=== PATIENT | male | born 1945 | race Caucasian/White ===

== ENCOUNTER 2020-07-12 12:35 | Inpatient (IN) ==
[2020-07-12] MEDS ORDERED: ALBUTEROL SULFATE 5 MG/ML NEB SOLUTION BOTTLE NEB ONE (12:52)
[2020-07-12 13:43] LABS: POC INR 2.7 (0.8-1.2); POC Pro Time 30.8 sec (11.9-14.5)
--- NOTE | 2020-07-12 13:52 | Emergency Department Note ---
SOB HPI General Chief Complaint: Shortness of Breath/Dyspnea Stated Complaint: shortness of breath Time Seen by Provider: 07/12/20 12:44 Source: EMS Mode of arrival: EMS Limitations: no limitations History of Present Illness HPI Narrative: Narrative: Damion is a pleasant 74-year-old who has had some increasing phlegm over a couple of weeks as well as worse in his shortness of breath which became even more severely worse this morning. He was seen at the emergency department last week at [facility]. He was seen by a primary care provider and placed on Levaquin approximately 3 days ago. He denies fevers chills or sweats. He occasionally feels cold. He has never been intubated although he has had chronic problems with his lungs throughout his life including even as a child. As a child he was multiple weeks and months in the emergency room or in the hospital with pneumonias, spot in each lower lung, and ended up with surgery first on one side and then on the other side (lower lobectomies). He reports that he used his nebulizer approximately 2 times or maybe 3 this morning and had a nebulizer by the EMS. His called EMS because of how short of breath he was. And because he is requiring additional oxygen to get his oximetry up. He initially went to 4 to 6 L/min via nasal cannula and he was right at 90. Previous to that at 2 L/min in the upper 80s. Next he went to 9 L/min to get it up above 94%. EMS gave him an additional nebulizer and were able to get. He has not had any chest discomforts or edema in his legs. He did have a nurse at his house this morning who checked his INR and was told that it was elevated and that he needed to hold his Coumadin today. He has never been a smoker although he spent a lot of time in a pool [place] and so had secondhand smoke. He denies alcohol marijuana or use of drugs. He reports that he has had CHF in the past and needed diuresis in the past. He often needs to get phlegm out to be able to be able to breathe better and easier. Related Data Home Medications Medication Instructions Recorded Confirmed latanoprost 0.005 % eye drops 1 drp OPHTHALMIC QPM ml 08/22/07/12/20 warfarin 7.5 mg tablet 7.5 mg PO QDAY tab 08/23/15 07/12/20 albuterol sulfate 2.5 mg INHALATION BID ml 05/20/17 07/12/20 digoxin 125 mcg (0.125 mg) tablet 125 mcg PO QDAY 05/20/17 07/12/20 montelukast 10 mg tablet 10 mg PO QHS 06/11/17 07/12/20 fluticasone 250 mcg-salmeterol 50 1 inh INHALATION BID 05/06/19 07/12/20 mcg/dose blistr powdr for inhalation furosemide 40 mg tablet 20 mg PO QDAY tab 05/06/19 07/12/20 irbesartan 75 mg tablet 37.5 mg PO QHS tab 05/13/19 07/12/20 propafenone 150 mg tablet 150 mg PO TID tab 03/08/20 07/12/20 Previous Rx's Medication Instructions Recorded ipratropium bromide 2.5 ml NEB Q4HRT ampul.neb 10/24/15 HyperSal 7 % INHALATION BID #240 ml 05/06/19 Noninvasive ventilator.supplies #1 ea 05/13/19 tubing mask Allergies Allergy/AdvReac Type Severity Reaction Status Date / Time Penicillins Allergy Intermediate Fever Verified 03/08/20 10:04 Review of Systems ROS ROS Narrative: Narrative: Denies chest pains or palpitations No nausea or vomiting or diarrhea or constipation problems No dysuria or frequency No joint problems No lightheadedness or dizziness nor headache. He does use eyedrops for glaucoma. [facility] Narrative Patient History Narrative: Narrative: Denies: FL, CVA, DVT/PE. Medical/Surgical/Family History All Active Problems (Updated 07/12/20 @ 17:10 by Gopi Tariq DO) Chronic obstructive pulmonary disease with (acute) exacerbation (Acute) Acute on chronic respiratory failure with hypoxia and hypercapnia (Acute) Anemia in chronic illness (Acute) Chronic anticoagulation (Acute) Glaucoma (Acute) Hypoxemia (Acute) Hypoxia (Chronic) Benign paroxysmal vertigo (Chronic) History of MRSA infection (Chronic) Respiratory failure, chronic (Chronic) Pneumonia, bacterial (Chronic) Paroxysmal atrial fibrillation (Chronic) Hypercholesterolemia (Chronic) Encounter for monitoring dofetilide therapy (Chronic) Elevated PSA (Chronic) CHF (NYHA class III, ACC/AHA stage C) (Chronic) 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) BPH (benign prostatic hyperplasia) (Chronic) Biventricular pacemaker check (Chronic) 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) Vitamin D deficiency (Chronic) Sinus node dysfunction (Chronic) Bradycardia, sinus (Chronic) Artificial pacemaker (Chronic) Hyperglycemia (Chronic) Pure hypercholesterolemia (Chronic) 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) Bronchiectasis (Chronic) Anemia (Chronic) Hyperlipidemia (Chronic) COPD (chronic obstructive pulmonary disease) (Chronic) Atrial fibrillation (Chronic) Medical History (Updated 07/12/20 @ 17:10 by Gopi Tariq DO) Acute upper respiratory infection (Resolved) Anemia (Chronic) Artificial pacemaker (Chronic) Atrial fibrillation (Chronic) Benign paroxysmal vertigo (Chronic) Biventricular pacemaker check (Chronic) BPH (benign prostatic hyperplasia) (Chronic) Bradycardia, sinus (Chronic) Bronchiectasis (Chronic) CHB (complete heart block) (Inactive) CHF (NYHA class III, ACC/AHA stage C) (Chronic) 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) COPD (chronic obstructive pulmonary disease) (Chronic) Elevated PSA (Chronic) Encounter for monitoring dofetilide therapy (Chronic) Encounter for screening for malignant neoplasm of prostate (Inactive) Glaucoma (Acute) History of MRSA infection (Chronic) Hypercholesterolemia (Chronic) Hyperglycemia (Chronic) Hyperlipidemia (Chronic) Hypoxemia (Acute) Hypoxia (Chronic) 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) Paroxysmal atrial fibrillation (Chronic) Pneumonia (Resolved) Pneumonia, bacterial (Chronic) 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) Pure hypercholesterolemia (Chronic) Respiratory failure with hypoxia and hypercapnia (Resolved) Respiratory failure, chronic (Chronic) Sinus node dysfunction (Chronic) SIRS (systemic inflammatory response syndrome) (Resolved) Vitamin D deficiency (Chronic) Surgical History (Updated 07/12/20 @ 13:56 by Gopi Tariq DO) H/O prostate biopsy (Resolved) History of left hip hemiarthroplasty (Acute) History of lobectomy of lung (Chronic) History of permanent cardiac pacemaker placement (Chronic) Status post partial removal of lung (Acute) Patient states he has had bilateral lower lung lobes removed Family History Diabetes mellitus Unknown Type 2 diabetes mellitus Unknown Myocardial Infarction Unknown Brother, Onset Age: 45 Father, Onset Age: 93 Mother, Onset Age: 96 Sister, Onset Age: 50 Glaucoma Unknown Hypertension Unknown Social History Smoking Status: Never smoker Alcohol Intake Frequency: does not drink Substance Use: does not use Exam Narrative Narrative: Narrative: General Limitations: no limitations General appearance: Present alert, in distress (Having significant difficulty feeling like he is getting enough air with using more effort to breathe, etc.) and nontoxic Head Head: Present atraumatic and normocephalic Eye Eye: Present normal appearance, PERRL (Only slightly reactive to light.) and EOMI ENT ENT: Present normal oropharynx, mucous membranes moist (But only slightly. Small amount of thick yellow opacified mucus present posteriorly and on side of his tongue.) and other (Most of the teeth are gone.) Neck Neck: Present trachea midline; Absent lymphadenopathy and thyromegaly Chest Chest: Present symmetric chest wall rise Respiratory Respiratory: Present wheezes (Polyphonic gann expiratory throughout all lung f ields with coarseness. This improved with albuterol heart neb 10 mg.), accessory muscle use (Mildly.) and prolonged expiratory phase (Mildly); Absent respiratory distress, rales/crackles and stridor Cardiovascular Cardiovascular: Present regular rate and normal rhythm; Absent systolic murmur and diastolic murmur Adbominal Abdominal: Present soft; Absent distention, tenderness, guarding, rebound, rigidity, organomegaly and mass Extremities Extremities: Absent pedal edema, pretibial edema, calf tenderness and cyanosis Back Back: Neurological Neurological: Present alert, oriented X3 and CN II-XII intact Psychiatric Psychiatric: Present normal affect, polite and pleasant; Absent depressed, agitated, anxious and poor eye contact Skin Skin: Present warm (WNL) and dry; Absent cyanosis and pallor Course Vital Signs Vital signs: Vital Signs Temperature 98.7 F 07/12/20 12:35 Pulse Rate 93 H 07/12/20 12:35 Respiratory Rate 16 07/12/20 12:35 Blood Pressure 125/56 07/12/20 12:35 Pulse Oximetry (%) 98 07/12/20 12:35 Temperature 98.7 F 07/12/20 12:35 Pulse Rate 87 07/12/20 15:53 Respiratory Rate 24 H 07/12/20 15:53 Blood Pressure 123/57 07/12/20 15:53 Pulse Oximetry (%) 94 07/12/20 15:53 MDM MDM Narrative Medical decision making narrative: Narrative: 1:23 PM - interviewed and examined. Previously I briefly observe patient from the door noting that he was significantly short of breath and wheezing but had stabilized and needed additional treatments. EKG, chest x-ray, labs, ABG with lactic acid, heart neb albuterol ordered. On more thorough exam he now seems to have stabilized somewhat although is still short of breath and wheezing. 1:35 PM approximately - POC INR 2.7. 1:42 PM - ABG today demonstrates a pH 7.43, PCO2 74, PO2 of 64, lactic acid 0.5, base excess markedly elevated at 20.3, bicarb markedly elevated at 49.1. ABG from March 11, 2019 demonst:pH 7.40, PCO2 72, PO2 60, ......... ...............base excess markedly elevated at 16.7, bicarb markedly elevated at 44.6. 1:45 PM - old EKGs demonstrate similar configuration of paced rhythms. 2:16 PM - chest x-ray: History of severe bronchiectasis. Interstitial lung disease which has been slowly progressive since 2013. No acute parenchymal consolidation. 3:29 PM - labs include mild anemia with hemoglobin 11.2, hematocrit 37.3. White count is normal at 9.2. Banded neutrophils is small and percent 1. Chloride is trace low at 95. Carbon dioxide significantly elevated at 37 BUN and creatinine normal at 21/0.8. BNP fairly unremarkable at 560. Troponin less than 0.01. Procalcitonin less than 0.06. 3:40 PM - patient has settled down significantly to a usual oxygen level of 92 to 94% on 2 L but still has some pursed lip breathing. He explains that sometimes he has needed diuresis but that does not appear to be the case based on chest x-ray, pulse, extremities, and BNP today. He has worsened at home with outpatient therapy and became quite severe and acute this morning with hypoxia, respiratory distress, and failed outpatient therapy with multiple nebulizers and required a heart neb to get to his current status. I will discuss with staff possibilities of admission. We will go ahead with a dose of Solu-Medrol. 4:02 PM - I spoke with Dr. Mayberry, fisher pot, who reports that patient does have home vest therapy (percussion/shaking) and he faithfully uses it 2-3 times per day. Patient has severe saccular bronchiectasis. If he is fatigued or having troubles or coming to the emergency room again, he probably has failed outpatient therapy and his work of breathing, fatigue, etc. is certainly an indication of probable need for hospitalization. He recommends adding AFB and fungal smears to the sputum culture and sensitivity to try to diagnose if he has acquired [place] or aspergillosis, etc. He suggests ticarcillin and Cleocin for antibiotics. He suggested a steroid boost now and during any hospital stay and then a 10-day taper and then stay on 10mg/day until he is seen by him. He indicates that if patient feels okay 88% would be adequate. Cranking his oxygen up (pt does this himself) could admittedly be dangerous but it may actually be more of a an effect of washing out his CO2 from his upper airways in the short term giving some benefit. Generic diagnosis, severe compensated chronic hypoventilatory respiratory failure. Patient appears to qualify for observation. Call out to hospitalist. 4:50 PM - spoke with Dr. Ivan, hospitalist, who will accept this patient. digoxin level 0.4 (0.5-0.8) Lab Data Result diagrams: 07/12/20 13:29 07/12/20 13:29 Labs: Lab Results 07/12/20 07/12/20 07/12/20 Range/Units 13:29 13:29 13:29 WBC 9.2 (4.5-11.0) K/mcL RBC 3.79 L (4.50-5.90) M/mcL Hgb 11.2 L (13.5-16.5) g/dL Hct 37.3 L (41.0-55.0) % MCV 98.4 (80.0-100.0) fL MCH 29.6 (26.0-34.0) pg MCHC 30.0 L (31.0-36.0) g/dL RDW 14.4 (11.5-14.5) % Plt Count 186 (140-440) K/mcL MPV 9.7 (7.4-10.4) fL Seg Neutrophils % 78 (38-78) % Band Neutrophils % 1 (0-10) % Lymphocytes % 14 L (15-49) % Monocytes % (Manual) 6 (1-12) % Reactive Lymphocytes 1 (0-2) % Platelet Estimate Normal (Normal) RBC Morphology Abnormal A (Normal) Hypochromasia 1+ A (None Seen) Stomatocytes 1+ A (None Seen) POC PT (11.9-14.5) sec POC INR (0.8-1.2) Sodium 140 (133-145) mmol/L Potassium 4.0 (3.3-5.1) mmol/L Chloride 95 L (96-108) mmol/L Carbon Dioxide 37 H (22-30) mmol/L Anion Gap 8.0 (8.0-16.0) BUN 21 (8-23) mg/dL Creatinine 0.8 (0.7-1.2) mg/dL GFR Calculation 88 Glucose 88 (70-105) mg/dL Calcium 8.8 (8.6-10.4) mg/dL Magnesium (1.6-2.5) mg/dL Total Bilirubin 0.4 (0.1-1.0) mg/dL AST 11 (<40) U/L ALT 8 (<40) U/L Alkaline Phosphatase 75 (39-117) U/L Troponin T (<0.03) ng/mL NT-Pro-B Natriuret Pep 559.6 H (<125.0) pg/mL Total Protein 6.3 (5.9-8.4) gm/dL Albumin 3.4 (3.2-5.2) gm/dL Globulin 2.9 (2.2-3.7) gm/dL Albumin/Globulin Ratio 1.2 (1.0-2.3) Procalcitonin (<0.10) ng/mL Digoxin 0.4 ng/mL 07/12/20 07/12/20 07/12/20 Range/Units 13:29 13:29 13:29 WBC (4.5-11.0) K/mcL RBC (4.50-5.90) M/mcL Hgb (13.5-16.5) g/dL Hct (41.0-55.0) % MCV (80.0-100.0) fL MCH (26.0-34.0) pg MCHC (31.0-36.0) g/dL RDW (11.5-14.5) % Plt Count (140-440) K/mcL MPV (7.4-10.4) fL Seg Neutrophils % (38-78) % Band Neutrophils % (0-10) % Lymphocytes % (15-49) % Monocytes % (Manual) (1-12) % Reactive Lymphocytes (0-2) % Platelet Estimate (Normal) RBC Morphology (Normal) Hypochromasia (None Seen) Stomatocytes (None Seen) POC PT 30.8 H (11.9-14.5) sec POC INR 2.7 H (0.8-1.2) Sodium (133-145) mmol/L Potassium (3.3-5.1) mmol/L Chloride (96-108) mmol/L Carbon Dioxide (22-30) mmol/L Anion Gap (8.0-16.0) BUN (8-23) mg/dL Creatinine (0.7-1.2) mg/dL GFR Calculation Glucose (70-105) mg/dL Calcium (8.6-10.4) mg/dL Magnesium (1.6-2.5) mg/dL Total Bilirubin (0.1-1.0) mg/dL AST (<40) U/L ALT (<40) U/L Alkaline Phosphatase (39-117) U/L Troponin T < 0.01 (<0.03) ng/mL NT-Pro-B Natriuret Pep (<125.0) pg/mL Total Protein (5.9-8.4) gm/dL Albumin (3.2-5.2) gm/dL Globulin (2.2-3.7) gm/dL Albumin/Globulin Ratio (1.0-2.3) Procalcitonin 0.06 (<0.10) ng/mL Digoxin ng/mL 07/12/20 Range/Units 13:29 WBC (4.5-11.0) K/mcL RBC (4.50-5.90) M/mcL Hgb (13.5-16.5) g/dL Hct (41.0-55.0) % MCV (80.0-100.0) fL MCH (26.0-34.0) pg MCHC (31.0-36.0) g/dL RDW (11.5-14.5) % Plt Count (140-440) K/mcL MPV (7.4-10.4) fL Seg Neutrophils % (38-78) % Band Neutrophils % (0-10) % Lymphocytes % (15-49) % Monocytes % (Manual) (1-12) % Reactive Lymphocytes (0-2) % Platelet Estimate (Normal) RBC Morphology (Normal) Hypochromasia (None Seen) Stomatocytes (None Seen) POC PT (11.9-14.5) sec POC INR (0.8-1.2) Sodium (133-145) mmol/L Potassium (3.3-5.1) mmol/L Chloride (96-108) mmol/L Carbon Dioxide (22-30) mmol/L Anion Gap (8.0-16.0) BUN (8-23) mg/dL Creatinine (0.7-1.2) mg/dL GFR Calculation Glucose (70-105) mg/dL Calcium (8.6-10.4) mg/dL Magnesium 2.2 (1.6-2.5) mg/dL Total Bilirubin (0.1-1.0) mg/dL AST (<40) U/L ALT (<40) U/L Alkaline Phosphatase (39-117) U/L Troponin T (<0.03) ng/mL NT-Pro-B Natriuret Pep (<125.0) pg/mL Total Protein (5.9-8.4) gm/dL Albumin (3.2-5.2) gm/dL Globulin (2.2-3.7) gm/dL Albumin/Globulin Ratio (1.0-2.3) Procalcitonin (<0.10) ng/mL Digoxin ng/mL ED POC Tests ED POC Tests: JAYJAY - Influenza A Negative JAYJAY - Influenza B Negative JAYJAY - SARS Antigen Negative Discharge Plan Patient/Caregiver Discharge Instructions Pt seen by DIETITIAN CHIEF/PA only: No Clinical Impression: Chronic obstructive pulmonary disease with (acute) exacerbation, Acute on chronic respiratory failure with hypoxia and hypercapnia, Anemia in chronic illness, Chronic anticoagulation Bronchiectasis Qualifiers: Bronchiectasis type: with acute exacerbation Qualified Code(s): J47.1 - Bronchiectasis with (acute) exacerbation Patient Disposition: Xfer As Outpt/Obs ([facility]) Follow up with: Hortencia Adams MD [Primary Care Provider] - Prescriptions: No Action latanoprost 0.005 % drops 1 drp OPHTHALMIC QPM RF: 0 warfarin 7.5 mg tablet 7.5 mg PO QDAY RF: 0 albuterol sulfate 2.5 mg /3 mL (0.083 %) solution for nebulization 2.5 mg INHALATION BID RF: 0 digoxin [Digox] 125 mcg tablet 125 mcg PO QDAY RF: 0 furosemide 40 mg tablet 20 mg PO QDAY RF: 0 montelukast 10 mg tablet 10 mg PO QHS RF: 0 irbesartan 75 mg tablet 37.5 mg PO QHS RF: 0 fluticasone propion-salmeterol [Wixela Inhub] 250-50 mcg/dose blister with device 1 inh INHALATION BID RF: 0 HyperSal 7 % INHALATION BID Qty: 240 RF: 5 propafenone 150 mg tablet 150 mg PO TID RF: 0 (DME) Noninvasive ventilator.supplies tubing mask Qty: 1 RF: 0 ipratropium bromide 2.5 ML solution 2.5 ml NEB Q4HRT RF: 0
--- NOTE | 2020-07-12 13:58 | XRay Report ---
INDICATION: dyspnea TECHNIQUE: AP portable upright chest x-ray COMPARISON: Previous chest x-rays dated 11/07/2015, 10/19/2015, 02/19/2014. Previous chest CT scan dated 05/27/2012 FINDINGS:Left transvenous pacemaker leads are unchanged Lungs:Patient has a history of severe bronchiectasis. There is interstitial lung disease which has slowly progressed since 2013. Findings are slightly worse, especially at the left lung base left basilar infiltrates may be due to progression of this patient's chronic disease. Superimposed pneumonia is possible. Heart, vascular:No significant cardiomegaly. Pulmonary vascularity is normal. No pulmonary edema or pulmonary congestion Mediastinum, hilario:No mediastinal widening. No hilar mass Pleura:No pleural fluid. No pleural-based mass or calcification Skeletal:Negative. IMPRESSION: 1. History of severe bronchiectasis. 2. Interstitial lung disease which is been slowly progressive since 2013 3. No acute parenchymal consolidation Interpreted and Authenticated by: Prashant Danielson 07/12/20
[2020-07-12 14:20] LABS: Hematocrit 37.3 % (41.0-55.0); Hemoglobin 11.2 g/dL (13.5-16.5); Mean Cell Volume 98.4 fL (80.0-100.0); Mean Platelet Volume 9.7 fL (7.4-10.4); Platelet Count 186 K/mcL (140-440); RBC 3.79 M/mcL (4.50-5.90); Red Cell Distribution Width 14.4 % (11.5-14.5); WBC 9.2 K/mcL (4.5-11.0)
[2020-07-12 14:49] LABS: proBNP 559.6 pg/mL (<125.0)
[2020-07-12 14:51] LABS: Digoxin 0.4 ng/mL
[2020-07-12 14:52] LABS: ALT/SGPT 8 U/L (<40); AST/SGOT 11 U/L (<40); Albumin 3.4 gm/dL (3.2-5.2); Albumin/Globulin Ratio 1.2 (1.0-2.3); Alkaline Phosphatase 75 U/L (39-117); Bilirubin,Total 0.4 mg/dL (0.1-1.0); Blood Urea Nitrogen 21 mg/dL (8-23); Calcium 8.8 mg/dL (8.6-10.4); Carbon Dioxide 37 mmol/L (22-30); Chloride 95 mmol/L (96-108); Globulin 2.9 gm/dL (2.2-3.7); Glomerular Filtration Rate 88; Glucose 88 mg/dL (70-105)
[2020-07-12 14:56] LABS: Band Neutrophils % 1 % (0-10); Hypochromasia 1+ (None Seen); Lymphocytes % 14 % (15-49); Monocytes % (Manual) 6 % (1-12); Platelet Estimate NORMAL (Normal); RBC Morphology ABNORMAL (Normal); Reactive Lymphocytes 1 % (0-2); Segmented Neutrophils % 78 % (38-78); Stomatocytes 1+ (None Seen)
[2020-07-12] MEDS ORDERED: methylPREDNISolone SOD SUCC 125 MG/2 ML VIAL IV ONE (15:47)
[2020-07-12] MEDS ORDERED: CEFEPIME 2 GM VIAL IV SCH (17:00)
--- NOTE | 2020-07-12 17:22 | Internal Med History&Physical ---
HPI History of Present Illness Patient information: Note initiated : 07/12/20 at 5:11 pm Service Date, if different from initiated Date: [] Patient: Nick Hamilton 74 y/o M admitted on for SOB . Chief Complaint: History of present illness: Mr. Hamilton is a 74 year old M with a history of atrial fibrillation/pacemaker, advanced COPD/bronchiectasis follows up with Dr. Mayberry. Patient has been very diligent taking care of self with postural d rainage/CoughAssist maneuver/precautions to prevent flare with aggressive pulmonary toilet. Over the last 2 weeks he has noted increasing purulence/expectoration and volume of drainage every morning. He is usually on 2 L oxygen but has required progressively higher to maintain sats. With worsening symptoms he was evaluated in the ER [place] and was discharged on Levaquin and prednisone however his symptoms fail to improve. He now presents to [facility]. Initial work-up was consistent with COPD exacerbation requiring 8 L oxygen with profound hypoxemia. Patient did respond to IV stero ids/bronchodilators and breathing treatment with improved work of breathing. Subsequently pulmonology was consulted and advised hospitalization for continued treatment of exacerbation . Hospitalist service was consulted. At the time of my evaluation patient is alert in minimal distress. He denies fever, chills but endorses to symptoms of as above. He is unable to perform ADLs due to profound shortness of breath and not improving with his usual drainage maneuvers. He carries a history of lung resection early in life and longstanding bronchiectasis requiring oxygen. He denies smoking or exposure to sick contacts. He is otherwise fairly independent and lives with his Review of systems 10 point review system was performed and is negative except for ones discussed above PFSH PFSH All Active Problems (Updated 07/12/20 @ 17:10 by Gopi Tariq DO) Chronic obstructive pulmonary disease with (acute) exacerbation (Acute) Acute on chronic respiratory failure with hypoxia and hypercapnia (Acute) Anemia in chronic illness (Acute) Chronic anticoagulation (Acute) Glaucoma (Acute) Hypoxemia (Acute) Hypoxia (Chronic) Benign paroxysmal vertigo (Chronic) History of MRSA infection (Chronic) Respiratory failure, chronic (Chronic) Pneumonia, bacterial (Chronic) Paroxysmal atrial fibrillation (Chronic) Hypercholesterolemia (Chronic) Encounter for monitoring dofetilide therapy (Chronic) Elevated PSA (Chronic) CHF (NYHA class III, ACC/AHA stage C) (Chronic) 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) BPH (benign prostatic hyperplasia) (Chronic) Biventricular pacemaker check (Chronic) 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) Vitamin D deficiency (Chronic) Sinus node dysfunction (Chronic) Bradycardia, sinus (Chronic) Artificial pacemaker (Chronic) Hyperglycemia (Chronic) Pure hypercholesterolemia (Chronic) 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) Bronchiectasis (Chronic) Anemia (Chronic) Hyperlipidemia (Chronic) COPD (chronic obstructive pulmonary disease) (Chronic) Atrial fibrillation (Chronic) Medical History (Updated 07/12/20 @ 17:10 by Gopi Tariq DO) Acute upper respiratory infection (Resolved) Anemia (Chronic) Artificial pacemaker (Chronic) Atrial fibrillation (Chronic) Benign paroxysmal vertigo (Chronic) Biventricular pacemaker check (Chronic) BPH (benign prostatic hyperplasia) (Chronic) Bradycardia, sinus (Chronic) Bronchiectasis (Chronic) CHB (complete heart block) (Inactive) CHF (NYHA class III, ACC/AHA stage C) (Chronic) 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) COPD (chronic obstructive pulmonary disease) (Chronic) Elevated PSA (Chronic) Encounter for monitoring dofetilide therapy (Chronic) Encounter for screening for malignant neoplasm of prostate (Inactive) Glaucoma (Acute) History of MRSA infection (Chronic) Hypercholesterolemia (Chronic) Hyperglycemia (Chronic) Hyperlipidemia (Chronic) Hypoxemia (Acute) Hypoxia (Chronic) 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) Paroxysmal atrial fibrillation (Chronic) Pneumonia (Resolved) Pneumonia, bacterial (Chronic) 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) Pure hypercholesterolemia (Chronic) Respiratory failure with hypoxia and hypercapnia (Resolved) Respiratory failure, chronic (Chronic) Sinus node dysfunction (Chronic) SIRS (systemic inflammatory response syndrome) (Resolved) Vitamin D deficiency (Chronic) Surgical History (Updated 07/12/20 @ 13:56 by Gopi Tariq DO) H/O prostate biopsy (Resolved) History of left hip hemiarthroplasty (Acute) History of lobectomy of lung (Chronic) History of permanent cardiac pacemaker placement (Chronic) Status post partial removal of lung (Acute) Patient states he has had bilateral lower lung lobes removed Family History Unknown Glaucoma Myocardial Infarction Hypertension Diabetes mellitus Type 2 diabetes mellitus Brother , Onset Age: 45 Father , Onset Age: 93 Mother , Onset Age: 96 Sister , Onset Age: 50 Social History physical activity: other details: exercise classes; exercise limited by medical condition smoking status: Never smoker alcohol intake frequency: does not drink substance use type: does not use MEDS/ALLERGIES Home Medications and Allergies Home Medications Medication Instructions Recorded Confirmed Type latanoprost 0.005 % eye drops 1 drp OPHTHALMIC QPM ml 08/23/15 07/12/20 History warfarin 7.5 mg tablet 7.5 mg PO QDAY tab 08/23/15 07/12/20 History ipratropium bromide 2.5 ml NEB Q4HRT ampul.neb 10/24/15 07/12/20 Rx albuterol sulfate 2.5 mg INHALATION BID ml 05/20/17 07/12/20 History digoxin 125 mcg (0.125 mg) tablet 125 mcg PO QDAY 05/20/17 07/12/20 History montelukast 10 mg tablet 10 mg PO QHS 06/11/17 07/12/20 History HyperSal 7 % INHALATION BID #240 ml 05/06/19 07/12/20 Rx fluticasone 250 mcg-salmeterol 50 1 inh INHALATION BID 05/06/19 07/12/20 History mcg/dose blistr powdr for inhalation furosemide 40 mg tablet 20 mg PO QDAY tab 05/06/19 07/12/20 History Noninvasive ventilator.supplies #1 ea 05/13/19 07/12/20 Rx tubing mask irbesartan 75 mg tablet 37.5 mg PO QHS tab 05/13/19 07/12/20 History propafenone 150 mg tablet 150 mg PO TID tab 03/08/20 07/12/20 History Allergies Allergy/AdvReac Type Severity Reaction Status Date / Time Penicillins Allergy Intermediate Fever Verified 03/08/20 10:04 EXAM Constitutional Vitals: Temp Pulse Resp BP Pulse Ox 98.7 F 86 24 H 137/69 94 07/12/20 12:35 07/12/20 16:31 07/12/20 16:31 07/12/20 16:31 07/12/20 16:31 Alert oriented but very anxious Head normocephalic Oral cavity moist No ear nose discharge Eye movement symmetrical Neck supple no lymphadenopathy Pacemaker left anterior chest/paced rhythm Labored breathing/extensive crackles bilateral anterior lateral posterior chest, diminished breath sounds bases Nondistended nontender abdomen Lower extremity no cyanosis clubbing or joint swelling Skin no suspicious lesion Psych no hallucination Neuro normal higher function, GCS 15 DATA Data Completed and Pending Labs: Labs from last 24 hours 07/12/20 07/12/20 07/12/20 13:29 13:29 13:29 WBC RBC Hgb Hct MCV MCH MCHC RDW Plt Count MPV Seg Neutrophils % Band Neutrophils % Lymphocytes % Monocytes % (Manual) Reactive Lymphocytes Platelet Estimate RBC Morphology Hypochromasia Stomatocytes POC PT 30.8 H POC INR 2.7 H Sodium Potassium Chloride Carbon Dioxide Anion Gap BUN Creatinine GFR Calculation Glucose Calcium Magnesium 2.2 Total Bilirubin AST ALT Alkaline Phosphatase Troponin T NT-Pro-B Natriuret Pep Total Protein Albumin Globulin Albumin/Globulin Ratio Procalcitonin 0.06 Digoxin 07/12/20 07/12/20 07/12/20 13:29 13:29 13:29 WBC 9.2 RBC 3.79 L Hgb 11.2 L Hct 37.3 L MCV 98.4 MCH 29.6 MCHC 30.0 L RDW 14.4 Plt Count 186 MPV 9.7 Seg Neutrophils % 78 Band Neutrophils % 1 Lymphocytes % 14 L Monocytes % (Manual) 6 Reactive Lymphocytes 1 Platelet Estimate Normal RBC Morphology Abnormal A Hypochromasia 1+ A Stomatocytes 1+ A POC PT POC INR Sodium 140 Potassium 4.0 Chloride 95 L Carbon Dioxide 37 H Anion Gap 8.0 BUN 21 Creatinine 0.8 GFR Calculation 88 Glucose 88 Calcium 8.8 Magnesium Total Bilirubin 0.4 AST 11 ALT 8 Alkaline Phosphatase 75 Troponin T < 0.01 NT-Pro-B Natriuret Pep 559.6 H Total Protein 6.3 Albumin 3.4 Globulin 2.9 Albumin/Globulin Ratio 1.2 Procalcitonin Digoxin 07/12/20 13:29 WBC RBC Hgb Hct MCV MCH MCHC RDW Plt Count MPV Seg Neutrophils % Band Neutrophils % Lymphocytes % Monocytes % (Manual) Reactive Lymphocytes Platelet Estimate RBC Morphology Hypochromasia Stomatocytes POC PT POC INR Sodium Potassium Chloride Carbon Dioxide Anion Gap BUN Creatinine GFR Calculation Glucose Calcium Magnesium Total Bilirubin AST ALT Alkaline Phosphatase Troponin T NT-Pro-B Natriuret Pep Total Protein Albumin Globulin Albumin/Globulin Ratio Procalcitonin Digoxin 0.4 Preliminary micro results at discharge 07/12/20 14:18 Gram Stain - Preliminary Sputum - Expectorated Sputum Culture - Preliminary A/P Narrative A/P Narrative: * Acute exacerbation of COPD with underlying severe bronchitis. Start supplemental oxygen/pulmonary toilet/bronchodilators/steroids and antibiotic coverage. Sputum cultures. History of multidrug-resistant Pseudomonas colonization. * Acute hypoxic respiratory failure continue supplemental oxygen and wean as tolerated. * A. fib rate controlled. Continue anticoagulation for CVA prophylaxis on Coumadin. * History of glaucoma continue latanoprost * prophylaxis on anticoagulation with Coumadin Plan * Observation admit * Antibiotic coverage * Bronchodilators/steroids * Pulmonary toilet * Pre-existing medical condition management as above * PT OT nutrition support * Discharge planning Time Spent With Patient Time: Total time spent is greater than 50% in coordination of care (as documented) at patient's floor/unit and/or counseling patient:
[2020-07-12] MEDS ORDERED: POLYETHYLENE GLYCOL 3350 17 GM PACKET PO PRN (17:31)
[2020-07-12] MEDS ORDERED: BISACODYL 10 MG SUPP.RECT PR PRN (17:31)
[2020-07-12] MEDS ORDERED: MAGNESIUM SULFATE 2 GM/50 ML BAG IV PRN (17:31)
[2020-07-12] MEDS ORDERED: ACETAMINOPHEN 325 MG TABLET PO PRN (17:31)
[2020-07-12] MEDS ORDERED: ACETAMINOPHEN 650 MG/65 ML BAG IV PRN (17:31)
[2020-07-12] MEDS ORDERED: ONDANSETRON 4 MG ODT TABLET SL PRN (17:31)
[2020-07-12] MEDS ORDERED: POTASSIUM CHLORIDE 20 MEQ PACKET PO PRN (17:31)
[2020-07-12] MEDS ORDERED: MELATONIN 3 MG TABLET PO PRN (17:31)
[2020-07-12] MEDS ORDERED: IPRATROPIUM/ALBUTEROL 3 ML AMPUL.NEB NEB PRN (17:31)
[2020-07-12] MEDS ORDERED: ONDANSETRON 4 MG/2 ML VIAL IV PRN (17:31)
[2020-07-12] MEDS ORDERED: VANCOMYCIN PER PHARMACY IV SCH (17:31)
[2020-07-12] MEDS ORDERED: CEFEPIME 2 GM in DEXTROSE 5% IN WATER 50 ML IV SCH (17:31)
[2020-07-12] MEDS ORDERED: NEUTRA PHOS 1 PACKET PO PRN (17:31)
[2020-07-12] MEDS ORDERED: POTASSIUM CHLORIDE 40 MEQ in DEXTROSE 5% IN WATER 500 ML IV PRN (17:31)
[2020-07-12] MEDS: VANCOMYCIN 1,500 MG in 0.9 % SODIUM CHLORIDE 500 ML IV SCH (19:11)
[2020-07-12] MEDS: IPRATROPIUM 2.5 ML AMPUL.NEB NEB SCH ×2 (19:51→23:25)
[2020-07-12] MEDS: ALBUTEROL SULFATE 2.5 MG/3 ML NEBULIZER INH SCH (19:51)
[2020-07-12] MEDS: methylPREDNISolone SOD SUCC 125 MG/2 ML VIAL IV SCH (21:37)
[2020-07-12] MEDS: SENNOSIDES/DOCUSATE SODIUM 1 TAB TABLET PO SCH (21:38)
[2020-07-12] MEDS: DOCUSATE SODIUM 100 MG CAPSULE PO SCH (21:38)
[2020-07-12] MEDS: MONTELUKAST 10 MG TABLET PO SCH (21:38)
[2020-07-12] MEDS: LOSARTAN 25 MG TABLET PO SCH (21:38)
[2020-07-12] MEDS: PROPAFENONE 150 MG TABLET PO SCH ×2 (22:33→23:23)
[2020-07-12] MEDS: LATANOPROST OPHTH DROPS 2.5ML BOTTLE OU SCH (22:33)
[2020-07-12] MEDS: FLUTICASONE/SALMETEROL 250/50 INHALER #14 INH SCH (22:33)
[2020-07-12] MEDS: 0.9 % SODIUM CHLORIDE 10 ML SYRINGE IV SCH (22:53)
[2020-07-12] MEDS: CEFEPIME 2 GM VIAL IV SCH (23:46)
[2020-07-13] MEDS ORDERED: CEFEPIME 2 GM VIAL IV SCH (01:00)
[2020-07-13] MEDS: IPRATROPIUM 2.5 ML AMPUL.NEB NEB SCH ×6 (02:48→23:05)
[2020-07-13] MEDS: methylPREDNISolone SOD SUCC 125 MG/2 ML VIAL IV SCH ×3 (05:49→23:15)
[2020-07-13] MEDS: CEFEPIME 2 GM VIAL IV SCH ×3 (05:49→20:42)
[2020-07-13] MEDS: 0.9 % SODIUM CHLORIDE 10 ML SYRINGE IV SCH ×3 (05:49→20:42)
[2020-07-13 06:52] LABS: Basophils # (Auto) 0 K/mcL (0.00-0.20); Basophils % (Auto) 0 % (0.0-2.0); Eosinophils # (Auto) 0 K/mcL (0.00-0.70); Eosinophils % (Auto) 0 % (0.0-7.0); Hematocrit 36.2 % (41.0-55.0); Hemoglobin 10.8 g/dL (13.5-16.5); Lymphocytes # (Auto) 0.33 K/mcL (1.50-4.80); Lymphocytes % (Auto) 3.7 % (15.0-49.0); Mean Cell Volume 98.1 fL (80.0-100.0); Mean Corpuscular HGB Conc 29.8 g/dL (31.0-36.0); Mean Platelet Volume 9.8 fL (7.4-10.4); Monocytes # (Auto) 0.08 K/mcL (0.10-0.90); Monocytes % (Auto) 0.9 % (1.0-12.0); Neutrophils % (Auto) 95.4 % (38.0-78.0); Platelet Count 182 K/mcL (140-440); RBC 3.69 M/mcL (4.50-5.90); WBC 8.9 K/mcL (4.5-11.0)
[2020-07-13 07:18] LABS: ALT/SGPT 6 U/L (<40); AST/SGOT 12 U/L (<40); Albumin 2.9 gm/dL (3.2-5.2); Albumin/Globulin Ratio 0.9 (1.0-2.3); Alkaline Phosphatase 69 U/L (39-117); Bilirubin,Direct < 0.2 mg/dL (<0.3); Bilirubin,Total 0.3 mg/dL (0.1-1.0); Blood Urea Nitrogen 22 mg/dL (8-23); Calcium 8.9 mg/dL (8.6-10.4); Carbon Dioxide 35 mmol/L (22-30); Chloride 98 mmol/L (96-108); Globulin 3.4 gm/dL (2.2-3.7); Glomerular Filtration Rate 93; Glucose 151 mg/dL (70-105); Lactate Dehydrogenase 172 U/L (135-225); Phosphorous 3.4 mg/dL (2.5-4.5); Triglycerides 42 mg/dL (<150); Uric Acid 3.7 mg/dL (2.5-8.0)
[2020-07-13 07:22] LABS: INR 2.3 (0.9-1.1); Prothrombin Time 26.1 sec (11.9-14.5)
[2020-07-13] MEDS: ALBUTEROL SULFATE 2.5 MG/3 ML NEBULIZER INH SCH ×2 (07:52→19:30)
[2020-07-13] MEDS ORDERED: WARFARIN 7.5 MG TABLET PO SCH (09:00)
[2020-07-13] MEDS: DOCUSATE SODIUM 100 MG CAPSULE PO SCH ×2 (10:52→20:41)
[2020-07-13] MEDS: PROPAFENONE 150 MG TABLET PO SCH ×3 (10:52→20:42)
[2020-07-13] MEDS: FUROSEMIDE 40 MG TABLET PO SCH (10:52)
[2020-07-13] MEDS: VANCOMYCIN 1,500 MG in 0.9 % SODIUM CHLORIDE 500 ML IV SCH (10:53)
[2020-07-13] MEDS: DIGOXIN 125 MCG TABLET PO SCH (10:53)
[2020-07-13] MEDS: MULTIVIT,THER IRON,CA,FA & MIN 1 TABLET PO SCH (10:53)
[2020-07-13] MEDS: FLUTICASONE/SALMETEROL 250/50 INHALER #14 INH SCH ×2 (11:14→20:43)
--- NOTE | 2020-07-13 11:34 | Internal Med Progress Note ---
SUBJECTIVE Subjective Patient information: Note initiated : 07/13/20 at 11:31 am Service Date, if different from initiated Date: [] Patient: Nick Hamilton 74 y/o M admitted on 07/12/20 for SOB . Chief Complaint: [] Interval history: History of present illness: Mr. Hamilton is a 74 year old M with a history of atrial fibrillation/pacemaker, advanced COPD/bronchiectasis follows up with Dr. Mayberry. Patient has been very diligent taking care of self with postural drainage/CoughAssist maneuver/precautions to prevent flare with aggressive pulmonary toilet. Over the last 2 weeks he has noted increasing purulence/expectoration and volume of drainage every morning. He is usually on 2 L oxygen but has required progressively higher to maintain sats. With worsening symptoms he was evaluated in the ER [place] and was discharged on Levaquin and prednisone however his symptoms fail to improve. He now presents to [facility] ER. Initial work-up was consistent with COPD exacerbation requiring 8 L oxygen with profound hypoxemia. Patient did respond to IV steroids/bronchodilators and breathing treatment with improved work of breathing. Subsequently pulmonology was consulted and advised hospitalization for continued treatment of exacerbation . Hospitalist service was consulted. At the time of my evaluation patient is alert in minimal distress. He denies fever, chills but endorses to symptoms of as above. He is unable to perform ADLs due to profound shortness of breath and not improving with his usual drainage maneuvers. He carries a history of lung resection early in life and longstanding bronchiectasis requiring oxygen. He denies smoking or exposure to sick contacts. He is otherwise fairly independent and lives with his 07/14-patient doing a lot better. Persistent copious green-yellow purulent pulmonary drainage ongoing with chest physical therapy/postural drainage maneuvers. On antibiotic coverage. Clinically improving. Feels a lot better this morning. Down to 3 L oxygen. Continuing IV steroids/bronchodilators. White count 8.9. No fever chills nausea vomiting. No additional concerns per nursing staff. Constitutional Vitals: Vital Signs Temp Pulse Resp BP Pulse Ox 98.1 F 96 H 24 H 139/76 91 07/13/20 07:57 07/13/20 08:00 07/13/20 08:00 07/13/20 07:57 07/13/20 08:00 Period Temp Pulse Resp BP Sys/Mukherjee Pulse Ox Last 24 Hr 97.4 F-98.7 F 82-96 14-88 95-145/49-84 90-98 Intake and Output 07/12/20 07/13/20 07/13/20 21:59 05:59 13:59 Intake Total 500 475 440 Output Total 275 625 Balance 225 -150 440 Weight 82.871 kg Alert oriented Nonlabored breathing continues oxygen Minimal anxiety Pacemaker Intake & Output: Intake & Output 07/12/20 07/13/20 07/13/20 21:59 05:59 13:59 Intake Total 500 475 440 Output Total 275 625 Balance 225 -150 440 Weight 82.871 kg Intake: IV 500 Vancomycin 1,500 mg In Sodium 500 Chloride 0.9% 500 ml @ 333.3 mls/hr IV Q24H [facility] Rx#: [id number] Oral 475 440 Output: Void Amount 275 625 Other: Meal Breakfast Percent of Meal Consumed 100% Feeding Ability Independent Urine Appearance Clear Clear Clear Urine Color Dark Yellow Straw Straw Urine Odor Normal Strong Strong OBJ DATA Labs CBC & Chem 7: 07/13/20 05:01 07/13/20 05:01 Labs: Abnormal Lab Results 07/13/20 07/13/20 07/13/20 05:01 05:01 05:01 RBC 3.69 L Hgb 10.8 L Hct 36.2 L MCHC 29.8 L Neut % (Auto) 95.4 H Lymph % (Auto) 3.7 L [place] % (Auto) 0.9 L Lymph # (Auto) 0.33 L [place] # (Auto) 0.08 L Lymphocytes % Absolute Neutrophils 8.47 H RBC Morphology Hypochromasia Stomatocytes POC PT PT 26.1 H POC INR INR 2.3 H Chloride Carbon Dioxide 35 H Anion Gap 7.0 L Glucose 151 H NT-Pro-B Natriuret Pep Albumin 2.9 L Albumin/Globulin Ratio 0.9 L 07/12/20 07/12/20 07/12/20 13:29 13:29 13:29 RBC 3.79 L Hgb 11.2 L Hct 37.3 L MCHC 30.0 L Neut % (Auto) Lymph % (Auto) [place] % (Auto) Lymph # (Auto) [place] # (Auto) Lymphocytes % 14 L Absolute Neutrophils RBC Morphology Abnormal A Hypochromasia 1+ A Stomatocytes 1+ A POC PT 30.8 H PT POC INR 2.7 H INR Chloride 95 L Carbon Dioxide 37 H Anion Gap Glucose NT-Pro-B Natriuret Pep 559.6 H Albumin Albumin/Globulin Ratio Meds: Medications Acetaminophen (Tylenol) 650 mg PO Q4-6HP PRN; Protocol PRN Reason: Per Pain Protocol/Fever > 101 Albuterol Sulfate (Ventolin) 2.5 mg INH BID [facility] Last Admin: 07/13/20 07:52 Dose: 2.5 mg Documented by: Albuterol/Ipratropium (Duoneb) 3 ml NEB Q4HP PRN PRN Reason: Shortness Of Breath Bisacodyl (Dulcolax) 10 mg AK Q2-3DAYS PRN PRN Reason: Constipation Cefepime HCl (Maxipime) 2 gm IV Q8H [facility]; Protocol Last Admin: 07/13/20 05:49 Dose: 2 gm Documented by: Digoxin (Lanoxin) 125 mcg PO QDAY [facility] Last Admin: 07/13/20 10:53 Dose: 125 mcg Documented by: Docusate Sodium (Colace) 100 mg PO BID [facility] Last Admin: 07/13/20 10:52 Dose: 100 mg Documented by: Furosemide (Lasix) 20 mg PO QDAY [facility] Last Admin: 07/13/20 10:52 Dose: 20 mg Documented by: Potassium Chloride 40 meq/ (Dextrose) 520 mls @ 130 mls/hr IV UD PRN PRN Reason: K+ = or < 3.5 Acetaminophen (Ofirmev) 650 mg in 65 mls @ 130 mls/hr IV Q6HP PRN; Protocol PRN Reason: Per Pain Protocol/Fever > 101 Magnesium Sulfate (Magnesium Sulfate) 2 gm in 50 mls @ 50 mls/hr IV UD PRN PRN Reason: MG = or < 1.7 Vancomycin HCl 1,500 mg/ (Sodium Chloride) 500 mls @ 333.3 mls/hr IV Q24H [facility] Last Admin: 07/13/20 10:53 Dose: 333.3 mls/hr Documented by: Ipratropium Hamilton (Atrovent) 2.5 ml NEB Q4HRT [facility] Last Admin: 07/13/20 07:52 Dose: 2.5 ml Documented by: Iron Carb/Multivit/Insulation Estimator/Folic Acid (Multivitamin W/Minerals) 1 tab PO DAILY [facility] Last Admin: 07/13/20 10:53 Dose: 1 tab Documented by: Latanoprost (Xalatan Ophth Drops) 1 gtt OU QPM [facility] Last Admin: 07/12/20 22:33 Dose: Not Given Documented by: Losartan Potassium (Cozaar) 12.5 mg PO QHS [facility] Last Admin: 07/12/20 21:38 Dose: 12.5 mg Documented by: Melatonin (Melatonin 3mg Tablet) 3 mg PO HSP PRN PRN Reason: Insomnia Methylprednisolone Sodium Succinate (Solu-Medrol) 60 mg IV Q8 [facility] Last Admin: 07/13/20 05:49 Dose: 60 mg Documented by: Montelukast Sodium (Singular) 10 mg PO QHS [facility] Last Admin: 07/12/20 21:38 Dose: 10 mg Documented by: Ondansetron HCl (Zofran Odt) 4 mg SL Q4-6HP PRN; Protocol PRN Reason: Nausea And Vomiting Ondansetron HCl (Zofran) 4 mg IV Q4-6HP PRN; Protocol PRN Reason: Nausea And Vomiting Polyethylene Glycol (Miralax) 17 gm PO DAILYP PRN PRN Reason: Constipation Potassium Chloride (Klor-Con) 40 meq PO DAILYP PRN PRN Reason: K+ < 3.5 Potassium/Phosphorus/Sodium (Neutra Phos) 2 packet PO DAILY PRN PRN Reason: PHOS <2.5 Propafenone HCl (Rythmol) 150 mg PO TID [facility] Last Admin: 07/13/20 10:52 Dose: 150 mg Documented by: Fluticasone/Salmeterol (Advair 250-50 Diskus) 1 puff INH BID [facility] Last Admin: 07/13/20 11:14 Dose: Not Given Documented by: Senna/Docusate Sodium (Senna Plus Tablet) 1 tab PO HS [facility] Last Admin: 07/12/20 21:38 Dose: Not Given Documented by: Sodium Chloride (Saline Flush) 10 ml IV Q8 [facility] Last Admin: 07/13/20 05:49 Dose: 10 ml Documented by: Vancomycin HCl (Vancomycin Per Pharmacy) [address] [facility] Protocol Warfarin Sodium (Coumadin Per Pharmacy) [address] [facility]far[place] Sodium (Coumadin) 7.5 mg PO ONCE@1400 ONE Stop: 07/13/20 14:01 A/P Narrative A/P Narrative: * Acute exacerbation of COPD with underlying severe bronchiectasis. Continue supplemental oxygen/pulmonary toilet with CPT/CoughAssist/postural drainage along with bronchodilators/steroids and antibiotic coverage. Sputum cultures polymicrobial. History of multidrug-resistant Pseudomonas colonization. Cont inue cefepime/vancomycin and de-escalate based on sensitivities * Acute hypoxic respiratory failure continue -down to 3 L oxygen. Much improved * A. fib rate controlled. On pacemaker. * Continue anticoagulation for CVA prophylaxis on Coumadin. * History of glaucoma continue latanoprost * prophylaxis on anticoagulation with Coumadin Plan * Antibiotic coverage * Continue bronchodilators/steroids * Aggressive pulmonary toilet * Pre-existing medical condition management as above * PT OT nutrition support * Discharge planning likely in 24 to 40 hours Time Spent With Patient Time: Total time spent is greater than 50% in coordination of care (as documented) at patient's floor/unit and/or counseling patient: QUALITY VTE Deep Vein Thrombosis/Pulmonary Embolism Present on Admission: No
[2020-07-13] MEDS ORDERED: WARFARIN 7.5 MG TABLET PO ONE (14:00)
[2020-07-13] MEDS: SENNOSIDES/DOCUSATE SODIUM 1 TAB TABLET PO SCH (20:41)
[2020-07-13] MEDS: LOSARTAN 25 MG TABLET PO SCH (20:41)
[2020-07-13] MEDS: MONTELUKAST 10 MG TABLET PO SCH (20:41)
[2020-07-13] MEDS: LATANOPROST OPHTH DROPS 2.5ML BOTTLE OU SCH (20:42)
[2020-07-14] MEDS: IPRATROPIUM 2.5 ML AMPUL.NEB NEB SCH ×6 (02:37→22:41)
[2020-07-14] MEDS: 0.9 % SODIUM CHLORIDE 10 ML SYRINGE IV SCH ×3 (05:40→22:20)
[2020-07-14] MEDS: CEFEPIME 2 GM VIAL IV SCH ×3 (05:40→22:20)
[2020-07-14] MEDS: methylPREDNISolone SOD SUCC 125 MG/2 ML VIAL IV SCH ×3 (05:40→21:52)
[2020-07-14 06:34] LABS: Basophils # (Auto) 0.01 K/mcL (0.00-0.20); Basophils % (Auto) 0.1 % (0.0-2.0); Eosinophils # (Auto) 0 K/mcL (0.00-0.70); Eosinophils % (Auto) 0 % (0.0-7.0); Hematocrit 36.6 % (41.0-55.0); Hemoglobin 11.1 g/dL (13.5-16.5); Lymphocytes # (Auto) 0.44 K/mcL (1.50-4.80); Lymphocytes % (Auto) 2.4 % (15.0-49.0); Mean Cell Volume 97.1 fL (80.0-100.0); Mean Corpuscular HGB Conc 30.3 g/dL (31.0-36.0); Mean Platelet Volume 9.7 fL (7.4-10.4); Monocytes # (Auto) 0.32 K/mcL (0.10-0.90); Monocytes % (Auto) 1.7 % (1.0-12.0); Neutrophils % (Auto) 95.8 % (38.0-78.0); Platelet Count 189 K/mcL (140-440); RBC 3.77 M/mcL (4.50-5.90); Red Cell Distribution Width 13.9 % (11.5-14.5); WBC 18.4 K/mcL (4.5-11.0)
[2020-07-14 06:55] LABS: INR 2.5 (0.9-1.1); Prothrombin Time 28.1 sec (11.9-14.5)
[2020-07-14 07:11] LABS: ALT/SGPT 9 U/L (<40); AST/SGOT 11 U/L (<40); Albumin/Globulin Ratio 1.1 (1.0-2.3); Alkaline Phosphatase 69 U/L (39-117); Bilirubin,Direct < 0.2 mg/dL (<0.3); Bilirubin,Total 0.2 mg/dL (0.1-1.0); Blood Urea Nitrogen 22 mg/dL (8-23); Calcium 8.9 mg/dL (8.6-10.4); Carbon Dioxide 37 mmol/L (22-30); Chloride 98 mmol/L (96-108); Globulin 2.8 gm/dL (2.2-3.7); Glomerular Filtration Rate 93; Glucose 152 mg/dL (70-105); Lactate Dehydrogenase 153 U/L (135-225); Phosphorous 2.9 mg/dL (2.5-4.5); Triglycerides 45 mg/dL (<150); Uric Acid 3.9 mg/dL (2.5-8.0)
--- NOTE | 2020-07-14 07:23 | XRay Report ---
INDICATION: Interval Change TECHNIQUE: AP portable upright chest x-ray COMPARISON: Previous chest x-rays dated 07/12/2020, 11/07/2015, 10/19/1959 FINDINGS:No change in left transvenous pacemaker leads Lungs:Diffuse interstitial abnormality is unchanged since 07/12/2020. This is worse since 11/07/2015. As described previously this may be due to chronic interstitial disease. Superimposed acute interstitial pneumonia is possible. Heart, vascular:No evidence for congestive heart failure Mediastinum, hilario:No mediastinal widening. No hilar mass Pleura:Mild chronic blunting of the right costophrenic angle is probably scar Skeletal:Negative. IMPRESSION: 1. Diffuse interstitial abnormality, unchanged since 07/12/2020 2. No new abnormality Interpreted and Authenticated by: Prashant Danielson 07/14/20
[2020-07-14] MEDS: ALBUTEROL SULFATE 2.5 MG/3 ML NEBULIZER INH SCH ×2 (08:01→19:32)
[2020-07-14] MEDS: DOCUSATE SODIUM 100 MG CAPSULE PO SCH ×2 (08:18→21:52)
[2020-07-14] MEDS: FUROSEMIDE 40 MG TABLET PO SCH (08:19)
[2020-07-14] MEDS: DIGOXIN 125 MCG TABLET PO SCH (08:21)
[2020-07-14] MEDS: MULTIVIT,THER IRON,CA,FA & MIN 1 TABLET PO SCH (08:21)
[2020-07-14] MEDS: PROPAFENONE 150 MG TABLET PO SCH ×3 (08:22→21:53)
[2020-07-14] MEDS: VANCOMYCIN 1,500 MG in 0.9 % SODIUM CHLORIDE 500 ML IV SCH ×3 (10:35→21:52)
[2020-07-14] MEDS: FLUTICASONE/SALMETEROL 250/50 INHALER #14 INH SCH ×2 (10:43→22:03)
--- NOTE | 2020-07-14 11:20 | Internal Med Progress Note ---
SUBJECTIVE Subjective Patient information: Note initiated : 07/14/20 at 11:17 am Service Date, if different from initiated Date: [] Patient: Nick Hamilton 74 y/o M admitted on 07/12/20 for SOB . Chief Complaint: [] Interval history: History of present illness: Mr. Hamilton is a 74 year old M with a history of atrial fibrillation/pacemaker, advanced COPD/bronchiectasis follows up with Dr. Mayberry. Patient has been very diligent taking care of self with postural drainage/CoughAssist maneuver/precautions to prevent flare with aggressive pulmonary toilet. Over the last 2 weeks he has noted increasing purulence/expectoration and volume of drainage every morning. He is usually on 2 L oxygen but has required progressively higher to maintain sats. With worsening symptoms he was evaluated in the ER [place] and was discharged on Levaquin and prednisone however his symptoms fail to improve. He now presents to located within [facility] ER. Initial work-up was consistent with COPD exacerbation requiring 8 L oxygen with profound hypoxemia. Patient did respond to IV steroids/bronchodilators and breathing treatment with improved work of breathing. Subsequently pulmonology was consulted and advised hospitalization for continued treatment of exacerbation . Hospitalist service was consulted. At the time of my evaluation patient is alert in minimal distress. He denies fever, chills but endorses to symptoms of as above. He is unable to perform ADLs due to profound shortness of breath and not improving with his usual drainage maneuvers. He carries a history of lung resection early in life and longstanding bronchiectasis requiring oxygen. He denies smoking or exposure to sick contacts. He is otherwise fairly independent and lives with his 07/13-patient doing a lot better. Persistent copious green-yellow purulent pulmonary drainage ongoing with chest physical therapy/postural drainage maneuvers. On antibiotic coverage. Clinically improving. Feels a lot better this morning. Down to 3 L oxygen. Continuing IV steroids/bronchodilators. White count 8.9. No fever chills nausea vomiting. No additional concerns per nursing staff. 07/14-persistent copious amount of purulent expectoration with persistent shortness of breath/hypoxia. Patient clearly not ready for discharge. Transition to inpatient status for continued management of hypoxia spray failure/IV steroids/bronchodilators/pulmonary toilet and antibiotic coverage. White count this morning elevated at 18,400. Patient clinically worse. INR 2.5 on anticoagulation. Constitutional Vitals: Vital Signs Temp Pulse Resp BP Pulse Ox 98.6 F 89 24 H 143/77 91 07/14/20 06:47 07/14/20 06:47 07/14/20 06:47 07/14/20 06:47 07/14/20 08:11 Period Temp Pulse Resp BP Sys/Mkuherjee Pulse Ox Last 24 Hr 97.4 F-98.7 F 84-96 20-30 127-154/73-79 90-94 Intake and Output 07/13/20 07/14/20 07/14/20 21:59 05:59 13:59 Intake Total 1120 300 120 Output Total 700 700 200 Balance 420 -400 -80 Weight 81.692 kg Appears wiped out and short of breath Labored breathing on 3 L oxygen Anxious Unable to talk in full sentences Intake & Output: Intake & Output 07/13/20 07/14/20 07/14/20 21:59 05:59 13:59 Intake Total 1120 300 120 Output Total 700 700 200 Balance 420 -400 -80 Weight 81.692 kg Intake: Oral 1120 300 120 Output: Void Amount 700 700 200 Other: Meal Dinner Breakfast Percent of Meal Consumed 100% 100% Feeding Ability Independent Urine Appearance Clear Clear Clear Urine Color Bright Yellow Bright Yellow Bright Yellow Urine Odor Normal Normal OBJ DATA Labs CBC & Chem 7: 07/14/20 05:31 07/14/20 05:31 Labs: Abnormal Lab Results 07/14/20 07/14/20 07/14/20 05:31 05:31 05:31 WBC 18.4 H RBC 3.77 L Hgb 11.1 L Hct 36.6 L MCHC 30.3 L Neut % (Auto) 95.8 H Lymph % (Auto) 2.4 L [place] % (Auto) Lymph # (Auto) 0.44 L [place] # (Auto) Lymphocytes % Absolute Neutrophils 17.66 H RBC Morphology Hypochromasia Stomatocytes POC PT PT 28.1 H POC INR INR 2.5 H Chloride Carbon Dioxide 37 H Anion Gap 5.0 L Glucose 152 H Magnesium 2.7 H NT-Pro-B Natriuret Pep Total Protein 5.8 L Albumin 3.0 L Albumin/Globulin Ratio 07/13/20 07/13/20 07/13/20 05:01 05:01 05:01 WBC RBC 3.69 L Hgb 10.8 L Hct 36.2 L MCHC 29.8 L Neut % (Auto) 95.4 H Lymph % (Auto) 3.7 L [place] % (Auto) 0.9 L Lymph # (Auto) 0.33 L [place] # (Auto) 0.08 L Lymphocytes % Absolute Neutrophils 8.47 H RBC Morphology Hypochromasia Stomatocytes POC PT PT 26.1 H POC INR INR 2.3 H Chloride Carbon Dioxide 35 H Anion Gap 7.0 L Glucose 151 H Magnesium NT-Pro-B Natriuret Pep Total Protein Albumin 2.9 L Albumin/Globulin Ratio 0.9 L 07/12/20 07/12/20 07/12/20 13:29 13:29 13:29 WBC RBC 3.79 L Hgb 11.2 L Hct 37.3 L MCHC 30.0 L Neut % (Auto) Lymph % (Auto) [place] % (Auto) Lymph # (Auto) [place] # (Auto) Lymphocytes % 14 L Absolute Neutrophils RBC Morphology Abnormal A Hypochromasia 1+ A Stomatocytes 1+ A POC PT 30.8 H PT POC INR 2.7 H INR Chloride 95 L Carbon Dioxide 37 H Anion Gap Glucose Magnesium NT-Pro-B Natriuret Pep 559.6 H Total Protein Albumin Albumin/Globulin Ratio Meds: Medications Acetaminophen (Tylenol) 650 mg PO Q4-6HP PRN; Protocol PRN Reason: Per Pain Protocol/Fever > 101 Albuterol Sulfate (Ventolin) 2.5 mg INH BID [facility] Last Admin: 07/14/20 08:01 Dose: 2.5 mg Documented by: Albuterol/Ipratropium (Duoneb) 3 ml NEB Q4HP PRN PRN Reason: Shortness Of Breath Bisacodyl (Dulcolax) 10 mg [place] Q2-3DAYS PRN PRN Reason: Constipation Cefepime HCl (Maxipime) 2 gm IV Q8H [facility]; Protocol Last Admin: 07/14/20 05:40 Dose: 2 gm Documented by: Digoxin (Lanoxin) 125 mcg PO QDAY [facility] Last Admin: 07/14/20 08:21 Dose: 125 mcg Documented by: Docusate Sodium (Colace) 100 mg PO BID [facility] Last Admin: 07/14/20 08:18 Dose: 100 mg Documented by: Furosemide (Lasix) 20 mg PO QDAY [facility] Last Admin: 07/14/20 08:19 Dose: 20 mg Documented by: Potassium Chloride 40 meq/ (Dextrose) 520 mls @ 130 mls/hr IV UD PRN PRN Reason: K+ = or < 3.5 Acetaminophen (Ofirmev) 650 mg in 65 mls @ 130 mls/hr IV Q6HP PRN; Protocol PRN Reason: Per Pain Protocol/Fever > 101 Magnesium Sulfate (Magnesium Sulfate) 2 gm in 50 mls @ 50 mls/hr IV UD PRN PRN Reason: MG = or < 1.7 Vancomycin HCl 1,500 mg/ (Sodium Chloride) 500 mls @ 333.3 mls/hr IV Q12H [facility] Last Admin: 07/14/20 10:35 Dose: 333.3 mls/hr Documented by: Ipratropium [place] (Atrovent) 2.5 ml NEB Q4HRT [facility] Last Admin: 07/14/20 11:02 Dose: 2.5 ml Documented by: Iron Carb/Multivit/[place]/Folic Acid (Multivitamin W/Minerals) 1 tab PO DAILY [facility] Last Admin: 07/14/20 08:21 Dose: 1 tab Documented by: Latanoprost (Xalatan Ophth Drops) 1 gtt OU QPM [facility] Last Admin: 07/13/20 20:42 Dose: 1 drop Documented by: Losartan Potassium (Cozaar) 12.5 mg PO QHS [facility] Last Admin: 07/13/20 20:41 Dose: 12.5 mg Documented by: Melatonin (Melatonin 3mg Tablet) 3 mg PO HSP PRN PRN Reason: Insomnia Methylprednisolone Sodium Succinate (Solu-Medrol) 60 mg IV Q8 [facility] Last Admin: 07/14/20 05:40 Dose: 60 mg Documented by: Montelukast Sodium (Singular) 10 mg PO QHS [facility] Last Admin: 07/13/20 20:41 Dose: 10 mg Documented by: Ondansetron HCl (Zofran Odt) 4 mg SL Q4-6HP PRN; Protocol PRN Reason: Nausea And Vomiting Ondansetron HCl (Zofran) 4 mg IV Q4-6HP PRN; Protocol PRN Reason: Nausea And Vomiting Polyethylene Glycol (Miralax) 17 gm PO DAILYP PRN PRN Reason: Constipation Potassium Chloride (Klor-Con) 40 meq PO DAILYP PRN PRN Reason: K+ < 3.5 Potassium/Phosphorus/Sodium (Neutra Phos) 2 packet PO DAILY PRN PRN Reason: PHOS <2.5 Propafenone HCl (Rythmol) 150 mg PO TID [facility] Last Admin: 07/14/20 08:22 Dose: 150 mg Documented by: Fluticasone/Salmeterol (Advair 250-50 Diskus) 1 puff INH BID [facility] Last Admin: 07/14/20 10:43 Dose: Not Given Documented by: Senna/Docusate Sodium (Senna Plus Tablet) 1 tab PO HS [facility] Last Admin: 07/13/20 20:41 Dose: 1 tab Documented by: Sodium Chloride (Saline Flush) 10 ml IV Q8 [facility] Last Admin: 07/14/20 05:40 Dose: 10 ml Documented by: Vancomycin HCl (Vancomycin Per Pharmacy) 1 order IV UD [facility]; Protocol Warfarin Sodium (Coumadin Per Pharmacy) 1 order PO UD [facility]AM[facility] Warfarin Sodium (Coumadin) 7.5 mg PO ONCE@1400 ONE Stop: 07/14/20 14:01 A/P Narrative A/P Narrative: * Acute exacerbation of COPD with underlying severe bronchiectasis. Clinical deterioration noted. Continue steroids/bronchodilators/pulmonary toilet and supplemental oxygen. On IV cefepime/vancomycin. Sputum cultures polymicrobial. * Acute hypoxic respiratory failure continue -worsening now on 3 L oxygen. * Dyspnea secondary to above on steroids and bronchodilators. * A. fib rate controlled. On pacemaker. * Continue anticoagulation for CVA prophylaxis on Coumadin. * History of glaucoma continue latanoprost Plan * Continue antibiotic coverage * Continue bronchodilators/steroids/COPD/possible drainage and cough assist * Pre-existing medical condition management as above * PT OT nutrition support * Transition to inpatient status Time Spent With Patient Time: Total time spent is greater than 50% in coordination of care (as documented) at patient's floor/unit and/or counseling patient: QUALITY VTE Deep Vein Thrombosis/Pulmonary Embolism Present on Admission: No
[2020-07-14] MEDS ORDERED: WARFARIN 7.5 MG TABLET PO ONE (14:00)
[2020-07-14] MEDS: LOSARTAN 25 MG TABLET PO SCH (21:52)
[2020-07-14] MEDS: SENNOSIDES/DOCUSATE SODIUM 1 TAB TABLET PO SCH (21:53)
[2020-07-14] MEDS: LATANOPROST OPHTH DROPS 2.5ML BOTTLE OU SCH (22:00)
[2020-07-14] MEDS: MONTELUKAST 10 MG TABLET PO SCH (22:01)
[2020-07-15] MEDS: IPRATROPIUM 2.5 ML AMPUL.NEB NEB SCH ×6 (04:58→23:13)
[2020-07-15] MEDS: CEFEPIME 2 GM VIAL IV SCH ×3 (05:39→21:03)
[2020-07-15] MEDS: 0.9 % SODIUM CHLORIDE 10 ML SYRINGE IV SCH ×3 (05:40→21:05)
[2020-07-15] MEDS: methylPREDNISolone SOD SUCC 125 MG/2 ML VIAL IV SCH ×3 (05:40→21:05)
[2020-07-15 07:07] LABS: Basophils # (Auto) 0.02 K/mcL (0.00-0.20); Basophils % (Auto) 0.1 % (0.0-2.0); Eosinophils # (Auto) 0 K/mcL (0.00-0.70); Eosinophils % (Auto) 0 % (0.0-7.0); Hematocrit 50.3 % (41.0-55.0); Hemoglobin 15.8 g/dL (13.5-16.5); Lymphocytes % (Auto) 2.5 % (15.0-49.0); Mean Cell Volume 96.5 fL (80.0-100.0); Mean Corpuscular HGB Conc 31.4 g/dL (31.0-36.0); Monocytes % (Auto) 1.9 % (1.0-12.0); Neutrophils % (Auto) 95.5 % (38.0-78.0); Platelet Count 80 K/mcL (140-440); RBC 5.21 M/mcL (4.50-5.90); Red Cell Distribution Width 14.4 % (11.5-14.5); WBC 15.8 K/mcL (4.5-11.0)
[2020-07-15 07:11] LABS: INR 3.1 (0.9-1.1); Prothrombin Time 33.6 sec (11.9-14.5)
[2020-07-15 07:26] LABS: ALT/SGPT 9 U/L (<40); AST/SGOT 11 U/L (<40); Albumin/Globulin Ratio 1.1 (1.0-2.3); Alkaline Phosphatase 64 U/L (39-117); Bilirubin,Direct < 0.2 mg/dL (<0.3); Bilirubin,Total 0.2 mg/dL (0.1-1.0); Blood Urea Nitrogen 26 mg/dL (8-23); Calcium 8.9 mg/dL (8.6-10.4); Carbon Dioxide 34 mmol/L (22-30); Chloride 99 mmol/L (96-108); Globulin 2.7 gm/dL (2.2-3.7); Glomerular Filtration Rate 93; Glucose 142 mg/dL (70-105); Lactate Dehydrogenase 176 U/L (135-225); Triglycerides 50 mg/dL (<150); Uric Acid 3.6 mg/dL (2.5-8.0)
[2020-07-15] MEDS: ALBUTEROL SULFATE 2.5 MG/3 ML NEBULIZER INH SCH ×2 (07:32→19:11)
[2020-07-15] MEDS: FUROSEMIDE 40 MG TABLET PO SCH (08:21)
[2020-07-15] MEDS: FLUTICASONE/SALMETEROL 250/50 INHALER #14 INH SCH ×2 (08:21→21:06)
[2020-07-15] MEDS: DIGOXIN 125 MCG TABLET PO SCH (08:21)
[2020-07-15] MEDS: DOCUSATE SODIUM 100 MG CAPSULE PO SCH ×2 (08:21→21:06)
[2020-07-15] MEDS: MULTIVIT,THER IRON,CA,FA & MIN 1 TABLET PO SCH (08:22)
[2020-07-15] MEDS: PROPAFENONE 150 MG TABLET PO SCH ×3 (08:22→21:03)
--- NOTE | 2020-07-15 10:34 | Internal Med Progress Note ---
SUBJECTIVE Subjective Patient information: Note initiated : 07/15/20 at 10:30 am Service Date, if different from initiated Date: [] Patient: Nick Hamilton 74 y/o M admitted on 07/14/20 for SOB . Chief Complaint: [] Interval history: History of present illness: Mr. Hamilton is a 74 year old M with a history of atrial fibrillation/pacemaker, advanced COPD/bronchiectasis follows up with Dr. Mayberry. Patient has been very diligent taking care of self with postural drainage/CoughAssist maneuver/precautions to prevent flare with aggressive pulmonary toilet. Over the last 2 weeks he has noted increasing purulence/expectoration and volume of drainage every morning. He is usually on 2 L oxygen but has required progressively higher to maintain sats. With worsening symptoms he was evaluated in the ER [place] and was discharged on Levaquin and prednisone however his symptoms fail to improve. He now presents to [facility] ER. Initial work-up was consistent with COPD exacerbation requiring 8 L oxygen with profound hypoxemia. Patient did respond to IV steroids/bronchodilators and breathing treatment with improved work of breathing. Subsequently pulmonology was consulted and advised hospitalization for continued treatment of exacerbation . Hospitalist service was consulted. At the time of my evaluation patient is alert in minimal distress. He denies fever, chills but endorses to symptoms of as above. He is unable to perform ADLs due to profound shortness of breath and not improving with his usual drainage maneuvers. He carries a history of lung resection early in life and longstanding bronchiectasis requiring oxygen. He denies smoking or exposure to sick contacts. He is otherwise fairly independent and lives with his 07/13-patient doing a lot better. Persistent copious green-yellow purulent pulmonary drainage ongoing with chest physical therapy/postural drainage maneuvers. On antibiotic coverage. Clinically improving. Feels a lot better this morning. Down to 3 L oxygen. Continuing IV steroids/bronchodilators. White count 8.9. No fever chills nausea vomiting. No additional concerns per nursing staff. 07/14-persistent copious amount of purulent expectoration with persistent shortness of breath/hypoxia. Patient clearly not ready for discharge. Transition to inpatient status for continued management of hypoxia spray failure/IV steroids/bronchodilators/pulmonary toilet and antibiotic coverage. White count this morning elevated at 18,400. Patient clinically worse. INR 2.5 on anticoagulation. 07/15-no major improvement since previous day. Continues to expectorate purulent voluminous sputum. Ongoing CPT/postural drainage/antibiotic coverage. De- escalate to cefepime/clindamycin. Consult pulmonology if no improvement in 48 hours. Cultures negative for AFB, polymicrobial. White count 15.8, interval chest imaging no radiological changes. Constitutional Vitals: Vital Signs Temp Pulse Resp BP Pulse Ox 98.5 F 102 H 24 H 135/75 92 07/15/20 07:08 07/15/20 07:57 07/15/20 07:57 07/15/20 07:08 07/15/20 08:30 Period Temp Pulse Resp BP Sys/Mukherjee Pulse Ox Last 24 Hr 98.2 F-99.1 F 83-102 20-28 127-146/68-78 90-96 Intake and Output 07/14/20 07/15/20 07/15/20 21:59 05:59 13:59 Intake Total 240 800 480 Output Total 300 550 Balance -60 250 480 Weight 80.014 kg Alert oriented, short of breath unable to talk in full sentences. On 3 L oxygen Nondistended abdomen No lymphedema Intake & Output: Intake & Output 07/14/20 07/15/20 07/15/20 21:59 05:59 13:59 Intake Total 240 800 480 Output Total 300 550 Balance -60 250 480 Weight 80.014 kg Intake: IV 500 Vancomycin 1,500 mg In Sodium 500 Chloride 0.9% 500 ml @ 333.3 mls/hr IV Q12H [facility] Rx#: [id number] Oral 240 300 480 Output: Void Amount 300 550 Other: Meal Lunch Breakfast Percent of Meal Consumed 50% 100% Feeding Ability Independent Independent Urine Appearance Clear Urine Color Dark Yellow # Voids 1 # Bowel Movements 1 OBJ DATA Labs CBC & Chem 7: 07/15/20 05:32 07/15/20 05:32 Labs: Abnormal Lab Results 07/15/20 07/15/20 07/15/20 05:32 05:32 05:25 WBC 15.8 H RBC Hgb Hct MCHC Plt Count 80 L Neut % (Auto) 95.5 H Lymph % (Auto) 2.5 L [place] % (Auto) Lymph # (Auto) 0.40 L [place] # (Auto) Lymphocytes % Absolute Neutrophils 15.06 H RBC Morphology Hypochromasia Stomatocytes POC PT PT 33.6 H POC INR INR 3.1 H Chloride Carbon Dioxide 34 H Anion Gap 5.0 L BUN 26 H Glucose 142 H Magnesium GGT 7 L NT-Pro-B Natriuret Pep Total Protein 5.7 L Albumin 3.0 L Albumin/Globulin Ratio 07/14/20 07/14/20 07/14/20 05:31 05:31 05:31 WBC 18.4 H RBC 3.77 L Hgb 11.1 L Hct 36.6 L MCHC 30.3 L Plt Count Neut % (Auto) 95.8 H Lymph % (Auto) 2.4 L [place] % (Auto) Lymph # (Auto) 0.44 L [place] # (Auto) Lymphocytes % Absolute Neutrophils 17.66 H RBC Morphology Hypochromasia Stomatocytes POC PT PT 28.1 H POC INR INR 2.5 H Chloride Carbon Dioxide 37 H Anion Gap 5.0 L BUN Glucose 152 H Magnesium 2.7 H GGT NT-Pro-B Natriuret Pep Total Protein 5.8 L Albumin 3.0 L Albumin/Globulin Ratio 07/13/20 07/13/20 07/13/20 05:01 05:01 05:01 WBC RBC 3.69 L Hgb 10.8 L Hct 36.2 L MCHC 29.8 L Plt Count Neut % (Auto) 95.4 H Lymph % (Auto) 3.7 L [place] % (Auto) 0.9 L Lymph # (Auto) 0.33 L [place] # (Auto) 0.08 L Lymphocytes % Absolute Neutrophils 8.47 H RBC Morphology Hypochromasia Stomatocytes POC PT PT 26.1 H POC INR INR 2.3 H Chloride Carbon Dioxide 35 H Anion Gap 7.0 L BUN Glucose 151 H Magnesium GGT NT-Pro-B Natriuret Pep Total Protein Albumin 2.9 L Albumin/Globulin Ratio 0.9 L 07/12/20 07/12/20 07/12/20 13:29 13:29 13:29 WBC RBC 3.79 L Hgb 11.2 L Hct 37.3 L MCHC 30.0 L Plt Count Neut % (Auto) Lymph % (Auto) [place] % (Auto) Lymph # (Auto) [place] # (Auto) Lymphocytes % 14 L Absolute Neutrophils RBC Morphology Abnormal A Hypochromasia 1+ A Stomatocytes 1+ A POC PT 30.8 H PT POC INR 2.7 H INR Chloride 95 L Carbon Dioxide 37 H Anion Gap BUN Glucose Magnesium GGT NT-Pro-B Natriuret Pep 559.6 H Total Protein Albumin Albumin/Globulin Ratio Meds: Medications Acetaminophen (Tylenol) 650 mg PO Q4-6HP PRN; Protocol PRN Reason: Per Pain Protocol/Fever > 101 Albuterol Sulfate (Ventolin) 2.5 mg INH BID [facility] Last Admin: 07/15/20 07:32 Dose: 2.5 mg Documented by: Albuterol/Ipratropium (Duoneb) 3 ml NEB Q4HP PRN PRN Reason: Shortness Of Breath Bisacodyl (Dulcolax) 10 mg [place] Q2-3DAYS PRN PRN Reason: Constipation Cefepime HCl (Maxipime) 2 gm IV Q8H [facility]; Protocol Last Admin: 07/15/20 05:39 Dose: 2 gm Documented by: Digoxin (Lanoxin) 125 mcg PO QDAY [facility] Last Admin: 07/15/20 08:21 Dose: 125 mcg Documented by: Docusate Sodium (Colace) 100 mg PO BID [facility] Last Admin: 07/15/20 08:21 Dose: 100 mg Documented by: Furosemide (Lasix) 20 mg PO QDAY [facility] Last Admin: 07/15/20 08:21 Dose: 20 mg Documented by: Potassium Chloride 40 meq/ (Dextrose) 520 mls @ 130 mls/hr IV UD PRN PRN Reason: K+ = or < 3.5 Acetaminophen (Ofirmev) 650 mg in 65 mls @ 130 mls/hr IV Q6HP PRN; Protocol PRN Reason: Per Pain Protocol/Fever > 101 Magnesium Sulfate (Magnesium Sulfate) 2 gm in 50 mls @ 50 mls/hr IV UD PRN PRN Reason: MG = or < 1.7 Clindamycin Phosphate 900 mg/ (Dextrose) 56 mls @ 100 mls/hr IV Q8H [facility]; Protocol Ipratropium [place] (Atrovent) 2.5 ml NEB Q4HRT [facility] Last Admin: 07/15/20 07:32 Dose: 2.5 ml Documented by: Iron Carb/Multivit/[place]/Folic Acid (Multivitamin W/Minerals) 1 tab PO DAILY [facility] Last Admin: 07/15/20 08:22 Dose: 1 tab Documented by: Latanoprost (Xalatan Ophth Drops) 1 gtt OU QPM [facility] Last Admin: 07/14/20 22:00 Dose: 1 drop Documented by: Losartan Potassium (Cozaar) 12.5 mg PO QHS [facility] Last Admin: 07/14/20 21:52 Dose: 12.5 mg Documented by: Melatonin (Melatonin 3mg Tablet) 3 mg PO HSP PRN PRN Reason: Insomnia Methylprednisolone Sodium Succinate (Solu-Medrol) 60 mg IV Q8 [facility] Last Admin: 07/15/20 05:40 Dose: 60 mg Documented by: Montelukast Sodium (Singular) 10 mg PO QHS [facility] Last Admin: 07/14/20 22:01 Dose: 10 mg Documented by: Ondansetron HCl (Zofran Odt) 4 mg SL Q4-6HP PRN; Protocol PRN Reason: Nausea And Vomiting Ondansetron HCl (Zofran) 4 mg IV Q4-6HP PRN; Protocol PRN Reason: Nausea And Vomiting Polyethylene Glycol (Miralax) 17 gm PO DAILYP PRN PRN Reason: Constipation Potassium Chloride (Klor-Con) 40 meq PO DAILYP PRN PRN Reason: K+ < 3.5 Potassium/Phosphorus/Sodium (Neutra Phos) 2 packet PO DAILY PRN PRN Reason: PHOS <2.5 Propafenone HCl (Rythmol) 150 mg PO TID [facility] Last Admin: 07/15/20 08:22 Dose: 150 mg Documented by: Fluticasone/Salmeterol (Advair 250-50 Diskus) 1 puff INH BID [facility] Last Admin: 07/15/20 08:21 Dose: Not Given Documented by: Senna/Docusate Sodium (Senna Plus Tablet) 1 tab PO HS [facility] Last Admin: 07/14/20 21:53 Dose: 1 tab Documented by: Sodium Chloride (Saline Flush) 10 ml IV Q8 [facility] Last Admin: 07/15/20 05:40 Dose: 10 ml Documented by: Warfarin Sodium (Coumadin Per Pharmacy) 1 order PO UD [facility] A/P Narrative A/P Narrative: * Acute exacerbation of COPD with underlying severe bronchiectasis. No clinical improvement last 24 hours. Escalate antibiotics, and clindamycin for anaerobic coverage. Technically not available. Continue cefepime. * Acute hypoxic respiratory failure continue -on 2 to 3 L oxygen increasing to 6-8 while exertion * Dyspnea secondary to above on steroids and bronchodilators. * A. fib rate controlled. On pacemaker. * Continue anticoagulation for CVA prophylaxis on Coumadin. * History of glaucoma continue latanoprost Plan * DC vancomycin, start clindamycin * Continue bronchodilators/steroids/COPD/possible drainage and cough assist * Pre-existing medical condition management as above * PT OT nutrition support * Pulmonology consult if inadequate response to existing treatment Time Spent With Patient Time: Total time spent is greater than 50% in coordination of care (as documented) at patient's floor/unit and/or counseling patient: QUALITY VTE Deep Vein Thrombosis/Pulmonary Embolism Present on Admission: No
[2020-07-15] MEDS: VANCOMYCIN 1,500 MG in 0.9 % SODIUM CHLORIDE 500 ML IV SCH (10:35)
[2020-07-15] MEDS: CLINDAMYCIN 900 MG in DEXTROSE 5% IN WATER 50 ML IV SCH ×2 (11:00→21:02)
[2020-07-15] MEDS: LATANOPROST OPHTH DROPS 2.5ML BOTTLE OU SCH (21:03)
[2020-07-15] MEDS: LOSARTAN 25 MG TABLET PO SCH (21:04)
[2020-07-15] MEDS: MONTELUKAST 10 MG TABLET PO SCH (21:04)
[2020-07-15] MEDS: SENNOSIDES/DOCUSATE SODIUM 1 TAB TABLET PO SCH (21:04)
[2020-07-16] MEDS: IPRATROPIUM 2.5 ML AMPUL.NEB NEB SCH ×6 (03:19→22:51)
[2020-07-16] MEDS: CLINDAMYCIN 900 MG in DEXTROSE 5% IN WATER 50 ML IV SCH ×3 (05:42→22:04)
[2020-07-16] MEDS: methylPREDNISolone SOD SUCC 125 MG/2 ML VIAL IV SCH ×2 (05:43→14:35)
[2020-07-16] MEDS: 0.9 % SODIUM CHLORIDE 10 ML SYRINGE IV SCH ×3 (05:43→22:04)
[2020-07-16] MEDS: CEFEPIME 2 GM VIAL IV SCH ×3 (05:43→22:04)
[2020-07-16 06:42] LABS: Basophils # (Auto) 0.01 K/mcL (0.00-0.20); Basophils % (Auto) 0.1 % (0.0-2.0); Eosinophils # (Auto) 0 K/mcL (0.00-0.70); Eosinophils % (Auto) 0 % (0.0-7.0); Hemoglobin 11.2 g/dL (13.5-16.5); Lymphocytes # (Auto) 0.29 K/mcL (1.50-4.80); Lymphocytes % (Auto) 2.1 % (15.0-49.0); Mean Cell Volume 97.4 fL (80.0-100.0); Mean Corpuscular HGB Conc 30.3 g/dL (31.0-36.0); Mean Platelet Volume 9.5 fL (7.4-10.4); Monocytes # (Auto) 0.27 K/mcL (0.10-0.90); Neutrophils % (Auto) 95.8 % (38.0-78.0); Platelet Count 184 K/mcL (140-440); Red Cell Distribution Width 14.4 % (11.5-14.5); WBC 13.6 K/mcL (4.5-11.0)
[2020-07-16] MEDS: ALBUTEROL SULFATE 2.5 MG/3 ML NEBULIZER INH SCH ×2 (06:59→19:06)
[2020-07-16 07:04] LABS: ALT/SGPT 9 U/L (<40); AST/SGOT 11 U/L (<40); Albumin 3.1 gm/dL (3.2-5.2); Albumin/Globulin Ratio 1.1 (1.0-2.3); Alkaline Phosphatase 66 U/L (39-117); Bilirubin,Direct < 0.2 mg/dL (<0.3); Bilirubin,Total 0.2 mg/dL (0.1-1.0); Blood Urea Nitrogen 29 mg/dL (8-23); Carbon Dioxide 39 mmol/L (22-30); Chloride 97 mmol/L (96-108); Globulin 2.9 gm/dL (2.2-3.7); Glomerular Filtration Rate 99; Glucose 167 mg/dL (70-105); Lactate Dehydrogenase 148 U/L (135-225); Phosphorous 3.6 mg/dL (2.5-4.5); Triglycerides 50 mg/dL (<150); Uric Acid 3.7 mg/dL (2.5-8.0)
[2020-07-16 07:15] LABS: Prothrombin Time 32.2 sec (11.9-14.5)
--- NOTE | 2020-07-16 08:55 | Internal Med Progress Note ---
SUBJECTIVE Subjective Patient information: Note initiated : 07/16/20 at 8:51 am Service Date, if different from initiated Date: [] Patient: Nick Hamilton 74 y/o M admitted on 07/14/20 for SOB . Chief Complaint: [] Interval history: History of present illness: Mr. Hamilton is a 74 year old M with a history of atrial fibrillation/pacemaker, advanced COPD/bronchiectasis follows up with Dr. Mayberry. Patient has been very diligent taking care of s elf with postural drainage/CoughAssist maneuver/precautions to prevent flare with aggressive pulmonary toilet. Over the last 2 weeks he has noted increasing purulence/expectoration and volume of drainage every morning. He is usually on 2 L oxygen but has required progressively higher to maintain sats. With worsening symptoms he was evaluated in the ER [place] and was discharged on Levaquin and prednisone however his symptoms fail to improve. [facility] Initial work-up was consistent with COPD exacerbation requiring 8 L oxygen with profound hypoxemia. Patient did respond to IV steroids/bronchodilators and breathing treatment with improved work of breathing. Subsequently pulmonology was consulted and advised hospitalization for continued treatment of exacerbation . Hospitalist service was consulted. At the time of my evaluation patient is alert in minimal distress. He denies fever, chills but endorses to symptoms of as above. He is unable to perform ADLs due to profound shortness of breath and not improving with his usual drainage maneuvers. He carries a history of lung resection early in life and longstanding bronchiectasis requiring oxygen. He d enies smoking or exposure to sick contacts. He is otherwise fairly independent and lives with his 07/13-patient doing a lot better. Persistent copious green-yellow purulent pulmonary drainage ongoing with chest physical therapy/postural drainage maneuvers. On antibiotic coverage. Clinically improving. Feels a lot better this morning. Down to 3 L oxygen. Continuing IV steroids/bronchodilators. White count 8.9. No fever chills nausea vomiting. No additional concerns per nursing staff. 07/14-persistent copious amount of purulent expectoration with persistent shortness of breath/hypoxia. Patient clearly not ready for discharge. Transition to inpatient status for continued management of hypoxia spray failure/IV steroids/bronchodilators/pulmonary toilet and antibiotic coverage. White count this morning elevated at 18,400. Patient clinically worse. INR 2.5 on anticoagulation. 07/15-no major improvement since previous day. Continues to expectorate purulent voluminous sputum. Ongoing CPT/postural drainage/antibiotic coverage. De- escalate to cefepime/clindamycin. Consult pulmonology if no improvement in 48 hours. Cultures negative for AFB, polymicrobial. White count 15.8, interval chest imaging no radiological changes. 07/16-patient responding well to addition of clindamycin. On 3 to 6 L oxygen this morning. However feels better than previous day. Tolerating diet. Anticipate additional 48 hours antibiotics and discharge on outpatient antibiotic coverage with continued dermatology/CPT/CoughAssist and postural drainage maneuvers recommend follow-up with Dr. Mayberry pulmonology in 10 days. Constitutional Vitals: Vital Signs Temp Pulse Resp BP Pulse Ox 97.9 F 85 22 143/77 95 07/16/20 06:58 07/16/20 08:00 07/16/20 08:00 07/16/20 06:58 07/16/20 08:00 Period Temp Pulse Resp BP Sys/Mukherjee Pulse Ox Last 24 Hr 97.4 F-98.3 F 85-101 20-26 119-143/69-79 92-98 Intake and Output 07/15/20 07/16/20 07/16/20 21:59 05:59 13:59 Intake Total 816 480 56 Output Total 500 400 Balance 316 80 56 Weight 79.742 kg Alert oriented Nonlabored breathing Rapid shallow breathing Diminished breath sounds bases Anxious Intake & Output: Intake & Output 07/15/20 07/16/20 07/16/20 21:59 05:59 13:59 Intake Total 816 480 56 Output Total 500 400 Balance 316 80 56 Weight 79.742 kg Intake: IV 56 56 Cleocin 900 mg In Dextrose 5% 56 56 in Water 50 ml @ 100 mls/hr IV Q8H [facility] Rx#:[id number] Oral 760 480 Output: Void Amount 500 400 Other: Meal Dinner Percent of Meal Consumed 50% Feeding Ability Independent Urine Appearance Clear Clear Clear Urine Color Bright Yellow Bright Yellow Bright Yellow Urine Odor Normal Normal Normal OBJ DATA Labs CBC & Chem 7: 07/16/20 05:50 07/16/20 05:50 Labs: Abnormal Lab Results 07/16/20 07/16/20 07/16/20 05:51 05:50 05:50 WBC 13.6 H RBC 3.80 L Hgb 11.2 L Hct 37.0 L MCHC 30.3 L Plt Count Neut % (Auto) 95.8 H Lymph % (Auto) 2.1 L Lymph # (Auto) 0.29 L Absolute Neutrophils 13.07 H PT 32.2 H INR 3.0 H Carbon Dioxide 39 H Anion Gap 2.0 L BUN 29 H Creatinine 0.6 L Glucose 167 H Magnesium GGT Total Protein Albumin 3.1 L 07/15/20 07/15/20 07/15/20 05:32 05:32 05:25 WBC 15.8 H RBC Hgb Hct MCHC Plt Count 80 L Neut % (Auto) 95.5 H Lymph % (Auto) 2.5 L Lymph # (Auto) 0.40 L Absolute Neutrophils 15.06 H PT 33.6 H INR 3.1 H Carbon Dioxide 34 H Anion Gap 5.0 L BUN 26 H Creatinine Glucose 142 H Magnesium GGT 7 L Total Protein 5.7 L Albumin 3.0 L 07/14/20 07/14/20 07/14/20 05:31 05:31 05:31 WBC 18.4 H RBC 3.77 L Hgb 11.1 L Hct 36.6 L MCHC 30.3 L Plt Count Neut % (Auto) 95.8 H Lymph % (Auto) 2.4 L Lymph # (Auto) 0.44 L Absolute Neutrophils 17.66 H PT 28.1 H INR 2.5 H Carbon Dioxide 37 H Anion Gap 5.0 L BUN Creatinine Glucose 152 H Magnesium 2.7 H GGT Total Protein 5.8 L Albumin 3.0 L Meds: Medications Acetaminophen (Tylenol) 650 mg PO Q4-6HP PRN; Protocol PRN Reason: Per Pain Protocol/Fever > 101 Albuterol Sulfate (Ventolin) 2.5 mg INH BID [facility] Last Admin: 07/16/20 06:59 Dose: 2.5 mg Documented by: Albuterol/Ipratropium (Duoneb) 3 ml NEB Q4HP PRN PRN Reason: Shortness Of Breath Bisacodyl (Dulcolax) 10 mg NV Q2-3DAYS PRN PRN Reason: Constipation Cefepime HCl (Maxipime) 2 gm IV Q8H [facility]; Protocol Last Admin: 07/16/20 05:43 Dose: 2 gm Documented by: Digoxin (Lanoxin) 125 mcg PO QDAY [facility] Last Admin: 07/15/20 08:21 Dose: 125 mcg Documented by: Docusate Sodium (Colace) 100 mg PO BID [facility] Last Admin: 07/15/20 21:06 Dose: 100 mg Documented by: Furosemide (Lasix) 20 mg PO QDAY [facility] Last Admin: 07/15/20 08:21 Dose: 20 mg Documented by: Potassium Chloride 40 meq/ (Dextrose) 520 mls @ 130 mls/hr IV UD PRN PRN Reason: K+ = or < 3.5 Acetaminophen (Ofirmev) 650 mg in 65 mls @ 130 mls/hr IV Q6HP PRN; Protocol PRN Reason: Per Pain Protocol/Fever > 101 Magnesium Sulfate (Magnesium Sulfate) 2 gm in 50 mls @ 50 mls/hr IV UD PRN PRN Reason: MG = or < 1.7 Clindamycin Phosphate 900 mg/ (Dextrose) 56 mls @ 100 mls/hr IV Q8H [facility]; Protocol Last Infusion: 07/16/20 08:25 Dose: Infused Documented by: Ipratropium [place] (Atrovent) 2.5 ml NEB Q4HRT [facility] Last Admin: 07/16/20 06:53 Dose: 2.5 ml Documented by: Iron Carb/Multivit/It Training Specialist/Folic Acid (Multivitamin W/Minerals) 1 tab PO DAILY [facility] Last Admin: 07/15/20 08:22 Dose: 1 tab Documented by: Latanoprost (Xalatan Ophth Drops) 1 gtt OU QPM [facility] Last Admin: 07/15/20 21:03 Dose: 1 drop Documented by: Losartan Potassium (Cozaar) 12.5 mg PO QHS [facility] Last Admin: 07/15/20 21:04 Dose: 12.5 mg Documented by: Melatonin (Melatonin 3mg Tablet) 3 mg PO HSP PRN PRN Reason: Insomnia Methylprednisolone Sodium Succinate (Solu-Medrol) 60 mg IV Q8 [facility] Last Admin: 07/16/20 05:43 Dose: 60 mg Documented by: Montelukast Sodium (Singular) 10 mg PO QHS [facility] Last Admin: 07/15/20 21:04 Dose: 10 mg Documented by: Ondansetron HCl (Zofran Odt) 4 mg SL Q4-6HP PRN; Protocol PRN Reason: Nausea And Vomiting Ondansetron HCl (Zofran) 4 mg IV Q4-6HP PRN; Protocol PRN Reason: Nausea And Vomiting Polyethylene Glycol (Miralax) 17 gm PO DAILYP PRN PRN Reason: Constipation Potassium Chloride (Klor-Con) 40 meq PO DAILYP PRN PRN Reason: K+ < 3.5 Potassium/Phosphorus/Sodium (Neutra Phos) 2 packet PO DAILY PRN PRN Reason: PHOS <2.5 Propafenone HCl (Rythmol) 150 mg PO TID [facility] Last Admin: 07/15/20 21:03 Dose: 150 mg Documented by: Fluticasone/Salmeterol (Advair 250-50 Diskus) 1 puff INH BID [facility] Last Admin: 07/15/20 21:06 Dose: Not Given Documented by: Senna/Docusate Sodium (Senna Plus Tablet) 1 tab PO HS [facility] Last Admin: 07/15/20 21:04 Dose: 1 tab Documented by: Sodium Chloride (Saline Flush) 10 ml IV Q8 [facility] Last Admin: 07/16/20 05:43 Dose: 10 ml Documented by: Warfarin Sodium (Coumadin Per Pharmacy) 1 order PO UD [facility] Warfarin Sodium (Coumadin) 4 mg PO ONCE@1400 ONE Stop: 07/16/20 14:01 A/P Narrative A/P Narrative: * Acute exacerbation of COPD with underlying severe saccular bronchiectasis. Clinical improvement noted with addition of clindamycin. Anticipate additional 48 hours inpatient treatment. * Acute hypoxic respiratory failure continue -on 3 to 6 L oxygen , clinically improved since previous day * Dyspnea secondary to above continue steroids and bronchodilators. * A. fib rate controlled. On pacemaker. * Continue anticoagulation for CVA prophylaxis on Coumadin. * History of glaucoma continue latanoprost Plan * continue clindamycin/cefepime * Continue bronchodilators/steroids/CPT/postural drainage and cough assist * Pre-existing medical condition management as above * PT OT nutrition support * Outpatient pulmonology follow-up in 10 days Time Spent With Patient Time: Total time spent is greater than 50% in coordination of care (as docum ented) at patient's floor/unit and/or counseling patient: QUALITY VTE Deep Vein Thrombosis/Pulmonary Embolism Present on Admission: No
[2020-07-16] MEDS: MULTIVIT,THER IRON,CA,FA & MIN 1 TABLET PO SCH (09:15)
[2020-07-16] MEDS: DOCUSATE SODIUM 100 MG CAPSULE PO SCH ×2 (09:15→22:01)
[2020-07-16] MEDS: FUROSEMIDE 40 MG TABLET PO SCH (09:15)
[2020-07-16] MEDS: PROPAFENONE 150 MG TABLET PO SCH ×3 (09:15→22:11)
[2020-07-16] MEDS: DIGOXIN 125 MCG TABLET PO SCH (09:15)
[2020-07-16] MEDS: FLUTICASONE/SALMETEROL 250/50 INHALER #14 INH SCH ×2 (12:32→22:01)
[2020-07-16] MEDS ORDERED: WARFARIN 2 MG TABLET PO ONE (14:00)
--- NOTE | 2020-07-16 14:02 | Internal Med Progress Note ---
SUBJECTIVE Subjective Patient information: Note initiated : 07/16/20 at 1:55 pm Service Date, if different from initiated Date: [] Patient: Nick Hamilton a 74 y/o M admitted on 07/14/20 for SOB . Chief Complaint: [] Interval history: History of present illness: Mr. Hamilton is a 74 year old M with a history of atrial fibrillation/pacemaker, advanced COPD/bronchiectasis follows up with Dr. Mayberry. Patient has been very diligent taking care of s elf with postural drainage/CoughAssist maneuver/precautions to prevent flare with aggressive pulmonary toilet. Over the last 2 weeks he has noted increasing purulence/expectoration and volume of drainage every morning. He is usually on 2 L oxygen but has required progressively higher to maintain sats. With worsening symptoms he was evaluated in the ER [place] and was discharged on Levaquin and prednisone however his symptoms fail to improve. He now presents to [facility] ER. Initial work-up was consistent with COPD exacerbation requiring 8 L oxygen with profound hypoxemia. Patient did respond to IV steroids/bronchodilators and breathing treatment with improved work of breathing. Subsequently pulmonology was consulted and advised hospitalization for continued treatment of exacerbation . Hospitalist service was consulted. At the time of my evaluation patient is alert in minimal distress. He denies fever, chills but endorses to symptoms of as above. He is unable to perform ADLs due to profound shortness of breath and not improving with his usual drainage maneuvers. He carries a history of lung resection early in life and longstanding bronchiectasis requiring oxygen. He d enies smoking or exposure to sick contacts. He is otherwise fairly independent and lives with his 07/13-patient doing a lot better. Persistent copious green-yellow purulent pulmonary drainage ongoing with chest physical therapy/postural drainage maneuvers. On antibiotic coverage. Clinically improving. Feels a lot better this morning. Down to 3 L oxygen. Continuing IV steroids/bronchodilators. White count 8.9. No fever chills nausea vomiting. No additional concerns per nursing staff. 07/14-persistent copious amount of purulent expectoration with persistent shortness of breath/hypoxia. Patient clearly not ready for discharge. Transition to inpatient status for continued management of hypoxia spray failure/IV steroids/bronchodilators/pulmonary toilet and antibiotic coverage. White count this morning elevated at 18,400. Patient clinically worse. INR 2.5 on anticoagulation. 07/15-no major improvement since previous day. Continues to expectorate purulent voluminous sputum. Ongoing CPT/postural drainage/antibiotic coverage. De- escalate to cefepime/clindamycin. Consult pulmonology if no improvement in 48 hours. Cultures negative for AFB, polymicrobial. White count 15.8, interval chest imaging no radiological changes. 07/16-patient responding well to addition of clindamycin. On 3 to 6 L oxygen this morning. However feels better than previous day. Tolerating diet. Anticipate additional 48 hours antibiotics and discharge on outpatient antibiotic coverage with continued dermatology/CPT/CoughAssist and postural drainage maneuvers recommend follow-up with Dr. Mayberry pulmonology in 10 days. Constitutional Vitals: Vital Signs Temp Pulse Resp BP Pulse Ox 98.5 F 95 H 22 128/75 94 07/16/20 11:06 07/16/20 11:15 07/16/20 11:15 07/16/20 11:06 07/16/20 11:06 Period Temp Pulse Resp BP Sys/Mukherjee Pulse Ox Last 24 Hr 97.7 F-98.5 F 85-101 20-26 119-143/69-79 92-98 Intake and Output 07/15/20 07/16/20 07/16/20 21:59 05:59 13:59 Intake Total 816 480 296 Output Total 500 400 200 Balance 316 80 96 Weight 79.742 kg Intake & Output: Intake & Output 07/15/20 07/16/20 07/16/20 21:59 05:59 13:59 Intake Total 816 480 296 Output Total 500 400 200 Balance 316 80 96 Weight 79.742 kg Intake: IV 56 56 Cleocin 900 mg In Dextrose 5% 56 56 in Water 50 ml @ 100 mls/hr IV Q8H [facility] Rx#:[id number] Oral 760 480 240 Output: Void Amount 500 400 200 Other: Meal Dinner Breakfast Percent of Meal Consumed 50% 100% Feeding Ability Independent Independent Urine Appearance Clear Clear Clear Urine Color Bright Yellow Bright Yellow Bright Yellow Urine Odor Normal Normal Normal Stool Size Moderate Stool Color Brown Stool Consistency Formed Exam: General: Alert, Awake, No acute Distress Eyes/N/T: EOMI, Head/Neck: neck supple, CV: RRR, No murmurs, Pulm: Diminished b/l, no wheezing/rhonchi/rales Abd: soft, nontender, +BS x4 Ext: no clubbing/cyanosis/edema Neuro: Alert, no focal deficits, moves all extremities, Skin: warm/dry OBJ DATA Labs CBC & Chem 7: 07/16/20 05:50 07/16/20 05:50 Labs: Abnormal Lab Results 07/16/20 07/16/20 07/16/20 05:51 05:50 05:50 WBC 13.6 H RBC 3.80 L Hgb 11.2 L Hct 37.0 L MCHC 30.3 L Plt Count Neut % (Auto) 95.8 H Lymph % (Auto) 2.1 L Lymph # (Auto) 0.29 L Absolute Neutrophils 13.07 H PT 32.2 H INR 3.0 H Carbon Dioxide 39 H Anion Gap 2.0 L BUN 29 H Creatinine 0.6 L Glucose 167 H Magnesium GGT Total Protein Albumin 3.1 L 07/15/20 07/15/20 07/15/20 05:32 05:32 05:25 WBC 15.8 H RBC Hgb Hct MCHC Plt Count 80 L Neut % (Auto) 95.5 H Lymph % (Auto) 2.5 L Lymph # (Auto) 0.40 L Absolute Neutrophils 15.06 H PT 33.6 H INR 3.1 H Carbon Dioxide 34 H Anion Gap 5.0 L BUN 26 H Creatinine Glucose 142 H Magnesium GGT 7 L Total Protein 5.7 L Albumin 3.0 L 07/14/20 07/14/20 07/14/20 05:31 05:31 05:31 WBC 18.4 H RBC 3.77 L Hgb 11.1 L Hct 36.6 L MCHC 30.3 L Plt Count Neut % (Auto) 95.8 H Lymph % (Auto) 2.4 L Lymph # (Auto) 0.44 L Absolute Neutrophils 17.66 H PT 28.1 H INR 2.5 H Carbon Dioxide 37 H Anion Gap 5.0 L BUN Creatinine Glucose 152 H Magnesium 2.7 H GGT Total Protein 5.8 L Albumin 3.0 L Meds: Medications Acetaminophen (Tylenol) 650 mg PO Q4-6HP PRN; Protocol PRN Reason: Per Pain Protocol/Fever > 101 Albuterol Sulfate (Ventolin) 2.5 mg INH BID [facility] Last Admin: 07/16/20 06:59 Dose: 2.5 mg Documented by: Albuterol/Ipratropium (Duoneb) 3 ml NEB Q4HP PRN PRN Reason: Shortness Of Breath Bisacodyl (Dulcolax) 10 mg [place] Q2-3DAYS PRN PRN Reason: Constipation Cefepime HCl (Maxipime) 2 gm IV Q8H [facility]; Protocol Last Admin: 07/16/20 05:43 Dose: 2 gm Documented by: Digoxin (Lanoxin) 125 mcg PO QDAY [facility] Last Admin: 07/16/20 09:15 Dose: 125 mcg Documented by: Docusate Sodium (Colace) 100 mg PO BID [facility] Last Admin: 07/16/20 09:15 Dose: 100 mg Documented by: Furosemide (Lasix) 20 mg PO QDAY [facility] Last Admin: 07/16/20 09:15 Dose: 20 mg Documented by: Potassium Chloride 40 meq/ (Dextrose) 520 mls @ 130 mls/hr IV UD PRN PRN Reason: K+ = or < 3.5 Acetaminophen (Ofirmev) 650 mg in 65 mls @ 130 mls/hr IV Q6HP PRN; Protocol PRN Reason: Per Pain Protocol/Fever > 101 Magnesium Sulfate (Magnesium Sulfate) 2 gm in 50 mls @ 50 mls/hr IV UD PRN PRN Reason: MG = or < 1.7 Clindamycin Phosphate 900 mg/ (Dextrose) 56 mls @ 100 mls/hr IV Q8H [facility]; Protoc ol Last Infusion: 07/16/20 08:25 Dose: Infused Documented by: Ipratropium [place] (Atrovent) 2.5 ml NEB Q4HRT [facility] Last Admin: 07/16/20 11:07 Dose: 2.5 ml Documented by: Iron Carb/Multivit/Medical Associate/Folic Acid (Multivitamin W/Minerals) 1 tab PO DAILY [facility] Last Admin: 07/16/20 09:15 Dose: 1 tab Documented by: Latanoprost (Xalatan Ophth Drops) 1 gtt OU QPM [facility] Last Admin: 07/15/20 21:03 Dose: 1 drop Documented by: Losartan Potassium (Cozaar) 12.5 mg PO QHS [facility] Last Admin: 07/15/20 21:04 Dose: 12.5 mg Documented by: Melatonin (Melatonin 3mg Tablet) 3 mg PO HSP PRN PRN Reason: Insomnia Methylprednisolone Sodium Succinate (Solu-Medrol) 60 mg IV Q8 [facility] Last Admin: 07/16/20 05:43 Dose: 60 mg Documented by: Montelukast Sodium (Singular) 10 mg PO QHS [facility] Last Admin: 07/15/20 21:04 Dose: 10 mg Documented by: Ondansetron HCl (Zofran Odt) 4 mg SL Q4-6HP PRN; Protocol PRN Reason: Nausea And Vomiting Ondansetron HCl (Zofran) 4 mg IV Q4-6HP PRN; Protocol PRN Reason: Nausea And Vomiting Polyethylene Glycol (Miralax) 17 gm PO DAILYP PRN PRN Reason: Constipation Potassium Chloride (Klor-Con) 40 meq PO DAILYP PRN PRN Reason: K+ < 3.5 Potassium/Phosphorus/Sodium (Neutra Phos) 2 packet PO DAILY PRN PRN Reason: PHOS <2.5 Propafenone HCl (Rythmol) 150 mg PO TID [facility] Last Admin: 07/16/20 09:15 Dose: 150 mg Documented by: Fluticasone/Salmeterol (Advair 250-50 Diskus) 1 puff INH BID [facility] Last Admin: 07/16/20 12:32 Dose: Not Given Documented by: Senna/Docusate Sodium (Senna Plus Tablet) 1 tab PO HS [facility] Last Admin: 07/15/20 21:04 Dose: 1 tab Documented by: Sodium Chloride (Saline Flush) 10 ml IV Q8 [facility] Last Admin: 07/16/20 05:43 Dose: 10 ml Documented by: Warfarin Sodium (Coumadin Per Pharmacy) 1 order PO [facility] Warfarin Sodium (Coumadin) 4 mg PO ONCE@1400 ONE Stop: 07/16/20 14:01 A/P Narrative A/P Narrative: A: *Acute exacerbation of COPD & severe saccular Bronchiectasis / Pulm fibrosis: -Clinical improvement *Acute on chronic hypoxic respiratory failure(home O2 ): -continue 3 to 6 L oxygen *Dyspnea secondary to above continue steroids and bronchodilators. *AFib: rate controlled. has pacemaker, on coumadin/digoxin/propafenone Plan: -continue clindamycin/cefepime -steroids(wean) -Continue bronchodilators/CPT/postural drainage and cough assist -cont home digoxin/propafenone -PT OT nutrition support -Outpatient pulmonology follow-up in 10 days -ppx: Warfarin per pharmacy Time Spent With Patient Time: Total time spent is greater than 50% in coordination of care (as documented) at patient's floor/unit and/or counseling patient: QUALITY VTE Deep Vein Thrombosis/Pulmonary Embolism Present on Admission: No
[2020-07-16] MEDS ORDERED: methylPREDNISolone SOD SUCC 40 MG/ML VIAL IV SCH (21:00)
[2020-07-16] MEDS: LOSARTAN 25 MG TABLET PO SCH (22:02)
[2020-07-16] MEDS: MONTELUKAST 10 MG TABLET PO SCH (22:02)
[2020-07-16] MEDS: SENNOSIDES/DOCUSATE SODIUM 1 TAB TABLET PO SCH (22:03)
[2020-07-16] MEDS: LATANOPROST OPHTH DROPS 2.5ML BOTTLE OU SCH (22:03)
[2020-07-17] MEDS: IPRATROPIUM 2.5 ML AMPUL.NEB NEB SCH ×6 (03:03→22:51)
[2020-07-17] MEDS: 0.9 % SODIUM CHLORIDE 10 ML SYRINGE IV SCH ×3 (06:10→22:50)
[2020-07-17] MEDS: CEFEPIME 2 GM VIAL IV SCH ×3 (06:10→22:49)
[2020-07-17] MEDS: CLINDAMYCIN 900 MG in DEXTROSE 5% IN WATER 50 ML IV SCH ×3 (06:10→22:49)
[2020-07-17 06:55] LABS: INR 2.6 (0.9-1.1); Prothrombin Time 29.2 sec (11.9-14.5)
[2020-07-17] MEDS: ALBUTEROL SULFATE 2.5 MG/3 ML NEBULIZER INH SCH ×2 (06:59→18:46)
[2020-07-17 07:03] LABS: ALT/SGPT 8 U/L (<40); AST/SGOT 14 U/L (<40); Albumin 2.8 gm/dL (3.2-5.2); Alkaline Phosphatase 63 U/L (39-117); Bilirubin,Direct < 0.2 mg/dL (<0.3); Bilirubin,Total 0.2 mg/dL (0.1-1.0); Blood Urea Nitrogen 29 mg/dL (8-23); Calcium 8.8 mg/dL (8.6-10.4); Carbon Dioxide 37 mmol/L (22-30); Chloride 96 mmol/L (96-108); Globulin 2.9 gm/dL (2.2-3.7); Glomerular Filtration Rate 93; Glucose 124 mg/dL (70-105); Lactate Dehydrogenase 190 U/L (135-225); Phosphorous 3.1 mg/dL (2.5-4.5); Triglycerides 45 mg/dL (<150); Uric Acid 3.6 mg/dL (2.5-8.0)
--- NOTE | 2020-07-17 07:40 | Internal Med Progress Note ---
SUBJECTIVE Subjective Patient information: Note initiated : 07/17/20 at 7:39 am Service Date, if different from initiated Date: [] Patient: Nick Hamilton 74 y/o M admitted on 07/14/20 for SOB . Chief Complaint: [] Interval history: History of present illness: Mr. Hamilton is a 74 year old M with a history of atrial fibrillation/pacemaker, advanced COPD/bronchiectasis follows up with Dr. Mayberry. Patient has been very diligent taking care of s elf with postural drainage/CoughAssist maneuver/precautions to prevent flare with aggressive pulmonary toilet. Over the last 2 weeks he has noted increasing purulence/expectoration and volume of drainage every morning. He is usually on 2 L oxygen but has required progressively higher to maintain sats. With worsening symptoms he was evaluated in the ER [place] and was discharged on Levaquin and prednisone however his symptoms fail to improve. [facility]. Initial work-up was consistent with COPD exacerbation requiring 8 L oxygen with profound hypoxemia. Patient did respond to IV steroids/bronchodilators and breathing treatment with improved work of breathing. Subsequently pulmonology was consulted and advised hospitalization for continued treatment of exacerbation . Hospitalist service was consulted. At the time of my evaluation patient is alert in minimal distress. He denies fever, chills but endorses to symptoms of as above. He is unable to perform ADLs due to profound shortness of breath and not improving with his usual drainage maneuvers. He carries a history of lung resection early in life and longstanding bronchiectasis requiring oxygen. He d enies smoking or exposure to sick contacts. He is otherwise fairly independent and lives with his 07/13-patient doing a lot better. Persistent copious green-yellow purulent pulmonary drainage ongoing with chest physical therapy/postural drainage maneuvers. On antibiotic coverage. Clinically improving. Feels a lot better this morning. Down to 3 L oxygen. Continuing IV steroids/bronchodilators. White count 8.9. No fever chills nausea vomiting. No additional concerns per nursing staff. 07/14-persistent copious amount of purulent expectoration with persistent shortness of breath/hypoxia. Patient clearly not ready for discharge. Transition to inpatient status for continued management of hypoxia spray failure/IV steroids/bronchodilators/pulmonary toilet and antibiotic coverage. White count this morning elevated at 18,400. Patient clinically worse. INR 2.5 on anticoagulation. 07/15-no major improvement since previous day. Continues to expectorate purulent voluminous sputum. Ongoing CPT/postural drainage/antibiotic coverage. De- escalate to cefepime/clindamycin. Consult pulmonology if no improvement in 48 hours. Cultures negative for AFB, polymicrobial. White count 15.8, interval chest imaging no radiological changes. 07/16-patient responding well to addition of clindamycin. On 3 to 6 L oxygen this morning. However feels better than previous day. Tolerating diet. Anticipate additional 48 hours antibiotics and discharge on outpatient antibiotic coverage with continued dermatology/CPT/CoughAssist and postural drainage maneuvers recommend follow-up with Dr. Mayberry pulmonology in 10 days. 07/17 Patient states feels about 60% better. Has continued shortness of breath and cough. At home he is on 3 L of oxygen at rest and 8 L with exertion. He is on 3 L here currently. Weaning down steroids. Review of Systems: denies headache/fever/chills/nausea/vomiting/chest or abdominal pain/diarrhea. Otherwise see above. Constitutional Vitals: Vital Signs Temp Pulse Resp BP Pulse Ox 98.0 F 102 H 24 H 111/64 97 07/17/20 03:03 07/17/20 07:27 07/17/20 07:27 07/17/20 03:03 07/17/20 07:00 Period Temp Pulse Resp BP Sys/Mukherjee Pulse Ox Last 24 Hr 97.9 F-98.5 F 85-102 20-24 111-128/58-75 91-97 Intake and Output 07/16/20 07/17/20 07/17/20 21:59 05:59 13:59 Intake Total 456 456 Output Total 225 500 Balance 231 -44 Weight 79.067 kg Intake & Output: Intake & Output 07/16/20 07/17/20 07/17/20 21:59 05:59 13:59 Intake Total 456 456 Output Total 225 500 Balance 231 -44 Weight 79.067 kg Intake: IV 56 56 Cleocin 900 mg In Dextrose 5% 56 56 in Water 50 ml @ 100 mls/hr IV Q8H [facility] Rx#:[id number] Oral 400 400 Output: Void Amount 225 500 Other: Urine Appearance Clear Urine Color Straw Urine Odor Normal Exam: General: Alert, Awake, No acute Distress Eyes/N/T: EOMI, Head/Neck: neck supple, CV: RRR, No murmurs, Pulm: Diminished and rhonchi b/l, no wheezing Abd: soft, nontender, +BS x4 Ext: no clubbing/cyanosis/edema Neuro: Alert, no focal deficits, moves all extremities, Skin: warm/dry OBJ DATA Labs CBC & Chem 7: 07/16/20 05:50 07/17/20 05:17 Labs: Abnormal Lab Results 07/17/20 07/17/20 07/16/20 05:17 05:17 05:51 WBC RBC Hgb Hct MCHC Plt Count Neut % (Auto) Lymph % (Auto) Lymph # (Auto) Absolute Neutrophils PT 29.2 H 32.2 H INR 2.6 H 3.0 H Carbon Dioxide 37 H Anion Gap 3.0 L BUN 29 H Creatinine Glucose 124 H GGT Total Protein 5.7 L Albumin 2.8 L 07/16/20 07/16/20 07/15/20 05:50 05:50 05:32 WBC 13.6 H RBC 3.80 L Hgb 11.2 L Hct 37.0 L MCHC 30.3 L Plt Count Neut % (Auto) 95.8 H Lymph % (Auto) 2.1 L Lymph # (Auto) 0.29 L Absolute Neutrophils 13.07 H PT INR Carbon Dioxide 39 H 34 H Anion Gap 2.0 L 5.0 L BUN 29 H 26 H Creatinine 0.6 L Glucose 167 H 142 H GGT 7 L Total Protein 5.7 L Albumin 3.1 L 3.0 L 07/15/20 07/15/20 05:32 05:25 WBC 15.8 H RBC Hgb Hct MCHC Plt Count 80 L Neut % (Auto) 95.5 H Lymph % (Auto) 2.5 L Lymph # (Auto) 0.40 L Absolute Neutrophils 15.06 H PT 33.6 H INR 3.1 H Carbon Dioxide Anion Gap BUN Creatinine Glucose GGT Total Protein Albumin Meds: Medications Acetaminophen (Tylenol) 650 mg PO Q4-6HP PRN; Protocol PRN Reason: Per Pain Protocol/Fever > 101 Albuterol Sulfate (Ventolin) 2.5 mg INH BID PARAMJIT Last Admin: 07/17/20 06:59 Dose: 2.5 mg Documented by: Albuterol/Ipratropium (Duoneb) 3 ml NEB Q4HP PRN PRN Reason: Shortness Of Breath Bisacodyl (Dulcolax) 10 mg VA Q2-3DAYS PRN PRN Reason: Constipation Cefepime HCl (Maxipime) 2 gm IV Q8H [facility]; Protocol Last Admin: 07/17/20 06:10 Dose: 2 gm Documented by: Digoxin (Lanoxin) 125 mcg PO QDAY [facility] Last Admin: 07/16/20 09:15 Dose: 125 mcg Documented by: Docusate Sodium (Colace) 100 mg PO BID [facility] Last Admin: 07/16/20 22:01 Dose: 100 mg Documented by: Furosemide (Lasix) 20 mg PO QDAY [facility] Last Admin: 07/16/20 09:15 Dose: 20 mg Documented by: Potassium Chloride 40 meq/ (Dextrose) 520 mls @ 130 mls/hr IV UD PRN PRN Reason: K+ = or < 3.5 Acetaminophen (Ofirmev) 650 mg in 65 mls @ 130 mls/hr IV Q6HP PRN; Protocol PRN Reason: Per Pain Protocol/Fever > 101 Magnesium Sulfate (Magnesium Sulfate) 2 gm in 50 mls @ 50 mls/hr IV UD PRN PRN Reason: MG = or < 1.7 Clindamycin Phosphate 900 mg/ (Dextrose) 56 mls @ 100 mls/hr IV Q8H [facility]; Protocol Last Admin: 07/17/20 06:10 Dose: 100 mls/hr Documented by: Ipratropium Dolores (Atrovent) 2.5 ml NEB Q4HRT [facility] Last Admin: 07/17/20 06:59 Dose: 2.5 ml Documented by: Iron Carb/Multivit/[place]/Folic Acid (Multivitamin W/Minerals) 1 tab PO DAILY [facility] Last Admin: 07/16/20 09:15 Dose: 1 tab Documented by: Latanoprost (Xalatan Ophth Drops) 1 gtt OU QPM [facility] Last Admin: 07/16/20 22:03 Dose: 1 drop Documented by: Losartan Potassium (Cozaar) 12.5 mg PO QHS [facility] Last Admin: 07/16/20 22:02 Dose: 12.5 mg Documented by: Melatonin (Melatonin 3mg Tablet) 3 mg PO HSP PRN PRN Reason: Insomnia Methylprednisolone Sodium Succinate (Solu-Medrol) 40 mg IV Q12 [facility] Last Admin: 07/16/20 22:04 Dose: 40 mg Documented by: Montelukast Sodium (Singular) 10 mg PO QHS [facility] Last Admin: 07/16/20 22:02 Dose: 10 mg Documented by: Ondansetron HCl (Zofran Odt) 4 mg SL Q4-6HP PRN; Protocol PRN Reason: Nausea And Vomiting Ondansetron HCl (Zofran) 4 mg IV Q4-6HP PRN; Protocol PRN Reason: Nausea And Vomiting Polyethylene Glycol (Miralax) 17 gm PO DAILYP PRN PRN Reason: Constipation Potassium Chloride (Klor-Con) 40 meq PO DAILYP PRN PRN Reason: K+ < 3.5 Potassium/Phosphorus/Sodium (Neutra Phos) 2 packet PO DAILY PRN PRN Reason: PHOS <2.5 Propafenone HCl (Rythmol) 150 mg PO TID [facility] Last Admin: 07/16/20 22:11 Dose: 150 mg Documented by: Fluticasone/Salmeterol (Advair 250-50 Diskus) 1 puff INH BID [facility] Last Admin: 07/16/20 22:01 Dose: Not Given Documented by: Senna/Docusate Sodium (Senna Plus Tablet) 1 tab PO HS [facility] Last Admin: 07/16/20 22:03 Dose: 1 tab Documented by: Sodium Chloride (Saline Flush) 10 ml IV Q8 [facility] Last Admin: 07/17/20 06:10 Dose: 10 ml Documented by: Warfarin Sodium (Coumadin Per Pharmacy) 1 order PO UD [facility] A/P Narrative A/P Narrative: A: *Acute exacerbation of COPD & severe saccular Bronchiectasis / Pulm fibrosis (h/o lobectomy): -Clinical improvement - *Acute on chronic hypoxic respiratory failure(home O2 3L@rest and 8 w/Exertion): -continue 3-6 L oxygen *Dyspnea secondary to above continue steroids and bronchodilators. *AFib: rate controlled. has pacemaker, on coumadin/digoxin/propafenone Plan: -continue clindamycin/cefepime -steroids(wean) -Continue bronchodilators/CPT/postural drainage and cough assist -home IH's, prn nebs -cont home digoxin/propafenone -cont home ARB -PT OT nutrition support -Outpatient pulmonology follow-up -ppx: Warfarin per pharmacy Time Spent With Patient Time: Total time spent is greater than 50% in coordination of care (as documented) at patient's floor/unit and/or counseling patient: QUALITY VTE Deep Vein Thrombosis/Pulmonary Embolism Present on Admission: No
[2020-07-17] MEDS: predniSONE 20 MG TABLET PO SCH ×2 (08:15→19:23)
[2020-07-17] MEDS: DIGOXIN 125 MCG TABLET PO SCH (08:16)
[2020-07-17] MEDS: DOCUSATE SODIUM 100 MG CAPSULE PO SCH ×2 (08:16→20:01)
[2020-07-17] MEDS: MULTIVIT,THER IRON,CA,FA & MIN 1 TABLET PO SCH (08:17)
[2020-07-17] MEDS: PROPAFENONE 150 MG TABLET PO SCH ×3 (08:17→20:01)
[2020-07-17] MEDS: FUROSEMIDE 40 MG TABLET PO SCH (08:17)
--- NOTE | 2020-07-17 10:43 | Discharge Summary ---
Discharge Provider Provider Patient information: Note initiated : 07/17/20 at 10:42 am Service Date, if different from initiated Date: [] Patient: Nick Hamilton 74 y/o M admitted on 07/14/20 for SOB . Chief Complaint: [] Date of admission: 07/14/20 11:16 Discharge date: 07/18/20 Primary care physician: Hortencia Adams Consults: 07/12/20 Consult to Physician [CONS] Stat Comment: Consulting Provider: Angel Luis Ivan Reason For Exam: Physician to Consult Discharge Meds Discharge Medications Home Medications latanoprost 0.005 % eye drops 1 drp OPHTHALMIC QPM ml 08/23/15 [History Confirmed 07/12/20 Last Taken 10/16/15 21:00] warfarin 7.5 mg tablet 7.5 mg PO QDAY tab 08/23/15 [History Confirmed 07/12/20 Last Taken 10/11/15 21:00] ipratropium bromide 2.5 ml NEB Q4HRT ampul.neb 10/24/15 [Rx Confirmed 07/12/20 Last Taken Unknown] albuterol sulfate 2.5 mg INHALATION BID ml 05/20/17 [History Confirmed 07/12/20 Last Taken Unknown] digoxin 125 mcg (0.125 mg) tablet 125 mcg PO QDAY 05/20/17 [History Confirmed 07/12/20 Last Taken Unknown] montelukast 10 mg tablet 10 mg PO QHS 06/11/17 [History Confirmed 07/12/20 Last Taken Unknown] HyperSal 7 % INHALATION BID #240 ml 05/06/19 [Rx Confirmed 07/12/20 Last Taken Unknown] fluticasone 250 mcg-salmeterol 50 mcg/dose blistr powdr for inhalation 1 inh INHALATION BID 05/06/19 [History Confirmed 07/12/20 Last Taken Unknown] furosemide 40 mg tablet 20 mg PO QDAY tab 05/06/19 [History Confirmed 07/12/20 Last Taken Unknown] Noninvasive ventilator.supplies tubing mask #1 ea 05/13/19 [Rx Confirmed 07/12/20 Last Taken Unknown] irbesartan 75 mg tablet 37.5 mg PO QHS tab 05/13/19 [History Confirmed 07/12/20 Last Taken Unknown] propafenone 150 mg tablet 150 mg PO TID tab 03/08/20 [History Confirmed 07/12/20 Last Taken Unknown] ciprofloxacin HCl 750 mg PO Q12H #6 tab 07/17/20 [Rx Last Taken Unknown] prednisone 40 mg PO QDAY #1 tab 07/17/20 [Rx Last Taken Unknown] COURSE Hospital Course Hospital course: History of present illness: Mr. Hamilton is a 74 year old M with a history of atrial fibrillation/pacemaker, advanced COPD/bronchiectasis follows up with Dr. Mayberry. Patient has been very diligent taking care of self with postural drainage/CoughAssist maneuver/precautions to prevent flare with aggressive pulmonary toilet. Over the last 2 weeks he has noted increasing purulence/expectoration and volume of drainage every morning. He is usually on 2 L oxygen but has required progressively higher to maintain sats. With worsening symptoms he was evaluated in the ER [place] and was discharged on Levaquin and prednisone however his symptoms fail to improve. He now presents to [facility] ER. Initial work-up was consistent with COPD exacerbation requiring 8 L oxygen with profound hypoxemia. Patient did respond to IV steroids/bronchodilators and breathing treatment with improved work of breathing. Subsequently pulmonology was consulted and advised hospitalization for continued treatment of exacerbation . Hospitalist service was consulted. At the time of my evaluation patient is alert in minimal distress. He denies fever, chills but endorses to symptoms of as above. He is unable to perform ADLs due to profound shortness of breath and not improving with his usual drainage maneuvers. He carries a history of lung resection early in life and longstanding bronchiectasis requiring oxygen. He denies smoking or exposure to sick contacts. He is otherwise fairly independent and lives with his 07/13-patient doing a lot better. Persistent copious green-yellow purulent pulmonary drainage ongoing with chest physical therapy/postural drainage maneuvers. On antibiotic coverage. Clinically improving. Feels a lot better this morning. Down to 3 L oxygen. Continuing IV steroids/bronchodilators. White count 8.9. No fever chills nausea vomiting. No additional concerns per nursing staff. 07/14-persistent copious amount of purulent expectoration with persistent shortness of breath/hypoxia. Patient clearly not ready for discharge. Transition to inpatient status for continued management of hypoxia spray failure/IV steroids/bronchodilators/pulmonary toilet and antibiotic coverage. White count this morning elevated at 18,400. Patient clinically worse. INR 2.5 on anticoagulation. 2/13-no major improvement since previous day. Continues to expectorate purulent voluminous sputum. Ongoing CPT/postural drainage/antibiotic coverage. De- escalate to cefepime/clindamycin. Consult pulmonology if no improvement in 48 hours. Cultures negative for AFB, polymicrobial. White count 15.8, interval chest imaging no radiological changes. 07/16-patient responding well to addition of clindamycin. On 3 to 6 L oxygen this morning. However feels better than previous day. Tolerating diet. Anticipate additional 48 hours antibiotics and discharge on outpatient antibiotic coverage with continued dermatology/CPT/CoughAssist and postural drainage maneuvers recommend follow-up with Dr. Mayberry pulmonology in 10 days. 07/17 Patient states feels about 60% better. Has continued shortness of breath and cough. At home he is on 3 L of oxygen at rest and 8 L with exertion. He is on 3 L here currently. Weaning down steroids. 07/18 No overnight event or new complaints. Stable for discharge. Patient extremely high risk for readmission given age and significant comorbidities and multiple hospitalizations A: *Acute exacerbation of COPD & severe saccular Bronchiectasis / Pulm fibrosis (h/o lobectomy): *Acute on chronic hypoxic respiratory failure(home O2 3L@rest and 8 w/Exertion): *Dyspnea secondary to above continue steroids and bronchodilators. *AFib: rate controlled. has pacemaker, on coumadin/digoxin/propafenone Discharge diagnosis: with underlyingAcute exacerbation of COPD bronchiectasis fibrosis and lobectomy Secondary discharge diagnosis: Acute on chronic hypoxic respiratory failure A. fib Time Spent with Patient Time attestation: Total time spent providing and/or coordinating discharge services: Time spent: Greater than 30 minutes EXAM Constitutional Vitals: Temp Pulse Resp BP Pulse Ox 98.6 F 81 22 124/71 99 07/17/20 07:38 07/17/20 07:38 07/17/20 07:38 07/17/20 07:38 07/17/20 07:38 Discharge Data Data Completed and Pending Labs on day of discharge: Labs from last 24 hours 07/17/20 07/17/20 05:17 05:17 PT 29.2 H INR 2.6 H Sodium 136 Potassium 4.8 Chloride 96 Carbon Dioxide 37 H Anion Gap 3.0 L BUN 29 H Creatinine 0.7 GFR Calculation 93 Glucose 124 H Uric Acid 3.6 Calcium 8.8 Phosphorus 3.1 Magnesium 2.1 Total Bilirubin 0.2 Direct Bilirubin < 0.2 GGT 8 AST 14 ALT 8 Alkaline Phosphatase 63 Lactate Dehydrogenase 190 Total Protein 5.7 L Albumin 2.8 L Globulin 2.9 Albumin/Globulin Ratio 1.0 Triglycerides 45 Preliminary micro results at discharge 07/13/20 11:56 Gram Stain - Preliminary Sputum - Expectorated Sputum Culture - Preliminary Pseudomonas aeruginosa 07/13/20 12:07 Fungal Smear - Preliminary Sputum - Expectorated Discharge Plan Patient/Caregiver Discharge Instructions Activity: increase activity as tolerated Diet: Regular Diet Prescriptions: New prednisone 10 mg tablet 40 mg PO QDAY Qty: 1 RF: 0 ciprofloxacin HCl 750 mg tablet 750 mg PO Q12H Qty: 6 RF: 0 Continued latanoprost 0.005 % drops 1 drp OPHTHALMIC QPM RF: 0 warfarin 7.5 mg tablet 7.5 mg PO QDAY RF: 0 albuterol sulfate 2.5 mg /3 mL (0.083 %) solution for nebulization 2.5 mg INHALATION BID RF: 0 digoxin [Digox] 125 mcg tablet 125 mcg PO QDAY RF: 0 furosemide 40 mg tablet 20 mg PO QDAY RF: 0 montelukast 10 mg tablet 10 mg PO QHS RF: 0 irbesartan 75 mg tablet 37.5 mg PO QHS RF: 0 fluticasone propion-salmeterol [Wixela Inhub] 250-50 mcg/dose blister with device 1 inh INHALATION BID RF: 0 HyperSal 7 % INHALATION BID Qty: 240 RF: 5 propafenone 150 mg tablet 150 mg PO TID RF: 0 (DME) Noninvasive ventilator.supplies tubing mask Qty: 1 RF: 0 ipratropium bromide 2.5 ML solution 2.5 ml NEB Q4HRT RF: 0 Follow Up Plan Follow up with: Lukasz Mayberry MD [Physician] - Hortencia Adams MD [Primary Care Provider] - Patient Disposition: Home, Self-Care Prognosis: Undetermined Overall status at discharge: patient is progressing back to baseline Discharge Orders: Discharge Order (Routine); Ordered 07/18/20 Ordered By: Kain Escamilla [facility] VTE Deep Vein Thrombosis/Pulmonary Embolism Present on Admission: No
[2020-07-17] MEDS: FLUTICASONE/SALMETEROL 250/50 INHALER #14 INH SCH ×2 (11:57→20:00)
[2020-07-17] MEDS ORDERED: WARFARIN 5 MG TABLET PO ONE (14:00)
[2020-07-17] MEDS: MONTELUKAST 10 MG TABLET PO SCH (20:01)
[2020-07-17] MEDS: LATANOPROST OPHTH DROPS 2.5ML BOTTLE OU SCH (20:01)
[2020-07-17] MEDS: SENNOSIDES/DOCUSATE SODIUM 1 TAB TABLET PO SCH (20:01)
[2020-07-17] MEDS: LOSARTAN 25 MG TABLET PO SCH (20:02)
[2020-07-18] MEDS: IPRATROPIUM 2.5 ML AMPUL.NEB NEB SCH ×3 (02:33→12:02)
[2020-07-18] MEDS: 0.9 % SODIUM CHLORIDE 10 ML SYRINGE IV SCH (05:56)
[2020-07-18] MEDS: CEFEPIME 2 GM VIAL IV SCH (05:56)
[2020-07-18] MEDS: CLINDAMYCIN 900 MG in DEXTROSE 5% IN WATER 50 ML IV SCH (05:56)
[2020-07-18 06:57] LABS: INR 2.3 (0.9-1.1); Prothrombin Time 26.2 sec (11.9-14.5)
[2020-07-18] MEDS: ALBUTEROL SULFATE 2.5 MG/3 ML NEBULIZER INH SCH (07:19)
[2020-07-18] MEDS: FLUTICASONE/SALMETEROL 250/50 INHALER #14 INH SCH (07:36)
[2020-07-18] MEDS: MULTIVIT,THER IRON,CA,FA & MIN 1 TABLET PO SCH (08:12)
[2020-07-18] MEDS: DIGOXIN 125 MCG TABLET PO SCH (08:12)
[2020-07-18] MEDS: predniSONE 20 MG TABLET PO SCH (08:12)
[2020-07-18] MEDS: PROPAFENONE 150 MG TABLET PO SCH (08:12)
[2020-07-18] MEDS: DOCUSATE SODIUM 100 MG CAPSULE PO SCH (08:12)
[2020-07-18] MEDS: FUROSEMIDE 40 MG TABLET PO SCH (08:13)
== END 2020-07-18 13:29 | disposition home health service (06) | DRG 190 ==
LOC: MEDSUR 12:35 → ED 12:35 → MEDSUR 17:43
PROVIDERS: ADMIT Internal Medicine; ATTEND Internal Medicine

== ENCOUNTER 2020-08-28 10:02 | Inpatient (IN) ==
[2020-08-28] MEDS ORDERED: methylPREDNISolone SOD SUCC 125 MG/2 ML VIAL IV ONE (10:56)
[2020-08-28] MEDS ORDERED: IPRATROPIUM/ALBUTEROL 3 ML AMPUL.NEB NEB ONE ×2 (10:56→14:14)
[2020-08-28] MEDS ORDERED: cefTRIAXone 1 GM VIAL IV ONE (10:56)
--- NOTE | 2020-08-28 11:04 | Emergency Department Note ---
SOB HPI General Chief Complaint: Shortness of Breath/Dyspnea Stated Complaint: sob Time Seen by Provider: 08/28/20 10:42 Source: patient and EMS Mode of arrival: EMS Limitations: no limitations History of Present Illness HPI Narrative: Narrative: Presents to room T8 via EMS for evaluation of worsening shortness of breath. The patient has a history of COPD and bronchiectasis. He normally treats at home with nebulized treatments and a percussion vest. He states that he has not been feeling well over the last 3 days. He reports that he is used his percussion vest almost hourly however the symptoms seem to be getting worse. He denies any fevers or shaking chills. No night sweats. He does have cough with sputum production. No chest pain. No nausea or vomiting. No lower extremity swelling or calf pain. Symptoms are constant and progressive. No exacerbating or alleviating factors. Related Data Home Medications Medication Instructions Recorded Confirmed latanoprost 0.005 % eye drops 1 drp OPHTHALMIC QPM ml 08/23/15 08/28/20 warfarin 7.5 mg tablet See Rx Instructions .ROUTE 08/23/15 07/27/20 .COMPLEX tab albuterol sulfate 2.5 mg INHALATION BID ml 05/20/17 08/28/20 digoxin 125 mcg (0.125 mg) tablet 125 mcg PO QDAY 05/20/17 08/28/20 montelukast 10 mg tablet 10 mg PO QHS 06/11/17 08/28/20 furosemide 40 mg tablet 20 mg PO QDAY tab 05/06/19 08/28/20 irbesartan 75 mg tablet 37.5 mg PO QHS tab 05/13/19 08/28/20 propafenone 150 mg tablet 225 mg PO TID tab 03/08/20 08/28/20 fluticasone 500 mcg-salmeterol 50 1 inh INHALATION Q12H 07/27/20 07/27/20 mcg/dose blistr powdr for inhalation Previous Rx's Medication Instructions Recorded ipratropium bromide 2.5 ml NEB Q4HRT ampul.neb 10/24/15 HyperSal 7 % INHALATION BID #240 ml 05/06/19 Noninvasive ventilator.supplies #1 ea 05/13/19 tubing mask budesonide 0.5 mg/2 mL suspension 0.5 mg INHALATION BID #120 ml 07/27/20 for nebulization formoterol fumarate 20 mcg/2 mL 2 ml INHALATION BID #120 ml 07/27/20 solution for nebulization revefenacin 175 mcg/3 mL solution 175 mcg INHALATION QDAY #90 ml 07/27/20 for nebulization Allergies Allergy/AdvReac Type Severity Reaction Status Date / Time Penicillins AdvReac Intermediate Fever Verified 08/28/20 10:07 Review of Systems ROS ROS Narrative: Narrative: All systems ED: reviewed and negative except as stated. [facility] Narrative Patient History Narrative: Narrative: Medical/Surgical/Family History All Active Problems (Updated 08/28/20 @ 14:31 by Ricki Siddiqui MD) Acute dyspnea (Acute) Pulmonary edema (Acute) Chronic obstructive pulmonary disease with (acute) exacerbation (Acute) Acute on chronic respiratory failure with hypoxia and hypercapnia (Acute) Anemia in chronic illness (Acute) Chronic anticoagulation (Acute) Glaucoma (Acute) Hypoxemia (Acute) Hypoxia (Chronic) Benign paroxysmal vertigo (Chronic) History of MRSA infection (Chronic) Respiratory failure, chronic (Chronic) Pneumonia, bacterial (Chronic) Paroxysmal atrial fibrillation (Chronic) Hypercholesterolemia (Chronic) Encounter for monitoring dofetilide therapy (Chronic) Elevated PSA (Chronic) CHF (NYHA class III, ACC/AHA stage C) (Chronic) 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) BPH (benign prostatic hyperplasia) (Chronic) Biventricular pacemaker check (Chronic) 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) Vitamin D deficiency (Chronic) Sinus node dysfunction (Chronic) Bradycardia, sinus (Chronic) Artificial pacemaker (Chronic) Hyperglycemia (Chronic) Pure hypercholesterolemia (Chronic) 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) Bronchiectasis (Chronic) Anemia (Chronic) Hyperlipidemia (Chronic) COPD (chronic obstructive pulmonary disease) (Chronic) Atrial fibrillation (Chronic) Medical History (Updated 08/28/20 @ 14:31 by Ricki Siddiqui MD) Acute upper respiratory infection Anemia Artificial pacemaker Atrial fibrillation Benign paroxysmal vertigo Biventricular pacemaker check BPH (benign prostatic hyperplasia) Bradycardia, sinus Bronchiectasis CHB (complete heart block) CHF (NYHA class III, ACC/AHA stage C) Chronic combined systolic and diastolic heart failure COPD (chronic obstructive pulmonary disease) Elevated PSA Encounter for monitoring dofetilide therapy Encounter for screening for malignant neoplasm of prostate Glaucoma History of MRSA infection Hypercholesterolemia Hyperglycemia Hyperlipidemia Hypoxemia Hypoxia MRSA (methicillin resistant Staphylococcus aureus) carrier Paroxysmal atrial fibrillation Pneumonia Pneumonia, bacterial Presence of cardiac resynchronization therapy pacemaker Pure hypercholesterolemia Respiratory failure with hypoxia and hypercapnia Respiratory failure, chronic Sinus node dysfunction SIRS (systemic inflammatory response syndrome) Vitamin D deficiency Surgical History H/O prostate biopsy History of left hip hemiarthroplasty History of lobectomy of lung History of permanent cardiac pacemaker placement Status post partial removal of lung Patient states he has had bilateral lower lung lobes removed Family History Unknown Glaucoma Myocardial Infarction Hypertension Diabetes mellitus Type 2 diabetes mellitus Brother , Onset Age: 45 Father , Onset Age: 93 Mother , Onset Age: 96 Sister , Onset Age: 50 Social History Smoking Status: Never smoker Alcohol Intake Frequency: does not drink Substance Use: does not use Exam Narrative Narrative: Narrative: General Limitations: no limitations General appearance: Present alert and in no apparent distress Head Head: Present atraumatic, normocephalic and normal inspection Eye Eye: Present normal appearance and EOMI; Absent conjunctival injection ENT ENT: Present normal exam and mucous membranes moist Neck Neck: Present normal inspection and trachea midline Respiratory Respiratory: Present normal lung sounds bilaterally, rales/crackles and wheezes; Absent respiratory distress Cardiovascular Cardiovascular: Present regular rate, normal rhythm and normal heart sounds Adbominal Abdominal: Present soft; Absent distention, tenderness, guarding and rebound Extremities Extremities: Present normal inspection; Absent tenderness Back Back: Present normal inspection; Absent tenderness Neurological Neurological: Present alert, oriented X3 and CN II-XII intact; Absent motor sensory deficit Psychiatric Psychiatric: Present normal affect and normal mood Skin Skin: Present warm (WNL) and dry; Absent rash Course Vital Signs Vital signs: Vital Signs Temperature 98.5 F 08/28/20 10:02 Pulse Rate 85 08/28/20 10:02 Respiratory Rate 35 H 08/28/20 10:02 Blood Pressure 131/70 08/28/20 10:02 Pulse Oximetry (%) 90 08/28/20 10:02 Temperature 98.5 F 08/28/20 10:02 Pulse Rate 86 08/28/20 13:31 Respiratory Rate 19 08/28/20 13:31 Blood Pressure 130/69 08/28/20 13:31 Pulse Oximetry (%) 94 08/28/20 13:31 [facility] MDM Narrative Medical decision making narrative: Narrative: Patient presents for evaluation of worsening congestion and shortness of breath in the context of underlying COPD. The patient's chest x-ray shows more of an interstitial infiltrative pattern with chronic findings. There is no focal consolidation however in the context of the patient's BNP being slightly elevated and a history of poor cardiac EF in the past I suspect the patient may have a component of congestive heart failure in addition to COPD exacerbation. There is no obvious pneumonia. The Covid test is negative. The patient did receive 2 nebulizer treatments as well as IV steroids. The patient did receive an empiric dose of IV Rocephin after blood cultures. I did discuss the case with admitting hospitalist. The patient does not obviously volume overloaded on exam however as he does take Lasix we have agreed the patient will benefit from a dose of IV Lasix 40 mg. The patient will be admitted for further evaluation and management. Lab Data Lab results reviewed: Yes I reviewed the patient's lab results. Result diagrams: 08/28/20 10:44 08/28/20 10:44 Labs: Lab Results 08/28/20 08/28/20 08/28/20 Range/Units 10:44 10:44 10:56 WBC 6.5 (4.5-11.0) K/mcL RBC 3.95 L (4.50-5.90) M/mcL Hgb 11.8 L (13.5-16.5) g/dL Hct 38.4 L (41.0-55.0) % MCV 97.2 (80.0-100.0) fL MCH 29.9 (26.0-34.0) pg MCHC 30.7 L (31.0-36.0) g/dL RDW 13.2 (11.5-14.5) % Plt Count 223 (140-440) K/mcL MPV 9.7 (7.4-10.4) fL Seg Neutrophils % 51 (38-78) % Band Neutrophils % 22 H (0-10) % Lymphocytes % 19 (15-49) % Monocytes % (Manual) 3 (1-12) % Eosinophils % (Manual) 4 (0-7) % Reactive Lymphocytes 1 (0-2) % Platelet Estimate Normal (Normal) RBC Morphology Normal (Normal) VBG Lactic Acid 0.7 (0.5-2.0) mmol/L Sodium 137 (133-145) mmol/L Potassium 4.5 (3.3-5.1) mmol/L Chloride 94 L (96-108) mmol/L Carbon Dioxide 36 H (22-30) mmol/L Anion Gap 7.0 L (8.0-16.0) BUN 13 (8-23) mg/dL Creatinine 0.8 (0.7-1.2) mg/dL GFR Calculation 88 Glucose 90 (70-105) mg/dL Calcium 9.0 (8.6-10.4) mg/dL Total Bilirubin 0.3 (0.1-1.0) mg/dL AST 15 (<40) U/L ALT 8 (<40) U/L Alkaline Phosphatase 91 (39-117) U/L Troponin T (<0.03) ng/mL NT-Pro-B Natriuret Pep 718.6 H (<125.0) pg/mL Total Protein 7.3 (5.9-8.4) gm/dL Albumin 3.7 (3.2-5.2) gm/dL Globulin 3.6 (2.2-3.7) gm/dL Albumin/Globulin Ratio 1.0 (1.0-2.3) 08/28/20 Range/Units 10:57 WBC (4.5-11.0) K/mcL RBC (4.50-5.90) M/mcL Hgb (13.5-16.5) g/dL Hct (41.0-55.0) % MCV (80.0-100.0) fL MCH (26.0-34.0) pg MCHC (31.0-36.0) g/dL RDW (11.5-14.5) % Plt Count (140-440) K/mcL MPV (7.4-10.4) fL Seg Neutrophils % (38-78) % Band Neutrophils % (0-10) % Lymphocytes % (15-49) % Monocytes % (Manual) (1-12) % Eosinophils % (Manual) (0-7) % Reactive Lymphocytes (0-2) % Platelet Estimate (Normal) RBC Morphology (Normal) VBG Lactic Acid (0.5-2.0) mmol/L Sodium (133-145) mmol/L Potassium (3.3-5.1) mmol/L Chloride (96-108) mmol/L Carbon Dioxide (22-30) mmol/L Anion Gap (8.0-16.0) BUN (8-23) mg/dL Creatinine (0.7-1.2) mg/dL GFR Calculation Glucose (70-105) mg/dL Calcium (8.6-10.4) mg/dL Total Bilirubin (0.1-1.0) mg/dL AST (<40) U/L ALT (<40) U/L Alkaline Phosphatase (39-117) U/L Troponin T < 0.01 (<0.03) ng/mL NT-Pro-B Natriuret Pep (<125.0) pg/mL Total Protein (5.9-8.4) gm/dL Albumin (3.2-5.2) gm/dL Globulin (2.2-3.7) gm/dL Albumin/Globulin Ratio (1.0-2.3) ED POC Tests ED POC Tests: JAYJAY - Influenza A Negative JAYJAY - Influenza B Negative JAYJAY - SARS Antigen Negative Radiology Data Radiology results reviewed: Yes I reviewed the patient's radiology results. EKG Data EKG #1: EKG attestation: Yes I reviewed and interpreted this EKG. and Yes There are no EKG findings of acute coronary syndrome EKG results narrative: Paced rhythm, rate 80, no further interpretation Rhythm Strip Data Rhythm Strip Rate: 80 Interpretation: Paced rhythm Pulse Oximetry Data Pulse Ox %: 96 Interpretation: Hypoxia corrected on oxygen Discharge Plan Patient/Caregiver Discharge Instructions Pt seen by [employer] DEVELOPER/PA only: No Clinical Impression: Acute dyspnea, COPD (chronic obstructive pulmonary disease), Pulmonary edema Patient Disposition: Xfer As Inpt ([facility]) Follow up with: Hortencia Adams MD [Primary Care Provider] - Prescriptions: No Action latanoprost 0.005 % drops 1 drp OPHTHALMIC QPM RF: 0 warfarin 7.5 mg tablet See Rx Instructions .ROUTE .COMPLEX RF: 0 albuterol sulfate 2.5 mg /3 mL (0.083 %) solution for nebulization 2.5 mg INHALATION BID RF: 0 digoxin [Digox] 125 mcg tablet 125 mcg PO QDAY RF: 0 furosemide 40 mg tablet 20 mg PO QDAY RF: 0 montelukast 10 mg tablet 10 mg PO QHS RF: 0 irbesartan 75 mg tablet 37.5 mg PO QHS RF: 0 HyperSal 7 % INHALATION BID Qty: 240 RF: 5 propafenone 150 mg tablet 225 mg PO TID RF: 0 (DME) Noninvasive ventilator.supplies tubing mask Qty: 1 RF: 0 fluticasone propion-salmeterol [Wixela Inhub] 500-50 mcg/dose blister with device 1 inh inhalation Q12H RF: 0 Yupelri 175 mcg/3 mL solution for nebulization 175 mcg inhalation QDAY Qty: 90 RF: 11 budesonide 0.5 mg/2 mL suspension for nebulization 0.5 mg inhalation BID Qty: 120 RF: 11 Perforomist 20 mcg/2 mL solution for nebulization 2 ml inhalation BID Qty: 120 RF: 11 ipratropium bromide 2.5 ML solution 2.5 ml NEB Q4HRT RF: 0
--- NOTE | 2020-08-28 11:26 | XRay Report ---
INDICATION: dyspnea TECHNIQUE: AP portable upright chest x-ray COMPARISON: Multiple previous chest x-rays including examinations dated 07/25/2020, 07/19/2020, 07/14/2020, 07/12/2020, 11/07/2015 FINDINGS:Left-sided pacemaker with transvenous leads in unchanged positions. Lungs:Extensive interstitial lung disease. This is chronic. There may be superimposed interstitial infiltrates which may represent interstitial pulmonary edema or interstitial pneumonia. No parenchymal consolidation. No discrete mass. Heart, vascular:No significant cardiomegaly. Pulmonary vascularity is normal. No pulmonary edema or pulmonary congestion Mediastinum, hilario:No mediastinal widening. No hilar mass Pleura:Mild blunting of the costophrenic angles may indicate very small effusions or scarring. Appearance is chronic Skeletal:Negative. IMPRESSION: 1. Chronic diffuse interstitial abnormality 2. Increased interstitial lung infiltrates may represent superimposed interstitial edema or pneumonia. Clinical correlation follow-up radiographs recommended Interpreted and Authenticated by: Prashant Danielson 08/28/20
[2020-08-28 11:42] LABS: Hematocrit 38.4 % (41.0-55.0); Hemoglobin 11.8 g/dL (13.5-16.5); Mean Cell Volume 97.2 fL (80.0-100.0); Mean Corpuscular HGB Conc 30.7 g/dL (31.0-36.0); Mean Platelet Volume 9.7 fL (7.4-10.4); Platelet Count 223 K/mcL (140-440); RBC 3.95 M/mcL (4.50-5.90); Red Cell Distribution Width 13.2 % (11.5-14.5); WBC 6.5 K/mcL (4.5-11.0)
[2020-08-28 11:59] LABS: proBNP 718.6 pg/mL (<125.0)
[2020-08-28 12:02] LABS: ALT/SGPT 8 U/L (<40); AST/SGOT 15 U/L (<40); Albumin 3.7 gm/dL (3.2-5.2); Alkaline Phosphatase 91 U/L (39-117); Bilirubin,Total 0.3 mg/dL (0.1-1.0); Blood Urea Nitrogen 13 mg/dL (8-23); Carbon Dioxide 36 mmol/L (22-30); Chloride 94 mmol/L (96-108); Globulin 3.6 gm/dL (2.2-3.7); Glomerular Filtration Rate 88; Glucose 90 mg/dL (70-105)
[2020-08-28 12:33] LABS: Band Neutrophils % 22 % (0-10); Eosinophils % (Manual) 4 % (0-7); Lymphocytes % 19 % (15-49); Monocytes % (Manual) 3 % (1-12); Platelet Estimate NORMAL (Normal); RBC Morphology NORMAL (Normal); Reactive Lymphocytes 1 % (0-2); Segmented Neutrophils % 51 % (38-78)
[2020-08-28] MEDS ORDERED: FUROSEMIDE 40 MG/4 ML VIAL IV ONE (14:26)
--- NOTE | 2020-08-28 15:30 | Internal Med History&Physical ---
HPI History of Present Illness Patient information: Note initiated : 08/28/20 at 3:28 pm Service Date, if different from initiated Date: [] Patient: Nick Hamilton 74 y/o M admitted on for sob. Chief Complaint: [] History of present illness: Mr. Hamilton is a 74 year old male with a history of bronchiectasis, interstitial lung disease, history of lobectomy, COPD, history of heart failure with reduced ejection fraction biventricular pacemaker pl acement, atrial fibrillation chronic hypoxia (2L per minute at rest and up to 6L per minute with activity) who presented to the ED for aggressive shortness of breath and suction. The patient said his symptoms began about ago and have progressively worsened, he normally has sputum production but now the sputum is more of a less and purulent. The patient denies fevers but did have chills. He denies any recent weight changes, no leg edema, no orthostasis. Work-up in the ED included routine labs, no gross cytosis however bandemia,chest x-ray showed increased interstitial lung infiltrates bilaterally. Patient was admitted for bronchiectasis exacerbation and possible COPD exacerbation. Constitutional: no fever, positive for chills Eyes: no vision changes or pain Cardiovascular: no chest pain, no palpitations Respiratory: positive for productive cough, shortness of breath Gastrointestinal: no abdominal pain, no nausea, vomiting, or diarrhea Genitourinary: no dysuria or difficulty voiding Musculoskeletal: no arthralgia or myalgia Integumentary: no skin lesion or wound Neurological: no focal weakness or numbness Psychiatric: no anxiety or depression PFSH PFSH All Active Problems (Updated 08/28/20 @ 14:31 by Ricki Siddiqui MD) Acute dyspnea (Acute) Pulmonary edema (Acute) Chronic obstructive pulmonary disease with (acute) exacerbation (Acute) Acute on chronic respiratory failure with hypoxia and hypercapnia (Acute) Anemia in chronic illness (Acute) Chronic anticoagulation (Acute) Glaucoma (Acute) Hypoxemia (Acute) Hypoxia (Chronic) Benign paroxysmal vertigo (Chronic) History of MRSA infection (Chronic) Respiratory failure, chronic (Chronic) Pneumonia, bacterial (Chronic) Paroxysmal atrial fibrillation (Chronic) Hypercholesterolemia (Chronic) Encounter for monitoring dofetilide therapy (Chronic) Elevated PSA (Chronic) CHF (NYHA class III, ACC/AHA stage C) (Chronic) 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) BPH (benign prostatic hyperplasia) (Chronic) Biventricular pacemaker check (Chronic) 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) Vitamin D deficiency (Chronic) Sinus node dysfunction (Chronic) Bradycardia, sinus (Chronic) Artificial pacemaker (Chronic) Hyperglycemia (Chronic) Pure hypercholesterolemia (Chronic) 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) Bronchiectasis (Chronic) Anemia (Chronic) Hyperlipidemia (Chronic) COPD (chronic obstructive pulmonary disease) (Chronic) Atrial fibrillation (Chronic) Medical History (Updated 08/28/20 @ 14:31 by Ricki Siddiqui MD) Acute upper respiratory infection Anemia Artificial pacemaker Atrial fibrillation Benign paroxysmal vertigo Biventricular pacemaker check BPH (benign prostatic hyperplasia) Bradycardia, sinus Bronchiectasis CHB (complete heart block) CHF (NYHA class III, ACC/AHA stage C) Chronic combined systolic and diastolic heart failure COPD (chronic obstructive pulmonary disease) Elevated PSA Encounter for monitoring dofetilide therapy Encounter for screening for malignant neoplasm of prostate Glaucoma History of MRSA infection Hypercholesterolemia Hyperglycemia Hyperlipidemia Hypoxemia Hypoxia MRSA (methicillin resistant Staphylococcus aureus) carrier Paroxysmal atrial fibrillation Pneumonia Pneumonia, bacterial Presence of cardiac resynchronization therapy pacemaker Pure hypercholesterolemia Respiratory failure with hypoxia and hypercapnia Respiratory failure, chronic Sinus node dysfunction SIRS (systemic inflammatory response syndrome) Vitamin D deficiency Surgical History H/O prostate biopsy History of left hip hemiarthroplasty History of lobectomy of lung History of permanent cardiac pacemaker placement Status post partial removal of lung Patient states he has had bilateral lower lung lobes removed Family History Unknown Glaucoma Myocardial Infarction Hypertension Diabetes mellitus Type 2 diabetes mellitus Brother , Onset Age: 45 Father , Onset Age: 93 Mother , Onset Age: 96 Sister , Onset Age: 50 Social History physical activity: other details: exercise classes; exercise limited by medical condition alcohol intake frequency: does not drink substance use type: does not use MEDS/ALLERGIES Home Medications and Allergies Home Medications Medication Instructions Recorded Confirmed Type latanoprost 0.005 % eye drops 1 drp OPHTHALMIC QPM ml 08/23/15 08/28/20 History warfarin 7.5 mg tablet See Rx Instructions .ROUTE 08/23/15 07/27/20 History .COMPLEX tab ipratropium bromide 2.5 ml NEB Q4HRT ampul.neb 10/24/15 08/28/20 Rx albuterol sulfate 2.5 mg INHALATION BID ml 05/20/17 08/28/20 History digoxin 125 mcg (0.125 mg) tablet 125 mcg PO QDAY 05/20/17 08/28/20 History montelukast 10 mg tablet 10 mg PO QHS 06/11/17 08/28/20 History HyperSal 7 % INHALATION BID #240 ml 05/06/19 08/28/20 Rx furosemide 40 mg tablet 20 mg PO QDAY tab 05/06/19 08/28/20 History Noninvasive ventilator.supplies #1 ea 05/13/19 07/27/20 Rx tubing mask irbesartan 75 mg tablet 37.5 mg PO QHS tab 05/13/19 08/28/20 History propafenone 150 mg tablet 225 mg PO TID tab 03/08/20 08/28/20 History budesonide 0.5 mg/2 mL suspension 0.5 mg INHALATION BID #120 ml 07/27/20 08/28/20 Rx for nebulization fluticasone 500 mcg-salmeterol 50 1 inh INHALATION Q12H 07/27/20 08/28/20 History mcg/dose blistr powdr for inhalation formoterol fumarate 20 mcg/2 mL 2 ml INHALATION BID #120 ml 07/27/20 07/27/20 Rx solution for nebulization Allergies Allergy/AdvReac Type Severity Reaction Status Date / Time Penicillins AdvReac Intermediate Fever Verified 08/28/20 10:07 EXAM Constitutional Vitals: Temp Pulse Resp BP Pulse Ox 98.5 F 93 H 29 H 135/64 92 08/28/20 10:02 08/28/20 15:01 08/28/20 15:01 08/28/20 15:01 08/28/20 15:01 Additional findings Additional findings: Head: Atraumatic, normal inspection. Eyes: normal appearance, no scleral icterus. Neck: full ROM Respiratory: on nasal canula oxygen, speaks in short sentences, diffuse bilateral rales Cardiovascular: normal rate and rhythm, S1, S2, pacemaker palpable GI/Abdominal: soft, nontender, no guarding. Extremities: full range of motion, nontender. Neurological: CN II-XII intact, intact motor, intact sensation. Psychiatric: normal mood. Skin: warm, normal color DATA Data Completed and Pending Labs: Labs from last 24 hours 08/28/20 08/28/20 08/28/20 10:57 10:56 10:44 WBC RBC Hgb Hct MCV MCH MCHC RDW Plt Count MPV Seg Neutrophils % Band Neutrophils % Lymphocytes % Monocytes % (Manual) Eosinophils % (Manual) Reactive Lymphocytes Platelet Estimate RBC Morphology VBG Lactic Acid 0.7 Sodium 137 Potassium 4.5 Chloride 94 L Carbon Dioxide 36 H Anion Gap 7.0 L BUN 13 Creatinine 0.8 GFR Calculation 88 Glucose 90 Calcium 9.0 Total Bilirubin 0.3 AST 15 ALT 8 Alkaline Phosphatase 91 Troponin T < 0.01 NT-Pro-B Natriuret Pep 718.6 H Total Protein 7.3 Albumin 3.7 Globulin 3.6 Albumin/Globulin Ratio 1.0 08/28/20 10:44 WBC 6.5 RBC 3.95 L Hgb 11.8 L Hct 38.4 L MCV 97.2 MCH 29.9 MCHC 30.7 L RDW 13.2 Plt Count 223 MPV 9.7 Seg Neutrophils % 51 Band Neutrophils % 22 H Lymphocytes % 19 Monocytes % (Manual) 3 Eosinophils % (Manual) 4 Reactive Lymphocytes 1 Platelet Estimate Normal RBC Morphology Normal VBG Lactic Acid Sodium Potassium Chloride Carbon Dioxide Anion Gap BUN Creatinine GFR Calculation Glucose Calcium Total Bilirubin AST ALT Alkaline Phosphatase Troponin T NT-Pro-B Natriuret Pep Total Protein Albumin Globulin Albumin/Globulin Ratio A/P Narrative A/P Narrative: Assessment 74-year-old male with history of bronchiectasis, interstitial lung disease, COPD, chronic hypoxia (2l/min at rest and 6 l/min w/ activity) and hypercapnia, HFrEF s/p biventricular pacer followed by improved LVEF 35%->50%, pafib (on coumadin), hx of bilateral lobectomy, 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 -Sputum and blood cultures. -MRSA PCR screen. -Oxygen supplementation-goal 88 to 92% sats. -Scheduled duo nebs, albuterol nebs as needed. -Chest physiotherapy per RT. -BiPAP prn and at bedtime. -Consider corticosteroid if slow improvement on abx. -Continue home digoxin, propafenone, losartan, Lasix. -Coumadin per pharmacy. -Hold home LABA and LAMA for now. -Consider CT chest if no improvement, consider pulmonology consult. -May benefit from inhaled tobramycin for outpatient therapy given likely pseudomonas colonization. -DVT PPx: On Coumadin. -CODE STATUS: Full code -Disposition: TBD Time Spent With Patient Time: Total time spent is greater than 50% in coordination of care (as documented) at patient's floor/unit and/or counseling patient: 70 minutes
[2020-08-28] MEDS ORDERED: SENNOSIDES 1 TABLET PO PRN (15:59)
[2020-08-28] MEDS ORDERED: ALBUTEROL SULFATE 2.5 MG/3 ML NEBULIZER NEB PRN (15:59)
[2020-08-28] MEDS ORDERED: AZITHROMYCIN 500 MG in DEXTROSE 5% IN WATER 250 ML IV SCH (15:59)
[2020-08-28] MEDS ORDERED: LACTULOSE 20 GM/30 ML ORAL.SOL PO PRN (15:59)
[2020-08-28] MEDS ORDERED: ONDANSETRON 4 MG/2 ML VIAL IV PRN (15:59)
[2020-08-28] MEDS ORDERED: VANCOMYCIN PER PHARMACY IV SCH (16:15)
[2020-08-28 16:32] LABS: INR 2.7 (0.9-1.1); Prothrombin Time 30.2 sec (11.9-14.5)
[2020-08-28 16:33] LABS: ALT/SGPT 8 U/L (<40); AST/SGOT 16 U/L (<40); Albumin 3.8 gm/dL (3.2-5.2); Alkaline Phosphatase 96 U/L (39-117); Bilirubin,Direct < 0.2 mg/dL (0-0.3); Bilirubin,Total 0.3 mg/dL (0.1-1.0); Blood Urea Nitrogen 14 mg/dL (8-23); Calcium 9.1 mg/dL (8.6-10.4); Carbon Dioxide 30 mmol/L (22-30); Chloride 95 mmol/L (96-108); Globulin 3.8 gm/dL (2.2-3.7); Glomerular Filtration Rate 88; Glucose 90 mg/dL (70-105); Lactate Dehydrogenase 212 U/L (135-225); Phosphorous 2.8 mg/dL (2.5-4.5); Triglycerides 65 mg/dL (<150); Uric Acid 4.9 mg/dL (2.5-8.0)
[2020-08-28] MEDS ORDERED: WARFARIN 5 MG TABLET PO ONE (17:00)
[2020-08-28] MEDS: CEFEPIME 2 GM VIAL IV SCH ×2 (17:03→21:54)
[2020-08-28] MEDS: IPRATROPIUM/ALBUTEROL 3 ML AMPUL.NEB NEB SCH ×2 (18:38→22:36)
[2020-08-28] MEDS: DOCUSATE SODIUM 100 MG CAPSULE PO SCH (20:34)
[2020-08-28] MEDS: PROPAFENONE 150 MG TABLET PO SCH (20:36)
[2020-08-28] MEDS: HYPERSAL INH SCH (20:44)
[2020-08-28] MEDS ORDERED: LOSARTAN 25 MG TABLET PO SCH (21:00)
[2020-08-28] MEDS ORDERED: LATANOPROST OPHTH DROPS 2.5ML BOTTLE OU SCH (21:00)
[2020-08-28] MEDS ORDERED: MONTELUKAST 10 MG TABLET PO SCH (21:00)
[2020-08-28] MEDS: 0.9 % SODIUM CHLORIDE 10 ML SYRINGE IV SCH (22:07)
[2020-08-29] MEDS: IPRATROPIUM/ALBUTEROL 3 ML AMPUL.NEB NEB SCH ×6 (02:53→22:25)
[2020-08-29] MEDS: CEFEPIME 2 GM VIAL IV SCH ×3 (05:22→21:29)
[2020-08-29] MEDS: 0.9 % SODIUM CHLORIDE 10 ML SYRINGE IV SCH ×3 (05:22→22:40)
[2020-08-29 06:30] LABS: INR 3.8 (0.9-1.1); Prothrombin Time 39.5 sec (11.9-14.5)
[2020-08-29 06:34] LABS: ALT/SGPT 5 U/L (<40); AST/SGOT 11 U/L (<40); Albumin 3.5 gm/dL (3.2-5.2); Albumin/Globulin Ratio 1.1 (1.0-2.3); Alkaline Phosphatase 83 U/L (39-117); Bilirubin,Direct < 0.2 mg/dL (0-0.3); Bilirubin,Total 0.2 mg/dL (0.1-1.0); Blood Urea Nitrogen 21 mg/dL (8-23); Carbon Dioxide 35 mmol/L (22-30); Chloride 95 mmol/L (96-108); Globulin 3.1 gm/dL (2.2-3.7); Glomerular Filtration Rate 93; Glucose 123 mg/dL (70-105); Lactate Dehydrogenase 154 U/L (135-225); Phosphorous 2.9 mg/dL (2.5-4.5); Triglycerides 46 mg/dL (<150)
--- NOTE | 2020-08-29 06:39 | XRay Report ---
INDICATION: hypoxic respiratory failure TECHNIQUE: PA and lateral upright chest x-ray COMPARISON: Previous chest x-rays dated 08/28/2020, 07/25/2020, 07/19/2020, 07/14/2020, 11/07/2015 FINDINGS: No change in left-sided pacemaker and transvenous pacemaker leads Lungs: Diffuse interstitial abnormality. Overall appearance is slightly improved consistent with possible improved interstitial edema superimposed upon chronic interstitial abnormality. No new focal pulmonary parenchymal infiltrate or mass Heart, vascular: No significant cardiomegaly. Pulmonary vascularity is normal. No pulmonary edema or pulmonary congestion Mediastinum, hilario: No mediastinal widening. No hilar mass Pleura:Blunting of the right costophrenic angle consistent with small right pleural effusion Thoracic spine, ribs: No thoracic compression fracture. Ribs are negative. No fracture. No lytic lesion IMPRESSION: 1. Chronic interstitial abnormality 2. Blunting of the right costophrenic angle consistent with small effusion 3. Some interval improvement in interstitial infiltrates. Findings may represent improved interstitial pulmonary edema. Computer Interpreted and Authenticated by: Prashant Danielson 08/29/20
[2020-08-29] MEDS ORDERED: predniSONE 20 MG TABLET PO SCH (08:00)
[2020-08-29] MEDS: PROPAFENONE 150 MG TABLET PO SCH (08:45)
[2020-08-29] MEDS: HYPERSAL INH SCH ×2 (08:46→21:40)
[2020-08-29] MEDS: DOCUSATE SODIUM 100 MG CAPSULE PO SCH ×2 (08:46→21:26)
[2020-08-29] MEDS ORDERED: VANCOMYCIN 1,500 MG in 0.9 % SODIUM CHLORIDE 500 ML IV SCH (09:00)
[2020-08-29] MEDS ORDERED: FUROSEMIDE 40 MG TABLET PO SCH (09:00)
--- NOTE | 2020-08-29 09:07 | Internal Med Progress Note ---
SUBJECTIVE Subjective Patient information: Note initiated : 08/29/20 at 9:02 am Service Date, if different from initiated Date: [] Patient: Nick Hamilton 74 y/o M admitted on 08/28/20 for sob. Chief Complaint: [] Interval history: Mr. Hamilton is a 74 year old male with a history of bronchiectasis, interstitial lung disease, history of lobectomy, COPD, history of heart failure with reduced ejection fraction biventricular pacemaker placement, atrial fibrillation chronic hypoxia (2L per minute at rest and up to 6L per minute with activity) who presented to the ED for aggressive shortness of breath and suction. The patient said his symptoms began about ago and have progressively worsened, he normally has sputum production but now the sputum is more of a less and purulent. The patient denies fevers but did have chills. He denies any recent weight changes, no leg edema, no orthostasis. Work-up in the ED included routine labs, no gross cytosis however bandemia,chest x-ray showed increased interstitial lung infiltrates bilaterally. Patient was admitted for bronchiectasis exacerbation and possible COPD exacerbation. 08/29 The patient feels better today, less sputum production. Awaiting culture results, MRSA nasal PCR screen to deescalate abx. Head: Atraumatic, normal inspection. Eyes: normal appearance, no scleral icterus. Neck: full ROM Respiratory: bilateral rales, on nasal canula oxygen 3 l/min, not in any respiratory distress. Cardiovascular: normal rate and rhythm, S1, S2. GI/Abdominal: soft, nontender, no guarding. Extremities: full range of motion, nontender. Neurological: CN II-XII intact, intact motor, intact sensation. Psychiatric: normal mood. Skin: warm, normal color Constitutional Vitals: Vital Signs Temp Pulse Resp BP Pulse Ox 98.9 F 78 22 121/67 96 08/29/20 00:00 08/29/20 07:06 08/29/20 07:06 08/29/20 04:00 08/29/20 07:06 Period Temp Pulse Resp BP Sys/Mukherjee Pulse Ox Last 24 Hr 98.3 F-98.9 F 77-94 18-37 117-144/61-86 90-98 Intake and Output 03/29/21 03/30/21 03/30/21 21:59 05:59 13:59 Intake Total 600 260 Output Total 600 175 Balance 0 85 Weight 79.605 kg Intake & Output: Intake & Output 08/28/20 08/29/20 08/29/20 21:59 05:59 13:59 Intake Total 600 260 Output Total 600 175 Balance 0 85 Weight 79.605 kg Intake: Oral 600 260 Output: Void Amount 600 175 Other: Meal Dinner Percent of Meal Consumed 100% Feeding Ability Independent Urine Appearance Clear Clear Urine Color Bright Yellow Bright Yellow OBJ DATA Labs CBC & Chem 7: 08/28/20 10:44 08/29/20 04:55 Labs: Abnormal Lab Results 08/29/20 08/29/20 08/28/20 04:55 04:55 10:55 RBC Hgb Hct MCHC Band Neutrophils % PT 39.5 H 30.2 H INR 3.8 H 2.7 H Chloride 95 L Carbon Dioxide 35 H Anion Gap 7.0 L Glucose 123 H GGT 7 L NT-Pro-B Natriuret Pep Globulin 08/28/20 08/28/20 08/28/20 10:44 10:44 10:44 RBC 3.95 L Hgb 11.8 L Hct 38.4 L MCHC 30.7 L Band Neutrophils % 22 H PT INR Chloride 95 L 94 L Carbon Dioxide 36 H Anion Gap 7.0 L Glucose GGT 7 L NT-Pro-B Natriuret Pep 718.6 H Globulin 3.8 H Meds: Medications Albuterol Sulfate (Albuterol Sulfate 2.5 Mg/3 Ml Nebulizer) 2.5 mg NEB Q2HP PRN PRN Reason: Shortness Of Breath Albuterol/Ipratropium (Ipratropium/Albuterol 3 Ml Ampul.Neb) 3 ml NEB Q4HRT [facility] Last Admin: 08/29/20 07:03 Dose: 3 ml Documented by: Cefepime HCl (Cefepime 2 Gm Vial) 2 gm IV Q8H [facility]; Protocol Last Admin: 08/29/20 05:22 Dose: 2 gm Documented by: Digoxin (Digoxin 125 Mcg Tablet) 125 mcg PO DAILY@1400 [facility] Docusate Sodium (Docusate Sodium 100 Mg Capsule) 100 mg PO BID [facility] Last Admin: 08/29/20 08:46 Dose: 100 mg Documented by: Furosemide (Furosemide 40 Mg Tablet) 20 mg PO QDAY [facility] Last Admin: 08/29/20 08:45 Dose: 20 mg Documented by: Vancomycin HCl 1,500 mg/ (Sodium Chloride) 500 mls @ 333.3 mls/hr IV Q24H [facility] Last Admin: 08/29/20 08:45 Dose: 333.3 mls/hr Documented by: Lactulose (Lactulose 20 Gm/30 Ml Oral.Yamilka) 10 gm PO DAILYP PRN PRN Reason: Constipation Latanoprost (Latanoprost Ophth Drops 2.5ml Bottle) 1 gtt OU QPM [facility] Last Admin: 08/28/20 20:39 Dose: 1 gtt Documented by: Losartan Potassium (Losartan 25 Mg Tablet) 12.5 mg PO QHS [facility] Last Admin: 08/28/20 20:36 Dose: 12.5 mg Documented by: Montelukast Sodium (Montelukast 10 Mg Tablet) 10 mg PO QHS [facility] Last Admin: 08/28/20 20:34 Dose: 10 mg Documented by: Ondansetron HCl (Ondansetron 4 Mg/2 Ml Vial) 4 mg IV Q4HP PRN; Protocol PRN Reason: Nausea And Vomiting Hypersal 7 % 1 dose INH BID [facility] Last Admin: 08/29/20 08:46 Dose: Not Given Documented by: Prednisone (Prednisone 20 Mg Tablet) 40 mg PO [facility] Stop: 09/03/20 07:59 Last Admin: 08/29/20 08:46 Dose: 40 mg Documented by: Propafenone HCl (Propafenone 150 Mg Tablet) 225 mg PO TID [facility] Last Admin: 08/29/20 08:45 Dose: 225 mg Documented by: Senna (Sennosides 1 Tablet) 2 tab PO HSP PRN PRN Reason: Constipation Sodium Chloride (0.9 % Sodium Chloride 10 Ml Syringe) 10 ml IV Q8 [facility] Last Admin: 08/29/20 05:22 Dose: 10 ml Documented by: Vancomycin HCl (Vancomycin Per Pharmacy) 1 order IV UD [facility] Warfarin Sodium (Warfarin Per Pharmacy) 1 order PO UD [facility] A/P Narrative A/P Narrative: Assessment 74-year-old male with history of bronchiectasis, interstitial lung disease, COPD, chronic hypoxia (reports 2l/min at rest and 6 l/min w/ activity) and hypercapnia, HFrEF s/p biventricular pacer followed by improved LVEF 35%->50%, pafib (on coumadin), hx of bilateral lobectomy, 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 Improving on broad spectrum antibiotics. 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 -Sputum and blood cultures. -MRSA PCR screen. -Oxygen supplementation-goal 88 to 92% sats. -Scheduled duo nebs, albuterol nebs as needed. -Chest physiotherapy per RT. -BiPAP prn and at bedtime. -Continue home digoxin, propafenone, losartan, Lasix. -Coumadin per pharmacy. -Hold home LABA and LAMA for now. -Consider CT chest if no improvement, consider pulmonology consult. -May benefit from inhaled tobramycin for outpatient therapy given likely pseudomonas colonization. -DVT PPx: On Coumadin. -CODE STATUS: Full code -Disposition: TBD Time Spent With Patient Time: Total time spent is greater than 50% in coordination of care (as documented) at patient's floor/unit and/or counseling patient:
[2020-08-29] MEDS ORDERED: SENNOSIDES 1 TABLET PO PRN (13:52)
[2020-08-29] MEDS ORDERED: ALBUTEROL SULFATE 2.5 MG/3 ML NEBULIZER NEB PRN (13:52)
[2020-08-29] MEDS ORDERED: VANCOMYCIN PER PHARMACY IV SCH (13:52)
[2020-08-29] MEDS ORDERED: ONDANSETRON 4 MG/2 ML VIAL IV PRN (13:52)
[2020-08-29] MEDS ORDERED: LACTULOSE 20 GM/30 ML ORAL.SOL PO PRN (13:52)
[2020-08-29] MEDS ORDERED: DIGOXIN 125 MCG TABLET PO SCH (14:00)
[2020-08-29] MEDS: DIGOXIN 125 MCG TABLET PO SCH (14:54)
[2020-08-29] MEDS ORDERED: PROPAFENONE HCL 225 MG PO SCH (15:00)
[2020-08-29] MEDS: PROPAFENONE HCL 225 MG PO SCH ×2 (15:13→21:28)
[2020-08-29] MEDS: LOSARTAN 25 MG TABLET PO SCH (21:27)
[2020-08-29] MEDS: MONTELUKAST 10 MG TABLET PO SCH (21:28)
[2020-08-29] MEDS: LATANOPROST OPHTH DROPS 2.5ML BOTTLE OU SCH ×2 (21:41→22:30)
[2020-08-30] MEDS: IPRATROPIUM/ALBUTEROL 3 ML AMPUL.NEB NEB SCH ×6 (02:40→22:05)
[2020-08-30] MEDS: CEFEPIME 2 GM VIAL IV SCH ×3 (05:42→21:24)
[2020-08-30] MEDS: 0.9 % SODIUM CHLORIDE 10 ML SYRINGE IV SCH ×3 (05:46→21:29)
[2020-08-30 06:51] LABS: ALT/SGPT 6 U/L (<40); AST/SGOT 10 U/L (<40); Alkaline Phosphatase 70 U/L (39-117); Bilirubin,Direct < 0.2 mg/dL (0-0.3); Bilirubin,Total < 0.2 mg/dL (0.1-1.0); Blood Urea Nitrogen 18 mg/dL (8-23); Calcium 8.8 mg/dL (8.6-10.4); Carbon Dioxide 37 mmol/L (22-30); Chloride 99 mmol/L (96-108); Glomerular Filtration Rate 93; Glucose 93 mg/dL (70-105); Lactate Dehydrogenase 145 U/L (135-225); Phosphorous 2.2 mg/dL (2.5-4.5); Triglycerides 53 mg/dL (<150); Uric Acid 4.4 mg/dL (2.5-8.0)
--- NOTE | 2020-08-30 06:58 | XRay Report ---
INDICATION: hypoxic respiratory failure TECHNIQUE: PA and lateral upright chest x-ray COMPARISON: Multiple previous chest x-rays. Most recent previous chest x-rays are dated 08/29/2020, 08/28/2020, 07/25/2020, 07/19/2020, 07/14/2020. Chest CT scan dated 05/27/2012 FINDINGS: No change in left-sided cardiac pacemaker and transvenous pacemaker leads Lungs: History of severe bronchiectasis and diffuse chronic interstitial disease. There has been interval progression with worsening. Superimposed pneumonia is possible. Heart, vascular: No change in heart size. Heart size is within normal limits. Mediastinum, hilario: No mediastinal widening. No hilar mass Pleura:Blunting of the calcified angles consistent with small bilateral pleural effusion. This is unchanged Thoracic spine, ribs: No thoracic compression fracture. Ribs are negative. No fracture. No lytic lesion IMPRESSION: 1. History of severe bronchiectasis and interstitial disease. 2. Interval worsening. Superimposed acute pneumonia is possible. Interpreted and Authenticated by: Prashant Danielson 08/30/20
[2020-08-30 07:04] LABS: INR 3.9 (0.9-1.1); Prothrombin Time 40.3 sec (11.9-14.5)
[2020-08-30] MEDS ORDERED: predniSONE 20 MG TABLET PO SCH (08:00)
[2020-08-30] MEDS: PROPAFENONE HCL 225 MG PO SCH ×3 (08:39→21:27)
[2020-08-30] MEDS: DOCUSATE SODIUM 100 MG CAPSULE PO SCH ×2 (08:39→21:26)
[2020-08-30] MEDS: FUROSEMIDE 40 MG TABLET PO SCH (08:40)
[2020-08-30] MEDS: MUPIROCIN OINT 2% 22GM NARES SCH ×2 (08:40→21:28)
[2020-08-30] MEDS: VANCOMYCIN 1,500 MG in 0.9 % SODIUM CHLORIDE 500 ML IV SCH (08:41)
[2020-08-30] MEDS: HYPERSAL INH SCH ×2 (08:42→21:08)
[2020-08-30] MEDS ORDERED: 0.9 % SODIUM CHLORIDE 250 ML IV SCH (08:45)
[2020-08-30] MEDS ORDERED: PHYTONADIONE 5 MG in 0.9 % SODIUM CHLORIDE 50 ML IV ONE (09:00)
[2020-08-30] MEDS: NEUTRA PHOS 1 PACKET PO SCH ×2 (10:33→21:27)
--- NOTE | 2020-08-30 12:26 | Internal Med Progress Note ---
SUBJECTIVE Subjective Patient information: Note initiated : 08/30/20 at 12:23 pm Service Date, if different from initiated Date: [] Patient: Nick Hamilton 74 y/o M admitted on 08/28/20 for sob. Chief Complaint: [] Interval history: Mr. Hamilton is a 74 year old male with a history of bronchiectasis, interstitial lung disease, history of lobectomy, COPD, history of heart failure with reduced ejection fraction biventricular pacemaker placement, atrial fibrillation chronic hypoxia (2L per minute at rest and up to 6L per minute with activity) who presented to the ED for aggressive shortness of breath and suction. The patient said his symptoms began about ago and have progressively worsened, he normally has sputum production but now the sputum is more of a less and purulent. The patient denies fevers but did have chills. He denies any recent weight changes, no leg edema, no orthostasis. Work-up in the ED included routine labs, no gross cytosis however bandemia,chest x-ray showed increased interstitial lung infiltrates bilaterally. Patient was admitted for bronchiectasis exacerbation and possible COPD exacerbation. 08/29 The patient feels better today, less sputum production. Awaiting culture results, MRSA nasal PCR screen to deescalate abx. 08/30 Developed pink sputum, INR 3.9. Vitamin K and FFP given. Sputum culture growing Staph aureus, gram stain was also positive for moderate gram negative and gram positive bacilli. MRSA nasal PCR positive. Head: Atraumatic, normal inspection. Eyes: normal appearance, no scleral icterus. Neck: full ROM Respiratory: pink sputum, bilateral rales, appears more short of breath today. Cardiovascular: normal rate and rhythm, S1, S2. GI/Abdominal: soft, nontender, no guarding. Extremities: full range of motion, nontender. Neurological: CN II-XII intact, intact motor, intact sensation. Psychiatric: normal mood. Skin: warm, normal color Constitutional Vitals: Vital Signs Temp Pulse Resp BP Pulse Ox 98.7 F 89 24 H 119/66 91 08/30/20 07:43 08/30/20 11:20 08/30/20 11:20 08/30/20 07:43 08/30/20 11:20 Period Temp Pulse Resp BP Sys/Umkherjee Pulse Ox Last 24 Hr 97.7 F-98.7 F 79-89 18-24 119-126/65-74 90-95 Intake and Output 08/29/20 08/30/20 08/30/20 21:59 05:59 13:59 Intake Total 581 319 5206 Output Total 250 750 Balance 450 -300 1100 Weight 81.102 kg Intake & Output: Intake & Output 08/29/20 08/30/20 08/30/20 21:59 05:59 13:59 Intake Total 242 230 9466 Output Total 250 750 Balance 450 -300 1100 Weight 81.102 kg Intake: IV 500 Vancomycin 1,500 mg In Sodium 500 Chloride 0.9% 500 ml @ 333.3 mls/hr IV Q24H [facility] Rx#: [id number] Oral 700 450 600 Output: Void Amount 250 750 Other: Meal Dinner Breakfast Percent of Meal Consumed 100% 100% Feeding Ability Assist with Tray Set Up Independent Urine Appearance Cloudy Clear Urine Color Bright Yellow Bright Yellow Urine Odor Normal Normal OBJ DATA Labs CBC & Chem 7: 08/28/20 10:44 08/30/20 05:24 Labs: Abnormal Lab Results 08/30/20 08/30/20 08/29/20 05:24 05:24 04:55 RBC Hgb Hct MCHC Band Neutrophils % PT 40.3 H 39.5 H INR 3.9 H 3.8 H Chloride Carbon Dioxide 37 H Anion Gap 4.0 L Glucose Phosphorus 2.2 L GGT 7 L NT-Pro-B Natriuret Pep Albumin 3.0 L Globulin 08/29/20 08/28/20 08/28/20 04:55 10:55 10:44 RBC Hgb Hct MCHC Band Neutrophils % PT 30.2 H INR 2.7 H Chloride 95 L 95 L Carbon Dioxide 35 H Anion Gap 7.0 L Glucose 123 H Phosphorus GGT 7 L 7 L NT-Pro-B Natriuret Pep Albumin Globulin 3.8 H 08/28/20 08/28/20 10:44 10:44 RBC 3.95 L Hgb 11.8 L Hct 38.4 L MCHC 30.7 L Band Neutrophils % 22 H PT INR Chloride 94 L Carbon Dioxide 36 H Anion Gap 7.0 L Glucose Phosphorus GGT NT-Pro-B Natriuret Pep 718.6 H Albumin Globulin Meds: Medications Albuterol Sulfate (Albuterol Sulfate 2.5 Mg/3 Ml Nebulizer) 2.5 mg NEB Q2HP PRN PRN Reason: Shortness Of Breath Albuterol/Ipratropium (Ipratropium/Albuterol 3 Ml Ampul.Neb) 3 ml NEB Q4HRT [facility] Last Admin: 08/30/20 11:19 Dose: 3 ml Documented by: Cefepime HCl (Cefepime 2 Gm Vial) 2 gm IV Q8H [facility]; Protocol Last Admin: 08/30/20 05:42 Dose: 2 gm Documented by: Digoxin (Digoxin 125 Mcg Tablet) 125 mcg PO DAILY@1400 [facility] Last Admin: 08/29/20 14:54 Dose: 125 mcg Documented by: Docusate Sodium (Docusate Sodium 100 Mg Capsule) 100 mg PO BID [facility] Last Admin: 08/30/20 08:39 Dose: 100 mg Documented by: Furosemide (Furosemide 40 Mg Tablet) 20 mg PO QDAY [facility] Last Admin: 08/30/20 08:40 Dose: 20 mg Documented by: Vancomycin HCl 1,500 mg/ (Sodium Chloride) 500 mls @ 333.3 mls/hr IV Q24H [facility] Last Infusion: 08/30/20 10:38 Dose: Infused Documented by: Sodium Chloride (Sodium Chloride 0.9%) 250 mls @ 20 mls/hr IV .[id number] [facility] Stop: 08/30/20 21:14 Last Admin: 08/30/20 10:54 Dose: 20 mls/hr Documented by: Lactulose (Lactulose 20 Gm/30 Ml Oral.Yamilka) 10 gm PO DAILYP PRN PRN Reason: Constipation Latanoprost (Latanoprost Ophth Drops 2.5ml Bottle) 1 gtt OU QPM [facility] Last Admin: 08/29/20 22:30 Dose: 1 drop Documented by: Losartan Potassium (Losartan 25 Mg Tablet) 12.5 mg PO QHS [facility] Last Admin: 08/29/20 21:27 Dose: 12.5 mg Documented by: Montelukast Sodium (Montelukast 10 Mg Tablet) 10 mg PO QHS [facility] Last Admin: 08/29/20 21:28 Dose: 10 mg Documented by: Mupirocin (Mupirocin Oint 2% 22gm) 1 dose NARES BID [facility] Last Admin: 08/30/20 08:40 Dose: 1 dose Documented by: Ondansetron HCl (Ondansetron 4 Mg/2 Ml Vial) 4 mg IV Q4HP PRN; Protocol PRN Reason: Nausea And Vomiting Hypersal 7 % 1 dose INH BID [facility] Last Admin: 08/30/20 08:42 Dose: Not Given Documented by: Potassium/Phosphorus/Sodium (Neutra Phos 1 Packet) 2 packet PO BID [facility] Stop: 08/30/20 21:01 Last Admin: 08/30/20 10:33 Dose: 2 packet Documented by: Prednisone (Prednisone 20 Mg Tablet) 40 mg PO [facility] Stop: 09/03/20 07:59 Last Admin: 08/30/20 08:39 Dose: 40 mg Documented by: Propafenone HCl (Propafenone Hcl 225 Mg Tablet) 225 mg PO TID [facility] Last Admin: 08/30/20 08:39 Dose: 225 mg Documented by: Senna (Sennosides 1 Tablet) 2 tab PO HSP PRN PRN Reason: Constipation Sodium Chloride (0.9 % Sodium Chloride 10 Ml Syringe) 10 ml IV Q8 [facility] Last Admin: 08/30/20 05:46 Dose: 10 ml Documented by: Vancomycin HCl (Vancomycin Per Pharmacy) 1 order IV UD [facility] A/P Narrative A/P Narrative: Assessment 74-year-old male with history of bronchiectasis, interstitial lung disease, COPD, chronic hypoxia (reports 2l/min at rest and 6 l/min w/ activity) and hypercapnia, HFrEF s/p biventricular pacer followed by improved LVEF 35%->50%, pafib (on coumadin), hx of bilateral lobectomy, 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 Improving on broad spectrum antibiotics but then developed pink sputum consistent with mild hemoptysis likely related to supratherapeutic INR. Sputum culture growing MRSA. 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 -Reverse INR w/ FFP/Vitamin K IV and follow. -Follow sputum and blood cultures to completion. -Oxygen supplementation-goal 88 to 92% sats. -Scheduled duo nebs, albuterol nebs as needed. -Prednisone 40 mg daily x5 days vs taper depending on clinical course. -Continue home digoxin, propafenone, losartan, Lasix. -Holding Coumadin for hemoptysis. -Hold home LABA and LAMA for now. -Chest physiotherapy per RT. -Home Trilogy HS. -Consider CT chest if hemoptysis does not resolve with INR correction. -May benefit from inhaled tobramycin for outpatient therapy given likely pseudomonas colonization. -DVT PPx: SCD -CODE STATUS: Full code -Disposition: TBD Time Spent With Patient Time: Total time spent is greater than 50% in coordination of care (as documented) at patient's floor/unit and/or counseling patient:
[2020-08-30] MEDS: DIGOXIN 125 MCG TABLET PO SCH (14:32)
[2020-08-30 16:14] LABS: INR 1.7 (0.9-1.1); Prothrombin Time 20.7 sec (11.9-14.5)
[2020-08-30] MEDS ORDERED: methylPREDNISolone SOD SUCC 125 MG/2 ML VIAL IV ONE (19:43)
[2020-08-30] MEDS: methylPREDNISolone SOD SUCC 40 MG/ML VIAL IV SCH (21:25)
[2020-08-30] MEDS: LOSARTAN 25 MG TABLET PO SCH (21:26)
[2020-08-30] MEDS: MONTELUKAST 10 MG TABLET PO SCH (21:27)
[2020-08-30] MEDS: LATANOPROST OPHTH DROPS 2.5ML BOTTLE OU SCH (21:28)
[2020-08-31] MEDS: IPRATROPIUM/ALBUTEROL 3 ML AMPUL.NEB NEB SCH ×6 (03:26→22:20)
[2020-08-31] MEDS: 0.9 % SODIUM CHLORIDE 10 ML SYRINGE IV SCH ×3 (05:48→23:21)
[2020-08-31] MEDS: CEFEPIME 2 GM VIAL IV SCH ×3 (05:48→23:21)
--- NOTE | 2020-08-31 06:08 | Internal Med Progress Note ---
SUBJECTIVE Subjective Patient information: Note initiated : 08/31/20 at 6:05 am Service Date, if different from initiated Date: [] Patient: Nick Hamilton 74 y/o M admitted on 08/28/20 for sob. Chief Complaint: [] Interval history: Mr. Hamilton is a 74 year old male with a history of bronchiectasis, interstitial lung disease, history of lobectomy, COPD, history of heart failure with reduced ejection fraction biventricular pacemaker placement, atrial fibrillation chronic hypoxia (2L per minute at rest and up to 6L per minute with activity) who presented to the ED for aggressive shortness of breath and suction. The patient said his symptoms began about ago and have progressively worsened, he normally has sputum production but now the sputum is more of a less and purulent. The patient denies fevers but did have chills. He denies any recent weight changes, no leg edema, no orthostasis. Work-up in the ED included routine labs, no gross cytosis however bandemia,chest x-ray showed increased interstitial lung infiltrates bilaterally. Patient was admitted for bronchiectasis exacerbation and possible COPD exacerbation. 08/29 The patient feels better today, less sputum production. Awaiting culture results, MRSA nasal PCR screen to deescalate abx. 08/30 Developed pink sputum, INR 3.9. Vitamin K and FFP given. Sputum culture growing Staph aureus, gram stain was also positive for moderate gram negative and gram positive bacilli. MRSA nasal PCR positive. Continued Vancomycin IV and Cefepime. 08/31 Had another episode of hemoptysis today. INR fully reversed at 1.1. CT chest with contrast ordered. Constitutional Vitals: Vital Signs Temp Pulse Resp BP Pulse Ox 98.4 F 74 20 127/65 93 08/31/20 03:42 08/31/20 03:42 08/31/20 03:42 08/31/20 03:42 08/31/20 03:42 Period Temp Pulse Resp BP Sys/Mukherjee Pulse Ox Last 24 Hr 97.4 F-98.7 F 74-89 18-24 119-141/64-77 90-95 Intake and Output 08/30/20 08/31/20 08/31/20 21:59 05:59 13:59 Intake Total 1280 400 Output Total 1175 275 Balance 105 125 Weight 81.873 kg Intake & Output: Intake & Output 08/30/20 08/31/20 08/31/20 21:59 05:59 13:59 Intake Total 1280 400 Output Total 1175 275 Balance 105 125 Weight 81.873 kg Intake: IV 250 Sodium Chloride 0.9% 250 ml @ 250 20 mls/hr IV .[id number] [facility] Rx#: [id number] Oral 1280 150 Output: Void Amount 1175 275 Other: Meal Dinner Percent of Meal Consumed 100% Feeding Ability Independent Urine Appearance Clear Clear Urine Color Bright Yellow Bright Yellow Urine Odor Normal Normal Stool Size Moderate Stool Color Brown Stool Consistency Soft Additional findings Additional findings: Head: Atraumatic, normal inspection. Eyes: normal appearance, no scleral icterus. Neck: full ROM Respiratory: pink sputum, bilateral rales, improvement in bilateral wheezing. Cardiovascular: normal rate and rhythm, S1, S2. GI/Abdominal: soft, nontender, no guarding. Extremities: full range of motion, nontender. Neurological: CN II-XII intact, intact motor, intact sensation. Psychiatric: normal mood. Skin: warm, normal color OBJ DATA Labs CBC & Chem 7: 08/31/20 09:48 08/31/20 05:30 Labs: Abnormal Lab Results 08/30/20 08/30/20 08/30/20 15:21 05:24 05:24 RBC Hgb Hct MCHC Band Neutrophils % PT 20.7 H 40.3 H INR 1.7 H 3.9 H Chloride Carbon Dioxide 37 H Anion Gap 4.0 L Glucose Phosphorus 2.2 L GGT 7 L NT-Pro-B Natriuret Pep Albumin 3.0 L Globulin 08/29/20 08/29/20 08/28/20 04:55 04:55 10:55 RBC Hgb Hct MCHC Band Neutrophils % PT 39.5 H 30.2 H INR 3.8 H 2.7 H Chloride 95 L Carbon Dioxide 35 H Anion Gap 7.0 L Glucose 123 H Phosphorus GGT 7 L NT-Pro-B Natriuret Pep Albumin Globulin 08/28/20 08/28/20 08/28/20 10:44 10:44 10:44 RBC 3.95 L Hgb 11.8 L Hct 38.4 L MCHC 30.7 L Band Neutrophils % 22 H PT INR Chloride 95 L 94 L Carbon Dioxide 36 H Anion Gap 7.0 L Glucose Phosphorus GGT 7 L NT-Pro-B Natriuret Pep 718.6 H Albumin Globulin 3.8 H Meds: Medications Albuterol Sulfate (Albuterol Sulfate 2.5 Mg/3 Ml Nebulizer) 2.5 mg NEB Q2HP PRN PRN Reason: Shortness Of Breath Albuterol/Ipratropium (Ipratropium/Albuterol 3 Ml Ampul.Neb) 3 ml NEB Q4HRT [facility] Last Admin: 08/31/20 03:26 Dose: 3 ml Documented by: Cefepime HCl (Cefepime 2 Gm Vial) 2 gm IV Q8H [facility]; Protocol Last Admin: 08/31/20 05:48 Dose: 2 gm Documented by: Digoxin (Digoxin 125 Mcg Tablet) 125 mcg PO DAILY@1400 [facility] Last Admin: 08/30/20 14:32 Dose: 125 mcg Documented by: Docusate Sodium (Docusate Sodium 100 Mg Capsule) 100 mg PO BID [facility] Last Admin: 08/30/20 21:26 Dose: 100 mg Documented by: Furosemide (Furosemide 40 Mg Tablet) 20 mg PO QDAY [facility] Last Admin: 08/30/20 08:40 Dose: 20 mg Documented by: Vancomycin HCl 1,500 mg/ (Sodium Chloride) 500 mls @ 333.3 mls/hr IV Q24H [facility] Last Infusion: 08/30/20 10:38 Dose: Infused Documented by: Lactulose (Lactulose 20 Gm/30 Ml Oral.Yamilka) 10 gm PO DAILYP PRN PRN Reason: Constipation Latanoprost (Latanoprost Ophth Drops 2.5ml Bottle) 1 gtt OU QPM [facility] Last Admin: 08/30/20 21:28 Dose: 1 drop Documented by: Losartan Potassium (Losartan 25 Mg Tablet) 12.5 mg PO QHS [facility] Last Admin: 08/30/20 21:26 Dose: 12.5 mg Documented by: Methylprednisolone Sodium Succinate (Methylprednisolone Sod Succ 40 Mg/Ml Vial) 40 mg IV Q12 [facility] Last Admin: 08/30/20 21:25 Dose: 40 mg Documented by: Montelukast Sodium (Montelukast 10 Mg Tablet) 10 mg PO QHS [facility] Last Admin: 08/30/20 21:27 Dose: 10 mg Documented by: Mupirocin (Mupirocin Oint 2% 22gm) 1 dose NARES BID [facility] Last Admin: 08/30/20 21:28 Dose: 1 dose Documented by: Ondansetron HCl (Ondansetron 4 Mg/2 Ml Vial) 4 mg IV Q4HP PRN; Protocol PRN Reason: Nausea And Vomiting Hypersal 7 % 1 dose INH BID [facility] Last Admin: 08/30/20 21:08 Dose: Not Given Documented by: Propafenone HCl (Propafenone Hcl 225 Mg Tablet) 225 mg PO TID [facility] Last Admin: 08/30/20 21:27 Dose: 225 mg Documented by: Senna (Sennosides 1 Tablet) 2 tab PO HSP PRN PRN Reason: Constipation Sodium Chloride (0.9 % Sodium Chloride 10 Ml Syringe) 10 ml IV Q8 [facility] Last Admin: 08/31/20 05:48 Dose: 10 ml Documented by: Vancomycin HCl (Vancomycin Per Pharmacy) 1 order IV UD [facility] A/P Narrative A/P Narrative: Assessment 74-year-old male with history of bronchiectasis, interstitial lung disease, COPD, chronic hypoxia (reports 2l/min at rest and 6 l/min w/ activity at baseline) and hypercapnia, HFrEF s/p biventricular pacer followed by improved LVEF 35%->50%, pafib (on coumadin at home), hx of bilateral lobectomy, 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 The patient initially improved on broad spectrum antibiotics but then developed pink sputum consistent with mild hemoptysis likely related to supratherapeutic INR. INR was reversed with FFP and Vitamin K, hemoptysis resolved. Given bilateral wheezing, the patient was also treated for COPD exacerbation with systemic steroids, scheduled and prn bronchodilators. RT followed closely for chest physiotherapy /pulmonary hygiene, home Trilogy was continued with the patient's hardware. The patient has made incremental improvements in respiratory function however has had intermittent hemoptysis in spite INR reversal. 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 -Follow sputum and blood cultures to completion. -Oxygen supplementation-goal 88 to 92% sats. -Scheduled duo nebs, albuterol nebs as needed. -Solumedrol IV BID for now, probably transition to prednisone in a day or two. -Continue home digoxin, propafenone, losartan, Lasix. -Holding Coumadin for hemoptysis. -Hold home LABA and LAMA for now. -Chest physiotherapy per RT. -Home Trilogy HS. -May benefit from inhaled tobramycin for outpatient therapy given likely pseudomonas colonization. -DVT PPx: SCD -CODE STATUS: Full code -Disposition: If improvement in hemoptysis then probably discharge to home with pulmonology follow up, may also consider ID follow up (follows with Dr. Delgado). If hemoptysis worsens then consider transfer to a higher level of care for interventional pulmonology evaluation and management. Time Spent With Patient Time: Total time spent is greater than 50% in coordination of care (as documented) at patient's floor/unit and/or counseling patient:
[2020-08-31 07:31] LABS: ALT/SGPT 7 U/L (<40); AST/SGOT 10 U/L (<40); Albumin 3.2 gm/dL (3.2-5.2); Alkaline Phosphatase 71 U/L (39-117); Bilirubin,Direct < 0.2 mg/dL (0-0.3); Bilirubin,Total 0.2 mg/dL (0.1-1.0); Blood Urea Nitrogen 20 mg/dL (8-23); Carbon Dioxide 34 mmol/L (22-30); Chloride 98 mmol/L (96-108); Globulin 3.1 gm/dL (2.2-3.7); Glomerular Filtration Rate 93; Glucose 136 mg/dL (70-105); Lactate Dehydrogenase 155 U/L (135-225); Phosphorous 3.3 mg/dL (2.5-4.5); Triglycerides 50 mg/dL (<150); Uric Acid 4.3 mg/dL (2.5-8.0)
[2020-08-31 07:45] LABS: INR 1.1 (0.9-1.1)
--- NOTE | 2020-08-31 08:55 | XRay Report ---
INDICATION: follow up hypoxia. History of severe bronchiectasis and interstitial lung disease TECHNIQUE: PA and lateral upright chest x-ray COMPARISON: Previous examinations dated 08/30/2020, 08/29/2020, 08/28/2020 FINDINGS: No change in left transvenous pacemaker leads Lungs: Diffuse pulmonary parenchymal infiltrates are unchanged since 08/30/2020 Heart, vascular: No significant cardiomegaly. Pulmonary vascularity is normal. No pulmonary edema or pulmonary congestion Mediastinum, hilario: No mediastinal widening. No hilar mass Pleura:Blunting of the calcific angles consistent with small effusions or scarring Thoracic spine, ribs: No thoracic compression fracture. Ribs are negative. No fracture. No lytic lesion IMPRESSION: Diffuse lung disease, unchanged since 08/30/2020 Interpreted and Authenticated by: Prashant Danielson 08/31/20
[2020-08-31] MEDS ORDERED: methylPREDNISolone SOD SUCC 40 MG/ML VIAL IV SCH (09:00)
[2020-08-31] MEDS: methylPREDNISolone SOD SUCC 40 MG/ML VIAL IV SCH ×2 (09:18→21:06)
[2020-08-31] MEDS: MUPIROCIN OINT 2% 22GM NARES SCH ×2 (09:18→21:12)
[2020-08-31] MEDS: FUROSEMIDE 40 MG TABLET PO SCH (09:19)
[2020-08-31] MEDS: PROPAFENONE HCL 225 MG PO SCH ×3 (09:19→21:10)
[2020-08-31] MEDS: DOCUSATE SODIUM 100 MG CAPSULE PO SCH ×2 (09:19→21:09)
[2020-08-31] MEDS: HYPERSAL INH SCH ×2 (09:20→21:14)
[2020-08-31 10:17] LABS: Hematocrit 36.9 % (41.0-55.0); Hemoglobin 11.4 g/dL (13.5-16.5); Mean Cell Volume 97.4 fL (80.0-100.0); Mean Corpuscular HGB Conc 30.9 g/dL (31.0-36.0); Mean Platelet Volume 9.7 fL (7.4-10.4); Platelet Count 232 K/mcL (140-440); RBC 3.79 M/mcL (4.50-5.90); Red Cell Distribution Width 13.2 % (11.5-14.5); WBC 8.1 K/mcL (4.5-11.0)
--- NOTE | 2020-08-31 10:29 | Cat Scan Report ---
INDICATION: hemoptysis COMPARISON: Previous CT scan dated 05/27/2012. Multiple previous chest x-rays including most recent examination dated 08/31/2020 TECHNIQUE: Axial contrast enhanced images through the chest. Sagittally and coronally reformatted images. MIP reformatted images. 80ml Isovue 370 injected intravenously. FINDINGS: Lungs:Very severe and extensive bronchiectasis. There has been interval worsening since 2012. Multiple distended bronchi and bronchioles contain fluid and mucus. There is mild consolidation in the left lower lobe. There is also mild mosaic perfusion. Distribution of bronchiectasis is predominantly mid and lower lobes. Etiology is not certain. Alpha-1 antitrypsin deficiency or nontuberculous mycobacterial infection are possible. Cystic fibrosis is also possible. No focal mass. No evidence for malignancy. Mediastinum, vascular:Normal thoracic aorta. No thoracic aortic aneurysm or dissection. Mild nonspecific mediastinal and hilar adenopathy. Main pulmonary artery is dilated and measures 38 mm in cross-sectional diameter. Appearance is consistent with pulmonary hypertension Heart:No cardiomegaly. No pericardial effusion. There is coronary artery calcification Pleura:No significant pleural effusion. No pleural-based mass or calcification Axilla, supraclavicular regions, chest wall:No pathologic axillary or supraclavicular adenopathy. Musculoskeletal:No thoracic compression fracture or lytic lesion. No sternal or rib lesion Upper Abdomen:Negative IMPRESSION: 1. There is severe bilateral bronchiectasis with interval progression since 05/27/2012 2. Retained fluid and mucus within multiple nondistended bronchi and bronchioles 3. Mild mosaic perfusion The exam was performed using radiation dose optimization techniques including, but not limited to, automated exposure control, adjustment of the mA and/or kV according to patient size and use of iterative reconstruction technique. Interpreted and Authenticated by: Prashant Danielson 08/31/20
[2020-08-31] MEDS: VANCOMYCIN 1,500 MG in 0.9 % SODIUM CHLORIDE 500 ML IV SCH ×3 (11:03→21:13)
[2020-08-31 11:26] LABS: Band Neutrophils % 1 % (0-10); Lymphocytes % 13 % (15-49); Monocytes % (Manual) 4 % (1-12); Platelet Estimate NORMAL (Normal); RBC Morphology NORMAL (Normal); Segmented Neutrophils % 82 % (38-78)
--- NOTE | 2020-08-31 13:11 | Internal Med Progress Note ---
SUBJECTIVE Subjective Patient information: Note initiated : 08/31/20 at 1:07 pm Service Date, if different from initiated Date: [] Patient: Nick Hamilton 74 y/o M admitted on 08/28/20 for sob. Chief Complaint: [] Interval history: Mr. Hamilton is a 74 year old male with a history of bronchiectasis, interstitial lung disease, history of lobectomy, COPD, history of heart failure with reduced ejection fraction biventricular pacemaker placement, atrial fibrillation chronic hypoxia (2L per minute at rest and up to 6L per minute with activity) who presented to the ED for aggressive shortness of breath and suction. The patient said his symptoms began about ago and have progressively worsened, he normally has sputum production but now the sputum is more of a less and purulent. The patient denies fevers but did have chills. He denies any recent weight changes, no leg edema, no orthostasis. Work-up in the ED included routine labs, no gross cytosis however bandemia,chest x-ray showed increased interstitial lung infiltrates bilaterally. Patient was admitted for bronchiectasis exacerbation and possible COPD exacerbation. 08/29 The patient feels better today, less sputum production. Awaiting culture results, MRSA nasal PCR screen to deescalate abx. 08/30 Developed pink sputum, INR 3.9. Vitamin K and FFP given. Sputum culture growing Staph aureus, gram stain was also positive for moderate gram negative and gram positive bacilli. MRSA nasal PCR positive. Continued Vancomycin IV and Cefepime. 08/31 Had another episode of hemoptysis today. INR fully reversed at 1.1. CT chest with contrast ordered. Constitutional Vitals: Vital Signs Temp Pulse Resp BP Pulse Ox 98.3 F 85 20 130/72 97 08/31/20 08:00 08/31/20 11:50 08/31/20 11:50 08/31/20 08:00 08/31/20 11:50 Period Temp Pulse Resp BP Sys/Mukherjee Pulse Ox Last 24 Hr 97.4 F-98.4 F 74-102 20-24 123-141/64-77 90-97 Intake and Output 08/30/20 08/31/20 08/31/20 21:59 05:59 13:59 Intake Total 1280 400 Output Total 1175 275 Balance 105 125 Weight 81.873 kg Intake & Output: Intake & Output 08/30/20 08/31/20 08/31/20 21:59 05:59 13:59 Intake Total 1280 400 Output Total 1175 275 Balance 105 125 Weight 81.873 kg Intake: IV 250 Sodium Chloride 0.9% 250 ml @ 250 20 mls/hr IV .[id number] [facility] Rx#: [id number] Oral 1280 150 Output: Void Amount 1175 275 Other: Meal Dinner Percent of Meal Consumed 100% Feeding Ability Independent Urine Appearance Clear Clear Urine Color Bright Yellow Bright Yellow Urine Odor Normal Normal Stool Size Moderate Stool Color Brown Stool Consistency Soft Exam: General: Alert, Awake, No acute Distress Eyes/N/T: EOMI, Head/Neck: neck supple, CV: RRR, No murmurs, Pulm: b/l rales and wheezing Abd: soft, nontender, +BS x4 Ext: no clubbing/cyanosis/edema Neuro: Alert, no focal deficits, moves all extremities, Skin: warm/dry OBJ DATA Labs CBC & Chem 7: 08/31/20 09:48 08/31/20 05:30 Labs: Abnormal Lab Results 08/31/20 08/31/20 08/31/20 09:48 06:18 05:30 RBC 3.79 L Hgb 11.4 L Hct 36.9 L MCHC 30.9 L Seg Neutrophils % 82 H Lymphocytes % 13 L PT 15.0 H INR Chloride Carbon Dioxide 34 H Anion Gap 7.0 L Glucose 136 H Phosphorus GGT Albumin Globulin 08/30/20 08/30/20 08/30/20 15:21 05:24 05:24 RBC Hgb Hct MCHC Seg Neutrophils % Lymphocytes % PT 20.7 H 40.3 H INR 1.7 H 3.9 H Chloride Carbon Dioxide 37 H Anion Gap 4.0 L Glucose Phosphorus 2.2 L GGT 7 L Albumin 3.0 L Globulin 08/29/20 08/29/20 08/28/20 04:55 04:55 10:55 RBC Hgb Hct MCHC Seg Neutrophils % Lymphocytes % PT 39.5 H 30.2 H INR 3.8 H 2.7 H Chloride 95 L Carbon Dioxide 35 H Anion Gap 7.0 L Glucose 123 H Phosphorus GGT 7 L Albumin Globulin 08/28/20 10:44 RBC Hgb Hct MCHC Seg Neutrophils % Lymphocytes % PT INR Chloride 95 L Carbon Dioxide Anion Gap Glucose Phosphorus GGT 7 L Albumin Globulin 3.8 H Meds: Medications Albuterol Sulfate (Albuterol Sulfate 2.5 Mg/3 Ml Nebulizer) 2.5 mg NEB Q2HP PRN PRN Reason: Shortness Of Breath Albuterol/Ipratropium (Ipratropium/Albuterol 3 Ml Ampul.Neb) 3 ml NEB Q4HRT [facility] Last Admin: 08/31/20 11:34 Dose: 3 ml Documented by: Cefepime HCl (Cefepime 2 Gm Vial) 2 gm IV Q8H [facility]; Protocol Last Admin: 08/31/20 05:48 Dose: 2 gm Documented by: Digoxin (Digoxin 125 Mcg Tablet) 125 mcg PO DAILY@1400 [facility] Last Admin: 08/30/20 14:32 Dose: 125 mcg Documented by: Docusate Sodium (Docusate Sodium 100 Mg Capsule) 100 mg PO BID [facility] Last Admin: 08/31/20 09:19 Dose: 100 mg Documented by: Furosemide (Furosemide 40 Mg Tablet) 20 mg PO QDAY [facility] Last Admin: 08/31/20 09:19 Dose: 20 mg Documented by: Vancomycin HCl 1,500 mg/ (Sodium Chloride) 500 mls @ 333.3 mls/hr IV Q12H [facility] Last Admin: 08/31/20 11:03 Dose: 333.3 mls/hr Documented by: Lactulose (Lactulose 20 Gm/30 Ml Oral.Yamilka) 10 gm PO DAILYP PRN PRN Reason: Constipation Latanoprost (Latanoprost Ophth Drops 2.5ml Bottle) 1 gtt OU QPM [facility] Last Admin: 08/30/20 21:28 Dose: 1 drop Documented by: Losartan Potassium (Losartan 25 Mg Tablet) 12.5 mg PO QHS [facility] Last Admin: 08/30/20 21:26 Dose: 12.5 mg Documented by: Methylprednisolone Sodium Succinate (Methylprednisolone Sod Succ 40 Mg/Ml Vial) 40 mg IV Q12 [facility] Last Admin: 08/31/20 09:18 Dose: 40 mg Documented by: Montelukast Sodium (Montelukast 10 Mg Tablet) 10 mg PO QHS [facility] Last Admin: 08/30/20 21:27 Dose: 10 mg Documented by: Mupirocin (Mupirocin Oint 2% 22gm) 1 dose NARES BID [facility] Last Admin: 08/31/20 09:18 Dose: 1 dose Documented by: Ondansetron HCl (Ondansetron 4 Mg/2 Ml Vial) 4 mg IV Q4HP PRN; Protocol PRN Reason: Nausea And Vomiting Hypersal 7 % 1 dose INH BID [facility] Last Admin: 08/31/20 09:20 Dose: Not Given Documented by: Propafenone HCl (Propafenone Hcl 225 Mg Tablet) 225 mg PO TID [facility] Last Admin: 08/31/20 09:19 Dose: 225 mg Documented by: Senna (Sennosides 1 Tablet) 2 tab PO HSP PRN PRN Reason: Constipation Sodium Chloride (0.9 % Sodium Chloride 10 Ml Syringe) 10 ml IV Q8 [facility] Last Admin: 08/31/20 05:48 Dose: 10 ml Documented by: Vancomycin HCl (Vancomycin Per Pharmacy) 1 order IV UD [facility] A/P Narrative A/P Narrative: A: #Acute on chronic hypoxic respiratory failure: slow improvement #Pneumonia d/t MRSA & gram negative bacillus (pseudomonas?) #Severe bronchiectasis/interstitial lung disease: #Hemoptysis: resolved after INR reversal #COPD exacerbation: #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 -Follow sputum and blood cultures to completion. -Oxygen supplementation with goal 88 to 92% sats. -Scheduled duo nebs, albuterol nebs as needed. -Solumedrol (wean), probably transition to prednisone in a day or two. -Continue home digoxin, propafenone, losartan, Lasix. -Holding Coumadin for hemoptysis. -Hold home LABA and LAMA for now given scheduled duonebs -Chest physiotherapy per RT. -Home Trilogy HS. -May benefit from inhaled tobramycin for outpatient therapy given likely pseudomonas colonization. -DVT PPx: SCD CODE STATUS: Full code -Disposition: If improvement in hemoptysis then probably discharge to home with pulmonology follow up, may also consider ID follow up (follows with Dr. Sarbjit augustin). If hemoptysis worsens then consider transfer to a higher level of care for interventional pulmonology evaluation and management. Time Spent With Patient Time: Total time spent is greater than 50% in coordination of care (as documented) at patient's floor/unit and/or counseling patient:
[2020-08-31] MEDS: DIGOXIN 125 MCG TABLET PO SCH (14:33)
[2020-08-31] MEDS: LOSARTAN 25 MG TABLET PO SCH (21:08)
[2020-08-31] MEDS: MONTELUKAST 10 MG TABLET PO SCH (21:09)
[2020-08-31] MEDS: LATANOPROST OPHTH DROPS 2.5ML BOTTLE OU SCH (21:10)
[2020-09-01] MEDS: IPRATROPIUM/ALBUTEROL 3 ML AMPUL.NEB NEB SCH ×6 (03:28→22:18)
[2020-09-01] MEDS: CEFEPIME 2 GM VIAL IV SCH ×3 (05:39→21:28)
[2020-09-01] MEDS: 0.9 % SODIUM CHLORIDE 10 ML SYRINGE IV SCH ×3 (05:39→21:29)
--- NOTE | 2020-09-01 07:14 | Internal Med Progress Note ---
SUBJECTIVE Subjective Patient information: Note initiated : 09/01/20 at 7:11 am Service Date, if different from initiated Date: [] Patient: Nick Hamilton 74 y/o M admitted on 08/28/20 for sob. Chief Complaint: [] Interval history: Mr. Hamilton is a 74 year old male with a history of bronchiectasis, interstitial lung disease, history of lobectomy, COPD, history of heart failure with reduced ejection fraction biventricular pacemaker placement, atrial fibrillation chronic hypoxia (2L per minute at rest and up to 6L per minute with activity) who presented to the ED for aggressive shortness of breath and suction. The patient said his symptoms began about ago and have progressively worsened, he normally has sputum production but now the sputum is more of a less and purulent. The patient denies fevers but did have chills. He denies any recent weight changes, no leg edema, no orthostasis. Work-up in the ED included routine labs, no gross cytosis however bandemia,chest x-ray showed increased interstitial lung infiltrates bilaterally. Patient was admitted for bronchiectasis exacerbation and possible COPD exacerbation. 08/29 The patient feels better today, less sputum production. Awaiting culture results, MRSA nasal PCR screen to deescalate abx. 08/30 Developed pink sputum, INR 3.9. Vitamin K and FFP given. Sputum culture growing Staph aureus, gram stain was also positive for moderate gram negative and gram positive bacilli. MRSA nasal PCR positive. Continued Vancomycin IV and Cefepime. 08/31 Had another episode of hemoptysis today. INR fully reversed at 1.1. CT chest with contrast ordered. 09/01 CT chest no identifiable well reason for hemoptysis. Patient does have staph pneumonia as well as a had an INR of 3.9. Last hemoptysis was yesterday morning, he says it is a little pinkish this morning. Has his usual active cough and baseline shortness of breath. pEnding final sputum culture Review of Systems: denies headache/fever/chills/nausea/vomiting/chest or abdominal pain/diarrhea. Otherwise see above. Constitutional Vitals: Vital Signs Temp Pulse Resp BP Pulse Ox 98.1 F 86 22 144/77 94 09/01/20 07:08 09/01/20 07:08 09/01/20 07:08 09/01/20 07:08 09/01/20 07:08 Period Temp Pulse Resp BP Sys/Mukherjee Pulse Ox Last 24 Hr 97.8 F-98.5 F 80-102 20-32 130-144/61-77 92-98 Intake and Output 08/31/20 09/01/20 09/01/20 21:59 05:59 13:59 Intake Total 460 975 0 Output Total 1150 475 Balance -690 500 0 Weight 82.69 kg Intake & Output: Intake & Output 08/31/20 09/01/20 09/01/20 21:59 05:59 13:59 Intake Total 460 975 0 Output Total 1150 475 Balance -690 500 0 Weight 82.69 kg Intake: IV 500 Vancomycin 1,500 mg In Sodium 500 Chloride 0.9% 500 ml @ 333.3 mls/hr IV Q12H [facility] Rx#: [id number] Oral 460 475 0 Output: Void Amount 1150 475 Other: Meal Breakfast Percent of Meal Consumed 100% Urine Appearance Clear Clear Urine Color Pale Dark Yellow Urine Odor Normal Exam: General: Alert, Awake, No acute Distress Eyes/N/T: EOMI, Head/Neck: neck supple, CV: RRR, No murmurs, Pulm: b/l rhonchi and mild wheezing Abd: soft, nontender, +BS x4 Ext: no clubbing/cyanosis/edema Neuro: Alert, no focal deficits, moves all extremities, Skin: warm/dry OBJ DATA Labs CBC & Chem 7: 08/31/20 09:48 09/01/20 05:50 Labs: Abnormal Lab Results 08/31/20 08/31/20 08/31/20 09:48 06:18 05:30 RBC 3.79 L Hgb 11.4 L Hct 36.9 L MCHC 30.9 L Seg Neutrophils % 82 H Lymphocytes % 13 L PT 15.0 H INR Carbon Dioxide 34 H Anion Gap 7.0 L Glucose 136 H Phosphorus GGT Albumin 08/30/20 08/30/20 08/30/20 15:21 05:24 05:24 RBC Hgb Hct MCHC Seg Neutrophils % Lymphocytes % PT 20.7 H 40.3 H INR 1.7 H 3.9 H Carbon Dioxide 37 H Anion Gap 4.0 L Glucose Phosphorus 2.2 L GGT 7 L Albumin 3.0 L Meds: Medications Albuterol Sulfate (Albuterol Sulfate 2.5 Mg/3 Ml Nebulizer) 2.5 mg NEB Q2HP PRN PRN Reason: Shortness Of Breath Albuterol/Ipratropium (Ipratropium/Albuterol 3 Ml Ampul.Neb) 3 ml NEB Q4HRT [facility] Last Admin: 09/01/20 03:28 Dose: 3 ml Documented by: Cefepime HCl (Cefepime 2 Gm Vial) 2 gm IV Q8H [facility]; Protocol Last Admin: 09/01/20 05:39 Dose: 2 gm Documented by: Digoxin (Digoxin 125 Mcg Tablet) 125 mcg PO DAILY@1400 [facility] Last Admin: 08/31/20 14:33 Dose: 125 mcg Documented by: Docusate Sodium (Docusate Sodium 100 Mg Capsule) 100 mg PO BID [facility] Last Admin: 08/31/20 21:09 Dose: 100 mg Documented by: Furosemide (Furosemide 40 Mg Tablet) 20 mg PO QDAY [facility] Last Admin: 08/31/20 09:19 Dose: 20 mg Documented by: Vancomycin HCl 1,500 mg/ (Sodium Chloride) 500 mls @ 333.3 mls/hr IV Q12H [facility] Last Infusion: 08/31/20 22:44 Dose: Infused Documented by: Lactulose (Lactulose 20 Gm/30 Ml Oral.Yamilka) 10 gm PO DAILYP PRN PRN Reason: Constipation Latanoprost (Latanoprost Ophth Drops 2.5ml Bottle) 1 gtt OU QPM [facility] Last Admin: 08/31/20 21:10 Dose: 2 drop Documented by: Losartan Potassium (Losartan 25 Mg Tablet) 12.5 mg PO QHS [facility] Last Admin: 08/31/20 21:08 Dose: 12.5 mg Documented by: Methylprednisolone Sodium Succinate (Methylprednisolone Sod Succ 40 Mg/Ml Vial) 40 mg IV Q12 [facility] Last Admin: 08/31/20 21:06 Dose: 40 mg Documented by: Montelukast Sodium (Montelukast 10 Mg Tablet) 10 mg PO QHS [facility] Last Admin: 08/31/20 21:09 Dose: 10 mg Documented by: Mupirocin (Mupirocin Oint 2% 22gm) 1 dose NARES BID [facility] Last Admin: 08/31/20 21:12 Dose: 1 dose Documented by: Ondansetron HCl (Ondansetron 4 Mg/2 Ml Vial) 4 mg IV Q4HP PRN; Protocol PRN Reason: Nausea And Vomiting Hypersal 7 % 1 dose INH BID [facility] Last Admin: 08/31/20 21:14 Dose: Not Given Documented by: Propafenone HCl (Propafenone Hcl 225 Mg Tablet) 225 mg PO TID [facility] Last Admin: 08/31/20 21:10 Dose: 225 mg Documented by: Senna (Sennosides 1 Tablet) 2 tab PO HSP PRN PRN Reason: Constipation Sodium Chloride (0.9 % Sodium Chloride 10 Ml Syringe) 10 ml IV Q8 [facility] Last Admin: 09/01/20 05:39 Dose: 10 ml Documented by: Vancomycin HCl (Vancomycin Per Pharmacy) 1 order IV UD [facility] A/P Narrative A/P Narrative: A: #Acute on chronic hypoxic respiratory failure: slow improvement #Pneumonia d/t MRSA & GNB (pseudomonas?) #Severe bronchiectasis/interstitial lung disease: #Hemoptysis: resolved after INR reversal #COPD exacerbation(3-8L@home): -currently on 2-4L #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 -Follow sputum and blood cultures to completion. -Oxygen supplementation with goal 88 to 92% sats. -Scheduled duo nebs, albuterol nebs as needed. -Solumedrol (wean), transition to prednisone morning -Continue home digoxin/propafenone/losartan/Lasix -Holding Coumadin for hemoptysis -Hold home LABA and LAMA for now given scheduled duonebs -Chest physiotherapy per RT -Home Trilogy HS. -May benefit from inhaled tobramycin for outpatient therapy given likely pseudomonas colonization. -DVT PPx: SCD CODE STATUS: Full code -Disposition: If improvement in hemoptysis then probably discharge to home with pulmonology follow up, may also consider ID follow up (follows with Dr. Pat esparza). If hemoptysis worsens then consider transfer to a higher level of care for interventional pulmonology evaluation and management. Time Spent With Patient Time: Total time spent is greater than 50% in coordination of care (as documented) at patient's floor/unit and/or counseling patient:
[2020-09-01 07:36] LABS: Prothrombin Time 14.2 sec (11.9-14.5)
[2020-09-01 07:37] LABS: ALT/SGPT 6 U/L (<40); AST/SGOT 9 U/L (<40); Albumin 3.3 gm/dL (3.2-5.2); Albumin/Globulin Ratio 1.1 (1.0-2.3); Alkaline Phosphatase 67 U/L (39-117); Bilirubin,Direct < 0.2 mg/dL (0-0.3); Bilirubin,Total 0.2 mg/dL (0.1-1.0); Blood Urea Nitrogen 19 mg/dL (8-23); Carbon Dioxide 37 mmol/L (22-30); Chloride 99 mmol/L (96-108); Globulin 3.1 gm/dL (2.2-3.7); Glomerular Filtration Rate 99; Glucose 146 mg/dL (70-105); Lactate Dehydrogenase 127 U/L (135-225); Phosphorous 2.9 mg/dL (2.5-4.5); Triglycerides 44 mg/dL (<150); Uric Acid 3.8 mg/dL (2.5-8.0)
[2020-09-01] MEDS: MUPIROCIN OINT 2% 22GM NARES SCH ×2 (09:04→21:26)
[2020-09-01] MEDS: FUROSEMIDE 40 MG TABLET PO SCH (09:06)
[2020-09-01] MEDS: DOCUSATE SODIUM 100 MG CAPSULE PO SCH ×2 (09:06→21:27)
[2020-09-01] MEDS: HYPERSAL INH SCH ×2 (09:07→21:28)
[2020-09-01] MEDS: PROPAFENONE HCL 225 MG PO SCH ×3 (09:07→21:27)
[2020-09-01] MEDS: methylPREDNISolone SOD SUCC 40 MG/ML VIAL IV SCH ×2 (09:08→21:28)
--- NOTE | 2020-09-01 09:10 | Discharge Summary ---
Discharge Provider Provider Patient information: Note initiated : 09/01/20 at 9:08 am Service Date, if different from initiated Date: [] Patient: Nick Hamilton 74 y/o M admitted on 08/28/20 for sob. Chief Complaint: [] Date of admission: 08/28/20 15:50 Discharge date: 09/03/20 Primary care physician: Hortencia Adams Consults: 08/28/20 Consult to Physician [CONS] Stat Comment: Consulting Provider: Jose Roberto Saez Reason For Exam: Physician to Consult Discharge Meds Discharge Medications Home Medications latanoprost 0.005 % eye drops 1 drp OPHTHALMIC QPM ml 08/23/15 [History Confirmed 08/28/20 Last Taken 10/16/15 21:00] warfarin 7.5 mg tablet See Rx Instructions .ROUTE .COMPLEX tab 08/23/15 [History Confirmed 08/28/20 Last Taken 10/11/15 21:00] ipratropium bromide 2.5 ml NEB Q4HRT ampul.neb 10/24/15 [Rx Confirmed 08/28/20 Last Taken Unknown] albuterol sulfate 2.5 mg INHALATION BID ml 05/20/17 [History Confirmed 08/28/20 Last Taken Unknown] digoxin 125 mcg (0.125 mg) tablet 125 mcg PO QDAY 05/20/17 [History Confirmed 08/28/20 Last Taken Unknown] montelukast 10 mg tablet 10 mg PO QHS 06/11/17 [History Confirmed 08/28/20 Last Taken Unknown] HyperSal 7 % INHALATION BID #240 ml 05/06/19 [Rx Confirmed 08/28/20 Last Taken Unknown] furosemide 40 mg tablet 20 mg PO QDAY tab 05/06/19 [History Confirmed 08/28/20 Last Taken Unknown] Noninvasive ventilator.supplies tubing mask #1 ea 05/13/19 [Rx Confirmed 0 08/28/20 Last Taken Unknown] irbesartan 75 mg tablet 37.5 mg PO QHS tab 05/13/19 [History Confirmed 08/28/20 Last Taken Unknown] propafenone 150 mg tablet 225 mg PO TID tab 03/08/20 [History Confirmed 08/28/20 Last Taken Unknown] budesonide 0.5 mg/2 mL suspension for nebulization 0.5 mg INHALATION BID #120 ml 07/27/20 [Rx Confirmed 08/28/20 Last Taken Unknown] fluticasone 500 mcg-salmeterol 50 mcg/dose blistr powdr for inhalation 1 inh INHALATION Q12H 07/27/20 [History Confirmed 08/28/20 Last Taken Unknown] prednisone 40 mg PO QDAY #1 tab 09/01/20 [Rx Last Taken Unknown] cefepime 2 g IV Q12H #10 ea 09/02/20 [Rx Last Taken Unknown] linezolid 600 mg PO BID #10 tab 09/02/20 [Rx Last Taken Unknown] COURSE Hospital Course Hospital course: Interval history: Mr. Hamilton is a 74 year old male with a history of bronchiectasis, interstitial lung disease, history of lobectomy, COPD, history of heart failure with reduced ejection fraction biventricular pacemaker placement, atrial fibrillation chronic hypoxia (2L per minute at rest and up to 6L per minute with activity) who presented to the ED for aggressive shortness of breath and suction. The patient said his symptoms began about ago and have progressively worsened, he normally has sputum production but now the sputum is more of a less and purulent. The patient denies fevers but did have chills. He denies any recent weight changes, no leg edema, no orthostasis. Work-up in the ED included routine labs, no gross cytosis however bandemia,chest x-ray showed increased interstitial lung infiltrates bilaterally. Patient was admitted for bronchiectasis exacerbation and possible COPD exacerbation. 08/29 The patient feels better today, less sputum production. Awaiting culture results, MRSA nasal PCR screen to deescalate abx. 08/30 Developed pink sputum, INR 3.9. Vitamin K and FFP given. Sputum culture growing Staph aureus, gram stain was also positive for moderate gram negative and gram positive bacilli. MRSA nasal PCR positive. Continued Vancomycin IV and Cefepime. 08/31 Had another episode of hemoptysis today. INR fully reversed at 1.1. CT chest with contrast ordered. 09/01 CT chest no identifiable well reason for hemoptysis. Patient does have staph pneumonia as well as a had an INR of 3.9. Last hemoptysis was yesterday morning, he says it is a little pinkish this morning. Has his usual active cough and baseline shortness of breath. pEnding final sputum culture 09/02 Patient patient stable. No new acute changes. as cough and chronic dyspnea. Awaiting final sensitivities, sputum growing MRSA and what looks to be Pseudomonas but again waiting for sensitivities as difficult to grow. Discussed the case with Dr. Delgado who recommended IV cefepime and Zyvox for 10 day course. And close follow-up with Dr. Delgado outpatient. Likely discharge in the morning on IV antibiotics and awaiting final sensitivities. [employer] CODE STATUS and hospice discussion with the patient who wanted to wait and talk to family. 09/03 No overnight event or new complaints. Decrease oxygen requirement. *Given significant comorbidities and age, patient is high risk for readmission, consider hospice evaluation, this has been brought up in the past. 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 #Chronic hypercapnia: uses Trilogy BiPAP at home #HFrEF: improved LV EF from 35% to 50% after biventricular cardiac pacemaker #PAF: takes Coumadin at home #Hx of complete AV block s/p pacemaker #Hx bilateral lobectomies for bronchiectasis lung disease Discharge diagnosis: MRSA pneumonia acute on chronic hypoxic respiratory failure Secondary discharge diagnosis: Advanced COPD severe bronchiectasis interstitial lung disease hemoptysis chronic hypercapnia history of heart failure PAF Time Spent with Patient Time attestation: Total time spent providing and/or coordinating discharge services: Time spent: Greater than 30 minutes EXAM Constitutional Vitals: Temp Pulse Resp BP Pulse Ox 98.1 F 85 22 144/77 95 09/01/20 07:08 09/01/20 07:18 09/01/20 07:18 09/01/20 07:08 09/01/20 07:18 Discharge Data Data Completed and Pending Labs on day of discharge: Labs from last 24 hours 09/01/20 09/01/20 09/01/20 08:03 05:50 05:50 WBC RBC Hgb Hct MCV MCH MCHC RDW Plt Count MPV Seg Neutrophils % Band Neutrophils % Lymphocytes % Monocytes % (Manual) Platelet Estimate RBC Morphology PT 14.2 INR 1.0 Sodium 138 Potassium 4.2 Chloride 99 Carbon Dioxide 37 H Anion Gap 2.0 L BUN 19 Creatinine 0.6 L GFR Calculation 99 Glucose 146 H Uric Acid 3.8 Calcium 9.0 Phosphorus 2.9 Magnesium 2.0 Total Bilirubin 0.2 Direct Bilirubin < 0.2 GGT 7 L AST 9 ALT 6 Alkaline Phosphatase 67 Lactate Dehydrogenase 127 L Total Protein 6.4 Albumin 3.3 Globulin 3.1 Albumin/Globulin Ratio 1.1 Triglycerides 44 Vancomycin Trough 21.5 H* 08/31/20 08/31/20 09:48 08:25 WBC 8.1 RBC 3.79 L Hgb 11.4 L Hct 36.9 L MCV 97.4 MCH 30.1 MCHC 30.9 L RDW 13.2 Plt Count 232 MPV 9.7 Seg Neutrophils % 82 H Band Neutrophils % 1 Lymphocytes % 13 L Monocytes % (Manual) 4 Platelet Estimate Normal RBC Morphology Normal PT INR Sodium Potassium Chloride Carbon Dioxide Anion Gap BUN Creatinine GFR Calculation Glucose Uric Acid Calcium Phosphorus Magnesium Total Bilirubin Direct Bilirubin GGT AST ALT Alkaline Phosphatase Lactate Dehydrogenase Total Protein Albumin Globulin Albumin/Globulin Ratio Triglycerides Vancomycin Trough 7.2 Preliminary micro results at discharge 08/28/20 11:26 Blood Culture - Preliminary Blood 08/28/20 11:20 Blood Culture - Preliminary Blood 08/28/20 16:13 Gram Stain - Preliminary Sputum - Induced Sputum Culture - Preliminary Gram negative bacillus Methicillin resistant s.aureus Discharge Plan Patient/Caregiver Discharge Instructions Activity: increase activity as tolerated Diet: Regular Diet Activity Restrictions/Additional Instructions: Recommend hospice introduction outpatient. Prescriptions: New prednisone 10 mg tablet 40 mg PO QDAY Qty: 1 RF: 0 cefepime 2 gram recon soln 2 g IV Q12H Qty: 10 RF: 0 linezolid 600 mg tablet 600 mg PO BID Qty: 10 RF: 0 Continued latanoprost 0.005 % drops 1 drp OPHTHALMIC QPM RF: 0 warfarin 7.5 mg tablet See Rx Instructions .ROUTE .COMPLEX RF: 0 albuterol sulfate 2.5 mg /3 mL (0.083 %) solution for nebulization 2.5 mg INHALATION BID RF: 0 digoxin [Digox] 125 mcg tablet 125 mcg PO QDAY RF: 0 furosemide 40 mg tablet 20 mg PO QDAY RF: 0 montelukast 10 mg tablet 10 mg PO QHS RF: 0 irbesartan 75 mg tablet 37.5 mg PO QHS RF: 0 HyperSal 7 % INHALATION BID Qty: 240 RF: 5 propafenone 150 mg tablet 225 mg PO TID RF: 0 (DME) Noninvasive ventilator.supplies tubing mask Qty: 1 RF: 0 fluticasone propion-salmeterol [Wixela Inhub] 500-50 mcg/dose blister with device 1 inh inhalation Q12H RF: 0 budesonide 0.5 mg/2 mL suspension for nebulization 0.5 mg inhalation BID Qty: 120 RF: 11 ipratropium bromide 2.5 ML solution 2.5 ml NEB Q4HRT RF: 0 Follow Up Plan Follow up with: Lukasz Mayberry MD [Physician] - Hortencia Adams MD [Primary Care Provider] - Wenceslao Delgado MD [Physician] - Patient Disposition: Home, Self-Care Prognosis: Serious Overall status at discharge: patient is progressing back to baseline Discharge Orders: Discharge Order (Routine); Ordered 09/03/20 Ordered By: Kain Washington
[2020-09-01] MEDS: VANCOMYCIN 1,500 MG in 0.9 % SODIUM CHLORIDE 500 ML IV SCH (09:23)
[2020-09-01] MEDS: DIGOXIN 125 MCG TABLET PO SCH (15:14)
[2020-09-01] MEDS: MONTELUKAST 10 MG TABLET PO SCH (21:27)
[2020-09-01] MEDS: LOSARTAN 25 MG TABLET PO SCH (21:27)
[2020-09-01] MEDS: LATANOPROST OPHTH DROPS 2.5ML BOTTLE OU SCH (21:29)
[2020-09-02] MEDS: IPRATROPIUM/ALBUTEROL 3 ML AMPUL.NEB NEB SCH ×6 (03:11→22:32)
[2020-09-02] MEDS: CEFEPIME 2 GM VIAL IV SCH ×3 (05:11→21:59)
[2020-09-02] MEDS: 0.9 % SODIUM CHLORIDE 10 ML SYRINGE IV SCH ×3 (05:12→22:15)
[2020-09-02 06:43] LABS: Vancomycin,Random 7.7 ug/mL
[2020-09-02] MEDS: DOCUSATE SODIUM 100 MG CAPSULE PO SCH ×2 (08:29→22:00)
[2020-09-02] MEDS: MUPIROCIN OINT 2% 22GM NARES SCH ×2 (08:29→22:01)
[2020-09-02] MEDS: FUROSEMIDE 40 MG TABLET PO SCH (08:30)
[2020-09-02] MEDS: HYPERSAL INH SCH ×2 (08:30→22:15)
[2020-09-02] MEDS: PROPAFENONE HCL 225 MG PO SCH ×3 (08:31→22:00)
[2020-09-02] MEDS: methylPREDNISolone SOD SUCC 40 MG/ML VIAL IV SCH (08:31)
--- NOTE | 2020-09-02 09:39 | Internal Med Progress Note ---
SUBJECTIVE Subjective Patient information: Note initiated : 09/02/20 at 9:32 am Service Date, if different from initiated Date: [] Patient: Nick Hamilton 74 y/o M admitted on 08/28/20 for sob. Chief Complaint: [] Interval history: Mr. Hamilton is a 74 year old male with a history of bronchiectasis, interstitial lung disease, history of lobectomy, COPD, history of heart failure with reduced ejection fraction biventricular pacemaker placement, atrial fibrillation chronic hypoxia (2L per minute at rest and up to 6L per minute with activity) who presented to the ED for aggressive shortness of breath and suction. The patient said his symptoms began about ago and have progressively worsened, he normally has sputum production but now the sputum is more of a less and purulent. The patient denies fevers but did have chills. He denies any recent weight changes, no leg edema, no orthostasis. Work-up in the ED included routine labs, no gross cytosis however bandemia,chest x-ray showed increased interstitial lung infiltrates bilaterally. Patient was admitted for bronchiectasis exacerbation and possible COPD exacerbation. 08/29 The patient feels better today, less sputum production. Awaiting culture results, MRSA nasal PCR screen to deescalate abx. 08/30 Developed pink sputum, INR 3.9. Vitamin K and FFP given. Sputum culture growing Staph aureus, gram stain was also positive for moderate gram negative and gram positive bacilli. MRSA nasal PCR positive. Continued Vancomycin IV and Cefepime. 08/31 Had another episode of hemoptysis today. INR fully reversed at 1.1. CT chest with contrast ordered. 09/01 CT chest no identifiable well reason for hemoptysis. Patient does have staph pneumonia as well as a had an INR of 3.9. Last hemoptysis was yesterday morning, he says it is a little pinkish this morning. Has his usual active cough and baseline shortness of breath. pEnding final sputum culture 09/02 Patient patient stable. No new acute changes. as cough and chronic dyspnea. Awaiting final sensitivities, sputum growing MRSA and what looks to be Pseudomonas but again waiting for sensitivities as difficult to grow. Discussed the case with Dr. Delgado who recommended IV cefepime and Zyvox for 10 day course. And close follow-up with Dr. Delgado outpatient. Likely discharge in the morning on IV antibiotics and awaiting final sensitivities. Readdress CODE STATUS and hospice discussion with the patient who wanted to wait and talk to family. Review of Systems: denies headache/fever/chills/nausea/vomiting/chest or abdominal pain/diarrhea. Otherwise see above. Constitutional Vitals: Vital Signs Temp Pulse Resp BP Pulse Ox 98.6 F 87 20 130/69 96 09/02/20 06:39 09/02/20 06:39 09/02/20 07:25 09/02/20 06:39 09/02/20 07:25 Period Temp Pulse Resp BP Sys/Mukherjee Pulse Ox Last 24 Hr 97.3 F-98.6 F 77-88 20-32 115-146/65-78 88-97 Intake and Output 09/01/20 09/02/20 09/02/20 21:59 05:59 13:59 Intake Total 400 250 Output Total 525 250 Balance -125 0 Weight 82.372 kg Intake & Output: Intake & Output 09/01/20 09/02/20 09/02/20 21:59 05:59 13:59 Intake Total 400 250 Output Total 525 250 Balance -125 0 Weight 82.372 kg Intake: Oral 400 250 Output: Void Amount 525 250 Other: Urine Appearance Clear Clear Urine Color Bright Yellow Light Laurie Exam: General: Alert, Awake, No acute Distress Eyes/N/T: EOMI, Head/Neck: neck supple, CV: RRR, No murmurs, Pulm: b/l rhonchi and mild wheezing Abd: soft, nontender, +BS x4 Ext: no clubbing/cyanosis/edema Neuro: Alert, no focal deficits, moves all extremities, Skin: warm/dry OBJ DATA Labs CBC & Chem 7: 08/31/20 09:48 09/01/20 05:50 Labs: Abnormal Lab Results 09/01/20 09/01/20 08/31/20 08:03 05:50 09:48 RBC 3.79 L Hgb 11.4 L Hct 36.9 L MCHC 30.9 L Seg Neutrophils % 82 H Lymphocytes % 13 L PT INR Carbon Dioxide 37 H Anion Gap 2.0 L Creatinine 0.6 L Glucose 146 H GGT 7 L Lactate Dehydrogenase 127 L Vancomycin Trough 21.5 H* 08/31/20 08/31/20 08/30/20 06:18 05:30 15:21 RBC Hgb Hct MCHC Seg Neutrophils % Lymphocytes % PT 15.0 H 20.7 H INR 1.7 H Carbon Dioxide 34 H Anion Gap 7.0 L Creatinine Glucose 136 H GGT Lactate Dehydrogenase Vancomycin Trough Meds: Medications Albuterol Sulfate (Albuterol Sulfate 2.5 Mg/3 Ml Nebulizer) 2.5 mg NEB Q2HP PRN PRN Reason: Shortness Of Breath Albuterol/Ipratropium (Ipratropium/Albuterol 3 Ml Ampul.Neb) 3 ml NEB Q4HRT [facility] Last Admin: 09/02/20 07:21 Dose: 3 ml Documented by: Cefepime HCl (Cefepime 2 Gm Vial) 2 gm IV Q8H [facility]; Protocol Last Admin: 09/02/20 05:11 Dose: 2 gm Documented by: Digoxin (Digoxin 125 Mcg Tablet) 125 mcg PO DAILY@1400 [facility] Last Admin: 09/01/20 15:14 Dose: 125 mcg Documented by: Docusate Sodium (Docusate Sodium 100 Mg Capsule) 100 mg PO BID [facility] Last Admin: 09/02/20 08:29 Dose: 100 mg Documented by: Furosemide (Furosemide 40 Mg Tablet) 20 mg PO QDAY [facility] Last Admin: 09/02/20 08:30 Dose: 20 mg Documented by: Lactulose (Lactulose 20 Gm/30 Ml Oral.Yamilka) 10 gm PO DAILYP PRN PRN Reason: Constipation Latanoprost (Latanoprost Ophth Drops 2.5ml Bottle) 1 gtt OU QPM [facility] Last Admin: 09/01/20 21:29 Dose: 1 drop Documented by: Losartan Potassium (Losartan 25 Mg Tablet) 12.5 mg PO QHS [facility] Last Admin: 09/01/20 21:27 Dose: 12.5 mg Documented by: Methylprednisolone Sodium Succinate (Methylprednisolone Sod Succ 40 Mg/Ml Vial) 40 mg IV Q12 [facility] Last Admin: 09/02/20 08:31 Dose: 40 mg Documented by: Montelukast Sodium (Montelukast 10 Mg Tablet) 10 mg PO QHS [facility] Last Admin: 09/01/20 21:27 Dose: 10 mg Documented by: Mupirocin (Mupirocin Oint 2% 22gm) 1 dose NARES BID [facility] Last Admin: 09/02/20 08:29 Dose: 1 dose Documented by: Ondansetron HCl (Ondansetron 4 Mg/2 Ml Vial) 4 mg IV Q4HP PRN; Protocol PRN Reason: Nausea And Vomiting Hypersal 7 % 1 dose INH BID [facility] Last Admin: 09/02/20 08:30 Dose: Not Given Documented by: Propafenone HCl (Propafenone Hcl 225 Mg Tablet) 225 mg PO TID [facility] Last Admin: 09/02/20 08:31 Dose: 225 mg Documented by: Senna (Sennosides 1 Tablet) 2 tab PO HSP PRN PRN Reason: Constipation Sodium Chloride (0.9 % Sodium Chloride 10 Ml Syringe) 10 ml IV Q8 [facility] Last Admin: 09/02/20 05:12 Dose: 10 ml Documented by: Vancomycin HCl (Vancomycin Per Pharmacy) 1 order IV UD [facility] A/P Narrative A/P Narrative: A: #Acute on chronic hypoxic respiratory failure: slow improvement #Pneumonia d/t MRSA & Pseudomonas #Severe bronchiectasis/interstitial lung disease: #Hemoptysis: improved after INR reversal #COPD exacerbation(3-8L@home): -currently on 2-4L #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 Delgado who recommends 10-day course of iv cefepime and zyvox, still waiting final sensitivies on pseduomonas. -Oxygen supplementation with goal 88 to 92% sats. -Scheduled duo nebs, albuterol nebs as needed. -Solumedrol to prednisone -Continue home digoxin/propafenone/losartan/Lasix -Holding Coumadin for hemoptysis, will restart without bridging tomorrow -Hold home LABA and LAMA for now given scheduled duonebs -Chest physiotherapy per RT -Home Trilogy HS. -May benefit from inhaled tobramycin for outpatient therapy given likely pseudomonas colonization. -DVT PPx: SCD CODE STATUS: Full code -Disposition: If improvement in hemoptysis then probably discharge to home with pulmonology follow up, may also consider ID follow up (follows with Dr. Delgado). If hemoptysis worsens then consider transfer to a higher level of care for interventional pulmonology evaluation and management. Time Spent With Patient Time: Total time spent is greater than 50% in coordination of care (as documented) at patient's floor/unit and/or counseling patient:
[2020-09-02] MEDS: DIGOXIN 125 MCG TABLET PO SCH (15:47)
[2020-09-02] MEDS: LOSARTAN 25 MG TABLET PO SCH (21:59)
[2020-09-02] MEDS: MONTELUKAST 10 MG TABLET PO SCH (22:00)
[2020-09-02] MEDS: LATANOPROST OPHTH DROPS 2.5ML BOTTLE OU SCH (22:00)
[2020-09-03] MEDS: IPRATROPIUM/ALBUTEROL 3 ML AMPUL.NEB NEB SCH ×3 (02:51→11:30)
[2020-09-03] MEDS: CEFEPIME 2 GM VIAL IV SCH (05:38)
[2020-09-03] MEDS: 0.9 % SODIUM CHLORIDE 10 ML SYRINGE IV SCH (05:38)
[2020-09-03] MEDS ORDERED: predniSONE 20 MG TABLET PO SCH (08:00)
[2020-09-03] MEDS: MUPIROCIN OINT 2% 22GM NARES SCH (08:29)
[2020-09-03] MEDS: PROPAFENONE HCL 225 MG PO SCH (08:30)
[2020-09-03] MEDS: DOCUSATE SODIUM 100 MG CAPSULE PO SCH (08:30)
[2020-09-03] MEDS: FUROSEMIDE 40 MG TABLET PO SCH (08:30)
[2020-09-03] MEDS: HYPERSAL INH SCH (08:31)
[2020-09-03] MEDS ORDERED: VANCOMYCIN 1,500 MG in 0.9 % SODIUM CHLORIDE 500 ML IV ONE (09:00)
[2020-09-03] MEDS ORDERED: VANCOMYCIN 1,000 MG in 0.9 % SODIUM CHLORIDE 250 ML IV SCH (21:00)
== END 2020-09-03 12:11 | disposition home or self-care (01) | DRG 189 ==
LOC: ED 10:02 → ICU 15:49 → MEDSUR 08-29 15:44
PROVIDERS: ADMIT Internal Medicine; ATTEND Internal Medicine

== ENCOUNTER 2020-09-15 10:29 | Inpatient (IN) ==
[2020-09-15] MEDS ORDERED: IPRATROPIUM/ALBUTEROL 3 ML AMPUL.NEB NEB ONE (12:04)
--- NOTE | 2020-09-15 12:09 | Emergency Department Note ---
SOB HPI General Chief Complaint: Shortness of Breath/Dyspnea Stated Complaint: shortness of breath Time Seen by Provider: 09/15/20 11:17 Source: patient Mode of arrival: ambulatory Limitations: no limitations History of Present Illness HPI Narrative: 74-year-old male with a history of COPD, recurrent pneumonia and bronchiectasis with positive sputum cultures for MRSA and Pseudomonas presents the ER to be evaluated for progressive shortness of breath. He was discharged from an inpatient stay approximately 10 days ago. He has been recently seen by the budget director and is scheduled to be seen by in a week or so. He feels like his pneumonia is worsening and feels like he did just before he was admitted last time. He says he does wear a chest percussion device every day to break up sputum in his lungs to bring it up. He states normally he is on 2 to 3 L/min via nasal cannula without activity and 6 to 8 L with activity. He has had increasing oxygen demands but denies chest pain or chest pressure. He states he has had chills but no fever or vomiting. Related Data Home Medications Medication Instructions Recorded Confirmed latanoprost 0.005 % eye drops 1 drp OPHTHALMIC QPM ml 08/23/15 09/15/20 warfarin 7.5 mg tablet See Rx Instructions .ROUTE 08/23/15 09/15/20 .COMPLEX tab albuterol sulfate 2.5 mg INHALATION BID ml 05/20/17 09/15/20 digoxin 125 mcg (0.125 mg) tablet 125 mcg PO HS 05/20/17 09/15/20 montelukast 10 mg tablet 10 mg PO QHS 06/11/17 09/15/20 furosemide 40 mg tablet 20 mg PO QDAY tab 05/06/19 09/15/20 irbesartan 75 mg tablet 37.5 mg PO DAILY tab 05/13/19 09/15/20 propafenone 150 mg tablet 225 mg PO TID tab 03/08/20 09/15/20 fluticasone 500 mcg-salmeterol 50 1 inh INHALATION Q12H 07/27/20 09/15/20 mcg/dose blistr powdr for inhalation prednisone 10 mg PO QDAY 09/15/20 09/15/20 Previous Rx's Medication Instructions Recorded ipratropium bromide 2.5 ml NEB Q4HRT ampul.neb 05/24/16 HyperSal 7 % INHALATION BID #240 ml 05/06/19 Noninvasive ventilator.supplies #1 ea 05/13/19 tubing mask budesonide 0.5 mg/2 mL suspension 0.5 mg INHALATION BID #120 ml 07/27/20 for nebulization cefepime 2 g IV Q12H #10 ea 09/02/20 linezolid 600 mg PO BID #10 tab 09/02/20 Allergies Allergy/AdvReac Type Severity Reaction Status Date / Time Penicillins AdvReac Intermediate Fever Verified 09/05/20 08:23 Review of Systems ROS ROS Narrative: Narrative: PFSH Narrative Patient History Narrative: Narrative: Medical/Surgical/Family History All Active Problems Hypoventilation (Acute) Bronchiectasis with (acute) exacerbation (Acute) Acute and chronic respiratory failure with hypoxia (Acute) Acute dyspnea (Acute) Pulmonary edema (Acute) Chronic obstructive pulmonary disease with (acute) exacerbation (Acute) Acute on chronic respiratory failure with hypoxia and hypercapnia (Acute) Anemia in chronic illness (Acute) Chronic anticoagulation (Acute) Glaucoma (Acute) Hypoxemia (Acute) Hypoxia (Chronic) Benign paroxysmal vertigo (Chronic) History of MRSA infection (Chronic) Respiratory failure, chronic (Chronic) Pneumonia, bacterial (Chronic) Paroxysmal atrial fibrillation (Chronic) Hypercholesterolemia (Chronic) Encounter for monitoring dofetilide therapy (Chronic) Elevated PSA (Chronic) CHF (NYHA class III, ACC/AHA stage C) (Chronic) 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) BPH (benign prostatic hyperplasia) (Chronic) Biventricular pacemaker check (Chronic) 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) Vitamin D deficiency (Chronic) Sinus node dysfunction (Chronic) Bradycardia, sinus (Chronic) Artificial pacemaker (Chronic) Hyperglycemia (Chronic) Pure hypercholesterolemia (Chronic) 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) Bronchiectasis (Chronic) Anemia (Chronic) Hyperlipidemia (Chronic) COPD (chronic obstructive pulmonary disease) (Chronic) Atrial fibrillation (Chronic) Medical History Acute upper respiratory infection Anemia Artificial pacemaker Atrial fibrillation Benign paroxysmal vertigo Biventricular pacemaker check BPH (benign prostatic hyperplasia) Bradycardia, sinus Bronchiectasis CHB (complete heart block) CHF (NYHA class III, ACC/AHA stage C) Chronic combined systolic and diastolic heart failure COPD (chronic obstructive pulmonary disease) Elevated PSA Encounter for monitoring dofetilide therapy Encounter for screening for malignant neoplasm of prostate Glaucoma History of MRSA infection Hypercholesterolemia Hyperglycemia Hyperlipidemia Hypoventilation Hypoxemia Hypoxia MRSA (methicillin resistant Staphylococcus aureus) carrier Paroxysmal atrial fibrillation Pneumonia Pneumonia, bacterial Presence of cardiac resynchronization therapy pacemaker Pure hypercholesterolemia Respiratory failure with hypoxia and hypercapnia Respiratory failure, chronic Sinus node dysfunction SIRS (systemic inflammatory response syndrome) Vitamin D deficiency Surgical History H/O prostate biopsy History of left hip hemiarthroplasty History of lobectomy of lung History of permanent cardiac pacemaker placement Status post partial removal of lung Patient states he has had bilateral lower lung lobes removed Family History Unknown Glaucoma Myocardial Infarction Hypertension Diabetes mellitus Type 2 diabetes mellitus Brother , Onset Age: 45 Father , Onset Age: 93 Mother , Onset Age: 96 Sister , Onset Age: 50 Social History Smoking Status: Never smoker Alcohol Intake Frequency: does not drink Substance Use: does not use Exam Narrative Narrative: Gen: Patient sitting upright with nasal cannula in place at approximately 2 to 3 L with increased respiratory effort Eyes: PERRL, no conjunctival injection , and symmetrical lids. Sclerae non icteric HENMT: Normocephalic Atraumatic head, external nose and ears. Moist MM. Crusted blood under nose CVS: +S1/S2, No murmurs or gallops. Radial pulses 2+ and equal bilat. No swelling RESP: Diffuse rhonchi and wheezing with poor air movement heard throughout worse on the right middle lobe than left GI: Nontender/Nondistended (NTND), No focal tenderness MSK: Extremities w/o deformity or ttp. No cyanosis or clubbing. Skin: Warm, Dry . No rashes or lesions . Cap refill less than 2. Neuro: No focal neurological deficit Psych: Awake, Alert, & Oriented (AAO) x3. Appropriate mood and affect . General Limitations: no limitations Course Course Course Narrative: Patient has a history of MRSA and Pseudomonas lung infections was discharged in early August from the hospital stay. He has bronchiectasis and COPD he is already seen by pulmonology. He is scheduled to be seen by Dr. Souv enir with infectious disease but has not seen him yet. He has progressive dyspnea and he will be evaluated with CBC, CMP, procalcitonin, VBG, ekg and chest x-ray at this time Vital Signs Vital signs: Vital Signs Temperature 98.2 F 09/15/20 10:30 Pulse Rate 85 09/15/20 10:30 Respiratory Rate 30 H 09/15/20 10:30 Blood Pressure 137/69 09/15/20 10:30 Pulse Oximetry (%) 92 09/15/20 10:30 Temperature 98.5 F 09/15/20 16:01 Pulse Rate 79 09/15/20 16:01 Respiratory Rate 27 H 09/15/20 16:01 Blood Pressure 131/65 09/15/20 16:01 Pulse Oximetry (%) 95 09/15/20 16:01 MDM MDM Narrative Medical decision making narrative: Narrative: CBC: No elevated white count but neutrophilia predominance CMP: Unremarkable Procalcitonin: Normal Venous blood gas: EKG:Atrial sensed ventricular paced rythym at a rate of 82 beats per minute. With left axis deviation. Chest x-ray: Significantly worsened right middle lobe infiltrate from previous c hest x-ray as read by myself radiology overread pending. Dr. Juarez initially stated this could be a mass however, I called him and he reviewed CT scan from the first and believes this is likely a pulmonary infection or pneumonia in the right middle lobe. Blood cultures: Pending Lacate: Pending Patient will receive a nebulizer DuoNeb treatment at this time. On reevaluation patient states he does feel like his lungs have opened up much more after the DuoNeb treatment. Hospitalist will be consulted for admission. I have low suspicion for sepsis at this time however I do think he has a worsening pneumonia given his MRSA and Pseudomonas positive cultures and allergy to penicillins I will defer consultation to the hospitalist before I start antibiotics. Dr. Beal stated he was, consult Dr. Delgado for antibiotic coverage and admit patient for further evaluation. Lab Data Result diagrams: 09/15/20 11:27 09/15/20 11:26 Labs: Lab Results 09/15/20 09/15/20 09/15/20 Range/Units 11:26 11:26 11:27 WBC 9.0 (4.5-11.0) K/mcL RBC 3.38 L (4.50-5.90) M/mcL Hgb 10.0 L (13.5-16.5) g/dL Hct 33.5 L (41.0-55.0) % MCV 99.1 (80.0-100.0) fL MCH 29.6 (26.0-34.0) pg MCHC 29.9 L (31.0-36.0) g/dL RDW 14.1 (11.5-14.5) % Plt Count 194 (140-440) K/mcL MPV 9.0 (7.4-10.4) fL Neut % (Auto) 88.9 H (38.0-78.0) % Lymph % (Auto) 5.4 L (15.0-49.0) % [place] % (Auto) 4.1 (1.0-12.0) % Eos % (Auto) 1.4 (0.0-7.0) % Baso % (Auto) 0.2 (0.0-2.0) % Lymph # (Auto) 0.49 L (1.50-4.80) K/mcL [place] # (Auto) 0.37 (0.10-0.90) K/mcL Eos # (Auto) 0.13 (0.00-0.70) K/mcL Baso # (Auto) 0.02 (0.00-0.20) K/mcL Absolute Neutrophils 8.02 H (1.80-8.00) K/mcL PT (11.9-14.5) sec INR (0.9-1.1) Sodium 138 (133-145) mmol/L Potassium 3.8 (3.3-5.1) mmol/L Chloride 95 L (96-108) mmol/L Carbon Dioxide 39 H (22-30) mmol/L Anion Gap 4.0 L (8.0-16.0) BUN 14 (8-23) mg/dL Creatinine 0.6 L (0.7-1.2) mg/dL GFR Calculation 99 Glucose 106 H (70-105) mg/dL Calcium 8.8 (8.6-10.4) mg/dL Total Bilirubin 0.3 (0.1-1.0) mg/dL AST 14 (<40) U/L ALT 10 (<40) U/L Alkaline Phosphatase 63 (39-117) U/L Total Protein 6.7 (5.9-8.4) gm/dL Albumin 3.5 (3.2-5.2) gm/dL Globulin 3.2 (2.2-3.7) gm/dL Albumin/Globulin Ratio 1.1 (1.0-2.3) Procalcitonin 0.06 (<0.10) ng/mL 09/15/20 Range/Units 11:27 WBC (4.5-11.0) K/mcL RBC (4.50-5.90) M/mcL Hgb (13.5-16.5) g/dL Hct (41.0-55.0) % MCV (80.0-100.0) fL MCH (26.0-34.0) pg MCHC (31.0-36.0) g/dL RDW (11.5-14.5) % Plt Count (140-440) K/mcL MPV (7.4-10.4) fL Neut % (Auto) (38.0-78.0) % Lymph % (Auto) (15.0-49.0) % [place] % (Auto) (1.0-12.0) % Eos % (Auto) (0.0-7.0) % Baso % (Auto) (0.0-2.0) % Lymph # (Auto) (1.50-4.80) K/mcL [place] # (Auto) (0.10-0.90) K/mcL Eos # (Auto) (0.00-0.70) K/mcL Baso # (Auto) (0.00-0.20) K/mcL Absolute Neutrophils (1.80-8.00) K/mcL PT 19.1 H (11.9-14.5) sec INR 1.5 H (0.9-1.1) Sodium (133-145) mmol/L Potassium (3.3-5.1) mmol/L Chloride (96-108) mmol/L Carbon Dioxide (22-30) mmol/L Anion Gap (8.0-16.0) BUN (8-23) mg/dL Creatinine (0.7-1.2) mg/dL GFR Calculation Glucose (70-105) mg/dL Calcium (8.6-10.4) mg/dL Total Bilirubin (0.1-1.0) mg/dL AST (<40) U/L ALT (<40) U/L Alkaline Phosphatase (39-117) U/L Total Protein (5.9-8.4) gm/dL Albumin (3.2-5.2) gm/dL Globulin (2.2-3.7) gm/dL Albumin/Globulin Ratio (1.0-2.3) Procalcitonin (<0.10) ng/mL ED POC Tests ED POC Tests: JAYJAY - SARS Antigen Negative Discharge Plan Patient/Caregiver Discharge Instructions Pt seen by CRYSTAL GROWING TECHNICIAN/PA only: Yes Patient Disposition: Xfer As Inpt ([facility]) Condition: Fair Discharge Date/Time: 09/15/20 14:49
[2020-09-15 12:22] LABS: Basophils # (Auto) 0.02 K/mcL (0.00-0.20); Basophils % (Auto) 0.2 % (0.0-2.0); Eosinophils # (Auto) 0.13 K/mcL (0.00-0.70); Eosinophils % (Auto) 1.4 % (0.0-7.0); Hematocrit 33.5 % (41.0-55.0); Lymphocytes # (Auto) 0.49 K/mcL (1.50-4.80); Lymphocytes % (Auto) 5.4 % (15.0-49.0); Mean Cell Volume 99.1 fL (80.0-100.0); Mean Corpuscular HGB Conc 29.9 g/dL (31.0-36.0); Monocytes # (Auto) 0.37 K/mcL (0.10-0.90); Monocytes % (Auto) 4.1 % (1.0-12.0); Neutrophils % (Auto) 88.9 % (38.0-78.0); Platelet Count 194 K/mcL (140-440); RBC 3.38 M/mcL (4.50-5.90); Red Cell Distribution Width 14.1 % (11.5-14.5)
[2020-09-15 12:33] LABS: ALT/SGPT 10 U/L (<40); AST/SGOT 14 U/L (<40); Albumin 3.5 gm/dL (3.2-5.2); Albumin/Globulin Ratio 1.1 (1.0-2.3); Alkaline Phosphatase 63 U/L (39-117); Bilirubin,Total 0.3 mg/dL (0.1-1.0); Blood Urea Nitrogen 14 mg/dL (8-23); Calcium 8.8 mg/dL (8.6-10.4); Carbon Dioxide 39 mmol/L (22-30); Chloride 95 mmol/L (96-108); Globulin 3.2 gm/dL (2.2-3.7); Glomerular Filtration Rate 99; Glucose 106 mg/dL (70-105)
--- NOTE | 2020-09-15 12:55 | XRay Report ---
CLINICAL INFORMATION: SOB COMPARISON: 12/30/2013 and 08/31/2020 FINDINGS: Moderate cardiomegaly is unchanged. Pulmonary vasculature shows upper lobe redistribution due to lower lung airspace disease. Pacemaker and leads in stable satisfactory position. Mediastinum is normal. COPD changes with severe reticular-nodular interstitial fibrosis throughout both mid and lower lungs has progressed. There is a new 4.3 cm mass in the right midlung. Both costophrenic blunted by scar. IMPRESSION: New 4.3 cm mass in the right midlung. This may represent pulmonary malignancy. Suggest chest CT COPD with severe reticulonodular interstitial fibrosis in both mid and lower lungs which has progressed since 2013 Interpreted and Authenticated by: Prashant Juarez 09/15/20
--- NOTE | 2020-09-15 14:12 | Internal Med History&Physical ---
HPI History of Present Illness Patient information: Note initiated : 09/15/20 at 2:01 pm Service Date, if different from initiated Date: [] Patient: Nick Hamilton 74 y/o M admitted on for SOB . Chief Complaint: [] History of present illness: Mr. Hamilton is a 74 year old male with a history of severe bronchiectasis, ILD , history of prior lobectomy, A. fib/pacemaker/history of HF with reduced EF ,, BiV pacemaker for complete heart block, A. fib on Coumadin chronic hypoxia on trilogy at night/oxygen during day who presented to the ED with progressive dyspnea after he was recently discharged from the hospital on 10 days IV cefepime and Zyvox for treatment of MRSA and Pseudomonas pneumonia. He says that after initial improvement for a few days following discharge he became increasingly dyspneic progressing at rest requiring in excess of 6 to 8 L oxygen to maintain sats around 90. He denies associated fever but endorses to increasing purulent yellow-green sputum. With increasing concerns he presents today for evaluation During today's work-up imaging was consistent with worsening pneumonia compared to previous hospitalization chest imaging. Cultures were drawn. Hospitalist service was consulted for management of multidrug-resistant Pseudomonas pneumonia/hypoxic respiratory failure At the time of evaluation patient is alert but anxious. He was able to endorse history as above. Denies chest pain, shaking chills, fever, myalgia, headache or photophobia. Review of systems 10 point review system was performed and is negative except for ones cussed above PFSH PFSH All Active Problems Hypoventilation (Acute) Bronchiectasis with (acute) exacerbation (Acute) Acute and chronic respiratory failure with hypoxia (Acute) Acute dyspnea (Acute) Pulmonary edema (Acute) Chronic obstructive pulmonary disease with (acute) exacerbation (Acute) Acute on chronic respiratory failure with hypoxia and hypercapnia (Acute) Anemia in chronic illness (Acute) Chronic anticoagulation (Acute) Glaucoma (Acute) Hypoxemia (Acute) Hypoxia (Chronic) Benign paroxysmal vertigo (Chronic) History of MRSA infection (Chronic) Respiratory failure, chronic (Chronic) Pneumonia, bacterial (Chronic) Paroxysmal atrial fibrillation (Chronic) Hypercholesterolemia (Chronic) Encounter for monitoring dofetilide therapy (Chronic) Elevated PSA (Chronic) CHF (NYHA class III, ACC/AHA stage C) (Chronic) 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) BPH (benign prostatic hyperplasia) (Chronic) Biventricular pacemaker check (Chronic) 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) Vitamin D deficiency (Chronic) Sinus node dysfunction (Chronic) Bradycardia, sinus (Chronic) Artificial pacemaker (Chronic) Hyperglycemia (Chronic) Pure hypercholesterolemia (Chronic) 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) Bronchiectasis (Chronic) Anemia (Chronic) Hyperlipidemia (Chronic) COPD (chronic obstructive pulmonary disease) (Chronic) Atrial fibrillation (Chronic) Medical History Acute upper respiratory infection Anemia Artificial pacemaker Atrial fibrillation Benign paroxysmal vertigo Biventricular pacemaker check BPH (benign prostatic hyperplasia) Bradycardia, sinus Bronchiectasis CHB (complete heart block) CHF (NYHA class III, ACC/AHA stage C) Chronic combined systolic and diastolic heart failure COPD (chronic obstructive pulmonary disease) Elevated PSA Encounter for monitoring dofetilide therapy Encounter for screening for malignant neoplasm of prostate Glaucoma History of MRSA infection Hypercholesterolemia Hyperglycemia Hyperlipidemia Hypoventilation Hypoxemia Hypoxia MRSA (methicillin resistant Staphylococcus aureus) carrier Paroxysmal atrial fibrillation Pneumonia Pneumonia, bacterial Presence of cardiac resynchronization therapy pacemaker Pure hypercholesterolemia Respiratory failure with hypoxia and hypercapnia Respiratory failure, chronic Sinus node dysfunction SIRS (systemic inflammatory response syndrome) Vitamin D deficiency Surgical History H/O prostate biopsy History of left hip hemiarthroplasty History of lobectomy of lung History of permanent cardiac pacemaker placement Status post partial removal of lung Patient states he has had bilateral lower lung lobes removed Family History Unknown Glaucoma Myocardial Infarction Hypertension Diabetes mellitus Type 2 diabetes mellitus Brother , Onset Age: 45 Father , Onset Age: 93 Mother , Onset Age: 96 Sister , Onset Age: 50 Social History physical activity: other details: exercise classes; exercise limited by medical condition alcohol intake frequency: does not drink substance use type: does not use MEDS/ALLERGIES Home Medications and Allergies Home Medications Medication Instructions Recorded Confirmed Type latanoprost 0.005 % eye drops 1 drp OPHTHALMIC QPM ml 08/23/15 09/05/20 History warfarin 7.5 mg tablet See Rx Instructions .ROUTE 08/23/15 09/05/20 History .COMPLEX tab ipratropium bromide 2.5 ml NEB Q4HRT ampul.neb 10/24/15 09/05/20 Rx albuterol sulfate 2.5 mg INHALATION BID ml 05/20/17 09/05/20 History digoxin 125 mcg (0.125 mg) tablet 125 mcg PO QDAY 05/20/17 09/05/20 History montelukast 10 mg tablet 10 mg PO QHS 06/11/17 09/05/20 History HyperSal 7 % INHALATION BID #240 ml 05/06/19 09/05/20 Rx furosemide 40 mg tablet 20 mg PO QDAY tab 05/06/19 09/05/20 History Noninvasive ventilator.supplies #1 ea 05/13/19 09/05/20 Rx tubing mask irbesartan 75 mg tablet 37.5 mg PO QHS tab 05/13/19 09/05/20 History propafenone 150 mg tablet 225 mg PO TID tab 03/08/20 09/05/20 History budesonide 0.5 mg/2 mL suspension 0.5 mg INHALATION BID #120 ml 07/27/20 09/05/20 Rx for nebulization fluticasone 500 mcg-salmeterol 50 1 inh INHALATION Q12H 07/27/20 09/05/20 History mcg/dose blistr powdr for inhalation prednisone 40 mg PO QDAY #1 tab 09/01/20 09/05/20 Rx cefepime 2 g IV Q12H #10 ea 09/02/20 09/05/20 Rx linezolid 600 mg PO BID #10 tab 09/02/20 09/05/20 Rx Allergies Allergy/AdvReac Type Severity Reaction Status Date / Time Penicillins AdvReac Intermediate Fever Verified 09/05/20 08:23 EXAM Constitutional Vitals: Temp Pulse Resp BP Pulse Ox 98.2 F 81 30 H 137/69 94 09/15/20 10:30 09/15/20 13:18 09/15/20 10:30 09/15/20 10:30 09/15/20 13:18 Anxious Head normocephalic Oral cavity moist No ear nose discharge Eye movement symmetrical Neck supple no lymphadenopathy Paced rhythm, pacemaker defibrillator, late inspiratory crackles bilateral chest/rhonchi Nonlabored breathing Nondistended nontender abdomen Lower extremity no cyanosis clubbing or joint swelling Skin no suspicious lesion Psych a no hallucination Neuro normal higher function DATA Data Completed and Pending Labs: Labs from last 24 hours 09/15/20 09/15/20 09/15/20 11:27 11:26 11:26 WBC 9.0 RBC 3.38 L Hgb 10.0 L Hct 33.5 L MCV 99.1 MCH 29.6 MCHC 29.9 L RDW 14.1 Plt Count 194 MPV 9.0 Neut % (Auto) 88.9 H Lymph % (Auto) 5.4 L Mcculloch % (Auto) 4.1 Eos % (Auto) 1.4 Baso % (Auto) 0.2 Lymph # (Auto) 0.49 L M[place]ulloch # (Auto) 0.37 Eos # (Auto) 0.13 Baso # (Auto) 0.02 Absolute Neutrophils 8.02 H Sodium 138 Potassium 3.8 Chloride 95 L Carbon Dioxide 39 H Anion Gap 4.0 L BUN 14 Creatinine 0.6 L GFR Calculation 99 Glucose 106 H Calcium 8.8 Total Bilirubin 0.3 AST 14 ALT 10 Alkaline Phosphatase 63 Total Protein 6.7 Albumin 3.5 Globulin 3.2 Albumin/Globulin Ratio 1.1 Procalcitonin 0.06 A/P Narrative A/P Narrative: * Multidrug-resistant Pseudomonas/MRSA pneumonia-start empiric meropenem/vancomycin. Sputum cultures. Very high risk mortality * Acute exacerbation of underlying severe COPD/ bronchiectasis. Status post bilateral lobectomies. Follows up with Dr. Mayberry pulmonology. Continue bronchodilators/pulmonary toilet/COPD/CoughAssist/postural drainage/incentive spirometry use/deep breathing services * Acute hypoxic hypercapnic respiratory failure continue Continue home BiPAP/supplemental oxygen. * Paroxysmal A. fib rate controlled. On propafenone/digoxin * Heart failure with reduced ejection fraction last known EF 25 to 50%/BiV pacemaker for complete AV block * Continue anticoagulation for CVA prophylaxis on Coumadin. Dosing based on INR * History of glaucoma continue latanoprost * History of hypertension continue irbesartan * Prophylaxis Coumadin Plan * Inpatient PCU admission * Meropenem/vancomycin * ID consult * Pre-existing medical condition management as above * Coumadin dosing based on INR * PT OT nutrition support * Aggressive pulmonary toilet Time Spent With Patient Time: Total time spent is greater than 50% in coordination of care (as documented) at patient's floor/unit and/or counseling patient:
[2020-09-15] MEDS ORDERED: guaiFENesin/CODEINE 10 ML UDC PO PRN (14:44)
[2020-09-15] MEDS ORDERED: VANCOMYCIN PER PHARMACY IV SCH (14:44)
[2020-09-15] MEDS ORDERED: POTASSIUM CHLORIDE 20 MEQ PACKET PO PRN (14:44)
[2020-09-15] MEDS ORDERED: BISACODYL 10 MG SUPP.RECT PR PRN (14:44)
[2020-09-15] MEDS ORDERED: POLYETHYLENE GLYCOL 3350 17 GM PACKET PO PRN (14:44)
[2020-09-15] MEDS ORDERED: MAGNESIUM SULFATE 2 GM/50 ML BAG IV PRN (14:44)
[2020-09-15] MEDS ORDERED: ONDANSETRON 4 MG/2 ML VIAL IV PRN (14:44)
[2020-09-15] MEDS ORDERED: POTASSIUM CHLORIDE 40 MEQ in DEXTROSE 5% IN WATER 500 ML IV PRN (14:44)
[2020-09-15] MEDS ORDERED: MELATONIN 3 MG TABLET PO PRN (14:44)
[2020-09-15] MEDS ORDERED: ONDANSETRON 4 MG ODT TABLET SL PRN (14:44)
[2020-09-15] MEDS ORDERED: ACETAMINOPHEN 650 MG/65 ML BAG IV PRN (14:44)
[2020-09-15] MEDS: MEROPENEM 2 GM in 0.9 % SODIUM CHLORIDE 100 ML IV SCH ×2 (15:32→21:40)
[2020-09-15 15:33] LABS: INR 1.5 (0.9-1.1); Prothrombin Time 19.1 sec (11.9-14.5)
[2020-09-15] MEDS ORDERED: VANCOMYCIN 1,500 MG in 0.9 % SODIUM CHLORIDE 500 ML IV ONE (16:00)
[2020-09-15] MEDS ORDERED: WARFARIN 7.5 MG TABLET PO ONE (16:00)
[2020-09-15] MEDS: IPRATROPIUM/ALBUTEROL 3 ML AMPUL.NEB NEB SCH ×3 (16:10→23:25)
[2020-09-15] MEDS: 0.9 % SODIUM CHLORIDE 10 ML SYRINGE IV SCH ×3 (17:51→22:13)
--- NOTE | 2020-09-15 19:01 | XRay Report ---
CLINICAL INFORMATION: PICC PLACEMENT COMPARISON: 09/15/2020 1123 hours FINDINGS: Moderate cardiomegaly is unchanged. Pacemaker leads in stable satisfactory position. Mediastinum and pulmonary vessels are normal. Moderate reticulonodular interstitial disease throughout both mid and lower lungs is unchanged. This represents fibrosis and chronic/recurrent recurrent infection predisposed by extensive severe bronchiectasis The 4 mm density in the right midlung represents an acute alveolar infiltrate superimposed upon fibrosis. PICC line is in place tip overlies the SVC right atrial junction IMPRESSION: Left-sided PICC line tip overlies the SVC right atrial junction in satisfactory position Extensive reticular nodular interstitial disease throughout both mid and lower lungs is unchanged. This represents a combination of interstitial fibrosis and acute inflammation. The patient has known severe bronchiectasis predisposing to infection. The 4 cm nodular density in the right midlung is inflammatory. Interpreted and Authenticated by: Prashant Juarez 09/15/20
[2020-09-15] MEDS: BUDESONIDE 0.5 MG/2 ML AMPUL.NEB NEB SCH (19:52)
[2020-09-15] MEDS: SENNOSIDES/DOCUSATE SODIUM 1 TAB TABLET PO SCH (21:30)
[2020-09-15] MEDS: DOCUSATE SODIUM 100 MG CAPSULE PO SCH (21:30)
[2020-09-15] MEDS: ACETAMINOPHEN 325 MG TABLET PO PRN (22:37)
[2020-09-16] MEDS: IPRATROPIUM/ALBUTEROL 3 ML AMPUL.NEB NEB SCH ×6 (02:25→23:00)
[2020-09-16] MEDS: MEROPENEM 2 GM in 0.9 % SODIUM CHLORIDE 100 ML IV SCH ×3 (05:04→22:16)
[2020-09-16] MEDS: 0.9 % SODIUM CHLORIDE 10 ML SYRINGE IV SCH ×5 (05:32→22:21)
[2020-09-16 07:01] LABS: Basophils # (Auto) 0.01 K/mcL (0.00-0.20); Basophils % (Auto) 0.1 % (0.0-2.0); Eosinophils # (Auto) 0.09 K/mcL (0.00-0.70); Eosinophils % (Auto) 1.3 % (0.0-7.0); Hematocrit 29.5 % (41.0-55.0); Hemoglobin 8.8 g/dL (13.5-16.5); Lymphocytes # (Auto) 0.91 K/mcL (1.50-4.80); Lymphocytes % (Auto) 13.1 % (15.0-49.0); Mean Corpuscular HGB Conc 29.8 g/dL (31.0-36.0); Mean Platelet Volume 9.2 fL (7.4-10.4); Monocytes # (Auto) 0.27 K/mcL (0.10-0.90); Monocytes % (Auto) 3.9 % (1.0-12.0); Neutrophils % (Auto) 81.6 % (38.0-78.0); Platelet Count 175 K/mcL (140-440); RBC 2.98 M/mcL (4.50-5.90); Red Cell Distribution Width 14.2 % (11.5-14.5); WBC 6.9 K/mcL (4.5-11.0)
[2020-09-16] MEDS: BUDESONIDE 0.5 MG/2 ML AMPUL.NEB NEB SCH ×2 (07:16→19:03)
[2020-09-16 07:33] LABS: INR 1.9 (0.9-1.1); Prothrombin Time 22.4 sec (11.9-14.5)
[2020-09-16 07:48] LABS: ALT/SGPT 7 U/L (<40); AST/SGOT 10 U/L (<40); Albumin 2.8 gm/dL (3.2-5.2); Alkaline Phosphatase 52 U/L (39-117); Bilirubin,Direct < 0.2 mg/dL (0-0.3); Bilirubin,Total 0.3 mg/dL (0.1-1.0); Blood Urea Nitrogen 15 mg/dL (8-23); Calcium 8.5 mg/dL (8.6-10.4); Carbon Dioxide 41 mmol/L (22-30); Chloride 98 mmol/L (96-108); Globulin 2.8 gm/dL (2.2-3.7); Glomerular Filtration Rate 99; Glucose 85 mg/dL (70-105); Lactate Dehydrogenase 138 U/L (135-225); Phosphorous 2.8 mg/dL (2.5-4.5); Triglycerides 55 mg/dL (<150); Uric Acid 3.6 mg/dL (2.5-8.0)
[2020-09-16] MEDS: predniSONE 10 MG TABLET PO SCH (08:41)
[2020-09-16] MEDS: PROPAFENONE HCL 225 MG PO SCH ×3 (08:41→21:59)
[2020-09-16] MEDS: DOCUSATE SODIUM 100 MG CAPSULE PO SCH ×2 (08:42→21:59)
[2020-09-16] MEDS: MULTIVIT,THER IRON,CA,FA & MIN 1 TABLET PO SCH (08:42)
[2020-09-16] MEDS: LOSARTAN 25 MG TABLET PO SCH (08:42)
[2020-09-16] MEDS: VANCOMYCIN 1,500 MG in 0.9 % SODIUM CHLORIDE 500 ML IV SCH (08:42)
[2020-09-16] MEDS: FUROSEMIDE 40 MG TABLET PO SCH (08:42)
[2020-09-16] MEDS: ALBUTEROL SULFATE 2.5 MG/3 ML NEBULIZER INH SCH ×2 (08:43→18:59)
[2020-09-16] MEDS: HYPERSAL INH SCH ×3 (08:43→19:08)
[2020-09-16] MEDS: FLUTICASONE/SALMETEROL 500/50 INHALER #14 INH SCH ×2 (08:43→22:03)
[2020-09-16] MEDS ORDERED: IRBESARTAN 75 MG PO SCH (09:00)
[2020-09-16] MEDS ORDERED: PROPAFENONE 150 MG TABLET PO SCH (09:00)
[2020-09-16] MEDS: LORazepam 0.5 MG TABLET PO PRN (12:00)
[2020-09-16 12:21] LABS: Erythrocyte Sedimentation Rate 85 mm/hr (0-15)
--- NOTE | 2020-09-16 13:20 | Internal Med Progress Note ---
SUBJECTIVE Subjective Patient information: Note initiated : 09/16/20 at 1:15 pm Service Date, if different from initiated Date: [] Patient: Nick Hamilton 74 y/o M admitted on 09/15/20 for SOB . Chief Complaint: [] Interval history: Mr. Hamilton is a 74 year old male with a history of severe bronchiectasis, ILD , history of prior lobectomy, A. fib/pacemaker/history of HF with reduced EF ,, BiV pacemaker for complete heart block, A. fib on Coumadin chronic hypoxia on trilogy at night/oxygen during day who presented to the ED with progressive dyspnea after he was recently discharged from the hospital on 10 days IV cefepime and Zyvox for treatment of MRSA and Pseudomonas pneumonia. He says that after initial improvement for a few days following discharge he became increasingly dyspneic progressing at rest requiring in excess of 6 to 8 L oxygen to maintain sats around 90. He denies associated fever but endorses to increasing purulent yellow-green sputum. With increasing concerns he presents today for evaluation During today's work-up imaging was consistent with worsening pneumonia compared to previous hospitalization chest imaging. Cultures were drawn. Hospitalist service was consulted for management of multidrug-resistant Pseudomonas pneumonia/hypoxic respiratory failure At the time of evaluation patient is alert but anxious. He was able to endorse history as above. Denies chest pain, shaking chills, fever, myalgia, headache or photophobia. 09/16-patient doing well. On 3 L oxygen. Responding well to meropenem/vanco mycin.INR 1.9, potassium 3.4 replacement. Continuing aggressive CPT/pulmonary toilet. Constitutional Vitals: Vital Signs Temp Pulse Resp BP Pulse Ox 100 F H 85 28 H 129/71 96 09/16/20 08:01 09/16/20 12:03 09/16/20 12:03 09/16/20 12:01 09/16/20 12:03 Period Temp Pulse Resp BP Sys/Mukherjee Pulse Ox Last 24 Hr 98.2 F-100 F 73-119 21-39 110-150/52-85 83-97 Intake and Output 09/15/20 09/16/20 09/16/20 21:59 05:59 13:59 Intake Total 1560 440 900 Output Total 0 200 800 Balance 1560 240 100 Weight 81.964 kg 81.964 kg Patient Weight 09/17/20 05:59 Weight 81.964 kg Alert oriented Minimally labored breathing on 4 L oxygen Anxious Paced rhythm Intake & Output: Intake & Output 09/15/20 09/16/20 09/16/20 21:59 05:59 13:59 Intake Total 1560 440 900 Output Total 0 200 800 Balance 1560 240 100 Weight 81.964 kg 81.964 kg Intake: IV 600 100 600 Merrem 2 gm In Sodium Chloride 100 100 100 0.9% 100 ml @ 100 mls/hr IV Q8 [facility] Rx#:[id number] Vancomycin 1,500 mg In Sodium 500 500 Chloride 0.9% 500 ml @ 333.3 mls/hr IV Q24H [facility] Rx#: [id number] Oral 960 340 300 Output: Urine Catheter Amount 300 Void Amount 0 200 500 Other: Meal Dinner Breakfast Percent of Meal Consumed 100% 75% Feeding Ability Independent Urine Appearance Clear Clear Clear Urine Color Dark Yellow Bright Yellow Pale Urine Odor Normal Normal Normal Stool Size Moderate Stool Color Brown Stool Consistency Formed [place] OBJ DATA Labs CBC & Chem 7: 09/16/20 05:00 09/16/20 05:00 Labs: Abnormal Lab Results 09/16/20 09/16/20 09/16/20 05:00 05:00 05:00 RBC 2.98 L Hgb 8.8 L Hct 29.5 L MCHC 29.8 L Neut % (Auto) 81.6 H Lymph % (Auto) 13.1 L Lymph # (Auto) 0.91 L Absolute Neutrophils ESR 85 H PT 22.4 H INR 1.9 H Chloride Carbon Dioxide 41 H* Anion Gap 3.0 L Creatinine 0.6 L Glucose Calcium 8.5 L C-Reactive Protein 8.10 H Total Protein 5.6 L Albumin 2.8 L 09/15/20 09/15/20 09/15/20 11:27 11:27 11:26 RBC 3.38 L Hgb 10.0 L Hct 33.5 L MCHC 29.9 L Neut % (Auto) 88.9 H Lymph % (Auto) 5.4 L Lymph # (Auto) 0.49 L Absolute Neutrophils 8.02 H ESR PT 19.1 H INR 1.5 H Chloride 95 L Carbon Dioxide 39 H Anion Gap 4.0 L Creatinine 0.6 L Glucose 106 H Calcium C-Reactive Protein Total Protein Albumin Meds: Medications Acetaminophen (Acetaminophen 325 Mg Tablet) 650 mg PO Q4-6HP PRN; Protocol PRN Reason: Per Pain Protocol/Fever > 101 Last Admin: 09/15/20 22:37 Dose: 650 mg Documented by: Albuterol Sulfate (Albuterol Sulfate 2.5 Mg/3 Ml Nebulizer) 2.5 mg INH BID [facility] Last Admin: 09/16/20 08:43 Dose: Not Given Documented by: Albuterol/Ipratropium (Ipratropium/Albuterol 3 Ml Ampul.Neb) 3 ml NEB Q4HRT [facility] Last Admin: 09/16/20 11:04 Dose: 3 ml Documented by: Bisacodyl (Bisacodyl 10 Mg Supp.Rect) 10 mg NM Q2-3DAYS PRN PRN Reason: Constipation Budesonide (Budesonide 0.5 Mg/2 Ml Ampul.Neb) 0.5 mg NEB Q12 [facility] Last Admin: 09/16/20 07:16 Dose: 0.5 mg Documented by: Digoxin (Digoxin 125 Mcg Tablet) 125 mcg PO [facility] Docusate Sodium (Docusate Sodium 100 Mg Capsule) 100 mg PO BID [facility] Last Admin: 09/16/20 08:42 Dose: 100 mg Documented by: Furosemide (Furosemide 40 Mg Tablet) 20 mg PO QDAY [facility] Last Admin: 09/16/20 08:42 Dose: 20 mg Documented by: Guaifenesin/Codeine Phosphate (Guaifenesin/Codeine 10 Ml Udc) 10 ml PO Q4HP PRN PRN Reason: Cough Heparin Sodium (Porcine) (Heparin Flush 10 Units/Ml 5 Ml Syringe) 2 ml IV Q12 [facility] Last Admin: 09/16/20 08:42 Dose: 2 ml Documented by: Potassium Chloride 40 meq/ (Dextrose) 520 mls @ 130 mls/hr IV UD PRN PRN Reason: K+ = or < 3.5 Magnesium Sulfate (Magnesium Sulfate) 2 gm in 50 mls @ 50 mls/hr IV UD PRN PRN Reason: MG = or < 1.7 Acetaminophen (Ofirmev) 650 mg in 65 mls @ 130 mls/hr IV Q6HP PRN; Protocol PRN Reason: Per Pain Protocol/Fever > 101 Meropenem 2 gm/ Sodium (Chloride) 100 mls @ 100 mls/hr IV Q8 [facility]; Protocol Last Infusion: 09/16/20 06:05 Dose: Infused Documented by: Vancomycin HCl 1,500 mg/ (Sodium Chloride) 500 mls @ 333.3 mls/hr IV Q24H [facility] Last Infusion: 09/16/20 10:23 Dose: Infused Documented by: Iron Carb/Multivit/[place]/Folic Acid (Multivit,Ther Iron,Ca,Fa & Min 1 Tablet) 1 tab PO DAILY [facility] Last Admin: 09/16/20 08:42 Dose: 1 tab Documented by: Latanoprost (Latanoprost Ophth Drops 2.5ml Bottle) 1 gtt OU QPM [facility] Lorazepam (Lorazepam 0.5 Mg Tablet) 0.5 mg PO Q4HP PRN PRN Reason: ANXIETY/SEDATION Last Admin: 09/16/20 12:00 Dose: 0.5 mg Documented by: Losartan Potassium (Losartan 25 Mg Tablet) 12.5 mg PO DAILY [facility] Last Admin: 09/16/20 08:42 Dose: 12.5 mg Documented by: Melatonin (Melatonin 3 Mg Tablet) 3 mg PO HSP PRN PRN Reason: Insomnia Montelukast Sodium (Montelukast 10 Mg Tablet) 10 mg PO QHS [facility] Ondansetron HCl (Ondansetron 4 Mg Odt Tablet) 4 mg SL Q4-6HP PRN; Protocol PRN Reason: Nausea And Vomiting Ondansetron HCl (Ondansetron 4 Mg/2 Ml Vial) 4 mg IV Q4-6HP PRN; Protocol PRN Reason: Nausea And Vomiting Hypersal 7 % Inh Yamilka 1 dose INH BID [facility] Last Admin: 09/16/20 11:02 Dose: Not Given Documented by: Polyethylene Glycol (Polyethylene Glycol 3350 17 Gm Packet) 17 gm PO DAILYP PRN PRN Reason: Constipation Potassium Chloride (Potassium Chloride 20 Meq Packet) 40 meq PO DAILYP PRN PRN Reason: K+ < 3.5 Last Admin: 09/16/20 08:48 Dose: 40 meq Documented by: Pred[facility]one ([facility] 10 Mg [facility]t) [facility] Last Admin: 09/16/20 08:41 Dose: 10 mg Documented by: Propafenone HCl (Propafenone Hcl 225 Mg Tablet) 225 mg PO TID [facility] Last Admin: 09/16/20 08:41 Dose: 225 mg Documented by: Fluticasone/Salmeterol (Fluticasone/Salmeterol 500/50 Inhaler #14) 1 puff INH Q12 [facility] Last Admin: 09/16/20 08:43 Dose: Not Given Documented by: Senna/Docusate Sodium (Sennosides/Docusate Sodium 1 Tab Tablet) 1 tab PO HS [facility] Last Admin: 09/15/20 21:30 Dose: 1 tab Documented by: Sodium Chloride (0.9 % Sodium Chloride 10 Ml Syringe) 10 ml IV Q8 [facility] Last Admin: 09/16/20 13:10 Dose: 10 ml Documented by: Sodium Chloride (0.9 % Sodium Chloride 10 Ml Syringe) 10 ml IV Q12 [facility] Last Admin: 09/16/20 08:44 Dose: 10 ml Documented by: Vancomycin HCl (Vancomycin Per Pharmacy) 1 order IV UD [facility]; Protocol Warfarin Sodium (Warfarin Per Pharmacy) 1 order PO UD [facility] Warfarin Sodium (Warfarin 5 Mg Tablet) 5 mg PO TODAY@1400 [facility] Stop: 09/16/20 16:00 Last Admin: 09/16/20 13:10 Dose: 5 mg Documented by: A/P Narrative A/P Narrative: * Multidrug-resistant Pseudomonas/MRSA pneumonia-Continue empiric meropenem/vancomycin. Await sputum cultures. * Acute exacerbation of underlying severe COPD/ bronchiectasis. Status post bilateral lobectomies. Follows up with Dr. Mayberry pulmonology. Ongoing bronchodilators/pulmonary toilet/COPD/CoughAssist/postural drainage/incentive spirometry use/deep breathing services * Acute hypoxic hypercapnic respiratory failure continue Continue home BiPAP/supplemental oxygen. * Paroxysmal A. fib rate controlled. On propafenone/digoxin. INR 1.9 * Heart failure with reduced ejection fraction last known EF 25 to 50%/BiV pacemaker for complete AV block * History of glaucoma continue latanoprost * History of hypertension continue irbesartan * Prophylaxis Coumadin Plan * Meropenem/vancomycin * ID consult * Aggressive pulmonary toilet * Pre-existing medical condition management as above * Coumadin dosing based on INR * PT OT nutrition support Time Spent With Patient Time: Total time spent is greater than 50% in coordination of care (as documented) at patient's floor/unit and/or counseling patient: QUALITY VTE Deep Vein Thrombosis/Pulmonary Embolism Present on Admission: No
[2020-09-16] MEDS ORDERED: WARFARIN 5 MG TABLET PO SCH (14:00)
[2020-09-16] MEDS: DIGOXIN 125 MCG TABLET PO SCH (21:55)
[2020-09-16] MEDS: SENNOSIDES/DOCUSATE SODIUM 1 TAB TABLET PO SCH (22:00)
[2020-09-16] MEDS: MONTELUKAST 10 MG TABLET PO SCH (22:00)
[2020-09-16] MEDS: LATANOPROST OPHTH DROPS 2.5ML BOTTLE OU SCH (22:15)
[2020-09-17] MEDS: IPRATROPIUM/ALBUTEROL 3 ML AMPUL.NEB NEB SCH ×6 (03:20→22:14)
[2020-09-17] MEDS: 0.9 % SODIUM CHLORIDE 10 ML SYRINGE IV SCH ×7 (04:58→22:37)
[2020-09-17] MEDS: MEROPENEM 2 GM in 0.9 % SODIUM CHLORIDE 100 ML IV SCH ×3 (05:55→21:21)
[2020-09-17] MEDS: BUDESONIDE 0.5 MG/2 ML AMPUL.NEB NEB SCH ×2 (07:01→19:13)
[2020-09-17] MEDS: HYPERSAL INH SCH ×2 (07:02→19:13)
[2020-09-17] MEDS: ALBUTEROL SULFATE 2.5 MG/3 ML NEBULIZER INH SCH ×2 (07:03→21:57)
[2020-09-17] MEDS: FLUTICASONE/SALMETEROL 500/50 INHALER #14 INH SCH ×2 (07:03→21:12)
[2020-09-17 07:18] LABS: Basophils # (Auto) 0.01 K/mcL (0.00-0.20); Basophils % (Auto) 0.1 % (0.0-2.0); Eosinophils % (Auto) 1.4 % (0.0-7.0); Hematocrit 31.5 % (41.0-55.0); Hemoglobin 9.5 g/dL (13.5-16.5); Lymphocytes # (Auto) 0.63 K/mcL (1.50-4.80); Lymphocytes % (Auto) 8.5 % (15.0-49.0); Mean Cell Volume 99.7 fL (80.0-100.0); Mean Corpuscular HGB Conc 30.2 g/dL (31.0-36.0); Mean Platelet Volume 9.4 fL (7.4-10.4); Monocytes # (Auto) 0.24 K/mcL (0.10-0.90); Monocytes % (Auto) 3.3 % (1.0-12.0); Neutrophils % (Auto) 86.7 % (38.0-78.0); Platelet Count 173 K/mcL (140-440); RBC 3.16 M/mcL (4.50-5.90); WBC 7.4 K/mcL (4.5-11.0)
--- NOTE | 2020-09-17 07:21 | XRay Report ---
CLINICAL INFORMATION: Interval Change COMPARISON: Portable chest 09/15/2020. FINDINGS: Moderate cardiomegaly is unchanged. Pacemaker and leads in stable satisfactory position. Mediastinum and pulmonary vessels are normal. Moderate reticulonodular interstitial disease throughout both mid and lower lungs has improved in the right lung only. This represents fibrosis and chronic/recurrent recurrent infection predisposed by extensive severe bronchiectasis. The nodular density, in the right midlung, has involuted from 4 cm to 2.2 cm compatible with resolving inflammation.PICC line has withdrawn and now overlies the left axillary vein IMPRESSION: Left-sided PICC line has withdrawn - tip now overlies the left axillary vein. Extensive reticulonodular interstitial disease throughout both mid and lower lungs has improved considerably in the right midlung. Left lung airspace disease is unchanged. This represents a combination of interstitial fibrosis and acute inflammation. The patient has known severe bronchiectasis predisposing to infection. Nodular density in the right midlung has involuted compatible with focal inflammation Interpreted and Authenticated by: Prashant Juarez 09/17/20
[2020-09-17] MEDS: LOSARTAN 25 MG TABLET PO SCH (07:30)
[2020-09-17] MEDS: DOCUSATE SODIUM 100 MG CAPSULE PO SCH ×2 (07:30→21:10)
[2020-09-17] MEDS: PROPAFENONE HCL 225 MG PO SCH ×3 (07:30→21:19)
[2020-09-17] MEDS: predniSONE 10 MG TABLET PO SCH (07:30)
[2020-09-17] MEDS: MULTIVIT,THER IRON,CA,FA & MIN 1 TABLET PO SCH (07:30)
[2020-09-17 07:31] LABS: INR 2.1 (0.9-1.1); Prothrombin Time 24.3 sec (11.9-14.5)
[2020-09-17] MEDS: FUROSEMIDE 40 MG TABLET PO SCH (07:31)
[2020-09-17 07:48] LABS: ALT/SGPT 7 U/L (<40); AST/SGOT 14 U/L (<40); Albumin 2.8 gm/dL (3.2-5.2); Albumin/Globulin Ratio 0.9 (1.0-2.3); Alkaline Phosphatase 61 U/L (39-117); Bilirubin,Direct < 0.2 mg/dL (0-0.3); Bilirubin,Total 0.2 mg/dL (0.1-1.0); Blood Urea Nitrogen 16 mg/dL (8-23); Calcium 8.8 mg/dL (8.6-10.4); Carbon Dioxide 39 mmol/L (22-30); Chloride 95 mmol/L (96-108); Globulin 3.1 gm/dL (2.2-3.7); Glomerular Filtration Rate 93; Glucose 74 mg/dL (70-105); Lactate Dehydrogenase 177 U/L (135-225); Phosphorous 2.1 mg/dL (2.5-4.5); Triglycerides 51 mg/dL (<150); Uric Acid 3.4 mg/dL (2.5-8.0)
[2020-09-17] MEDS: VANCOMYCIN 1,500 MG in 0.9 % SODIUM CHLORIDE 500 ML IV SCH (09:36)
--- NOTE | 2020-09-17 10:03 | Internal Med Progress Note ---
SUBJECTIVE Subjective Patient information: Note initiated : 09/17/20 at 9:54 am Service Date, if different from initiated Date: [] Patient: Nick Hamilton 74 y/o M admitted on 09/15/20 for SOB . Chief Complaint: [] Interval history: Mr. Hamilton is a 74 year old male with a history of severe bronchiectasis, ILD , history of prior lobectomy, A. fib/pacemaker/history of HF with reduced EF ,, BiV pacemaker for complete heart block, A. fib on Coumadin chronic hypoxia on trilogy at night/oxygen during day who presented to the ED with progressive dyspnea after he was recently discharged from the hospital on 10 days IV cefepime and Zyvox for treatment of MRSA and Pseudomonas pneumonia. He says that after initial improvement for a few days following discharge he became increasingly dyspneic progressing at rest requiring in excess of 6 to 8 L oxygen to maintain sats around 90. He denies associated fever but endorses to increasing purulent yellow-green sputum. With increasing concerns he presents today for evaluation During today's work-up imaging was consistent with worsening pneumonia compared to previous hospitalization chest imaging. Cultures were drawn. Hospitalist service was consulted for management of multidrug-resistant Pseudomonas pneumonia/hypoxic respiratory failure At the time of evaluation patient is alert but anxious. He was able to endorse history as above. Denies chest pain, shaking chills, fever, myalgia, headache or photophobia. 09/16-patient doing well. On 3 L oxygen. Responding well to meropenem/vanco mycin.INR 1.9, potassium 3.4 replacement. Continuing aggressive CPT/pulmonary toilet. 09/17-patient clinically improving. White count downtrending. However worsening shortness of breath/hypoxia, T-max 99, tachypneic, INR 2.1, feels fatigued and worn out this morning. Discussed options of tobramycin inhaled with pharmacy. Will attempt tobramycin nebulization today. Await ID consult on Friday. Continue meropenem/vancomycin. Aggressive postural drainage/trilogy BiPAP at night. Patient remains very high risk mortality. Discussed goals of care and possible discontinuation aggressive measures if recurrent hospitalizations in future in the setting of advanced destructive bronchiectasis/multidrug-resistant bacterial infections and deteriorating quality of life Constitutional Vitals: Vital Signs Temp Pulse Resp BP Pulse Ox 99.1 F H 82 24 H 124/66 96 09/17/20 08:01 09/17/20 08:01 09/17/20 08:01 09/17/20 08:01 09/17/20 08:01 Period Temp Pulse Resp BP Sys/Mukherjee Pulse Ox Last 24 Hr 98.2 F-99.2 F 78-100 21-39 96-141/55-81 89-98 Intake and Output 09/16/20 09/17/20 09/17/20 21:59 05:59 13:59 Intake Total 1140 220 340 Output Total 875 450 250 Balance 265 -230 90 Weight 82.871 kg very anxious and distressed Tachypneic and labored On 3L oxygen mask Intake & Output: Intake & Output 09/16/20 09/17/20 09/17/20 21:59 05:59 13:59 Intake Total 1140 220 340 Output Total 875 450 250 Balance 265 -230 90 Weight 82.871 kg Intake: IV 100 100 100 Merrem 2 gm In Sodium Chloride 100 100 100 0.9% 100 ml @ 100 mls/hr IV Q8 [facility] Rx#:[id number] Oral 1040 120 240 Output: Void Amount 875 450 250 Other: Meal Dinner Breakfast Percent of Meal Consumed 75% 75% Feeding Ability Independent Independent Urine Appearance Clear Clear Clear Urine Color Bright Yellow Bright Yellow Light Laurie Urine Odor Normal Normal Stool Size Small Stool Color Brown Stool Consistency [place] # Bowel Movements 1 # of times incontinent of 0 Bowels OBJ DATA Labs CBC & Chem 7: 09/17/20 05:16 09/17/20 05:16 Labs: Abnormal Lab Results 09/17/20 09/17/20 09/17/20 05:17 05:16 05:16 RBC 3.16 L Hgb 9.5 L Hct 31.5 L MCHC 30.2 L Neut % (Auto) 86.7 H Lymph % (Auto) 8.5 L Lymph # (Auto) 0.63 L Absolute Neutrophils ESR PT 24.3 H INR 2.1 H Chloride 95 L Carbon Dioxide 39 H Anion Gap 5.0 L Creatinine Glucose Calcium Phosphorus 2.1 L C-Reactive Protein Total Protein Albumin 2.8 L Albumin/Globulin Ratio 0.9 L 09/16/20 09/16/20 09/16/20 05:00 05:00 05:00 RBC 2.98 L Hgb 8.8 L Hct 29.5 L MCHC 29.8 L Neut % (Auto) 81.6 H Lymph % (Auto) 13.1 L Lymph # (Auto) 0.91 L Absolute Neutrophils ESR 85 H PT 22.4 H INR 1.9 H Chloride Carbon Dioxide 41 H* Anion Gap 3.0 L Creatinine 0.6 L Glucose Calcium 8.5 L Phosphorus C-Reactive Protein 8.10 H Total Protein 5.6 L Albumin 2.8 L Albumin/Globulin Ratio 09/15/20 09/15/20 09/15/20 11:27 11:27 11:26 RBC 3.38 L Hgb 10.0 L Hct 33.5 L MCHC 29.9 L Neut % (Auto) 88.9 H Lymph % (Auto) 5.4 L Lymph # (Auto) 0.49 L Absolute Neutrophils 8.02 H ESR PT 19.1 H INR 1.5 H Chloride 95 L Carbon Dioxide 39 H Anion Gap 4.0 L Creatinine 0.6 L Glucose 106 H Calcium Phosphorus C-Reactive Protein Total Protein Albumin Albumin/Globulin Ratio Meds: Medications Acetaminophen (Acetaminophen 325 Mg Tablet) 650 mg PO Q4-6HP PRN; Protocol PRN Reason: Per Pain Protocol/Fever > 101 Last Admin: 09/15/20 22:37 Dose: 650 mg Documented by: Albuterol Sulfate (Albuterol Sulfate 2.5 Mg/3 Ml Nebulizer) 2.5 mg INH BID [facility] Last Admin: 09/17/20 07:03 Dose: Not Given Documented by: Albuterol/Ipratropium (Ipratropium/Albuterol 3 Ml Ampul.Neb) 3 ml NEB Q4HRT [facility] Last Admin: 09/17/20 07:01 Dose: 3 ml Documented by: Bisacodyl (Bisacodyl 10 Mg Supp.Rect) 10 mg RI Q2-3DAYS PRN PRN Reason: Constipation Budesonide (Budesonide 0.5 Mg/2 Ml Ampul.Neb) 0.5 mg NEB Q12 [facility] Last Admin: 09/17/20 07:01 Dose: 0.5 mg Documented by: Digoxin (Digoxin 125 Mcg Tablet) 125 mcg PO HS [facility] Last Admin: 09/16/20 21:55 Dose: 125 mcg Documented by: Docusate Sodium (Docusate Sodium 100 Mg Capsule) 100 mg PO BID [facility] Last Admin: 09/17/20 07:30 Dose: 100 mg Documented by: Furosemide (Furosemide 40 Mg Tablet) 20 mg PO QDAY [facility] Last Admin: 09/17/20 07:31 Dose: 20 mg Documented by: Furosemide (Furosemide 20 Mg/2 Ml Vial) 20 mg IV Q8 [facility] Stop: 09/19/20 06:01 Guaifenesin/Codeine Phosphate (Guaifenesin/Codeine 10 Ml Udc) 10 ml PO Q4HP PRN PRN Reason: Cough Heparin Sodium (Porcine) (Heparin Flush 10 Units/Ml 5 Ml Syringe) 2 ml IV Q12 [facility] Last Admin: 09/17/20 07:31 Dose: 2 ml Documented by: Potassium Chloride 40 meq/ (Dextrose) 520 mls @ 130 mls/hr IV UD PRN PRN Reason: K+ = or < 3.5 Magnesium Sulfate (Magnesium Sulfate) 2 gm in 50 mls @ 50 mls/hr IV UD PRN PRN Reason: MG = or < 1.7 Acetaminophen (Ofirmev) 650 mg in 65 mls @ 130 mls/hr IV Q6HP PRN; Protocol PRN Reason: Per Pain Protocol/Fever > 101 Meropenem 2 gm/ Sodium (Chloride) 100 mls @ 100 mls/hr IV Q8 [facility]; Protocol Last Infusion: 09/17/20 07:05 Dose: Infused Documented by: Vancomycin HCl 1,500 mg/ (Sodium Chloride) 500 mls @ 333.3 mls/hr IV Q24H [facility] Last Admin: 09/17/20 09:36 Dose: 333.3 mls/hr Documented by: Iron Carb/Multivit/Certified Nurse Aide/Folic Acid (Multivit,Ther Iron,Ca,Fa & Min 1 Tablet) 1 tab PO DAILY [facility] Last Admin: 09/17/20 07:30 Dose: 1 tab Documented by: Latanoprost (Latanoprost Ophth Drops 2.5ml Bottle) 1 gtt OU QPM [facility] Last Admin: 09/16/20 22:15 Dose: 1 gtt Documented by: Lorazepam (Lorazepam 0.5 Mg Tablet) 0.5 mg PO Q4HP PRN PRN Reason: ANXIETY/SEDATION Last Admin: 09/16/20 12:00 Dose: 0.5 mg Documented by: Losartan Potassium (Losartan 25 Mg Tablet) 12.5 mg PO DAILY [facility] Last Admin: 09/17/20 07:30 Dose: 12.5 mg Documented by: Melatonin (Melatonin 3 Mg Tablet) 3 mg PO HSP PRN PRN Reason: Insomnia Montelukast Sodium (Montelukast 10 Mg Tablet) 10 mg PO QHS [facility] Last Admin: 09/16/20 22:00 Dose: 10 mg Documented by: Ondansetron HCl (Ondansetron 4 Mg Odt Tablet) 4 mg SL Q4-6HP PRN; Protocol PRN Reason: Nausea And Vomiting Ondansetron HCl (Ondansetron 4 Mg/2 Ml Vial) 4 mg IV Q4-6HP PRN; Protocol PRN Reason: Nausea And Vomiting Hypersal 7 % Inh Yamilka 1 dose INH BID [facility] Last Admin: 09/17/20 07:02 Dose: 1 dose Documented by: Polyethylene Glycol (Polyethylene Glycol 3350 17 Gm Packet) 17 gm PO DAILYP PRN PRN Reason: Constipation Potassium Chloride (Potassium Chloride 20 Meq Packet) 40 meq PO DAILYP PRN PRN Reason: K+ < 3.5 Last Admin: 09/16/20 08:48 Dose: 40 meq Documented by: Prednisone (Prednisone 10 Mg Tablet) 10 mg PO QAC [facility] Last Admin: 09/17/20 07:30 Dose: 10 mg Documented by: Propafenone HCl (Propafenone Hcl 225 Mg Tablet) 225 mg PO TID [facility] Last Admin: 09/17/20 07:30 Dose: 225 mg Documented by: Fluticasone/Salmeterol (Fluticasone/Salmeterol 500/50 Inhaler #14) 1 puff INH Q12 [facility] Last Admin: 09/17/20 07:03 Dose: Not Given Documented by: Senna/Docusate Sodium (Sennosides/Docusate Sodium 1 Tab Tablet) 1 tab PO HS [facility] Last Admin: 09/16/20 22:00 Dose: 1 tab Documented by: Sodium Chloride (0.9 % Sodium Chloride 10 Ml Syringe) 10 ml IV Q8 [facility] Last Admin: 09/17/20 04:58 Dose: Not Given Documented by: Sodium Chloride (0.9 % Sodium Chloride 10 Ml Syringe) 10 ml IV Q12 [facility] Last Admin: 09/17/20 07:32 Dose: 10 ml Documented by: Vancomycin HCl (Vancomycin Per Pharmacy) 1 order IV UD [facility]; Protocol Warfarin Sodium (Warfarin Per Pharmacy) 1 order PO [facility] Warfarin Sodium (Warfarin 5 Mg Tablet) 5 mg PO TODAY@1400 [facility] Stop: 09/17/20 16:00 A/P Narrative A/P Narrative: * Multidrug-resistant Pseudomonas/MRSA pneumonia-Continue empiric meropenem/vancomycin. Inhaled tobramycin * Acute exacerbation of underlying severe COPD/ bronchiectasis. Gradually progressive and deteriorating pulmonary status despite aggressive intervent ions including antibiotics/pulmonary toilet/postural drainage and trilogy BiPAP. Status post bilateral lobectomies. Follows up with Dr. Mayberry pulmonology. * Acute hypoxic hypercapnic respiratory failure continue Continue home BiPAP/supplemental oxygen. * Paroxysmal A. fib rate controlled. On propafenone/digoxin. INR therapeutic at 2.1 * Heart failure with reduced ejection fraction last known EF 25 to 50%/BiV pacemaker for complete AV block * History of glaucoma continue latanoprost * History of hypertension continue irbesartan * Prophylaxis Coumadin Plan * Meropenem/vancomycin/inhaled tobramycin * ID consult on Friday(not available during s) * Aggressive pulmonary toilet * Pre-existing medical condition management as above * Coumadin dosing based on INR * PT OT nutrition support Time Spent With Patient Time: Total time spent is greater than 50% in coordination of care (as documented) at patient's floor/unit and/or counseling patient: QUALITY VTE Deep Vein Thrombosis/Pulmonary Embolism Present on Admission: No
[2020-09-17] MEDS: TOBRAMYCIN SULFATE 1.2 GM VIAL INH SCH (10:55)
[2020-09-17] MEDS ORDERED: WARFARIN 5 MG TABLET PO SCH (14:00)
[2020-09-17] MEDS: FUROSEMIDE 20 MG/2 ML VIAL IV SCH ×2 (14:21→22:44)
[2020-09-17] MEDS: ACETAMINOPHEN 325 MG TABLET PO PRN (21:10)
[2020-09-17] MEDS: MONTELUKAST 10 MG TABLET PO SCH (21:10)
[2020-09-17] MEDS: DIGOXIN 125 MCG TABLET PO SCH (21:10)
[2020-09-17] MEDS: SENNOSIDES/DOCUSATE SODIUM 1 TAB TABLET PO SCH (21:10)
[2020-09-17] MEDS: LATANOPROST OPHTH DROPS 2.5ML BOTTLE OU SCH (21:20)
[2020-09-17] MEDS: 0.9 % SODIUM CHLORIDE 10 ML SYRINGE IV PRN (22:45)
[2020-09-18] MEDS: IPRATROPIUM/ALBUTEROL 3 ML AMPUL.NEB NEB SCH ×6 (03:31→22:58)
[2020-09-18] MEDS: FUROSEMIDE 20 MG/2 ML VIAL IV SCH ×3 (05:45→21:37)
[2020-09-18] MEDS: MEROPENEM 2 GM in 0.9 % SODIUM CHLORIDE 100 ML IV SCH ×3 (05:45→21:27)
[2020-09-18] MEDS: 0.9 % SODIUM CHLORIDE 10 ML SYRINGE IV PRN (05:46)
[2020-09-18] MEDS: 0.9 % SODIUM CHLORIDE 10 ML SYRINGE IV SCH ×5 (05:46→22:45)
[2020-09-18 06:45] LABS: Basophils # (Auto) 0 K/mcL (0.00-0.20); Basophils % (Auto) 0 % (0.0-2.0); Eosinophils # (Auto) 0.08 K/mcL (0.00-0.70); Hemoglobin 9.6 g/dL (13.5-16.5); Lymphocytes # (Auto) 0.53 K/mcL (1.50-4.80); Lymphocytes % (Auto) 6.8 % (15.0-49.0); Mean Cell Volume 99.7 fL (80.0-100.0); Mean Platelet Volume 9.3 fL (7.4-10.4); Monocytes # (Auto) 0.14 K/mcL (0.10-0.90); Monocytes % (Auto) 1.8 % (1.0-12.0); Neutrophils % (Auto) 90.4 % (38.0-78.0); Platelet Count 167 K/mcL (140-440); RBC 3.21 M/mcL (4.50-5.90); Red Cell Distribution Width 14.1 % (11.5-14.5); WBC 7.8 K/mcL (4.5-11.0)
[2020-09-18] MEDS: ACETAMINOPHEN 325 MG TABLET PO PRN ×2 (07:04→15:30)
[2020-09-18 07:07] LABS: INR 2.2 (0.9-1.1); Prothrombin Time 25.2 sec (11.9-14.5)
[2020-09-18 07:41] LABS: ALT/SGPT 7 U/L (<40); AST/SGOT 18 U/L (<40); Albumin 2.9 gm/dL (3.2-5.2); Albumin/Globulin Ratio 0.9 (1.0-2.3); Alkaline Phosphatase 59 U/L (39-117); Bilirubin,Direct < 0.2 mg/dL (0-0.3); Bilirubin,Total < 0.2 mg/dL (0.1-1.0); Blood Urea Nitrogen 17 mg/dL (8-23); Carbon Dioxide 45 mmol/L (22-30); Chloride 92 mmol/L (96-108); Globulin 3.2 gm/dL (2.2-3.7); Glomerular Filtration Rate 93; Glucose 92 mg/dL (70-105); Lactate Dehydrogenase 191 U/L (135-225); Phosphorous 2.6 mg/dL (2.5-4.5); Triglycerides 64 mg/dL (<150); Uric Acid 4.2 mg/dL (2.5-8.0)
[2020-09-18] MEDS: BUDESONIDE 0.5 MG/2 ML AMPUL.NEB NEB SCH ×2 (07:51→19:26)
[2020-09-18] MEDS: LOSARTAN 25 MG TABLET PO SCH (08:30)
[2020-09-18] MEDS: predniSONE 10 MG TABLET PO SCH (08:30)
[2020-09-18] MEDS: MULTIVIT,THER IRON,CA,FA & MIN 1 TABLET PO SCH (08:30)
[2020-09-18] MEDS: DOCUSATE SODIUM 100 MG CAPSULE PO SCH ×2 (08:30→21:25)
[2020-09-18] MEDS: PROPAFENONE HCL 225 MG PO SCH ×3 (08:30→21:37)
[2020-09-18] MEDS: FLUTICASONE/SALMETEROL 500/50 INHALER #14 INH SCH ×2 (08:31→21:38)
[2020-09-18] MEDS: ALBUTEROL SULFATE 2.5 MG/3 ML NEBULIZER INH SCH ×2 (08:34→19:26)
[2020-09-18] MEDS: VANCOMYCIN 1,500 MG in 0.9 % SODIUM CHLORIDE 500 ML IV SCH (09:21)
[2020-09-18] MEDS: HYPERSAL INH SCH (09:21)
[2020-09-18] MEDS: TOBRAMYCIN SULFATE 1.2 GM VIAL INH SCH ×2 (09:22)
--- NOTE | 2020-09-18 09:30 | Internal Med Progress Note ---
SUBJECTIVE Subjective Patient information: Note initiated : 09/18/20 at 9:27 am Service Date, if different from initiated Date: [] Patient: Nick Hamiltno 74 y/o M admitted on 09/15/20 for SOB . Chief Complaint: [] Interval history: Mr. Hamilton is a 74 year old male with a history of severe bronchiectasis, ILD , history of prior lobectomy, A. fib/pacemaker/history of HF with reduced EF ,, BiV pacemaker for complete heart block, A. fib on Coumadin chronic hypoxia on trilogy at night/oxygen during day who presented to the ED with progressive dyspnea after he was recently discharged from the hospital on 10 days IV cefepime and Zyvox for treatment of MRSA and Pseudomonas pneumonia. He says that after initial improvement for a few days following discharge he became increasingly dyspneic progressing at rest requiring in excess of 6 to 8 L oxygen to maintain sats around 90. He denies associated fever but endorses to increasing purulent yellow-green sputum. With increasing concerns he presents today for evaluation During today's work-up imaging was consistent with worsening pneumonia compared to previous hospitalization chest imaging. Cultures were drawn. Hospitalist service was consulted for management of multidrug-resistant Pseudomonas pneumonia/hypoxic respiratory failure At the time of evaluation patient is alert but anxious. He was able to endorse history as above. Denies chest pain, shaking chills, fever, myalgia, headache or photophobia. 09/16-patient doing well. On 3 L oxygen. Responding well to meropenem/vanco mycin.INR 1.9, potassium 3.4 replacement. Continuing aggressive CPT/pulmonary toilet. 09/17-patient clinically improving. White count downtrending. However worsening shortness of breath/hypoxia, T-max 99, tachypneic, INR 2.1, feels fatigued and worn out this morning. Discussed options of tobramycin inhaled with pharmacy. Will attempt tobramycin nebulization today. Await ID consult on Friday. Continue meropenem/vancomycin. Aggressive postural drainage/trilogy BiPAP at night. Patient remains very high risk mortality. Discussed goals of care and possible discontinuation aggressive measures if recurrent hospitalizations in future in the setting of advanced destructive bronchiectasis/multidrug-resistant bacterial infections and deteriorating quality of life 09/18-patient doing well. Able to talk in half sentences. Improved since previous day. Ongoing tobramycin relation/meropenem vancomycin. White count 7.8. Stable labs and hemodynamics. Sputum culture results pending. ID consulted. Constitutional Vitals: Vital Signs Temp Pulse Resp BP Pulse Ox 99.1 F H 82 34 H 110/53 99 09/18/20 08:01 09/18/20 08:12 09/18/20 08:12 09/18/20 08:01 09/18/20 08:12 Period Temp Pulse Resp BP Sys/Mukherjee Pulse Ox Last 24 Hr 97.8 F-99.9 F 74-119 13-37 82-135/53-79 91-99 Intake and Output 09/17/20 09/18/20 09/18/20 21:59 05:59 13:59 Intake Total 580 100 100 Output Total 775 775 650 Balance -195 -675 -550 Weight 82.146 kg alert oriented Labored breathing on 5 L oxygen improved since previous day Anxious No lymphedema Intake & Output: Intake & Output 09/17/20 09/18/20 09/18/20 21:59 05:59 13:59 Intake Total 580 100 100 Output Total 775 775 650 Balance -195 -675 -550 Weight 82.146 kg Intake: Nourishment/Supplement quantity 240 (ml) IV 100 100 100 Merrem 2 gm In Sodium Chloride 100 100 100 0.9% 100 ml @ 100 mls/hr IV Q8 [facility] Rx#:[id number] Oral 240 Output: Void Amount 775 775 650 Other: Meal Nourishment/Supplement Percent of Meal Consumed 100% Feeding Ability Independent Nourishment/Supplement name Ensure Urine Appearance Clear Clear Urine Color Bright Yellow Bright Yellow Urine Odor Normal Normal OBJ DATA Labs CBC & Chem 7: 09/18/20 05:30 09/18/20 05:30 Labs: Abnormal Lab Results 09/18/20 09/18/20 09/18/20 05:30 05:30 05:30 RBC 3.21 L Hgb 9.6 L Hct 32.0 L MCHC 30.0 L Neut % (Auto) 90.4 H Lymph % (Auto) 6.8 L Lymph # (Auto) 0.53 L Absolute Neutrophils ESR PT 25.2 H INR 2.2 H Chloride 92 L Carbon Dioxide 45 H* Anion Gap 3.0 L Creatinine Glucose Calcium Phosphorus C-Reactive Protein Total Protein Albumin 2.9 L Albumin/Globulin Ratio 0.9 L 09/17/20 09/17/20 09/17/20 05:17 05:16 05:16 RBC 3.16 L Hgb 9.5 L Hct 31.5 L MCHC 30.2 L Neut % (Auto) 86.7 H Lymph % (Auto) 8.5 L Lymph # (Auto) 0.63 L Absolute Neutrophils ESR PT 24.3 H INR 2.1 H Chloride 95 L Carbon Dioxide 39 H Anion Gap 5.0 L Creatinine Glucose Calcium Phosphorus 2.1 L C-Reactive Protein Total Protein Albumin 2.8 L Albumin/Globulin Ratio 0.9 L 09/16/20 09/16/20 09/16/20 05:00 05:00 05:00 RBC 2.98 L Hgb 8.8 L Hct 29.5 L MCHC 29.8 L Neut % (Auto) 81.6 H Lymph % (Auto) 13.1 L Lymph # (Auto) 0.91 L Absolute Neutrophils ESR 85 H PT 22.4 H INR 1.9 H Chloride Carbon Dioxide 41 H* Anion Gap 3.0 L Creatinine 0.6 L Glucose Calcium 8.5 L Phosphorus C-Reactive Protein 8.10 H Total Protein 5.6 L Albumin 2.8 L Albumin/Globulin Ratio 09/15/20 09/15/20 09/15/20 11:27 11:27 11:26 RBC 3.38 L Hgb 10.0 L Hct 33.5 L MCHC 29.9 L Neut % (Auto) 88.9 H Lymph % (Auto) 5.4 L Lymph # (Auto) 0.49 L Absolute Neutrophils 8.02 H ESR PT 19.1 H INR 1.5 H Chloride 95 L Carbon Dioxide 39 H Anion Gap 4.0 L Creatinine 0.6 L Glucose 106 H Calcium Phosphorus C-Reactive Protein Total Protein Albumin Albumin/Globulin Ratio Meds: Medications Acetaminophen (Acetaminophen 325 Mg Tablet) 650 mg PO Q4-6HP PRN; Protocol PRN Reason: Per Pain Protocol/Fever > 101 Last Admin: 09/18/20 07:04 Dose: 650 mg Documented by: Albuterol Sulfate (Albuterol Sulfate 2.5 Mg/3 Ml Nebulizer) 2.5 mg INH BID [facility] Last Admin: 09/18/20 08:34 Dose: Not Given Documented by: Albuterol/Ipratropium (Ipratropium/Albuterol 3 Ml Ampul.Neb) 3 ml NEB Q4HRT [facility] Last Admin: 09/18/20 07:51 Dose: 3 ml Documented by: Bisacodyl (Bisacodyl 10 Mg Supp.Rect) 10 mg ND Q2-3DAYS PRN PRN Reason: Constipation Budesonide (Budesonide 0.5 Mg/2 Ml Ampul.Neb) 0.5 mg NEB Q12 [facility] Last Admin: 09/18/20 07:51 Dose: 0.5 mg Documented by: Digoxin (Digoxin 125 Mcg Tablet) 125 mcg PO HS [facility] Last Admin: 09/17/20 21:10 Dose: 125 mcg Documented by: Docusate Sodium (Docusate Sodium 100 Mg Capsule) 100 mg PO BID [facility] Last Admin: 09/18/20 08:30 Dose: 100 mg Documented by: Furosemide (Furosemide 40 Mg Tablet) 20 mg PO QDAY [facility] Last Admin: 09/17/20 07:31 Dose: 20 mg Documented by: Furosemide (Furosemide 20 Mg/2 Ml Vial) 20 mg IV Q8 [facility] Stop: 09/19/20 06:01 Last Admin: 09/18/20 05:45 Dose: 20 mg Documented by: Guaifenesin/Codeine Phosphate (Guaifenesin/Codeine 10 Ml Udc) 10 ml PO Q4HP PRN PRN Reason: Cough Heparin Sodium (Porcine) (Heparin Flush 10 Units/Ml 5 Ml Syringe) 2 ml IV Q12 [facility] Last Admin: 09/18/20 08:31 Dose: 2 ml Documented by: Potassium Chloride 40 meq/ (Dextrose) 520 mls @ 130 mls/hr IV UD PRN PRN Reason: K+ = or < 3.5 Magnesium Sulfate (Magnesium Sulfate) 2 gm in 50 mls @ 50 mls/hr IV UD PRN PRN Reason: MG = or < 1.7 Acetaminophen (Ofirmev) 650 mg in 65 mls @ 130 mls/hr IV Q6HP PRN; Protocol PRN Reason: Per Pain Protocol/Fever > 101 Meropenem 2 gm/ Sodium (Chloride) 100 mls @ 100 mls/hr IV Q8 [facility]; Protocol Last Infusion: 09/18/20 07:05 Dose: Infused Documented by: Vancomycin HCl 1,500 mg/ (Sodium Chloride) 500 mls @ 333.3 mls/hr IV Q24H [facility] Last Admin: 09/18/20 09:21 Dose: 333.3 mls/hr Documented by: Iron Carb/Multivit/Lockstitch Zipper Setter/Folic Acid (Multivit,Ther Iron,Ca,Fa & Min 1 Tablet) 1 tab PO DAILY [facility] Last Admin: 09/18/20 08:30 Dose: 1 tab Documented by: Latanoprost (Latanoprost Ophth Drops 2.5ml Bottle) 1 gtt OU QPM [facility] Last Admin: 09/17/20 21:20 Dose: 1 gtt Documented by: Lorazepam (Lorazepam 0.5 Mg Tablet) 0.5 mg PO Q4HP PRN PRN Reason: ANXIETY/SEDATION Last Admin: 09/16/20 12:00 Dose: 0.5 mg Documented by: Losartan Potassium (Losartan 25 Mg Tablet) 12.5 mg PO DAILY [facility] Last Admin: 09/18/20 08:30 Dose: 12.5 mg Documented by: Melatonin (Melatonin 3 Mg Tablet) 3 mg PO HSP PRN PRN Reason: Insomnia Montelukast Sodium (Montelukast 10 Mg Tablet) 10 mg PO QHS [facility] Last Admin: 09/17/20 21:10 Dose: 10 mg Documented by: Ondansetron HCl (Ondansetron 4 Mg Odt Tablet) 4 mg SL Q4-6HP PRN; Protocol PRN Reason: Nausea And Vomiting Ondansetron HCl (Ondansetron 4 Mg/2 Ml Vial) 4 mg IV Q4-6HP PRN; Protocol PRN Reason: Nausea And Vomiting Hypersal 7 % Inh Yamilka 1 dose INH BID [facility] Last Admin: 09/18/20 09:21 Dose: 1 dose Documented by: Polyethylene Glycol (Polyethylene Glycol 3350 17 Gm Packet) 17 gm PO DAILYP PRN PRN Reason: Constipation Potassium Chloride (Potassium Chloride 20 Meq Packet) 40 meq PO DAILYP PRN PRN Reason: K+ < 3.5 Last Admin: 09/16/20 08:48 Dose: 40 meq Documented by: [facility]one ([facility] 10 Mg [facility]t) [facility] Last Admin: 09/18/20 08:30 Dose: 10 mg Documented by: Propafenone HCl (Propafenone Hcl 225 Mg Tablet) 225 mg PO TID [facility] Last Admin: 09/18/20 08:30 Dose: 225 mg Documented by: Fluticasone/Salmeterol (Fluticasone/Salmeterol 500/50 Inhaler #14) 1 puff INH Q12 [facility] Last Admin: 09/18/20 08:31 Dose: Not Given Documented by: Senna/Docusate Sodium (Sennosides/Docusate Sodium 1 Tab Tablet) 1 tab PO HS [facility] Last Admin: 09/17/20 21:10 Dose: 1 tab Documented by: Sodium Chloride (0.9 % Sodium Chloride 10 Ml Syringe) 10 ml IV Q8 [facility] Last Admin: 09/18/20 05:46 Dose: Not Given Documented by: Sodium Chloride (0.9 % Sodium Chloride 10 Ml Syringe) 10 ml IV Q12 [facility] Last Admin: 09/18/20 08:34 Dose: 10 ml Documented by: Sodium Chloride (0.9 % Sodium Chloride 10 Ml Syringe) 10 ml IV UD PRN PRN Reason: FLUSH Last Admin: 09/18/20 05:46 Dose: 10 ml Documented by: Tobramycin Sulfate (Tobramycin Sulfate 1.2 Gm Vial) 0.3 gm INH ONCE [facility]; Protocol Last Admin: 09/18/20 09:22 Dose: Not Given Documented by: Tobramycin Sulfate (Tobramycin Sulfate 1.2 Gm Vial) 0.3 gm INH DAILY [facility]; Pr otocol Last Admin: 09/18/20 09:22 Dose: 0.3 gm Documented by: Vancomycin HCl (Vancomycin Per Pharmacy) 1 order IV UD [facility]; Protocol Warfarin Sodium (Warfarin Per Pharmacy) 1 order PO UD [facility] A/P Narrative A/P Narrative: * Multidrug-resistant Pseudomonas/MRSA pneumonia-Continue empiric meropenem/vancomycin. Inhaled tobramycin. ID consulted * Acute exacerbation of COPD/advanced bronchiectasis. Improved since previous day. Continue aggressive treatment including antibiotics/pulmonary toilet/postural drainage and trilogy BiPAP. Status post bilateral lobectomies. Follows up with Dr. Mayberry pulmonology. * Acute hypoxic hypercapnic respiratory failure continue Continue home BiPAP/supplemental oxygen. * Paroxysmal A. fib rate controlled. Continue propafenone/digoxin. INR therapeutic at 2.1 * Heart failure with reduced ejection fraction last known EF 25 to 50%/BiV pacemaker for complete AV block * History of glaucoma continue latanoprost * History of hypertension continue irbesartan * Prophylaxis Coumadin Plan * Meropenem/vancomycin/inhaled tobramycin * ID consult today * Continue aggressive pulmonary toilet * Pre-existing medical condition management as above * Coumadin dosing based on INR * PT OT nutrition support Time Spent With Patient Time: Total time spent is greater than 50% in coordination of care (as documented) at patient's floor/unit and/or counseling patient: QUALITY VTE Deep Vein Thrombosis/Pulmonary Embolism Present on Admission: No
[2020-09-18] MEDS: FUROSEMIDE 40 MG TABLET PO SCH (10:01)
[2020-09-18] MEDS: LORazepam 0.5 MG TABLET PO PRN (13:15)
[2020-09-18] MEDS ORDERED: WARFARIN 5 MG TABLET PO SCH (14:00)
--- NOTE | 2020-09-18 16:10 | Infectious Disease Consult ---
HPI Data of Consult Primary Care Provider: Hortencia Adams Consult Narrative Patient Information: Note initiated : 09/18/20 at 4:09 pm Service Date, if different from initiated Date: [] Patient: Nick Hamilton a 74 y/o M admitted on 09/15/20 for SOB . Chief Complaint: [] Nick is a 74-year-old man admitted on September 15 for pneumonia. I have previously seen Nick in the clinic consultation August 17. He has a significant history of oxygen dependent COPD. He has bronchiectasis, bronchitis, and previous bilateral lower lobe lobectomy that he is at a young age. He has had pseudomonal pneumonia in June 2017 as well as July 2020. He was recently hospitalized from August 28 until September 08 with a sputum culture positive for Pseudomonas and MRSA August 28. He received 10 days of cefepime and Zyvox finishing September 08 before becoming short of breath again prompting hospital admission September 15. No complaints of fevers or chills. He is currently on 3 L by nasal cannula. He is currently hospital day 4 on IV meropenem 2 g 3 times a day and vancomycin 1.5 g once daily. He feels better now than when he was first admitted. PRL had difficulties obtaining sensitivities on the pseudomonal organism as it was difficult to grow and very mucoid. Sensitivities did return as organisms susceptible to gentamicin, tobramycin, and imipenem. We are working on obtaining inhaled tobramycin for him to be using at home. Dr. Beal did start inhaled tobramycin 300 mg once daily with first dose yesterday. Repeat sputum on August 28 also grew Pseudomonas and MRSA. The Pseudomonas is resistant to cefepime. His admit white count was 9 with a temp of 99.2. T-max this hospital stay on September 16 reached 100. Current temp 98.9. He maintains his sats at 92 to 98% on 3.5 L. Chest x-ray on admit September 15 showed right midlung infiltrate approximately 4 cm. Blood cultures remain negative. cc:: CC: Angel Luis Ivan Review of Systems Review of systems: General: No fevers or chills. HEENT: No swallowing difficulties. No headache or sore throat. No neck complaints. Pulmonary: Productive cough has improved. No hemoptysis. He does complain of shortness of breath with exertion. Cardiac: No chest pain. History of A. fib and pacer placement. GI: No abdominal pain or diarrhea. no dysuria. Extremities: No complaints of lower extremity edema. He has a left upper extremity PICC line. Skin without complaints of rash. PFSH PFSH All Active Problems (Updated 09/18/20 @ 16:24 by Wenceslao Delgado MD) Pseudomonas aeruginosa infection (Acute) Hypoventilation (Acute) Bronchiectasis with (acute) exacerbation (Acute) Acute and chronic respiratory failure with hypoxia (Acute) Acute dyspnea (Acute) Pulmonary edema (Acute) Chronic obstructive pulmonary disease with (acute) exacerbation (Acute) Acute on chronic respiratory failure with hypoxia and hypercapnia (Acute) Anemia in chronic illness (Acute) Chronic anticoagulation (Acute) Glaucoma (Acute) Hypoxemia (Acute) Hypoxia (Chronic) Benign paroxysmal vertigo (Chronic) History of MRSA infection (Chronic) Respiratory failure, chronic (Chronic) Pneumonia, bacterial (Chronic) Paroxysmal atrial fibrillation (Chronic) Hypercholesterolemia (Chronic) Encounter for monitoring dofetilide therapy (Chronic) Elevated PSA (Chronic) CHF (NYHA class III, ACC/AHA stage C) (Chronic) 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) BPH (benign prostatic hyperplasia) (Chronic) Biventricular pacemaker check (Chronic) 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) Vitamin D deficiency (Chronic) Sinus node dysfunction (Chronic) Bradycardia, sinus (Chronic) Artificial pacemaker (Chronic) Hyperglycemia (Chronic) Pure hypercholesterolemia (Chronic) 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) Bronchiectasis (Chronic) Anemia (Chronic) Hyperlipidemia (Chronic) COPD (chronic obstructive pulmonary disease) (Chronic) Atrial fibrillation (Chronic) Medical History Acute upper respiratory infection Anemia Artificial pacemaker Atrial fibrillation Benign paroxysmal vertigo Biventricular pacemaker check BPH (benign prostatic hyperplasia) Bradycardia, sinus Bronchiectasis CHB (complete heart block) CHF (NYHA class III, ACC/AHA stage C) Chronic combined systolic and diastolic heart failure COPD (chronic obstructive pulmonary disease) Elevated PSA Encounter for monitoring dofetilide therapy Encounter for screening for malignant neoplasm of prostate Glaucoma History of MRSA infection Hypercholesterolemia Hyperglycemia Hyperlipidemia Hypoventilation Hypoxemia Hypoxia MRSA (methicillin resistant Staphylococcus aureus) carrier Paroxysmal atrial fibrillation Pneumonia Pneumonia, bacterial Presence of cardiac resynchronization therapy pacemaker Pure hypercholesterolemia Respiratory failure with hypoxia and hypercapnia Respiratory failure, chronic Sinus node dysfunction SIRS (systemic inflammatory response syndrome) Vitamin D deficiency Surgical History H/O prostate biopsy History of left hip hemiarthroplasty History of lobectomy of lung History of permanent cardiac pacemaker placement Status post partial removal of lung Patient states he has had bilateral lower lung lobes removed Family History Unknown Glaucoma Myocardial Infarction Hypertension Diabetes mellitus Type 2 diabetes mellitus Brother , Onset Age: 45 Father , Onset Age: 93 Mother , Onset Age: 96 Sister , Onset Age: 50 Social History physical activity: other details: exercise classes; exercise limited by medical condition alcohol intake frequency: does not drink substance use type: does not use MEDS/ALLERGIES Home Medications and Allergies Home Medications Medication Instructions Recorded Confirmed Type latanoprost 0.005 % eye drops 1 drp OPHTHALMIC QPM ml 08/23/15 09/15/20 History warfarin 7.5 mg tablet See Rx Instructions .ROUTE 08/23/15 09/15/20 History .COMPLEX tab ipratropium bromide 2.5 ml NEB Q4HRT ampul.neb 10/24/15 09/15/20 Rx albuterol sulfate 2.5 mg INHALATION BID ml 05/20/17 09/15/20 History digoxin 125 mcg (0.125 mg) tablet 125 mcg PO HS 05/20/17 09/15/20 History montelukast 10 mg tablet 10 mg PO QHS 06/11/17 09/15/20 History HyperSal 7 % INHALATION BID #240 ml 05/06/19 09/15/20 Rx furosemide 40 mg tablet 20 mg PO QDAY tab 05/06/19 09/15/20 History Noninvasive ventilator.supplies #1 ea 05/13/19 09/15/20 Rx tubing mask irbesartan 75 mg tablet 37.5 mg PO DAILY tab 05/13/19 09/15/20 History propafenone 150 mg tablet 225 mg PO TID tab 03/08/20 09/15/20 History budesonide 0.5 mg/2 mL suspension 0.5 mg INHALATION BID #120 ml 07/27/20 09/15/20 Rx for nebulization fluticasone 500 mcg-salmeterol 50 1 inh INHALATION Q12H 07/27/20 09/15/20 History mcg/dose blistr powdr for inhalation prednisone 10 mg PO QDAY 09/15/20 09/15/20 History Allergies Allergy/AdvReac Type Severity Reaction Status Date / Time Penicillins AdvReac Intermediate Fever Verified 09/05/20 08:23 Physical Examination Vital Signs Vital signs: Temp Pulse Resp BP Pulse Ox 98.9 F 92 H 28 H 111/65 92 09/18/20 12:10 09/18/20 15:01 09/18/20 15:01 09/18/20 14:01 09/18/20 14:01 Additional Exam Additional exam: General: He is laying in bed. He does get short of breath with prolonged conversation. HEENT: No thrush. EOMI PERRL sclera anicteric. Neck is supple no cervical adenopathy. Lungs: Left lower rhonchi. Right without wheezing. Heart: Regular rate and rhythm without murmur. Abdomen: Soft nontender bowel sounds positive. Extremities without edema. Left upper extremity with PICC line. He does have ecchymosis in the area of the PICC line placement. Results Laboratory Findings CBC and BMP: 09/18/20 05:30 09/18/20 05:30 ABG, PT/INR, D-dimer: PT/INR, D-dimer PT 25.2 sec (11.9-14.5) H 09/18/20 05:30 INR 2.2 (0.9-1.1) H 09/18/20 05:30 Abnormal lab findings: Abnormal Labs 09/15/20 09/15/20 09/15/20 11:26 11:27 11:27 RBC 3.38 L Hgb 10.0 L Hct 33.5 L MCHC 29.9 L Neut % (Auto) 88.9 H Lymph % (Auto) 5.4 L Lymph # (Auto) 0.49 L Absolute Neutrophils 8.02 H ESR PT 19.1 H INR 1.5 H Chloride 95 L Carbon Dioxide 39 H Anion Gap 4.0 L Creatinine 0.6 L Glucose 106 H Calcium Phosphorus C-Reactive Protein Total Protein Albumin Albumin/Globulin Ratio 09/16/20 09/16/20 09/16/20 05:00 05:00 05:00 RBC 2.98 L Hgb 8.8 L Hct 29.5 L MCHC 29.8 L Neut % (Auto) 81.6 H Lymph % (Auto) 13.1 L Lymph # (Auto) 0.91 L Absolute Neutrophils ESR 85 H PT 22.4 H INR 1.9 H Chloride Carbon Dioxide 41 H* Anion Gap 3.0 L Creatinine 0.6 L Glucose Calcium 8.5 L Phosphorus C-Reactive Protein 8.10 H Total Protein 5.6 L Albumin 2.8 L Albumin/Globulin Ratio 09/17/20 09/17/20 09/17/20 05:16 05:16 05:17 RBC 3.16 L Hgb 9.5 L Hct 31.5 L MCHC 30.2 L Neut % (Auto) 86.7 H Lymph % (Auto) 8.5 L Lymph # (Auto) 0.63 L Absolute Neutrophils ESR PT 24.3 H INR 2.1 H Chloride 95 L Carbon Dioxide 39 H Anion Gap 5.0 L Creatinine Glucose Calcium Phosphorus 2.1 L C-Reactive Protein Total Protein Albumin 2.8 L Albumin/Globulin Ratio 0.9 L 09/18/20 09/18/20 09/18/20 05:30 05:30 05:30 RBC 3.21 L Hgb 9.6 L Hct 32.0 L MCHC 30.0 L Neut % (Auto) 90.4 H Lymph % (Auto) 6.8 L Lymph # (Auto) 0.53 L Absolute Neutrophils ESR PT 25.2 H INR 2.2 H Chloride 92 L Carbon Dioxide 45 H* Anion Gap 3.0 L Creatinine Glucose Calcium Phosphorus C-Reactive Protein Total Protein Albumin 2.9 L Albumin/Globulin Ratio 0.9 L Microbiology: Microbiology 09/15/20 13:20 Blood Blood Culture - Preliminary 09/15/20 13:15 Blood Blood Culture - Preliminary A/P Assessment and plan (1) Pneumonia, bacterial: Status: Chronic Comment: Nick is a pleasant 74-year-old man with COPD, bronchiectasis, chronic bronchitis, and chronic respiratory colonization with Pseudomonas. I would consider him a MRSA carrier. He has frequent episodes of pseudomonal pneumonia. I have reviewed with hospitalist Dr. Martinez. He is currently day 4 IV Vanco plus meropenem. DC vancomycin. I am more concerned about Pseudomonas as the etiology for his pneumonia rather than MRSA. He has recently completed a 10-day course of Zyvox plus cefepime. The pseudomonal organism is resistant to cefepime. I have recommended for another week of IV meropenem 2 g 3 times a day at a [facility] facility. Phan is willing to go to the facility to finish out IV therapy. He is additionally receiving inhaled tobramycin 300 mg once daily. Prior to hospital admission, I have been recently working on getting him approved for inhaled tobramycin 300 mg twice daily 1 month on and 1 month off. It will be important to get authorization for home use of inhaled to bramycin. (2) MRSA (methicillin resistant Staphylococcus aureus) carrier: Status: Chronic Comment: He recently completed a 10-day course of Zyvox. (3) Pseudomonas aeruginosa infection: Status: Acute Comment: Once he finishes IV meropenem for 1 more week, transition to inhaled tobramycin 300 mg twice daily for home use for the remainder of August and all of September before taking October off. My recommendation will be for him to use inhaled tobramycin 1 month on 1 month off twice daily. (4) Bronchiectasis with (acute) exacerbation: Status: Acute Comment: Chronic cough. Cough has improved with current treatment. He has a history of previous bilateral lower lobe pulmonary lobectomies. (5) COPD (chronic obstructive pulmonary disease): Status: Chronic Comment: Oxygen dependent. Current use 3-1/2 L. Thank you very much for allowing me to be involved in Nick's consultative care. Please call for any questions. Time Spent With Patient Time: Total time spent is greater than 50% in coordination of care (as documented) at patient's floor/unit and/or counseling patient:
[2020-09-18] MEDS: SENNOSIDES/DOCUSATE SODIUM 1 TAB TABLET PO SCH (21:25)
[2020-09-18] MEDS: DIGOXIN 125 MCG TABLET PO SCH (21:25)
[2020-09-18] MEDS: MONTELUKAST 10 MG TABLET PO SCH (21:25)
[2020-09-18] MEDS: LATANOPROST OPHTH DROPS 2.5ML BOTTLE OU SCH (21:38)
[2020-09-19] MEDS: ACETAMINOPHEN 325 MG TABLET PO PRN ×3 (02:20→20:33)
[2020-09-19] MEDS: IPRATROPIUM/ALBUTEROL 3 ML AMPUL.NEB NEB SCH ×6 (02:51→23:11)
[2020-09-19] MEDS: 0.9 % SODIUM CHLORIDE 10 ML SYRINGE IV SCH ×5 (05:01→22:07)
[2020-09-19] MEDS: MEROPENEM 2 GM in 0.9 % SODIUM CHLORIDE 100 ML IV SCH ×3 (05:31→22:07)
[2020-09-19] MEDS: 0.9 % SODIUM CHLORIDE 10 ML SYRINGE IV PRN ×2 (05:31→23:08)
[2020-09-19] MEDS: FUROSEMIDE 20 MG/2 ML VIAL IV SCH (05:31)
[2020-09-19] MEDS: HYPERSAL INH SCH ×4 (06:44→19:25)
[2020-09-19 06:52] LABS: Basophils # (Auto) 0.01 K/mcL (0.00-0.20); Basophils % (Auto) 0.1 % (0.0-2.0); Eosinophils # (Auto) 0.26 K/mcL (0.00-0.70); Eosinophils % (Auto) 2.5 % (0.0-7.0); Hematocrit 31.1 % (41.0-55.0); Hemoglobin 9.4 g/dL (13.5-16.5); Lymphocytes # (Auto) 0.74 K/mcL (1.50-4.80); Lymphocytes % (Auto) 7.2 % (15.0-49.0); Mean Cell Volume 97.5 fL (80.0-100.0); Mean Corpuscular HGB Conc 30.2 g/dL (31.0-36.0); Mean Platelet Volume 9.7 fL (7.4-10.4); Monocytes # (Auto) 0.31 K/mcL (0.10-0.90); Neutrophils % (Auto) 87.2 % (38.0-78.0); Platelet Count 172 K/mcL (140-440); RBC 3.19 M/mcL (4.50-5.90); Red Cell Distribution Width 13.8 % (11.5-14.5); WBC 10.3 K/mcL (4.5-11.0)
[2020-09-19 07:27] LABS: ALT/SGPT 8 U/L (<40); AST/SGOT 17 U/L (<40); Alkaline Phosphatase 58 U/L (39-117); Anion Gap 0 (8.0-16.0); Bilirubin,Direct < 0.2 mg/dL (0-0.3); Bilirubin,Total 0.2 mg/dL (0.1-1.0); Blood Urea Nitrogen 18 mg/dL (8-23); Carbon Dioxide 45 mmol/L (22-30); Chloride 91 mmol/L (96-108); Globulin 3.1 gm/dL (2.2-3.7); Glomerular Filtration Rate 93; Glucose 86 mg/dL (70-105); Lactate Dehydrogenase 190 U/L (135-225); Phosphorous 2.1 mg/dL (2.5-4.5); Triglycerides 76 mg/dL (<150); Uric Acid 4.2 mg/dL (2.5-8.0)
[2020-09-19 07:38] LABS: INR 2.5 (0.9-1.1); Prothrombin Time 27.9 sec (11.9-14.5)
[2020-09-19] MEDS: BUDESONIDE 0.5 MG/2 ML AMPUL.NEB NEB SCH ×2 (07:39→19:19)
[2020-09-19] MEDS: DOCUSATE SODIUM 100 MG CAPSULE PO SCH ×2 (09:28→20:32)
[2020-09-19] MEDS: MULTIVIT,THER IRON,CA,FA & MIN 1 TABLET PO SCH (09:28)
[2020-09-19] MEDS: LOSARTAN 25 MG TABLET PO SCH (09:28)
[2020-09-19] MEDS: predniSONE 10 MG TABLET PO SCH (09:28)
[2020-09-19] MEDS: TOBRAMYCIN SULFATE 1.2 GM VIAL INH SCH (09:28)
[2020-09-19] MEDS: PROPAFENONE HCL 225 MG PO SCH ×3 (09:29→20:32)
[2020-09-19] MEDS: FLUTICASONE/SALMETEROL 500/50 INHALER #14 INH SCH ×2 (09:29→20:38)
[2020-09-19] MEDS: FUROSEMIDE 40 MG TABLET PO SCH (09:29)
[2020-09-19] MEDS: ALBUTEROL SULFATE 2.5 MG/3 ML NEBULIZER INH SCH ×2 (11:30→20:50)
[2020-09-19] MEDS: LORazepam 0.5 MG TABLET PO PRN (12:10)
--- NOTE | 2020-09-19 17:35 | Internal Med Progress Note ---
SUBJECTIVE Subjective Patient information: Note initiated : 09/19/20 at 5:24 pm Service Date, if different from initiated Date: [] Patient: Nick Hamilton 74 y/o M admitted on 09/15/20 for SOB . Chief Complaint: [Shortness of breath due to pneumonia] Overnight: Afebrile overnight. Still on supplemental oxygen from 2 to 3.5L/min. Otherwise, there was no other major overnight events. Subjective: fever. Denies chills or sweating. c/o productive cough with green sputum. c/o mild SOB. Denies wheezing. Denies chest pain. Constitutional Vitals: Vital Signs Temp Pulse Resp BP Pulse Ox 37.1 C 77 28 H 106/59 97 09/19/20 16:01 09/19/20 16:33 09/19/20 14:58 09/19/20 16:01 09/19/20 16:33 Period Temp Pulse Resp BP Sys/Mukherjee Pulse Ox Last 24 Hr 36.9 C-37.4 C 77-107 24-28 104-133/45-67 90-99 Intake and Output 09/19/20 09/19/20 09/19/20 05:59 13:59 21:59 Intake Total 580 820 100 Output Total 650 800 300 Balance -70 20 -200 Intake & Output: Intake & Output 09/19/20 09/19/20 09/19/20 05:59 13:59 21:59 Intake Total 580 820 100 Output Total 650 800 300 Balance -70 20 -200 Intake: IV 100 100 100 Merrem 2 gm In Sodium Chloride 100 100 100 0.9% 100 ml @ 100 mls/hr IV Q8 [facility] Rx#:[id number] Oral 480 720 Output: Void Amount 650 800 300 Other: Meal Lunch Percent of Meal Consumed 100% Urine Appearance Clear Clear Urine Color Pale Bright Yellow Urine Odor Normal # Voids 250 General appearance: cooperative and no acute distress Head Head exam: Present atraumatic and normocephalic Eye Eye exam: Present EOMI and PERRL ENT ENT exam: Present mucous membranes moist, normal exam and normal external ear exam Additional comments: Nasal cannula in place Neck Neck exam: Present normal inspection; Absent lymphadenopathy, tenderness and thyromegaly Respiratory Respiratory exam: Absent accessory muscle use, respiratory distress and wheezes Additional comments: Respiratory crackles best heard in bilateral mid lung rollins. Cardiovascular Cardiovascular exam: Present normal rate and rhythm; Absent JVD GI/Abdominal GI/Abdominal exam: Present normal bowel sounds and soft; Absent organomegaly and tenderness Rectal Rectal exam: Present deferred Extremities Exam Extremities exam: Present full ROM, normal capillary refill and normal inspection; Absent tenderness Neurological Exam Neurological exam: Present alert, CN II-XII intact and oriented X3; Absent motor sensory deficit Psychiatric Psychiatric exam: Present normal affect and normal mood; Absent anxious and dep ressed Skin Skin exam: Present dry and intact OBJ DATA Labs CBC & Chem 7: 09/19/20 05:49 09/19/20 05:49 Labs: Abnormal Lab Results 09/19/20 09/19/20 09/19/20 05:49 05:49 05:49 RBC 3.19 L Hgb 9.4 L Hct 31.1 L MCHC 30.2 L Neut % (Auto) 87.2 H Lymph % (Auto) 7.2 L Lymph # (Auto) 0.74 L Absolute Neutrophils 8.93 H PT 27.9 H INR 2.5 H Chloride 91 L Carbon Dioxide 45 H* Anion Gap 0 L Phosphorus 2.1 L Albumin 3.0 L Albumin/Globulin Ratio 09/18/20 09/18/20 09/18/20 05:30 05:30 05:30 RBC 3.21 L Hgb 9.6 L Hct 32.0 L MCHC 30.0 L Neut % (Auto) 90.4 H Lymph % (Auto) 6.8 L Lymph # (Auto) 0.53 L Absolute Neutrophils PT 25.2 H INR 2.2 H Chloride 92 L Carbon Dioxide 45 H* Anion Gap 3.0 L Phosphorus Albumin 2.9 L Albumin/Globulin Ratio 0.9 L 09/17/20 09/17/20 09/17/20 05:17 05:16 05:16 RBC 3.16 L Hgb 9.5 L Hct 31.5 L MCHC 30.2 L Neut % (Auto) 86.7 H Lymph % (Auto) 8.5 L Lymph # (Auto) 0.63 L Absolute Neutrophils PT 24.3 H INR 2.1 H Chloride 95 L Carbon Dioxide 39 H Anion Gap 5.0 L Phosphorus 2.1 L Albumin 2.8 L Albumin/Globulin Ratio 0.9 L Meds: Medications Acetaminophen (Acetaminophen 325 Mg Tablet) 650 mg PO Q4-6HP PRN; Protocol PRN Reason: Per Pain Protocol/Fever > 101 Last Admin: 09/19/20 14:52 Dose: 650 mg Documented by: Albuterol Sulfate (Albuterol Sulfate 2.5 Mg/3 Ml Nebulizer) 2.5 mg INH BID [facility] Last Admin: 09/19/20 11:30 Dose: Not Given Documented by: Albuterol/Ipratropium (Ipratropium/Albuterol 3 Ml Ampul.Neb) 3 ml NEB Q4HRT [facility] Last Admin: 09/19/20 14:06 Dose: 3 ml Documented by: Bisacodyl (Bisacodyl 10 Mg Supp.Rect) 10 mg CO Q2-3DAYS PRN PRN Reason: Constipation Budesonide (Budesonide 0.5 Mg/2 Ml Ampul.Neb) 0.5 mg NEB Q12 [facility] Last Admin: 09/19/20 07:39 Dose: 0.5 mg Documented by: Digoxin (Digoxin 125 Mcg Tablet) 125 mcg PO HS [facility] Last Admin: 09/18/20 21:25 Dose: 125 mcg Documented by: Docusate Sodium (Docusate Sodium 100 Mg Capsule) 100 mg PO BID [facility] Last Admin: 09/19/20 09:28 Dose: 100 mg Documented by: Furosemide (Furosemide 40 Mg Tablet) 20 mg PO QDAY [facility] Last Admin: 09/19/20 09:29 Dose: Not Given Documented by: Guaifenesin/Codeine Phosphate (Guaifenesin/Codeine 10 Ml Udc) 10 ml PO Q4HP PRN PRN Reason: Cough Heparin Sodium (Porcine) (Heparin Flush 10 Units/Ml 5 Ml Syringe) 2 ml IV Q12 [facility] Last Admin: 09/19/20 09:28 Dose: 2 ml Documented by: Potassium Chloride 40 meq/ (Dextrose) 520 mls @ 130 mls/hr IV UD PRN PRN Reason: K+ = or < 3.5 Magnesium Sulfate (Magnesium Sulfate) 2 gm in 50 mls @ 50 mls/hr IV UD PRN PRN Reason: MG = or < 1.7 Acetaminophen (Ofirmev) 650 mg in 65 mls @ 130 mls/hr IV Q6HP PRN; Protocol PRN Reason: Per Pain Protocol/Fever > 101 Meropenem 2 gm/ Sodium (Chloride) 100 mls @ 100 mls/hr IV Q8 [facility]; Protocol Last Infusion: 09/19/20 15:22 Dose: Infused Documented by: Iron Carb/Multivit/[place]/Folic Acid (Multivit,Ther Iron,Ca,Fa & Min 1 Tablet) 1 tab PO DAILY [facility] Last Admin: 09/19/20 09:28 Dose: 1 tab Documented by: Latanoprost (Latanoprost Ophth Drops 2.5ml Bottle) 1 gtt OU QPM [facility] Last Admin: 09/18/20 21:38 Dose: 1 gtt Documented by: Lorazepam (Lorazepam 0.5 Mg Tablet) 0.5 mg PO Q4HP PRN PRN Reason: ANXIETY/SEDATION Last Admin: 09/19/20 12:10 Dose: 0.5 mg Documented by: Losartan Potassium (Losartan 25 Mg Tablet) 12.5 mg PO DAILY [facility] Last Admin: 09/19/20 09:28 Dose: 12.5 mg Documented by: Melatonin (Melatonin 3 Mg Tablet) 3 mg PO HSP PRN PRN Reason: Insomnia Montelukast Sodium (Montelukast 10 Mg Tablet) 10 mg PO QHS [facility] Last Admin: 09/18/20 21:25 Dose: 10 mg Documented by: Ondansetron HCl (Ondansetron 4 Mg Odt Tablet) 4 mg SL Q4-6HP PRN; Protocol PRN Reason: Nausea And Vomiting Ondansetron HCl (Ondansetron 4 Mg/2 Ml Vial) 4 mg IV Q4-6HP PRN; Protocol PRN Reason: Nausea And Vomiting Hypersal 7 % Inh Yamilka 1 dose INH BID [facility] Last Admin: 09/19/20 10:12 Dose: Not Given Documented by: Polyethylene Glycol (Polyethylene Glycol 3350 17 Gm Packet) 17 gm PO DAILYP PRN PRN Reason: Constipation Potassium Chloride (Potassium Chloride 20 Meq Packet) 40 meq PO DAILYP PRN PRN Reason: K+ < 3.5 Last Admin: 09/16/20 08:48 Dose: 40 meq Documented by: Prednisone (Prednisone 10 Mg Tablet) 10 mg PO [facility] Last Admin: 09/19/20 09:28 Dose: 10 mg Documented by: Propafenone HCl (Propafenone Hcl 225 Mg Tablet) 225 mg PO TID [facility] Last Admin: 09/19/20 13:56 Dose: 225 mg Documented by: Fluticasone/Salmeterol (Fluticasone/Salmeterol 500/50 Inhaler #14) 1 puff INH Q12 [facility] Last Admin: 09/19/20 09:29 Dose: Not Given Documented by: Senna/Docusate Sodium (Sennosides/Docusate Sodium 1 Tab Tablet) 1 tab PO HS [facility] Last Admin: 09/18/20 21:25 Dose: 1 tab Documented by: Sodium Chloride (0.9 % Sodium Chloride 10 Ml Syringe) 10 ml IV Q8 [facility] Last Admin: 09/19/20 13:57 Dose: 10 ml Documented by: Sodium Chloride (0.9 % Sodium Chloride 10 Ml Syringe) 10 ml IV Q12 [facility] Last Admin: 09/19/20 09:28 Dose: 10 ml Documented by: Sodium Chloride (0.9 % Sodium Chloride 10 Ml Syringe) 10 ml IV UD PRN PRN Reason: FLUSH Last Admin: 09/19/20 05:31 Dose: 10 ml Documented by: Tobramycin Sulfate (Tobramycin Sulfate 1.2 Gm Vial) 0.3 gm INH DAILY [facility]; Protocol Last Admin: 09/19/20 09:28 Dose: 0.3 gm Documented by: Warfarin Sodium (Warfarin Per Pharmacy) 1 order PO UD [facility] A/P Assessment and plan (1) Acute and chronic respiratory failure with hypoxia: Status: Acute (2) Pseudomonas aeruginosa infection: Status: Acute Comment: Once he finishes IV meropenem for 1 more week, transition to inhaled tobramycin 300 mg twice daily for home use for the remainder of August and all of September before taking Renetta off. My recommendation will be for him to use inhaled tobramycin 1 month on 1 month off twice daily. (3) Bronchiectasis with (acute) exacerbation: Status: Acute Comment: Chronic cough. Cough has improved with current treatment. He has a history of previous bilateral lower lobe pulmonary lobectomies. (4) Chronic obstructive pulmonary disease with (acute) exacerbation: Status: Acute (5) History of MRSA infection: Status: Chronic (6) CHF (NYHA class III, ACC/AHA stage C): Status: Chronic (7) MRSA (methicillin resistant Staphylococcus aureus) carrier: Status: Chronic Comment: He recently completed a 10-day course of Zyvox. (8) Artificial pacemaker: Status: Chronic (9) Hyperlipidemia: Status: Chronic (10) Paroxysmal atrial fibrillation: Status: Chronic Narrative A/P Narrative: 1. MRSA and MDR pseudomonal pneumonia: Consult ID, recs. appreciate Supplemental oxygen via nasal cannula, titrate to achieve O2sat >=92% Merropenem 2gm IV q8hr X1 week via [facility] Tobramycin INH daily for 1week, then BID until end of September Medically ready to be discharged to SNF for continued IV antibiotics therapy ID outpatient follow up in 3 week 2. h/o COPD with exacerbation: Supplemental oxygen via nasal cannula, titrate to achieve O2sat >=92% DuoNEB NEB q4hr scheduled Pulmicort Advair Prednisone Monteluklast 3. Atrial fibrillation: Coumadin with INR daily for dosing Digoxin Add Coreg 3.125mg PO BID 4. ho CHF, NYHA III: Digoxin Losartan Lasix PO Add Coreg 3.125mg PO BID 5. Anemia, normocytic normochromic: cbc w/ auto diff in the AM to trend WBC Time Spent With Patient Time: Total time spent is greater than 50% in coordination of care (as documented) at patient's floor/unit and/or counseling patient: Total time spent with greater than 50% in coordination of care (as documented) at patient's floor/unit and/or counseling patient:: 25 - 35 minutes QUALITY VTE Deep Vein Thrombosis/Pulmonary Embolism Present on Admission: No
[2020-09-19] MEDS ORDERED: WARFARIN 3 MG TABLET PO ONE (19:00)
[2020-09-19] MEDS: MONTELUKAST 10 MG TABLET PO SCH (20:32)
[2020-09-19] MEDS: SENNOSIDES/DOCUSATE SODIUM 1 TAB TABLET PO SCH (20:32)
[2020-09-19] MEDS: DIGOXIN 125 MCG TABLET PO SCH (20:33)
[2020-09-19] MEDS: LATANOPROST OPHTH DROPS 2.5ML BOTTLE OU SCH (20:38)
[2020-09-20] MEDS: IPRATROPIUM/ALBUTEROL 3 ML AMPUL.NEB NEB SCH ×4 (02:52→14:00)
[2020-09-20] MEDS: 0.9 % SODIUM CHLORIDE 10 ML SYRINGE IV PRN (05:40)
[2020-09-20] MEDS: MEROPENEM 2 GM in 0.9 % SODIUM CHLORIDE 100 ML IV SCH ×2 (05:45→14:15)
[2020-09-20] MEDS: 0.9 % SODIUM CHLORIDE 10 ML SYRINGE IV SCH (06:48)
[2020-09-20 07:22] LABS: Basophils # (Auto) 0.01 K/mcL (0.00-0.20); Basophils % (Auto) 0.1 % (0.0-2.0); Eosinophils # (Auto) 0.37 K/mcL (0.00-0.70); Eosinophils % (Auto) 3.9 % (0.0-7.0); Hematocrit 32.1 % (41.0-55.0); Hemoglobin 9.7 g/dL (13.5-16.5); Lymphocytes # (Auto) 0.73 K/mcL (1.50-4.80); Lymphocytes % (Auto) 7.7 % (15.0-49.0); Mean Cell Volume 97.9 fL (80.0-100.0); Mean Corpuscular HGB Conc 30.2 g/dL (31.0-36.0); Mean Platelet Volume 9.6 fL (7.4-10.4); Monocytes # (Auto) 0.22 K/mcL (0.10-0.90); Monocytes % (Auto) 2.3 % (1.0-12.0); Platelet Count 173 K/mcL (140-440); RBC 3.28 M/mcL (4.50-5.90); Red Cell Distribution Width 13.7 % (11.5-14.5); WBC 9.5 K/mcL (4.5-11.0)
[2020-09-20] MEDS: BUDESONIDE 0.5 MG/2 ML AMPUL.NEB NEB SCH (07:36)
[2020-09-20] MEDS: HYPERSAL INH SCH (07:38)
[2020-09-20] MEDS: FLUTICASONE/SALMETEROL 500/50 INHALER #14 INH SCH (07:39)
[2020-09-20] MEDS: ALBUTEROL SULFATE 2.5 MG/3 ML NEBULIZER INH SCH (07:40)
[2020-09-20] MEDS ORDERED: CARVEDILOL 3.125 MG TABLET PO SCH (08:00)
[2020-09-20 08:08] LABS: INR 2.5 (0.9-1.1); Prothrombin Time 28.3 sec (11.9-14.5)
[2020-09-20 08:13] LABS: ALT/SGPT 8 U/L (<40); AST/SGOT 20 U/L (<40); Albumin/Globulin Ratio 0.9 (1.0-2.3); Alkaline Phosphatase 60 U/L (39-117); Bilirubin,Direct < 0.2 mg/dL (0-0.3); Bilirubin,Total 0.2 mg/dL (0.1-1.0); Blood Urea Nitrogen 22 mg/dL (8-23); Calcium 9.2 mg/dL (8.6-10.4); Carbon Dioxide 45 mmol/L (22-30); Chloride 87 mmol/L (96-108); Globulin 3.3 gm/dL (2.2-3.7); Glomerular Filtration Rate 88; Glucose 85 mg/dL (70-105); Lactate Dehydrogenase 231 U/L (135-225); Phosphorous 2.1 mg/dL (2.5-4.5); Triglycerides 81 mg/dL (<150); Uric Acid 4.2 mg/dL (2.5-8.0)
[2020-09-20] MEDS: LOSARTAN 25 MG TABLET PO SCH (08:20)
[2020-09-20] MEDS: DOCUSATE SODIUM 100 MG CAPSULE PO SCH (08:21)
[2020-09-20] MEDS: MULTIVIT,THER IRON,CA,FA & MIN 1 TABLET PO SCH (08:21)
[2020-09-20] MEDS: FUROSEMIDE 40 MG TABLET PO SCH (08:21)
[2020-09-20] MEDS: PROPAFENONE HCL 225 MG PO SCH ×2 (08:21→15:30)
[2020-09-20] MEDS: predniSONE 10 MG TABLET PO SCH (08:22)
[2020-09-20] MEDS: TOBRAMYCIN SULFATE 1.2 GM VIAL INH SCH (09:55)
--- NOTE | 2020-09-20 11:09 | Discharge Summary ---
Discharge Provider Provider Patient information: Note initiated : 09/20/20 at 11:03 am Service Date, if different from initiated Date: [] Patient: Nick Hamilton 74 y/o M admitted on 09/15/20 for SOB . Chief Complaint: [MDR pseudomonal and MRSA pneumonia] Date of admission: 09/15/20 14:34 Discharge date: 09/20/20 Primary care physician: Hortencia Adams Consults: 09/15/20 13:47 Consult to Physician [CONS] Stat Comment: Consulting Provider: Angel Luis Ivan Reason For Exam: Physician to Consult 09/18/20 15:40 Consult to Physician [CONS] Routine Comment: Consulting Provider: Wenceslao Delgado Reason For Exam: Physician to Consult Discharge Meds Discharge Medications Home Medications latanoprost 0.005 % eye drops 1 drp OPHTHALMIC QPM ml 08/23/15 [History Confirmed 09/15/20 Last Taken 09/14/20] warfarin 7.5 mg tablet See Rx Instructions .ROUTE .COMPLEX tab 08/23/15 [History Confirmed 09/15/20 Last Taken 09/14/20] ipratropium bromide 2.5 ml NEB Q4HRT ampul.neb 10/24/15 [Rx Confirmed 09/15/20 Last Taken 09/15/20] albuterol sulfate 2.5 mg INHALATION BID ml 05/20/17 [History Confirmed 09/15/20 Last Taken 09/15/20] digoxin 125 mcg (0.125 mg) tablet 125 mcg PO HS 05/20/17 [History Confirmed 09/15/20 Last Taken 09/14/20] montelukast 10 mg tablet 10 mg PO QHS 06/11/17 [History Confirmed 09/15/20 Last Taken 09/02/20 21:00] HyperSal 7 % INHALATION BID #240 ml 05/06/19 [Rx Confirmed 09/15/20 Last Taken 0 09/15/20] furosemide 40 mg tablet 20 mg PO QDAY tab 05/06/19 [History Confirmed 09/15/20 Last Taken 09/15/20] Noninvasive ventilator.supplies tubing mask #1 ea 05/13/19 [Rx Confirmed 09/15/20 Last Taken Unknown] irbesartan 75 mg tablet 37.5 mg PO DAILY tab 05/13/19 [History Confirmed 09/15/20 Last Taken 09/15/20] propafenone 150 mg tablet 225 mg PO TID tab 03/08/20 [History Confirmed 09/15/20 Last Taken 09/03/20 13:00] budesonide 0.5 mg/2 mL suspension for nebulization 0.5 mg INHALATION BID #120 ml 07/27/20 [Rx Confirmed 09/15/20 Last Taken 09/15/20] fluticasone 500 mcg-salmeterol 50 mcg/dose blistr powdr for inhalation 1 inh INHALATION Q12H 07/27/20 [History Confirmed 09/15/20 Last Taken 09/14/20] prednisone 10 mg PO QDAY 09/15/20 [History Confirmed 09/15/20 Last Taken Unknown] codeine-guaifenesin [Guaiatussin AC] 10 ml PO Q4HP PRN #120 ml 09/20/20 [Rx Last Taken Unknown] heparin, porcine (PF) [Heparin LockFlush(Porcine)(PF)] 2 ml IV Q12 7 Days ml 09/20/20 [Rx Last Taken Unknown] meropenem 2 g IV Q8 7 Days ea 09/20/20 [Rx Last Taken Unknown] tobramycin in 0.225 % NaCl 300 mg INHALATION BID 42 Days #420 ml 09/20/20 [Rx Last Taken Unknown] tobramycin sulfate 0.3 gm INH DAILY 7 Days ea 09/20/20 [Rx Last Taken Unknown] COURSE Hospital Course Hospital course: Patient was admitted on 09/15/20 for sepsis with pneumonia. Sputum culture grew MDR pseudomonas as well as MRSA. Infectious disease Dr. Ayoub was consulted who recommended Meropenem IV and Tobramycin inahaled. Medline was placed for medications delivery. By 09/20/20, patient had reached clinical stability. As such, the decision was made to discharge him to SNF for continued IV antibiotics therapy. Meropenam 2gm IV q8hr for 1 week, Tobramycin INH daily for 1 week, then BID until 10/30/20. Follow up appointment with PCP and with Dr. Ayoub set up for patient. All questions were answered prior to patient being physically discharged. Discharge diagnosis: MDR pseudomonal and MRSA pneumonia. Reason for admission: MDR pseudomonal and MRSA pneumonia. Time Spent with Patient Time attestation: Total time spent providing and/or coordinating discharge services: Time spent: Less than 30 minutes EXAM Constitutional Vitals: Temp Pulse Resp BP Pulse Ox 36.9 C 84 32 H 122/68 94 09/20/20 07:38 09/20/20 07:40 09/20/20 07:40 09/20/20 07:38 09/20/20 07:40 General appearance: cooperative and no acute distress Head Head exam: Present atraumatic and normocephalic Eye Eye exam: Present EOMI and PERRL ENT ENT exam: Present mucous membranes moist, normal exam and normal external ear exam Neck Neck exam: Present normal inspection; Absent lymphadenopathy, tenderness and thyromegaly Respiratory Respiratory exam: Absent accessory muscle use, respiratory distress and wheezes Additional comments: Coarse breath sound in all lung rollins. Cardiovascular Cardiovascular exam: Present normal rate and rhythm; Absent JVD GI/Abdominal GI/Abdominal exam: Present normal bowel sounds and soft; Absent organomegaly and tenderness Rectal Rectal exam: Present deferred Extremities Exam Extremities exam: Present full ROM, normal capillary refill and normal inspection; Absent tenderness Neurological Exam Neurological exam: Present alert, CN II-XII intact and oriented X3; Absent motor sensory deficit Psychiatric Psychiatric exam: Present normal affect and normal mood; Absent anxious and depressed Skin Skin exam: Present dry and intact Discharge Data Data Completed and Pending Labs on day of discharge: Labs from last 24 hours 09/20/20 09/20/20 09/20/20 08:17 05:45 05:45 WBC RBC Hgb Hct MCV MCH MCHC RDW Plt Count MPV Neut % (Auto) Lymph % (Auto) [place] % (Auto) Eos % (Auto) Baso % (Auto) Lymph # (Auto) [place] # (Auto) Eos # (Auto) Baso # (Auto) Absolute Neutrophils PT 28.3 H INR 2.5 H Sodium 134 Potassium 3.8 Chloride 87 L Carbon Dioxide 45 H* Anion Gap 2.0 L BUN 22 Creatinine 0.8 GFR Calculation 88 Glucose 85 Uric Acid 4.2 Calcium 9.2 Phosphorus 2.1 L Magnesium 2.4 Total Bilirubin 0.2 Direct Bilirubin < 0.2 GGT 10 AST 20 ALT 8 Alkaline Phosphatase 60 Lactate Dehydrogenase 231 H Total Protein 6.3 Albumin 3.0 L Globulin 3.3 Albumin/Globulin Ratio 0.9 L Triglycerides 81 Tobramycin Trough < 0.33 09/20/20 05:45 WBC 9.5 RBC 3.28 L Hgb 9.7 L Hct 32.1 L MCV 97.9 MCH 29.6 MCHC 30.2 L RDW 13.7 Plt Count 173 MPV 9.6 Neut % (Auto) 86.0 H Lymph % (Auto) 7.7 L [place] % (Auto) 2.3 Eos % (Auto) 3.9 Baso % (Auto) 0.1 Lymph # (Auto) 0.73 L [place] # (Auto) 0.22 Eos # (Auto) 0.37 Baso # (Auto) 0.01 Absolute Neutrophils 8.12 H PT INR Sodium Potassium Chloride Carbon Dioxide Anion Gap BUN Creatinine GFR Calculation Glucose Uric Acid Calcium Phosphorus Magnesium Total Bilirubin Direct Bilirubin GGT AST ALT Alkaline Phosphatase Lactate Dehydrogenase Total Protein Albumin Globulin Albumin/Globulin Ratio Triglycerides Tobramycin Trough Preliminary micro results at discharge 09/15/20 13:20 Blood Culture - Preliminary Blood 09/15/20 13:15 Blood Culture - Preliminary Blood Discharge Plan Patient/Caregiver Discharge Instructions Activity: as per physical therapy Diet: Regular Diet Instructions: MRSA (Methicillin-Resistant Staphylococcus Aureus) (DC), Pneumonia (GEN) Activity Restrictions/Additional Instructions: 3 week follow up with Infectious disease 2 week follow up with PCP BiPAP at night This discharge packet is provided to you to help keep you informed about your care. We want to ensure you get everything you need when you go home. You will also be receiving a call from us in a few days to follow up with you and see how you are doing since your discharge. This gives us a chance to listen to any concerns you maybe experiencing since you were discharged or any additional needs you may have, as well as providing us feedback on your care experience. We strive to always provide excellent care and thank you for your feedback and for choosing [facility]. Prescriptions: New meropenem 500 mg Recon Soln 2 g IV Q8 7 Days RF: 0 tobramycin sulfate 1.2 gram Recon Soln 0.3 gm INH DAILY 7 Days RF: 0 tobramycin in 0.225 % NaCl 300 mg/5 mL solution for nebulization 300 mg inhalation BID 42 Days Qty: 420 RF: 0 codeine-guaifenesin [Guaiatussin AC] 10-100 mg/5 mL Liquid 10 ml PO Q4HP PRN (Reason: Cough) Qty: 120 RF: 0 heparin, porcine (PF) [Heparin LockFlush(Porcine)(PF)] 10 unit/mL Syringe 2 ml IV Q12 7 Days RF: 0 Continued latanoprost 0.005 % drops 1 drp OPHTHALMIC QPM RF: 0 warfarin 7.5 mg tablet See Rx Instructions .ROUTE .COMPLEX RF: 0 albuterol sulfate 2.5 mg /3 mL (0.083 %) solution for nebulization 2.5 mg INHALATION BID RF: 0 digoxin [Digox] 125 mcg tablet 125 mcg PO HS RF: 0 furosemide 40 mg tablet 20 mg PO QDAY RF: 0 montelukast 10 mg tablet 10 mg PO QHS RF: 0 irbesartan 75 mg tablet 37.5 mg PO DAILY RF: 0 HyperSal 7 % INHALATION BID Qty: 240 RF: 5 propafenone 150 mg tablet 225 mg PO TID RF: 0 fluticasone propion-salmeterol [Wixela Inhub] 500-50 mcg/dose blister with device 1 inh inhalation Q12H RF: 0 budesonide 0.5 mg/2 mL suspension for nebulization 0.5 mg inhalation BID Qty: 120 RF: 11 ipratropium bromide 2.5 ML solution 2.5 ml NEB Q4HRT RF: 0 prednisone 10 mg tablet 10 mg PO QDAY RF: 0 No Action (DME) Noninvasive ventilator.supplies tubing mask Qty: 1 RF: 0 Follow Up Plan Follow up with: Hortencia Adams MD [Primary Care Provider] - Patient Disposition: Xfer [facility] Prognosis: Fair Rehab Potential: Good Discharge Orders: Discharge Order (Routine); Ordered 09/20/20 Ordered By: Edy STOLL VTE Deep Vein Thrombosis/Pulmonary Embolism Present on Admission: No
[2020-09-20] MEDS ORDERED: WARFARIN 3 MG TABLET PO ONE (14:00)
== END 2020-09-20 15:47 | DRG 871 ==
LOC: ED 10:29 → ICU 14:34 → MEDSUR 09-20 08:47
PROVIDERS: ADMIT Internal Medicine; ATTEND Internal Medicine

== ENCOUNTER 2020-12-09 15:04 | Inpatient (IN) ==
[2020-12-09] MEDS ORDERED: FAMOTIDINE/PF 20 MG/2 ML VIAL IV ONE (15:21)
[2020-12-09] MEDS ORDERED: ASPIRIN 81 MG TAB.CHEW CHEWED ONE (15:21)
--- NOTE | 2020-12-09 15:28 | Emergency Department Note ---
SOB HPI General Chief Complaint: Chest Pain Stated Complaint: Chest pain Time Seen by Provider: 12/09/20 15:13 Source: patient and family Mode of arrival: wheelchair History of Present Illness HPI Narrative: Patient is a 75-year-old gentleman who arrives to the emergency department accompanied by his complaining of chest pain. Patient says he was taking a nebulizer treatment just prior to emergency department arrival when he had sudden onset of a burning sensation that radiated through the middle of his chest. The pain does not radiate anywhere else. He denies any associated vomiting or diaphoresis. He does feel short of breath but says he always feels short of breath and this is not unusual for him. He is on 4 L home oxygen and has been using this as prescribed. The pain has been significantly improving since arriving in the emergency department. The patient says he was concerned because he has never had any pain like this while taking a breathing treatment so he decided come in for further evaluation. Related Data Home Medications Medication Instructions Recorded Confirmed latanoprost 0.005 % eye drops 1 drp OPHTHALMIC QPM ml 08/23/15 12/09/20 warfarin 7.5 mg tablet See Rx Instructions .ROUTE 08/23/15 11/27/20 .COMPLEX tab albuterol sulfate 2.5 mg INHALATION QID ml 05/20/17 12/09/20 digoxin 125 mcg (0.125 mg) tablet 125 mcg PO QDAY 05/20/17 12/09/20 montelukast 10 mg tablet 10 mg PO QHS 06/11/17 12/09/20 furosemide 40 mg tablet 20 mg PO QDAY tab 05/06/19 12/09/20 propafenone 150 mg tablet 225 mg PO TID tab 03/08/20 12/09/20 fluticasone 500 mcg-salmeterol 50 1 inh INHALATION Q12H 07/27/20 12/09/20 mcg/dose blistr powdr for inhalation prednisone 20 mg PO QDAY 09/15/20 12/09/20 acetylcysteine 2 ml INHALATION TID 12/09/20 12/09/20 ipratropium bromide 2.5 ml NEB QID 12/09/20 12/09/20 ipratropium-albuterol 3 ml INHALATION Q4H PRN 12/09/20 12/09/20 tobramycin with nebulizer 300 mg INHALATION BID 12/09/20 12/09/20 Previous Rx's Medication Instructions Recorded HyperSal 7 % INHALATION BID #240 ml 05/06/19 Allergies Allergy/AdvReac Type Severity Reaction Status Date / Time Penicillins AdvReac Intermediate Fever Verified 12/09/20 15:13 Review of Systems ROS ROS Narrative: Narrative: All systems ED: reviewed and negative except as stated. Constitutional: Denies fever and chills Gastrointestinal: Denies abdominal pain and nausea PFSH Narrative Patient History Narrative: Narrative: Medical/Surgical/Family History All Active Problems Acute exacerbation of chronic obstructive pulmonary disease (Acute) Pneumonia (Acute) Pseudomonas aeruginosa infection (Acute) Hypoventilation (Acute) Bronchiectasis with (acute) exacerbation (Acute) Acute and chronic respiratory failure with hypoxia (Chronic) Acute dyspnea (Acute) Pulmonary edema (Acute) Chronic obstructive pulmonary disease with (acute) exacerbation (Chronic) Acute on chronic respiratory failure with hypoxia and hypercapnia (Acute) Anemia in chronic illness (Acute) Chronic anticoagulation (Acute) Glaucoma (Acute) Hypoxemia (Acute) Hypoxia (Chronic) Benign paroxysmal vertigo (Chronic) History of MRSA infection (Chronic) Respiratory failure, chronic (Chronic) Pneumonia, bacterial (Chronic) Paroxysmal atrial fibrillation (Chronic) Hypercholesterolemia (Chronic) Encounter for monitoring dofetilide therapy (Chronic) Elevated PSA (Chronic) CHF (NYHA class III, ACC/AHA stage C) (Chronic) 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) Biventricular pacemaker check (Chronic) 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) Vitamin D deficiency (Chronic) Sinus node dysfunction (Chronic) Bradycardia, sinus (Chronic) Artificial pacemaker (Chronic) Hyperglycemia (Chronic) Pure hypercholesterolemia (Chronic) 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 Current use 3-1/2 L. Thank you very much for allowing me to be involved in Nick's consultative care. Please call for any questions. Elevated PSA Encounter for monitoring dofetilide therapy Encounter for screening for malignant neoplasm of prostate Glaucoma History of MRSA infection Hypercholesterolemia Hyperglycemia Hyperlipidemia Hypoventilation Hypoxemia Hypoxia MRSA (methicillin resistant Staphylococcus aureus) carrier He recently completed a 10-day course of Zyvox. Paroxysmal atrial fibrillation Pneumonia Pneumonia, bacterial Nick is a pleasant 74-year-old man with COPD, bronchiectasis, chronic bronchitis, and chronic respiratory colonization with Pseudomonas. I would consider him a MRSA carrier. He has frequent episodes of pseudomonal pneumonia. I have reviewed with hospitalist Dr. Martinez. He is currently day 4 IV Vanco plus meropenem. DC vancomycin. I am more concerned about P seudomonas as the etiology for his pneumonia rather than MRSA. He has recently completed a 10-day course of Zyvox plus cefepime. The pseudomonal organism is resistant to cefepime. I have recommended for another week of IV meropenem 2 g [facility]. Phan is willing to go to the facility to finish out IV therapy. He is additionally receiving inhaled tobramycin 300 mg once daily. Prior to hospital admission, I have been recently working on getting him approved for inhaled tobramycin 300 mg twice daily 1 month on and 1 month off. It will be important to get authorization for home use of inhaled tobramycin. Presence of cardiac resynchronization therapy pacemaker Pure hypercholesterolemia Respiratory failure with hypoxia and hypercapnia Respiratory failure, chronic Sinus node dysfunction SIRS (systemic inflammatory response syndrome) Vitamin D deficiency Surgical History H/O prostate biopsy History of left hip hemiarthroplasty History of lobectomy of lung History of permanent cardiac pacemaker placement Status post partial removal of lung Patient states he has had bilateral lower lung lobes removed Family History Unknown Glaucoma Myocardial Infarction Hypertension Diabetes mellitus Type 2 diabetes mellitus Brother , Onset Age: 45 Father , Onset Age: 93 Mother , Onset Age: 96 Sister , Onset Age: 50 Social History Smoking Status: Never smoker Alcohol Intake Frequency: does not drink Substance Use: does not use Exam Narrative Narrative: Gen -patient is awake and alert and in no acute distress. HEENT -head is atraumatic. There is no conjunctival pallor or scleral icterus. CV -S1-S2 regular rate and rhythm. Peripheral pulses are palpable. Resp -breathing is nonlabored while on supplemental oxygen via nasal cannula lungs have mild rhonchi bilaterally. There is no cyanosis. GI - Abdomen is soft and nontender to palpation. There is no guarding or rebound tenderness. Derm -skin is warm and dry. MSK -present extremities are atraumatic. Psych -patient has appropriate affect. Neuro -patient answers questions appropriately with fluent speech. Patient moves all present extremities equally. Course Vital Signs Vital signs: Vital Signs Temperature 98.5 F 12/09/20 15:05 Pulse Rate 93 H 12/09/20 15:05 Respiratory Rate 26 H 12/09/20 15:05 Blood Pressure 150/64 12/09/20 15:05 Pulse Oximetry (%) 95 12/09/20 15:05 Temperature 98.7 F 12/10/20 06:28 Pulse Rate 78 12/10/20 06:28 Respiratory Rate 20 12/10/20 06:28 Blood Pressure 107/46 12/10/20 06:28 Pulse Oximetry (%) 91 12/10/20 06:28 MDM MDM Narrative Medical decision making narrative: Narrative: Lab Data Result diagrams: 12/10/20 05:20 12/10/20 05:20 Labs: Lab Results 12/09/20 12/09/20 12/09/20 Range/Units 15:55 15:55 15:55 WBC (4.5-11.0) K/mcL RBC (4.50-5.90) M/mcL Hgb (13.5-16.5) g/dL Hct (41.0-55.0) % POC Hct 32 L (41-55) % MCV (80.0-100.0) fL MCH (26.0-34.0) pg MCHC (31.0-36.0) g/dL RDW (11.5-14.5) % Plt Count (140-440) K/mcL MPV (7.4-10.4) fL Neut % (Auto) (38.0-78.0) % Lymph % (Auto) (15.0-49.0) % [place] % (Auto) (1.0-12.0) % Eos % (Auto) (0.0-7.0) % Baso % (Auto) (0.0-2.0) % Lymph # (Auto) (1.50-4.80) K/mcL [place] # (Auto) (0.10-0.90) K/mcL Eos # (Auto) (0.00-0.70) K/mcL Baso # (Auto) (0.00-0.20) K/mcL Absolute Neutrophils (1.80-8.00) K/mcL PT 36.7 H (11.9-14.5) sec INR 3.5 H (0.9-1.1) POC Sodium 138 (133-145) mEq/L POC Potassium 4.6 (3.3-5.1) mEql/L POC Chloride 88 L (96-108) mEq/L POC Total CO2 42 H (22-30) mmol/L POC BUN 20 (6-20) mg/dL POC Creatinine 0.9 (0.6-1.2) mg/dL POC Glucose 148 H (70-105) mg/dL POC WB Ioniz Calcium 1.09 L (1.16-1.32) mmEq/L Troponin T < 0.01 (<0.03) ng/mL 12/09/20 12/09/20 Range/Units 15:55 19:45 WBC 5.8 (4.5-11.0) K/mcL RBC 3.37 L (4.50-5.90) M/mcL Hgb 10.0 L (13.5-16.5) g/dL Hct 33.5 L (41.0-55.0) % POC Hct (41-55) % MCV 99.4 (80.0-100.0) fL MCH 29.7 (26.0-34.0) pg MCHC 29.9 L (31.0-36.0) g/dL RDW 14.8 H (11.5-14.5) % Plt Count 126 L (140-440) K/mcL MPV 10.2 (7.4-10.4) fL Neut % (Auto) 93.9 H (38.0-78.0) % Lymph % (Auto) 4.5 L (15.0-49.0) % [place] % (Auto) 1.6 (1.0-12.0) % Eos % (Auto) 0 (0.0-7.0) % Baso % (Auto) 0 (0.0-2.0) % Lymph # (Auto) 0.26 L (1.50-4.80) K/mcL [place] # (Auto) 0.09 L (0.10-0.90) K/mcL Eos # (Auto) 0 (0.00-0.70) K/mcL Baso # (Auto) 0 (0.00-0.20) K/mcL Absolute Neutrophils 5.40 (1.80-8.00) K/mcL PT (11.9-14.5) sec INR (0.9-1.1) POC Sodium (133-145) mEq/L POC Potassium (3.3-5.1) mEql/L POC Chloride (96-108) mEq/L POC Total CO2 (22-30) mmol/L POC BUN (6-20) mg/dL POC Creatinine (0.6-1.2) mg/dL POC Glucose (70-105) mg/dL POC WB Ioniz Calcium (1.16-1.32) mmEq/L Troponin T < 0.01 (<0.03) ng/mL ED POC Tests ED POC Tests: JAYJAY - SARS Antigen Negative EKG Data EKG #1: EKG attestation: Yes I reviewed and interpreted this EKG. EKG results narrative: Atrial sensed ventricular paced rhythm, rate 99. Normal P wave morphology. Atypical left bundle branch block without Sgarbossa's criteria. QTc is prolonged at 511. No significant changes compared to November 16, 2020. EKG was interpreted by me. Discharge Plan Patient/Caregiver Discharge Instructions Pt seen by RECEIVABLES SPECIALIST/PA only: No Patient Disposition: Xfer As Outpt/Obs ([facility]) Discharge Date/Time: 12/09/20 21:11 Discharge Location: [facility]
[2020-12-09 16:08] LABS: POC Blood Urea Nitrogen 20 mg/dL (6-20); POC CO2 42 mmol/L (22-30); POC Calcium, Ionized 1.09 mmEq/L (1.16-1.32); POC Chloride 88 mEq/L (96-108); POC Creatinine 0.9 mg/dL (0.6-1.2); POC Glucose, Random 148 mg/dL (70-105); POC Hematocrit 32 % (41-55); POC Potassium 4.6 mEql/L (3.3-5.1); POC Sodium 138 mEq/L (133-145)
--- NOTE | 2020-12-09 16:14 | XRay Report ---
HISTORY: COPD, short of breath, chest pain FINDINGS: Patient has severe bronchiectasis throughout both lungs, which was documented on a prior chest CT done on 11/16/20. Associated with this is diffuse pneumonia in both lungs. The greatest consolidation is in the left lower lobe. There is blunting of both costophrenic sulci which could be scar or small pleural effusions. Heart size is normal. Dual-chamber pacemaker is well-positioned. Pulmonary vessels cannot be evaluated. Comparison with the prior chest x-ray done on 11/26/20 shows increasing consolidation laterally at the left lung base and no change in the right lung. IMPRESSION: Severe bilateral pneumonia superimposed upon bronchiectasis Interpreted and Authenticated by: Diego Kaufman 12/09/20
[2020-12-09] MEDS ORDERED: DOXYCYCLINE 100 MG in DEXTROSE 5% IN WATER 100 ML IV ONE (17:03)
[2020-12-09] MEDS ORDERED: cefTRIAXone 1 GM VIAL IV ONE (17:03)
[2020-12-09] MEDS ORDERED: DEXTROSE 5% IN WATER 100 ML IV ONE (17:45)
[2020-12-09 17:54] LABS: INR 3.5 (0.9-1.1); Prothrombin Time 36.7 sec (11.9-14.5)
[2020-12-09 20:39] LABS: Basophils # (Auto) 0 K/mcL (0.00-0.20); Basophils % (Auto) 0 % (0.0-2.0); Eosinophils # (Auto) 0 K/mcL (0.00-0.70); Eosinophils % (Auto) 0 % (0.0-7.0); Hematocrit 33.5 % (41.0-55.0); Lymphocytes # (Auto) 0.26 K/mcL (1.50-4.80); Lymphocytes % (Auto) 4.5 % (15.0-49.0); Mean Cell Volume 99.4 fL (80.0-100.0); Mean Corpuscular HGB Conc 29.9 g/dL (31.0-36.0); Mean Platelet Volume 10.2 fL (7.4-10.4); Monocytes # (Auto) 0.09 K/mcL (0.10-0.90); Monocytes % (Auto) 1.6 % (1.0-12.0); Neutrophils % (Auto) 93.9 % (38.0-78.0); Platelet Count 126 K/mcL (140-440); RBC 3.37 M/mcL (4.50-5.90); Red Cell Distribution Width 14.8 % (11.5-14.5); WBC 5.8 K/mcL (4.5-11.0)
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
[2020-12-09] MEDS ORDERED: SODIUM CHLORIDE 7% INHALATION SCH (21:11)
[2020-12-09] MEDS ORDERED: ONDANSETRON 4 MG/2 ML VIAL IV PRN (21:11)
--- NOTE | 2020-12-09 21:20 | EKG ---
[facility] Test Date: 2020-12-09 Pat Name: Nick Hamilton Department: ED Room: Gender: Male [employer]: veronica : 1945 Requested By: Cl Arce Order Number: [id number] Reading MD: Devyn Howard M.D. Measurements Intervals [place] Rate: 99 P: 78 TN: 191 QRS: -87 QRSD: 166 T: 86 QT: 398 QTc: 511 Interpretive Statements Age not entered, assumed to be 51 years old for purpose of ECG interpretation Atrial-sensed ventricular-paced rhythm No further analysis attempted due to paced rhythm Baseline wander in lead(s) V1 Since previous ECG of 11-16-2020, FASTER PACED RATE ABNORMAL ECG Electronically Signed On 12-09-2020 21:20:34 PDT by Devyn Howard M.D. /[id number]/[email or web address]/[id number]
[2020-12-09] MEDS ORDERED: IPRATROPIUM/ALBUTEROL 3 ML AMPUL.NEB NEB ONE (22:24)
[2020-12-09] MEDS: SENNOSIDES 1 TABLET PO SCH (22:25)
[2020-12-09] MEDS: DOCUSATE SODIUM 100 MG CAPSULE PO SCH (22:25)
[2020-12-09] MEDS: MONTELUKAST 10 MG TABLET PO SCH (22:25)
[2020-12-09] MEDS: PROPAFENONE HCL 225 MG PO SCH (22:26)
[2020-12-09] MEDS: IPRATROPIUM/ALBUTEROL 3 ML AMPUL.NEB NEB PRN (22:27)
[2020-12-09] MEDS: 0.9 % SODIUM CHLORIDE 10 ML SYRINGE IV SCH (22:27)
[2020-12-09] MEDS: ACETYLCYSTEINE 800 MG/4 ML VIAL NEB SCH (22:27)
[2020-12-09] MEDS: LATANOPROST OPHTH DROPS 2.5ML BOTTLE OD SCH (22:35)
[2020-12-09] MEDS: [UNRECOGNIZED DRUG - OTHER] INHALATION SCH (22:39)
[2020-12-09] MEDS: ALBUTEROL SULFATE 2.5 MG/3 ML NEBULIZER NEB SCH (22:40)
[2020-12-09] MEDS: IPRATROPIUM 2.5 ML AMPUL.NEB NEB SCH (22:40)
[2020-12-09] MEDS: FLUTICASONE/SALMETEROL 500/50 INHALER #14 INH SCH (23:19)
[2020-12-10] MEDS: 0.9 % SODIUM CHLORIDE 10 ML SYRINGE IV SCH ×3 (04:26→21:39)
[2020-12-10 07:35] LABS: Hematocrit 30.1 % (41.0-55.0); Hemoglobin 8.8 g/dL (13.5-16.5); Mean Cell Volume 98.7 fL (80.0-100.0); Mean Corpuscular HGB Conc 29.2 g/dL (31.0-36.0); Platelet Count 117 K/mcL (140-440); RBC 3.05 M/mcL (4.50-5.90); Red Cell Distribution Width 14.3 % (11.5-14.5); WBC 5.7 K/mcL (4.5-11.0)
[2020-12-10 08:08] LABS: ALT/SGPT 16 U/L (<40); AST/SGOT 17 U/L (<40); Albumin 3.1 gm/dL (3.2-5.2); Albumin/Globulin Ratio 1.2 (1.0-2.3); Alkaline Phosphatase 54 U/L (39-117); Bilirubin,Total 0.2 mg/dL (0.1-1.0); Blood Urea Nitrogen 16 mg/dL (8-23); Calcium 8.6 mg/dL (8.6-10.4); Carbon Dioxide 44 mmol/L (22-30); Chloride 96 mmol/L (96-108); Globulin 2.6 gm/dL (2.2-3.7); Glomerular Filtration Rate 99; Glucose 87 mg/dL (70-105)
[2020-12-10] MEDS: PROPAFENONE HCL 225 MG PO SCH ×4 (08:35→21:41)
[2020-12-10] MEDS: DOCUSATE SODIUM 100 MG CAPSULE PO SCH ×2 (08:35→21:30)
[2020-12-10] MEDS: predniSONE 10 MG TABLET PO SCH (08:35)
[2020-12-10] MEDS: DIGOXIN 125 MCG TABLET PO SCH (08:36)
[2020-12-10] MEDS: FUROSEMIDE 40 MG TABLET PO SCH (08:37)
[2020-12-10 08:39] LABS: INR 2.9 (0.9-1.1); Prothrombin Time 31.6 sec (11.9-14.5)
[2020-12-10] MEDS: IPRATROPIUM/ALBUTEROL 3 ML AMPUL.NEB NEB PRN ×3 (09:28→17:55)
[2020-12-10] MEDS: ACETYLCYSTEINE 800 MG/4 ML VIAL NEB SCH ×3 (09:35→21:32)
[2020-12-10] MEDS: IPRATROPIUM 2.5 ML AMPUL.NEB NEB SCH ×4 (09:36→21:39)
[2020-12-10] MEDS: FLUTICASONE/SALMETEROL 500/50 INHALER #14 INH SCH ×2 (09:36→21:25)
[2020-12-10] MEDS: ALBUTEROL SULFATE 2.5 MG/3 ML NEBULIZER NEB SCH ×4 (09:36→21:39)
--- NOTE | 2020-12-10 09:46 | Cat Scan Report ---
History: COPD, bronchiectasis, cough, shortness of breath, pneumonia TECHNIQUE: The chest was imaged without contrast in axial plane at 2.5 mm intervals. Sagittal, coronal and axial MIPS images were created. Radiation exposure was limited using dose reduction technology. FINDINGS: There is severe bronchiectasis throughout both lungs. The maza of the dilated bronchi have thickened maza and many of them contain air-fluid levels. Superimposed upon this is a severe densely consolidating alveolar infiltrate in the left lower lobe. Many of the dilated rhonchi in the left lower lobe have become completely filled with inflammatory material. The pneumonia and bronchitis have become significantly worse since a prior chest CT done in smoking and on 11/16/20. There is a moderate size consolidating infiltrate medially in the right lower lobe which has progressed a small amount. No pleural effusion is present. Patient has old granulomatous disease with several calcified granulomata in both lungs and calcified lymph nodes in the hilario. The heart size is within normal limits. Patient has a pacemaker. Few calcified plaques are present in the aorta and coronary arteries. IMPRESSION: Severe bronchiectasis with acute superimposed on chronic inflammation. Severe left lower lobe and moderate right lower lobe pneumonia. These are becoming worse. Interpreted and Authenticated by: Diego Kaufman 12/10/20
[2020-12-10 09:54] LABS: Eosinophils % (Manual) 3 % (0-7); Lymphocytes % 24 % (15-49); Monocytes % (Manual) 3 % (1-12); Platelet Estimate DECREASED (Normal); RBC Morphology NORMAL (Normal); Segmented Neutrophils % 70 % (38-78)
[2020-12-10] MEDS ORDERED: VANCOMYCIN PER PHARMACY IV SCH (10:15)
[2020-12-10] MEDS: CEFEPIME 2 GM VIAL IV SCH ×2 (10:45→21:30)
[2020-12-10] MEDS: VANCOMYCIN 1,000 MG in 0.9 % SODIUM CHLORIDE 250 ML IV SCH ×2 (10:45→21:26)
[2020-12-10] MEDS: [UNRECOGNIZED DRUG - OTHER] INHALATION SCH (11:23)
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
[2020-12-10] MEDS ORDERED: WARFARIN 2.5 MG TABLET PO ONE (14:00)
[2020-12-10] MEDS: HYPERSAL INH SCH ×2 (14:12→21:42)
[2020-12-10] MEDS ORDERED: ALBUTEROL SULFATE 2.5 MG/3 ML NEBULIZER NEB PRN (21:16)
[2020-12-10] MEDS: LATANOPROST OPHTH DROPS 2.5ML BOTTLE OD SCH (21:27)
[2020-12-10] MEDS: SENNOSIDES 1 TABLET PO SCH (21:30)
[2020-12-10] MEDS: MONTELUKAST 10 MG TABLET PO SCH (21:30)
[2020-12-10] MEDS: IPRATROPIUM/ALBUTEROL 3 ML AMPUL.NEB NEB SCH (21:31)
[2020-12-10] MEDS: TOBRAMYCIN 300 MG/5 ML INH SCH ×2 (21:37→22:36)
[2020-12-10] MEDS: [UNRECOGNIZED DRUG - OTHER] INH SCH ×2 (21:37→22:36)
[2020-12-10] MEDS ORDERED: LORazepam 2 MG/ML VIAL ONE (21:57)
[2020-12-11] MEDS: IPRATROPIUM/ALBUTEROL 3 ML AMPUL.NEB NEB SCH ×4 (03:45→21:35)
[2020-12-11] MEDS: CEFEPIME 2 GM VIAL IV SCH ×3 (05:56→21:31)
[2020-12-11] MEDS: 0.9 % SODIUM CHLORIDE 10 ML SYRINGE IV SCH ×3 (05:57→21:32)
[2020-12-11 06:32] LABS: INR 1.9 (0.9-1.1); Prothrombin Time 22.6 sec (11.9-14.5)
[2020-12-11] MEDS: DIGOXIN 125 MCG TABLET PO SCH (08:11)
[2020-12-11] MEDS: HYPERSAL INH SCH ×2 (08:11→21:32)
[2020-12-11] MEDS: DOCUSATE SODIUM 100 MG CAPSULE PO SCH ×2 (08:11→21:31)
[2020-12-11] MEDS: FUROSEMIDE 40 MG TABLET PO SCH (08:11)
[2020-12-11] MEDS: predniSONE 10 MG TABLET PO SCH (08:11)
[2020-12-11] MEDS: FLUTICASONE/SALMETEROL 500/50 INHALER #14 INH SCH ×2 (08:12→21:32)
[2020-12-11] MEDS: PROPAFENONE HCL 225 MG PO SCH ×3 (08:12→21:31)
[2020-12-11] MEDS: [UNRECOGNIZED DRUG - OTHER] INH SCH ×2 (08:52→21:32)
[2020-12-11] MEDS: TOBRAMYCIN 300 MG/5 ML INH SCH ×2 (08:52→21:32)
[2020-12-11] MEDS: ACETYLCYSTEINE 800 MG/4 ML VIAL NEB SCH ×3 (08:54→21:30)
[2020-12-11] MEDS: VANCOMYCIN 1,000 MG in 0.9 % SODIUM CHLORIDE 250 ML IV SCH ×2 (10:13→21:43)
[2020-12-11] MEDS ORDERED: WARFARIN 5 MG TABLET PO ONE (14:00)
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
[2020-12-11] MEDS: SENNOSIDES 1 TABLET PO SCH (21:31)
[2020-12-11] MEDS: MONTELUKAST 10 MG TABLET PO SCH (21:31)
[2020-12-11] MEDS: LATANOPROST OPHTH DROPS 2.5ML BOTTLE OD SCH (21:33)
[2020-12-12] MEDS: IPRATROPIUM/ALBUTEROL 3 ML AMPUL.NEB NEB SCH ×6 (03:13→23:35)
[2020-12-12] MEDS: CEFEPIME 2 GM VIAL IV SCH ×3 (06:02→21:47)
[2020-12-12] MEDS: 0.9 % SODIUM CHLORIDE 10 ML SYRINGE IV SCH ×3 (06:02→21:47)
[2020-12-12 06:42] LABS: INR 1.5 (0.9-1.1); Prothrombin Time 19.2 sec (11.9-14.5)
[2020-12-12 07:07] LABS: Albumin 2.8 gm/dL (3.2-5.2); Blood Urea Nitrogen 15 mg/dL (8-23); Calcium 8.7 mg/dL (8.6-10.4); Carbon Dioxide 40 mmol/L (22-30); Chloride 94 mmol/L (96-108); Glomerular Filtration Rate 93; Glucose 77 mg/dL (70-105); Phosphorous 2.3 mg/dL (2.5-4.5)
[2020-12-12 07:50] LABS: Basophils # (Auto) 0 K/mcL (0.00-0.20); Basophils % (Auto) 0 % (0.0-2.0); Eosinophils % (Auto) 1.9 % (0.0-7.0); Hematocrit 27.7 % (41.0-55.0); Hemoglobin 8.3 g/dL (13.5-16.5); Lymphocytes # (Auto) 1.25 K/mcL (1.50-4.80); Lymphocytes % (Auto) 23.9 % (15.0-49.0); Mean Cell Volume 98.9 fL (80.0-100.0); Mean Platelet Volume 10.1 fL (7.4-10.4); Monocytes # (Auto) 0.19 K/mcL (0.10-0.90); Monocytes % (Auto) 3.6 % (1.0-12.0); Neutrophils % (Auto) 70.6 % (38.0-78.0); Platelet Count 103 K/mcL (140-440); Red Cell Distribution Width 14.4 % (11.5-14.5); WBC 5.2 K/mcL (4.5-11.0)
[2020-12-12] MEDS: ACETYLCYSTEINE 800 MG/4 ML VIAL NEB SCH ×4 (08:18→21:02)
[2020-12-12] MEDS: TOBRAMYCIN 300 MG/5 ML INH SCH ×2 (08:20→20:55)
[2020-12-12] MEDS: [UNRECOGNIZED DRUG - OTHER] INH SCH ×2 (08:20→20:55)
[2020-12-12] MEDS: predniSONE 10 MG TABLET PO SCH (09:15)
[2020-12-12] MEDS: PROPAFENONE HCL 225 MG PO SCH ×3 (09:16→21:46)
[2020-12-12] MEDS: HYPERSAL INH SCH ×2 (09:16→21:04)
[2020-12-12] MEDS: DIGOXIN 125 MCG TABLET PO SCH (09:16)
[2020-12-12] MEDS: FUROSEMIDE 40 MG TABLET PO SCH (09:16)
[2020-12-12] MEDS: DOCUSATE SODIUM 100 MG CAPSULE PO SCH ×2 (09:16→21:46)
[2020-12-12] MEDS: FLUTICASONE/SALMETEROL 500/50 INHALER #14 INH SCH (09:18)
--- NOTE | 2020-12-12 12:34 | XRay Report ---
CLINICAL INFORMATION: increased in dyspnea today COMPARISON: 12/09/[address] 11/16/2020 FINDINGS: Mild cardiomegaly is unchanged. Pacemaker leads in stable satisfactory position. Mediastinum is unremarkable. Pulmonary vessels are mildly distended, but unchanged. Extensive cystic bronchiectasis and fibrosis throughout both mid and lower lungs with apical sparing seen as before. Moderate patchy superimposed airspace disease in the mid and lower lungs has not significantly changed since the prior exam three days ago. Moderate left and small right pleural effusions are also stable. IMPRESSION: Severe bilateral cystic bronchiectasis and interstitial fibrosis. Moderate superimposed infiltrate in the mid and lower lungs has not changed from chest x-ray three days ago. Moderate left and small right pleural effusion stable Interpreted and Authenticated by: Prashant Juarez 12/12/20
[2020-12-12] MEDS ORDERED: WARFARIN 7.5 MG TABLET PO ONE (14:00)
[2020-12-12] MEDS ORDERED: ACETYLCYSTEINE 800 MG/4 ML VIAL NEB SCH (17:00)
[2020-12-12] MEDS: SENNOSIDES 1 TABLET PO SCH (21:46)
[2020-12-12] MEDS: LATANOPROST OPHTH DROPS 2.5ML BOTTLE OD SCH (21:46)
[2020-12-12] MEDS: MONTELUKAST 10 MG TABLET PO SCH (21:46)
[2020-12-13] MEDS: IPRATROPIUM/ALBUTEROL 3 ML AMPUL.NEB NEB SCH ×5 (04:23→20:29)
[2020-12-13] MEDS: 0.9 % SODIUM CHLORIDE 10 ML SYRINGE IV SCH ×3 (06:22→21:48)
[2020-12-13] MEDS: CEFEPIME 2 GM VIAL IV SCH ×3 (06:22→21:47)
[2020-12-13 07:11] LABS: INR 1.8 (0.9-1.1)
[2020-12-13] MEDS: ACETYLCYSTEINE 800 MG/4 ML VIAL NEB SCH ×4 (08:11→20:29)
[2020-12-13] MEDS: HYPERSAL INH SCH ×2 (08:12→20:42)
[2020-12-13] MEDS: [UNRECOGNIZED DRUG - OTHER] INH SCH ×2 (08:13→20:41)
[2020-12-13] MEDS: TOBRAMYCIN 300 MG/5 ML INH SCH ×2 (08:13→20:41)
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
[2020-12-13] MEDS: FUROSEMIDE 40 MG TABLET PO SCH (09:09)
[2020-12-13] MEDS: PROPAFENONE HCL 225 MG PO SCH ×3 (09:09→21:48)
[2020-12-13] MEDS: predniSONE 10 MG TABLET PO SCH (09:09)
[2020-12-13] MEDS: DIGOXIN 125 MCG TABLET PO SCH (09:09)
[2020-12-13] MEDS: DOCUSATE SODIUM 100 MG CAPSULE PO SCH ×2 (09:09→21:48)
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
[2020-12-13] MEDS ORDERED: WARFARIN 7.5 MG TABLET PO ONE (14:00)
[2020-12-13] MEDS: SENNOSIDES 1 TABLET PO SCH (21:47)
[2020-12-13] MEDS: MONTELUKAST 10 MG TABLET PO SCH (21:48)
[2020-12-13] MEDS: LATANOPROST OPHTH DROPS 2.5ML BOTTLE OD SCH (21:48)
[2020-12-14] MEDS: IPRATROPIUM/ALBUTEROL 3 ML AMPUL.NEB NEB SCH ×4 (00:57→12:42)
[2020-12-14] MEDS: CEFEPIME 2 GM VIAL IV SCH ×2 (06:15→13:14)
[2020-12-14] MEDS: 0.9 % SODIUM CHLORIDE 10 ML SYRINGE IV SCH (06:15)
[2020-12-14 07:12] LABS: Prothrombin Time 23.3 sec (11.9-14.5)
[2020-12-14] MEDS ORDERED: predniSONE 5 MG TABLET PO SCH (08:00)
[2020-12-14] MEDS: DOCUSATE SODIUM 100 MG CAPSULE PO SCH (08:31)
[2020-12-14] MEDS: DIGOXIN 125 MCG TABLET PO SCH (08:33)
[2020-12-14] MEDS: FUROSEMIDE 40 MG TABLET PO SCH (08:33)
[2020-12-14] MEDS: PROPAFENONE HCL 225 MG PO SCH (08:33)
[2020-12-14] MEDS: HYPERSAL INH SCH (08:37)
[2020-12-14] MEDS: ACETYLCYSTEINE 800 MG/4 ML VIAL NEB SCH ×2 (08:50→12:42)
[2020-12-14] MEDS: [UNRECOGNIZED DRUG - OTHER] INH SCH (08:58)
[2020-12-14] MEDS: TOBRAMYCIN 300 MG/5 ML INH SCH (08:58)
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
[2020-12-14] MEDS ORDERED: WARFARIN 5 MG TABLET PO ONE (14:00)
--- NOTE | 2020-12-14 14:32 | Consultation ---
DATE OF CONSULTATION: 12/14/2020 REQUESTING PHYSICIAN: Jose Roberto Saez MD HISTORY OF PRESENT ILLNESS: The patient is a pleasant 75-year-old gentleman who was admitted on 12/10/2020 because of difficulty with hypoxemia and consolidated left lower lobe appearing pneumonia. This patient is well known to the pulmonary practice with profound saccular bronchiectatic and emphysematous lungs. He has marked CO2-retention and is on a respiratory assist device at home. Because of his oxygenation and more densely consolidated infiltrate new on CT scan chest, he was admitted and initiated on antibiotic therapy with cultures subsequently growing pseudomonas as well as Klebsiella oxytoca. He was initiated on antibiotic therapy appropriate to these organisms. The patient's condition gradually improved with these interventions. Consultation was placed to Pulmonary regarding his organisms and subsequent discharge plan. An issue was raised regarding his current prednisone dose at 20 mg a day. After discussion with the hospitalist, the decision was made to try and taper this to 15 mg a day and subsequently 10 mg a day as it is likely supporting his overgrowth of organisms and may not necessarily being a significant benefit to his overall airflow issues. That decrease initially to 15 mg of prednisone daily has been initiated on his discharge from the hospital. This would obviate the need, given guidelines, for Pneumocystis prophylaxis. We will have to keep that in mind. The patient has been in the hospital and in the hospital in [place] recently. The patient has sort of gradually adapted to a very limited lifestyle based on very little pulmonary function, but still is interested in maintaining all of his therapeutic interventions and has not given hospice a serious consideration at this time. LABORATORY DATA: Collected during this hospitalization: CBC shows significant anemia with a hemoglobin of 8.3 grams per deciliter. Basic metabolic panel with elevated pCO2 at 40 consistent with his known hypoventilatory state and elevated CO2. Arterial blood gas has not been performed. REVIEW OF SYSTEMS: Without additional focus of abnormality. He denies syncope with this pacemaker and is being therapeutically anticoagulated with Coumadin in that regard. PHYSICAL EXAMINATION: GENERAL: A pleasant, conversational 71s gentleman actually in very little distress in the bed at this time. HEENT: Atraumatic, normocephalic. NECK: Supple. CHEST: Lungs have markedly decreased breath sounds in all lung rollins with coarse rhonchi, occasional interstitial sounds and mild wheeze scattered throughout. CARDIOVASCULAR: The heart is regular at this time. S1, S2, difficult to hear through the chest. No apparent gallop, rub, or jugular venous distention. There is trace dependent edema. ABDOMEN: Soft, nontender. No apparent mass or organomegaly. BONES, JOINTS AND EXTREMITIES: Without acute changes. NEUROLOGIC: Nonfocal. ASSESSMENT AND PLAN: Severe end-stage bronchiectatic and chronic obstructive pulmonary disease with new left lower lobe consolidation pneumonia. Agree with current antibiotic therapy and would extend to pseudomonas coverage with two agents if possible for 14 days. He had Infectious Disease involved in his care and referral for reevaluation there would be prudent. We will try and taper his prednisone. It is uncertain what that is contributing to his airway management, but might be promoting additional risk for immunocompromised state/infections. We will taper prednisone as able. As discussed, we will have him follow up in the clinic earliest available, missed appointment or cancellation to see how he is doing as an outpatient. Thank you for the opportunity to participate in the care of this very pleasant gentleman. KJP:[id number] Job ID: [id number] Doc ID: [id number] Lukasz Mayberry MD
== END 2020-12-14 13:37 | disposition home or self-care (01) | DRG 195 ==
LOC: ED 15:04 → MEDSUR 15:04
PROVIDERS: ADMIT Internal Medicine; ATTEND Internal Medicine